=== PATIENT | male | born 1940 | race Caucasian/White ===

== ENCOUNTER → 2016-07-02 | Outpatient (CLI) | payer OTHER ==
[~2016-07-02] MED LIST: APIX1TAB3 PO; DOXY100C76 PO; FINA5TAB4 PO; METO25TA56 PO; PRED1SUS3 OPR; RANI1TAB77 PO; TIOTCAP INH; WARF5TAB7 PO
[2016-07-02 13:31] LABS: HEMATOCRIT 44.8 % (42-52); MEAN CELL VOLUME 89.8 fL (80-100); MEAN CORPUSCULAR HEMOGLOBIN 29.9 pg (25-34); MEAN CORPUSCULAR HGB CONC 33.3 g/dl (32-36); MEAN PLATELET VOLUME 9.6 fL (7.4-10.4); PLATELET COUNT 241 K/uL (130-400); RED BLOOD COUNT 4.99 M/uL (4.7-6.1); WHITE BLOOD COUNT 9.26 K/uL (4.8-10.8)
[2016-07-02 13:51] LABS: BLOOD UREA NITROGEN 20 mg/dl (7-18); BUN/CREATININE RATIO 16.7 (10-20); CALCIUM 9.2 mg/dl (8.5-10.1); CARBON DIOXIDE 28 mmol/L (21-32); CHLORIDE 105 mmol/L (98-107); GLUCOSE 78 mg/dl (70-99); POTASSIUM 4.5 mmol/L (3.5-5.1); SODIUM 140 mmol/L (136-145)
== END | disposition home or self-care (01) ==
LOC: C.LAB 11:59
PROVIDERS: ATTEND Internal Medicine Interventional Cardiology
DX: Z01.818 Encounter for other preprocedural examination (principal)

== ENCOUNTER → 2016-07-03 | Day surgery (SDC) | payer OTHER ==
[~2016-07-03] VITALS: Ht 182.9 cm; Wt 113.5 kg
[~2016-07-03] MED LIST changes: +FENTANYL CITRATE INJ 50 MCG/1 ML 2 ML VIAL IV ONE; +FENTANYL CITRATE INJ 50 MCG/1 ML 2 ML VIAL ONE; +LIDOCAINE HCL 1% 20 ML VIAL INFIL ONE; +LIDOCAINE HCL 1% 20 ML VIAL ONE; +LIDOCAINE/EPINEPHRINE 1% INJ 50 ML VIAL ONE; +MIDAZOLAM HCL 1 MG/ML 2ML VIAL IV ONE; +MIDAZOLAM HCL 1 MG/ML 2ML VIAL ONE; +ORM MISCELLANEOUS MED XX ONE; +SODIUM CHLORIDE 0.9% 1000ML 1,000 ML IV SCH
[2016-07-03 09:04] VITALS: BP 149/88; PULSE 72; TEMP 36.6; O2SAT 100; Ht 182.9 cm; Wt 113.5 kg
[2016-07-03 09:38] VITALS: BP 149/88; PULSE 72; TEMP 36.6; O2SAT 100
--- NOTE | 2016-07-03 09:48 | Procedure Note ---
Pre-Mod Sedation Assessment General Date of Moderate Sedation: July 03, 2016. Review Cardiovascular: regular rate, rhythm, no edema Abdomen: normal bowel sounds, non tender Lungs: chest non-tender, lungs clear Airway Class: III Pre-Sedation Airway Assessment Oral Cavity: Dental Abnormalities Able to Visualize Vocal Cords: No Short Thick Neck: Yes Hx of Sleep Apnea: Yes Smoking Status: Light Tobacco Smoker Mallampati Classification: Class III ASA Classification: Class II Procedure Planning Contraindications-for Mod Sed: None Yes Notes The planned sedation has been discussed with the patient and consent obtained. I have identified the patient, determined the appropriateness of sedation and have assessed the patient immediately prior to the procedure. All medicine(s) and interventions are by my order.
--- NOTE | 2016-07-03 09:50 | History and Physical ---
History & Physical Date July 03, 2016. Chief Complaint Venous insufficiency/ulceration History of Present Illness Mr. Smith is a 76-year-old male with a history of atrial fibrillation, hyperlipidemia, hypertension, asthma and ongoing tobacco with bilateral lower extremity ulcerations that have been present since March. He has been undergoing wound care at the wound clinic with continued improvement, wounds now almost completely healed. As part of initial evaluation , underwent a venous reflux study which showed his right GSV to be dilated with reflux. His right SSV was also dilated with reflux and had thick wall potentially consistent with partial thrombus. Left GSV was dilated and did not have significant reflux and there was partial chronic thrombus in the mid calf. Left SSV showed no significant reflux. Of note, there was some evidence of perforators at the level of the ankle and deep vein waveform suggested potential right heart failure. The patient has no history of prior DVT or PE and has no family history of blood clots. Has never undergone treatment for venous insufficiency, does wear compression stockings. Has had prior venous ulcerations in the past which have healed. PAST MEDICAL HISTORY: 1. Atrial fibrillation. 2. Hyperlipidemia. 3. Hypertension. 4. Asthma. 5. Ongoing tobacco use. Past Medical/Surgical History Medical Problems: (1) Diabetes mellitus (2) skin problems Additional History Hepatic Disease: No Endocrine Disorder: No Kidney Disease: No Hypertension: Yes Heart Disease: No Bleeding Tendencies: No Infectious Diseases: No Allergies Coded Allergies: Cephalexin (Verified Allergy, Intermediate, Leukocytoclastic vasculitis, ) Neomycin (Verified Adverse Reaction, Mild, RASH, 07/03/16) Home Medications Scheduled Finasteride (Proscar), 5 MG PO QAM Metoprolol Tartrate (Lopressor) (Lopressor), 25 MG PO BID Prednisolone Acetate 1% Oph (Pred Forte 1% Oph), 1 DROP OPR TID Ranitidine HCl (Ranitidine [address]), 150 MG PO BID Tiotropium Hancock (Spiriva Handihaler), 1 CAP INH QAM Physical Examination Skin: warm/dry Eyes: sclerae normal ENT: normal ENT inspection Neck: supple Respiratory/Chest: lungs clear Cardiovascular: regular rate, rhythm Abdomen / GI: normal bowel sounds Extremities: + pertinent finding (chronic venous stasis changes, varicose veins , healed ulcerations. intact distal pulses. ) Neurologic/Psych: no motor/sensory deficits Diagnosis Venous insufficiency ASA Classification: ASA Class II Plan of Treatment Proceed with R GSV RF ablation.
--- NOTE | 2016-07-03 10:54 | Procedure Note ---
Post-Mod Sedation Assessment General Date of Moderate Sedation July 03, 2016. Review - Discharge Criteria Vital Signs Stable: Yes Alert/Oriented/Conversant: Yes Returned to Baseline Mental St: Yes Nausea Absent/Minimal: Yes Pain/Discomfort/Absent/Minimal: Yes Normal/Baseline Respirations: Yes Active Bleeding?: N/A Pt Received D/C Instructions: Yes Prescriptions Given: None Specific Proced. D/C Criteria Distal Pulses Present (Cardiac: N/A Groin site assessed-Card Cath: N/A Voided Prior To Discharge: Yes Discharged Patients Adult Escort/Transportation: Yes
--- NOTE | 2016-07-03 10:55 | [facility] Operative Report ---
Operative Report Operative Date July 03, 2016. Pre-Operative Diagnosis Venous insufficiency Post-Operative Diagnosis Venous insufficiency Procedure(s) Performed Right GSV RF ablation Surgeon Dr. Hutchinson Estimated Blood Loss < 10 Findings GSV dilated. No evidence of DVT or superficial venous thrombus Drains None Anesthesia Moderate Complication(s) None Disposition Recovery Room / PACU Description of Procedure US guided access Right GSV below the knee. Catheter inserted, 2.5 cm from SFJ. Tumescent injected. US confirmed not in deep system. 4:00, 12 cycles of RFA right GSV. No complications. Patient tolerated well. US confirmed no DVT post procedure. I attest to the content of the Intraoperative Record and any orders documented therein. Any exceptions are noted below.
--- NOTE | 2016-07-03 10:58 | Discharge Instructions ---
Discharge Instructions Procedure Procedure Date: July 03, 2016. Reason for Visit: Venous Insufficiency. Discharge Discharge Date: July 03, 2016. Discharge Diagnosis: Venous insufficiency Last Recorded Wt (Kilograms): 113.5 Anesthesia Post Anesthesia Instructions: If you have had General Anesthesia or IV Sedation: * Do not drive today. * Resume driving when surgeon permits. * Do not make important decisions or sign legal documents today. * Call surgeon for: 1. Temperature elevations greater than 101 degrees F. 2. Uncontrollable pain. 3. Excessive bleeding. 4. Persistent nausea and vomiting. 5. Medication intolerance (nausea, vomiting or rash). * For nausea and vomiting use only clear liquids such as: tea, soda, bouillon until nausea subsides, then gradually increase diet as tolerated. * If you have any concerns or questions, call your surgeon's office. If physician is unavailable and it is an emergency, call 911 or go to the nearest emergency room. Instructions Activity Recommendations: resume regular activity Return to School/Work: with no limitations Recommended Home Diet: resume previous diet Allergies: Coded Allergies: Cephalexin (Verified Allergy, Intermediate, Leukocytoclastic vasculitis, ) Neomycin (Verified Adverse Reaction, Mild, RASH, 07/03/16) Follow Up Additional Instructions: RADHA wrap until night before bed, Friday morning, wear your compression stockings and continue to wear indefinitely. Follow up Ultrasound as scheduled. Any severe pain, present to the emergency room concerned about DVT. Follow-up with: Follow-up ultrasound on Friday. Hossein Mora Recommendations: Call your doctor if: * Temperature above 101 degrees * Pain not relieved by pain medicine ordered * There is increased drainage or redness from any incision * You have any unanswered questions or concerns. Your Doctors Instructions noted above were prepared by provider Pranav Hutchinson. Patient Signature Section: Patient Instructions Signature Page Arnold Smith Patient (or Guardian) Signature/Date: I have read and understand the instructions given to me by my caregivers. Caregiver/RN/Doctor Signature/Date: The above-named patient and/or guardian has received patient instructions on this date. + Original Patient Signature Page (only) stays with chart. Please make copy for patient.
[2016-07-03 11:05] VITALS: BP 154/83; PULSE 79; TEMP 36.8; O2SAT 98
[2016-07-03 11:25] VITALS: BP 145/78; PULSE 79; TEMP 36.5; O2SAT 98
== END | disposition home or self-care (01) ==
LOC: C.ACU 07:56
PROVIDERS: ATTEND Internal Medicine Interventional Cardiology
DX: I87.2 Venous insufficiency (chronic) (peripheral) (principal); I48.91 Unspecified atrial fibrillation; I10 Essential (primary) hypertension; E78.5 Hyperlipidemia, unspecified; E11.9 Type 2 diabetes mellitus without complications; J45.909 Unspecified asthma, uncomplicated; Z79.899 Other long term (current) drug therapy

== ENCOUNTER 2016-12-25 05:57 | Day surgery (SDC) | payer OTHER ==
[2016-12-24 14:39] LABS: HEMATOCRIT 40.8 % (42-52); MEAN CELL VOLUME 88.1 fL (80-100); MEAN CORPUSCULAR HEMOGLOBIN 28.7 pg (25-34); MEAN CORPUSCULAR HGB CONC 32.6 g/dl (32-36); MEAN PLATELET VOLUME 9.5 fL (7.4-10.4); PLATELET COUNT 223 K/uL (130-400); RED BLOOD COUNT 4.63 M/uL (4.7-6.1); WHITE BLOOD COUNT 8.01 K/uL (4.8-10.8)
[2016-12-24 14:49] LABS: INR 1.1 (0.9-1.1); PARTIAL THROMBOPLASTIN RATIO 1.2; PROTHROMBIN TIME (PATIENT) 11.8 SECONDS (9.0-12.0)
[2016-12-24 15:07] LABS: BLOOD UREA NITROGEN 25 mg/dl (7-18); BUN/CREATININE RATIO 18.4 (10-20); CALCIUM 9.3 mg/dl (8.5-10.1); CARBON DIOXIDE 28 mmol/L (21-32); CHLORIDE 104 mmol/L (98-107); CREATININE 1.33 mg/dl (0.60-1.40); GLUCOSE 92 mg/dl (70-99); POTASSIUM 4.6 mmol/L (3.5-5.1); SODIUM 139 mmol/L (136-145)
[~2016-12-25] VITALS: Ht 182.9 cm; Wt 113.5 kg
[~2016-12-25 05:57] MED LIST changes: -FENTANYL CITRATE INJ 50 MCG/1 ML 2 ML VIAL IV ONE; -FENTANYL CITRATE INJ 50 MCG/1 ML 2 ML VIAL ONE; -LIDOCAINE HCL 1% 20 ML VIAL INFIL ONE; -LIDOCAINE HCL 1% 20 ML VIAL ONE; -LIDOCAINE/EPINEPHRINE 1% INJ 50 ML VIAL ONE; -MIDAZOLAM HCL 1 MG/ML 2ML VIAL IV ONE; -MIDAZOLAM HCL 1 MG/ML 2ML VIAL ONE; -ORM MISCELLANEOUS MED XX ONE; -SODIUM CHLORIDE 0.9% 1000ML 1,000 ML IV SCH; -WARF5TAB7 PO
[2016-12-25] MEDS ORDERED: SODIUM CHLORIDE 0.9% 1000ML IV SCH (06:00)
[2016-12-25 06:43] VITALS: BP 154/88; PULSE 76; TEMP 36.6; O2SAT 98; Ht 182.9 cm; Wt 113.5 kg
[2016-12-25] MEDS ORDERED: LIDOCAINE/EPINEPHRINE 1% INJ 50 ML VIAL ONE (07:37)
[2016-12-25] MEDS ORDERED: FENTANYL CITRATE INJ 50 MCG/1 ML 2 ML VIAL ONE (07:37)
[2016-12-25] MEDS ORDERED: MIDAZOLAM HCL 1 MG/ML 2ML VIAL ONE (07:37)
[2016-12-25] MEDS ORDERED: SODIUM BICARB 8.4% INJ 50 MEQ/50 ML SYR IV ONE (07:37)
[2016-12-25] MEDS ORDERED: LIDOCAINE HCL 1% 20 ML VIAL ONE (07:38)
[2016-12-25 07:50] VITALS: BP 154/88; PULSE 76; TEMP 36.6; O2SAT 98
--- NOTE | 2016-12-25 08:16 | History & Physical Bridge Note ---
H&P Re-Evaluation Bridge Note: I have examined the patient, reviewed the History & Physical and in the interval since the performance of the History & Physical I have noted the following changes of clinical significance: No changes noted
--- NOTE | 2016-12-25 08:18 | Procedure Note ---
Pre-Mod Sedation Assessment General Date of Moderate Sedation: Dec 25, 2016. Vital Signs: Vital Signs Past 12 Hours Date Time Temp Pulse Resp B/P (MAP) Pulse Ox O2 Delivery O2 Flow Rate FiO2 12/25/16 07:50 36.6 76 16 154/88 98 Room Air 12/25/16 06:43 36.6 76 16 154/88 (110) 98 Room Air Review Cardiovascular: regular rate, rhythm, no edema Abdomen: normal bowel sounds, non tender Lungs: chest non-tender, lungs clear Airway Class: III Pre-Sedation Airway Assessment Oral Cavity: Dentures Able to Visualize Vocal Cords: No Short Thick Neck: No Hx of Sleep Apnea: No Smoking Status: Never Smoker Mallampati Classification: Class III ASA Classification: Class III Procedure Planning Contraindications-for Mod Sed: None Yes Notes The planned sedation has been discussed with the patient and consent obtained. I have identified the patient, determined the appropriateness of sedation and have assessed the patient immediately prior to the procedure. All medicine(s) and interventions are by my order.
[2016-12-25] MEDS ORDERED: LIDOCAINE HCL 1% 20 ML VIAL INJ ONE (09:08)
--- NOTE | 2016-12-25 09:28 | Procedure Note ---
Post-Mod Sedation Assessment General Date of Moderate Sedation Dec 25, 2016. Vital Signs: Vital Signs Past 12 Hours Date Time Temp Pulse Resp B/P (MAP) Pulse Ox O2 Delivery O2 Flow Rate FiO2 12/25/16 07:50 36.6 76 16 154/88 98 Room Air 12/25/16 06:43 36.6 76 16 154/88 (110) 98 Room Air Review - Discharge Criteria Vital Signs Stable: Yes Alert/Oriented/Conversant: Yes Returned to Baseline Mental St: Yes Nausea Absent/Minimal: Yes Pain/Discomfort/Absent/Minimal: Yes Normal/Baseline Respirations: Yes Active Bleeding?: No Pt Received D/C Instructions: N/A Prescriptions Given: None Specific Proced. D/C Criteria Distal Pulses Present (Cardiac: N/A Groin site assessed-Card Cath: N/A Voided Prior To Discharge: N/A Discharged Patients Adult Escort/Transportation: Yes
[2016-12-25] MEDS ORDERED: ORM MISCELLANEOUS MED XX ONE (09:30)
--- NOTE | 2016-12-25 09:31 | [facility] Operative Report ---
Operative Report Operative Date Dec 25, 2016. Pre-Operative Diagnosis Chronic venous insufficiency Post-Operative Diagnosis Chronic venous insufficiency Procedure(s) Performed Left SSV RFA Surgeon Jasper Logging Assistant Surgeon(s) Maddison Estimated Blood Loss 3 Findings Dilated left SSV with varices Drains None Anesthesia Local Complication(s) None Disposition Recovery Room / PACU Indications Venous ulcerations Description of Procedure US guided access Left SSV above the ankle. Catheter inserted to just below the knee. Tumescent injected. US confirmed not in deep system. 2:40, 8 cycles of RFA left SSV. No complications. Patient tolerated well. US confirmed no DVT post procedure. I attest to the content of the Intraoperative Record and any orders documented therein. Any exceptions are noted below.
--- NOTE | 2016-12-25 09:32 | Discharge Instructions ---
Discharge Instructions Procedure Procedure Date: Dec 25, 2016. Reason for Visit: Chronic Venous Insufficiency. Discharge Discharge Date: Dec 25, 2016. Discharge Diagnosis: Chronic venous insufficiency Last Recorded Wt (Kilograms): 113.5 Anesthesia Post Anesthesia Instructions: If you have had General Anesthesia or IV Sedation: * Do not drive today. * Resume driving when surgeon permits. * Do not make important decisions or sign legal documents today. * Call surgeon for: 1. Temperature elevations greater than 101 degrees F. 2. Uncontrollable pain. 3. Excessive bleeding. 4. Persistent nausea and vomiting. 5. Medication intolerance (nausea, vomiting or rash). * For nausea and vomiting use only clear liquids such as: tea, soda, bouillon until nausea subsides, then gradually increase diet as tolerated. * If you have any concerns or questions, call your surgeon's office. If physician is unavailable and it is an emergency, call 911 or go to the nearest emergency room. Instructions Activity Recommendations: resume regular activity Recommended Home Diet: resume previous diet Allergies: Coded Allergies: Cephalexin (Verified Allergy, Intermediate, Leukocytoclastic vasculitis, 12/25/16) Neomycin (Verified Adverse Reaction, Mild, RASH, 12/25/16) Follow Up Additional Instructions: Follow instructions as outlined in paperwork from Dr. Hutchinson' office. Up walking today. Follow up Ultrasound as scheduled. RADHA wrap until scheduled ultrasound Post ultrasound wear compression stockings indefinitely. Any severe pain, present to the emergency room for evaluation for DVT. Follow-up with: As scheduled Hossein Mora Recommendations: Call your doctor if: * Temperature above 101 degrees * Pain not relieved by pain medicine ordered * There is increased drainage or redness from any incision * You have any unanswered questions or concerns. Your Doctors Instructions noted above were prepared by provider Pranav Hutchinson. Patient Signature Section: Patient Instructions Signature Page Arnold Sarah Patient (or Guardian) Signature/Date: I have read and understand the instructions given to me by my caregivers. Caregiver/RN/Doctor Signature/Date: The above-named patient and/or guardian has received patient instructions on this date. + Original Patient Signature Page (only) stays with chart. Please make copy for patient.
[2016-12-25 09:45] VITALS: BP 145/86; PULSE 85; TEMP 36.8; O2SAT 98
[2016-12-25 10:15] VITALS: BP 140/86; PULSE 83; O2SAT 94
--- NOTE | 2016-12-25 14:54 | HISTORY & PHYSICAL EXAMINATION ---
DATE: 12/25/16 HISTORY OF PRESENT ILLNESS: Mr. Smith is a 76-year-old male with a history of atrial fibrillation, hypertension, hyperlipidemia, ongoing tobacco use and longstanding bilateral lower extremity ulcerations in the setting of chronic venous insufficiency, who was seen again today in the setting of persistent left lower extremity ulceration. The patient has previously undergone right GSV ablation which was completed in June 2016. This procedure was complicated by DVT in his popliteal vein for which he has been on chronic anticoagulation. With this procedure though, he had significant improvement in his lower extremity swelling and discomfort. He continues to follow up with the wound clinic due to recurrent wounds over the medial aspect of his left lower leg. Repeat venous reflux study 2 weeks ago showed appropriate closure of right GSV, chronic thrombus in right SSV and right and left popliteal veins. Left SSV was dilated and showed reflux in the mid segment. There was also a pathological rn prior authorization at the level of the mid calf on the left. PAST MEDICAL HISTORY: 1. Atrial fibrillation. 2. Hyperlipidemia. 3. Hypertension. 4. Asthma. 5. Ongoing tobacco abuse. HOME MEDICATIONS: Include Eliquis 5 mg b.i.d., finasteride 5 mg q.a.m., metoprolol 25 mg t.i.d., Ranitidine 150 mg b.i.d., Spiriva inhaler. REVIEW OF SYSTEMS: Ten-point review of systems was completed; otherwise, negative unless noted in the HPI. SOCIAL HISTORY: . Ongoing smoking. Denies significant alcohol. PHYSICAL EXAMINATION: VITAL SIGNS: Temperature 37.1, pulse 94, blood pressure 129/76. GENERAL: The patient appears comfortable, no acute distress. HEENT: Sclerae are anicteric. Oropharynx clear. Mucous membranes are moist. NECK: Supple, no lymphadenopathy. LUNGS: Clear to auscultation bilaterally. HEART: Irregularly irregular with no appreciable murmurs. ABDOMEN: Soft. EXTREMITIES: He has trophic changes and hyperpigmentation involving his left lower extremity with significant varicosities and reticular veins. NEUROLOGIC: He has a healed superficial ulceration over the medial aspect of his left ham. IMPRESSION AND PLAN: 1. Recurrent venous stasis ulcerations. 2. Chronic venous insufficiency. 3. Partial chronic thrombosis, on anticoagulation. 4. Atrial fibrillation. The patient has recurrent left lower extremity ulcerations in the setting of superficial venous insufficiency, CEAP class 5 disease. On review of patient's ultrasound results, I feel that left SSV is potentially amenable to RFA ablation. Also has a pathological rn prior authorization from the posterior tibial vein to his greater saphenous vein. This could also be amenable to therapy as well. Discussed risks, benefits and alternatives of the procedure and is willing to proceed. We will plan to schedule left SSV at some point in the next several weeks. In the interim, continue on current anticoagulation which we will continue in the ministerio-procedure setting. Further followup pending results of procedure. Thank you for consultation.
== END 2016-12-25 10:35 | disposition home or self-care (01) ==
LOC: C.ACU 05:57
PROVIDERS: ATTEND Internal Medicine Interventional Cardiology
DX: I87.2 Venous insufficiency (chronic) (peripheral) (principal); L97.909 Non-pressure chronic ulcer of unspecified part of unspecified lower leg with unspecified severity; I48.91 Unspecified atrial fibrillation; I10 Essential (primary) hypertension; E78.5 Hyperlipidemia, unspecified; J45.909 Unspecified asthma, uncomplicated; F17.200 Nicotine dependence, unspecified, uncomplicated; Z01.818 Encounter for other preprocedural examination

== ENCOUNTER 2019-02-19 20:27 | Inpatient (IN) ==
[2019-02-19] MEDS ORDERED: PIPERACILLIN/TAZOBACTAM 4.5 GM/120 ML BAG IV ONE (21:01)
[2019-02-19] MEDS ORDERED: PIPERACILL/TAZOBAC CONSULT ACTIVE PRN (21:01)
[2019-02-19] MEDS ORDERED: VANCOMYCIN CONSULT ACTIVE PRN (21:03)
[2019-02-19] MEDS ORDERED: VANCOMYCIN HCL 2,500 MG in SODIUM CHLORIDE 0.9% 500 ML IV ONE (21:03)
[2019-02-19] MEDS ORDERED: ONDANSETRON INJ 2 MG/ML 2 ML VIAL IV PRN (22:53)
[2019-02-19] MEDS ORDERED: GLUCAGON FOR INJ 1 MG VIAL SQ PRN (22:53)
[2019-02-19] MEDS ORDERED: DEXTROSE 50% 50 ML SYRINGE IV PRN (22:53)
[2019-02-19] MEDS ORDERED: ACETAMINOPHEN 325 MG TAB PO PRN (22:53)
[2019-02-19] MEDS ORDERED: CARBOHYDRATES FOR HYPOGLYCEMIA PO PRN (22:53)
[2019-02-19] MEDS ORDERED: EUCERIN CR 120 GM JAR EXT PRN (22:53)
[2019-02-19] MEDS ORDERED: GLUCOSE 40% GEL 15 GM TUBE PO PRN (22:53)
[2019-02-19] MEDS ORDERED: GLUCOSE 10 TABS/TUBE PO PRN (22:53)
[2019-02-19] MEDS ORDERED: DAPTOMYCIN CONSULT ACTIVE PRN (23:03)
--- NOTE | 2019-02-19 23:09 | Emergency Department Note ---
Entered by Yesi Killian acting as a scribe for Ricky Barahona MD History of Present Illness General Chief complaint: Swelling/Edema to Extremity Stated complaint: SWELLING LEGS, WAS HERE EARLIER Time Seen by Provider: 02/19/19 20:32 Source: patient History of Present Illness Provider complaint: leg pain Onset (ago): hour(s) 5 Location: lower extremity and left Severity: similar to prior episodes Pain Consistency: + other (worsening) Maximum Pain Intensity: 6 Relieved By: + none Associated symptoms: + other (-congestion); no cough and no fever/chills The patient is a 78 year old male who presents to the Emergency Room with complaints of left leg pain for the past 5 hours. The patient reports that he was here earlier for similar symptoms and refused admission. He reports that his right leg worsened in pain. He reports that the swelling and redness has increased since he left the ED at 1500. He notes that he was been going to the Wound Care clinic 2 times a week for the past 2 years. He reports that when he went today his toe was bleeding and they referred him to the ED. He mentions that he has been taking antibiotics regularly. He denies any fever, chills, cough, or congestion. Home Medications Home Medications Medication Instructions Recorded Confirmed Type apixaban 5 mg tablet 5 mg PO BID 10/10/17 02/19/19 History metoprolol tartrate 25 mg tablet 25 mg PO BID 10/10/17 02/19/19 History finasteride 5 mg tablet 5 mg PO QAM 07/28/18 02/19/19 History bupropion HCl 150 mg 24 hr tablet, 150 mg PO BID 02/05/19 02/19/19 History extended release furosemide 40 mg tablet 60 mg PO BID #30 tab 02/05/19 02/19/19 Rx atorvastatin 10 mg PO QAM 02/19/19 02/19/19 History naproxen sodium [Aleve] 220 mg PO Q12H PRN 02/19/19 02/19/19 History sulfamethoxazole-trimethoprim 1 tab PO Q12H 14 Days #28 tab 02/19/19 02/19/19 Rx [Bactrim DS] Allergies Allergy/AdvReac Type Severity Reaction Status Date / Time cephalexin Allergy Intermediate Leukocytoclastic Verified 02/19/19 12:26 vasculitis neomycin AdvReac Mild RASH Verified 02/19/19 12:26 Past Med/Surg History Medical History A-fib (Chronic) Asthma (Chronic) Atrial fibrillation BPH (benign prostatic hyperplasia) Callus (Acute) Chronic venous insufficiency (Chronic) CKD (chronic kidney disease), stage III Diastolic heart failure DM II (diabetes mellitus, type II), controlled (Chronic) Dyslipidemia Edema (Chronic) GERD (gastroesophageal reflux disease) (Chronic) Hallux rigidus of left foot (Acute) Hallux rigidus, right foot (Acute) Hypertension (Chronic) Morbid obesity due to excess calories Osteoarthritis (Chronic) Positive Lyme disease serology (Chronic) Secondary pulmonary hypertension Skin problem (Chronic) Subdural bleeding (Chronic) Surgical History History of craniotomy 08/01/2014 - evacuation of subdural hematoma - Dr Abundio Mahmood at [facility] Family History Other Diabetes Social History Preferred Language: Surinamese Communication Ability: Effective 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 and A total of 10 systems reviewed and were otherwise negative Physical Exam Vital Signs Vital Signs - 24 hr 02/19/19 20:28 Temperature 37 C Temperature Source Oral Pulse Rate 100 H Respiratory Rate 18 Respiratory Effort / Characteristics Non-Labored Respiratory Depth Normal Respiratory Pattern Regular Blood Pressure 126/58 L Blood Pressure Mean 80 Pulse Oximetry 95 Oxygen Delivery Method Room Air Sepsis Recent Fever Within 48 Hours No Sepsis Action Taken by Nursing No Action Required GENERAL: Awake, alert, unkept, uncomfortable-appearing, in no distress HENT: Normocephalic, atraumatic. Oropharynx unremarkable. EYES: Normal conjunctiva. Sclera non-icteric. NECK: Supple. No nuchal rigidity. FROM. No JVD. RESPIRATORY: CTAB CARDIAC: Regular rate, normal rhythm. Extremities warm and well perfused. Pulses equal. ABDOMEN: Soft, non-distended. No tenderness to palpation. No rebound or guarding. No masses. RECTAL: Deferred. MUSCULOSKELETAL: Chest examination reveals no tenderness. The back is symmetrical on inspection without obvious abnormality. There is no CVA tenderness to palpation. No joint edema. LOWER EXTREMITIES: 2+ lower bilateral pitting edema, erythema, warmth, tenderness of lower legs extending to foot with foul smelling discharge and desquamation with left lower leg significantly worse than right. NEURO: Normal sensorium. No sensory or motor deficits noted. SKIN: No rash or jaundice noted. Course Course 2037: The patient was evaluated in room B2, and a complete history and physical examination were performed. 2124: I reviewed the [facility] He will evaluate the patient for further management. Administered Medications Acetaminophen (Tylenol) 650 mg PO Q4H PRN PRN Reason: Pain or Fever Stop: 03/21/19 22:52 Last Admin: 02/20/19 02:15 Dose: 650 mg Documented by: [id number] Diphenhydramine HCl (Benadryl Capsule) 25 mg PO Q6H PRN PRN Reason: Itching Stop: 03/21/19 22:52 Last Admin: 02/19/19 23:51 Dose: 25 mg Documented by: [id number] Piperacillin Sod/Tazobactam (Sod 4.5 gm/ Dextrose) 120 mls @ 30 mls/hr IV Q8H [facility]; Protocol Stop: 03/02/19 01:59 Last Admin: 02/20/19 00:57 Dose: 30 mls/hr Documented by: [id number] Discontinued Medications Piperacillin Sod/Tazobactam Sod (Zosyn) 4.5 gm in 120 mls @ 240 mls/hr IV NOW ONE Stop: 02/19/19 21:30 Last Infusion: 02/19/19 23:39 Dose: 0 mls/hr Documented by: [id number] Admin: 02/19/19 21:50 Dose: 240 mls/hr Documented by: [id number] Vancomycin HCl 2,500 mg/ (Sodium Chloride) 550 mls @ 200 mls/hr IV NOW ONE Stop: 02/19/19 23:32 Last Infusion: 02/20/19 00:54 Dose: 0 mls/hr Documented by: [id number] Admin: 02/19/19 21:50 Dose: 200 mls/hr Documented by: [id number] Miscellaneous (Patient's Height And/Or Weight Needed) 1 ea N/A Q30M RAIMUNDO Stop: 03/21/19 22:59 Last Admin: 02/19/19 23:39 Dose: Not Given Documented by: [id number] Admin: 02/19/19 23:30 Dose: 1 ea Documented by: [id number] Medical Decision Making Differential Diagnosis Differential diagnosis: Etiologies such as cellulitis, abscess, MRSA infection, DVT, necrotizing fasciitis, dermatitis, drug eruption, as well as others were entertained. Medical Records Attestation: I reviewed the patient's medical records. Home Medications Current Medication List: was personally reviewed by me Laboratory Data Attestation: I reviewed the patient's lab results. ECG Data Attestation: I personally reviewed and interpreted this ECG as follows: Indication: + weakness Rate (beats per minute): 100 Rhythm: + sinus rhythm ECG Intervals/blocks: + Normal QT-c (438) ECG [place]: + Normal ECG ST segments: no ST depression and no ST elevation ECG Findings: + PACs Blood Pressure Blood Pressure Findings: Low blood pressure Blood Pressure Disposition: further management by hospitalist LOBO Velazco The patient is a pleasant 78-year-old gentleman with a past medical history recurrent cellulitis, afib on Eliquis, DM2, pulm htn, ckd, hld, venous stasis who presents emergency department for the second time today after initially being referred by the wound clinic for evaluation and admission however upon his ED evaluation earlier today he preferred discharge but now returns for admission per HPI. Earlier today was given dose of daptomycin and prescription for Bactrim. However, the patient reports upon arriving home his left lower extremity continue to ache and with weeping and therefore he ultimately decided he will be agreeable for admission and returned. On arrival the patient is uncomfortable but in NAD, AFVSS. On exam, there is 2+ lower bilateral pitting edema, erythema, warmth, tenderness of lower legs extending to foot with foul smelling discharge and desquamation with left lower leg significantly worse than right. Patient has dopplerable DP pulses bilaterally. Lab work from earlier today with WBC wnl and Chemistry without acidosis. Blood cultures were also dr west. The patient was ordered for broad-spectrum antibiotics with Zosyn and vancomycin. Case was discussed with Dr. fowler who, [facility] hospitalist, who evaluate the patient for admission. Impression & Plan Cellulitis, Anticoagulated on Coumadin, History of atrial fibrillation, Chronic venous insufficiency Discharge Plan Visit Data *Final* Discharge Date/Time: 02/19/19 22:33 Chief Complaint: Swelling/Edema to Extremity Stated Complaint: SWELLING LEGS, WAS HERE EARLIER ED Provider: Ricky Barahona Discharge Problem: Cellulitis, Anticoagulated on Coumadin, History of atrial fibrillation, Chronic venous insufficiency Patient Disposition: Admitted As Inpatient Discharge Instructions Interventions: ED Discharge Assessment Last Done: 02/19/19 22:33 Discharge Problem: Cellulitis Qualifiers: Site of cellulitis: extremity Site of cellulitis of extremity: lower extremity Laterality: unspecified laterality Qualified Code(s): L03.119 - Cellulitis of unspecified part of limb The scribe's documentation has been prepared under my direction and personally reviewed by me in its entirety. I confirm that the note above accurately reflects all work, treatment, procedures, and medical decision making performed by me.
[2019-02-19] MEDS: PATIENT'S HEIGHT AND/OR WEIGHT NEEDED SCH ×2 (23:30→23:39)
[2019-02-20] MEDS: PIPERACILLIN/TAZOBACTAM 4.5 GM in DEXTROSE 5% 100 ML IV SCH ×3 (00:57→17:47)
--- NOTE | 2019-02-20 02:38 | History and Physical Report ---
DATE OF ADMISSION: 02/19/2019 CHIEF COMPLAINT: Lower extremity cellulitis. 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 The patient is having chronic skin changes and erythema of the lower extremity for some time and is following with wound care. He was on doxycycline. He goes to wound care twice weekly and it was at wound care they noticed some drainage from his left foot near the first two toes and was advised to come to the ER. He was here in the ER today earlier in the day and he was given daptomycin and his labs at that time showed no leukocytosis and lactic acid was 1.6. He preferred to go home and he was discharged on Bactrim, but on going home there was more weeping from his left lower extremity and it was felt that he was getting worse and he was having more pain than usual. He walks with the help of a stick. He complains of pain in both lower feet, and therefore decided to come here and his son brought him to the hospital. Currently resting comfortably and hemodynamically stable, somewhat hard to hear. Denies any headache, no dizziness, no blurred vision. No cough, no fever, no chills. Appetite is okay. No difficulty swallowing. No odynophagia. He does not sleep well. As per son, there is a plan for sleep study, but denies any shortness of breath while sleeping. No nausea, no vomiting. Appetite is okay. No abdominal pain. Normal bowel and bladder movements. No hematuria. Currently resting comfortably. ALLERGIES: KEFLEX AND NEOMYCIN. PAST MEDICAL HISTORY: As mentioned above. PAST SURGICAL HISTORY: Opened skull for removal of hematoma on the right side. MEDICATIONS: The patient is on apixaban 5 mg p.o. b.i.d., Lipitor 10 mg p.o. daily, bupropion HCL 150 mg p.o. b.i.d., Proscar 5 mg p.o. a.m., Lasix 60 mg p.o. b.i.d., metoprolol 25 mg p.o. b.i.d., naproxen 220 mg p.r.n., Bactrim DS 1 tablet p.o. b.i.d. FAMILY HISTORY: Significant for father had diabetes and had heart disorder, mother had hypertension, sister had renal failure and at the age of 35. SOCIAL HISTORY: Lives alone. Smokes daily. Now has cut back to 2-3 cigarettes a day. No alcohol use, no drug use. REVIEW OF SYSTEMS: As per HPI. Rest of the review of systems negative. PHYSICAL EXAMINATION: GENERAL: The patient is obese, not in acute distress. VITAL SIGNS: Temperature 37, pulse 100, respiratory rate 18, blood pressure 126/58, oxygen 95% on room air. HEENT: No pallor, no icterus. Pupils equal, round, and reactive to light. Oral mucosa moist. NECK: No JVD, no neck masses. Supple. CARDIOVASCULAR: S1, S2 heard, regular rate and rhythm, no murmur, no gallop. RESPIRATORY SYSTEM: Normal AP diameter. No accessory muscle use. No wheezing, no crackles. ABDOMEN: Soft, bowel sounds present, nontender. No distention. CENTRAL NERVOUS SYSTEM: Alert, awake, and oriented. Obeys commands. Moves extremities. EXTREMITIES: Bilateral lower extremity edema present. Lower extremity chronic skin changes seen. Left lower extremity is erythematous from below the knee and there is weeping seen on the dorsal aspect of foot below the toes. LABORATORY DATA: Labs done from the morning, WBC 10.1, hemoglobin 13.8, hematocrit 41.8, platelets 282. Sodium 137, potassium 4.1, chloride 104, bicarbonate 29, BUN 34, creatinine 1.2, serum glucose 101, lactate 1.6, calcium 9.5. ASSESSMENT AND PLAN: This is a 78-year-old male who presents with nonhealing bilateral lower extremity cellulitis. 1. Lower extremity cellulitis, bilateral, more on the left side. There is some weeping on the dorsal aspect of the left foot. He follows with wound care 2 times a week. He was recently started on doxycycline . He was in the ER in the morning because of the drainage and he wanted to go home, so he was discharged on Bactrim. He is hemodynamically stable, no leukocytosis. We will empirically place him on IV daptomycin and Zosyn for now and follow the cultures, which were drawn in the morning. We will also get x-rays to rule out any underlying bone infection. We will also get wound care and ID consult. We will also get a lower extremity arterial Doppler for any PVD. 2. History of atrial fibrillation, on Toprol-XL and Eliquis, which he will continue. 3. History of tobacco abuse and mild chronic obstructive pulmonary disease, continue home inhalers, currently stable. 4. History of benign prostatic hypertrophy. Continue Proscar. 5. History of diastolic congestive heart failure. Will continue home Lasix and monitor for any volume overload. 6. Type 2 diabetes. His last HbA1c was 6.5. We will follow the repeat HbA1c and follow the blood sugar while he is in the hospital. 7. Hyperlipidemia, on statin, which we will hold while he is on daptomycin. 8. Chronic kidney disease stage III. Baseline creatinine around 1.1-1.2, today's creatinine is 1.2. We will follow the labs in the a.m. 9. Deep venous thrombosis prophylaxis, on Eliquis. DISPOSITION: Admit to medical floor. Level 1 full code. PT and OT prior to discharge. Social service to help with discharge planning. HOPE
[2019-02-20] MEDS ORDERED: HYDROmorphone INJ 0.5 MG/0.5 ML SYR IV PRN (02:55)
[2019-02-20] MEDS ORDERED: HYDROmorphone INJ 0.5 MG/0.5 ML SYR ONE (03:04)
[2019-02-20] MEDS ORDERED: SODIUM CHLORIDE 0.65% NA SOLN 45 ML (OCEAN) PRN (04:02)
[2019-02-20] MEDS ORDERED: LORazepam 1 MG TAB PO STA (07:11)
[2019-02-20] MEDS: METOPROLOL TARTRATE 25 MG TAB PO SCH ×2 (07:22→20:35)
[2019-02-20] MEDS: FUROSEMIDE 20 MG TAB PO SCH ×2 (07:22→17:52)
--- NOTE | 2019-02-20 07:22 | XRay Report ---
XR foot LT min 3V routine, XR foot RT min 3V routine, XR tibia fibula LT 2V, XR tibia fibula RT 2V CLINICAL HISTORY: Lower leg and foot swelling. Assess for osteomyelitis. COMPARISON STUDY: Left foot radiograph 05/21/2018. FINDINGS: Dorsal soft tissue swelling within the left forefoot. Moderate osteoarthritis within the le ft first MTP joint. No fracture or dislocation within the lower legs or feet. Bilateral plantar heel spurs are noted. There is also mild dorsal soft tissue swelling within the right forefoot. No erosive changes or cortical destruction to suggest osteomyelitis. Diffuse subcutaneous edema/swelling within the bilateral lower legs. This is most pronounced on the left. IMPRESSION: 1. Left greater than right soft tissue swelling/edema within the lower legs and feet. 2. No underlying bony destruction to suggest osteomyelitis. ACT 112: Negative or not required by law. Electronically signed by: Corwin Armstrong M.D. 02/20/2019 7:21 AM
[2019-02-20] MEDS: BuPROPion XL 150 MG TABCR PO SCH ×2 (07:23→20:36)
[2019-02-20] MEDS: APIXABAN 5 MG TABLET PO SCH ×2 (07:23→20:36)
[2019-02-20] MEDS: FINASTERIDE 5 MG TAB PO SCH (07:23)
[2019-02-20 08:04] LABS: Hematocrit (blood only) 40.2 % (42-52); Hemoglobin 13.4 g/dL (14.0-18.0); Mean Corpuscular Hemoglobin 29.5 pg (25-34); Mean Corpuscular Hgb Conc 33.3 g/dL (32-36); Mean Corpuscular Volume 88.5 fL (80-100); Mean Platelet Volume 9.3 fL (7.4-10.4); Platelet Count 243 K/uL (130-400); RDW Coefficient of Variation 14.7 % (11.5-14.5); RDW Standard Deviation 47.7 fL (36.4-46.3); Red Blood Count 4.54 M/uL (4.7-6.1); White Blood Count 9.22 K/uL (4.8-10.8)
[2019-02-20] MEDS: INSULIN ASPART 100 UNITS/ML 3 ML PEN SC SCH ×4 (08:33→22:01)
[2019-02-20 08:36] LABS: BUN Creatinine Ratio 20.9 (10-20); Calcium 9.6 mg/dl (8.5-10.1); Creatinine Clr Calc Pharmacy 62.9 ml/min; Est GFR (Non-African American) 51.8; Potassium 3.8 mmol/L (3.5-5.1)
--- NOTE | 2019-02-20 11:40 | Ultrasound Report ---
US arterial duplex LE BI CLINICAL HISTORY: infection, venous stasis ulcer COMPARISON STUDY: None. FINDINGS: Mild scattered calcified plaque. Normal velocities and waveforms seen throughout the visual ized bilateral lower extremity arterial systems. No significant stenosis or occlusion identified. Of note, the patient deferred imaging of the left calf vessels. IMPRESSION: No significant stenosis or occlusion identified within the bilateral lower extremities. ACT 112: Negative or not required by law. Electronically signed by: Corwin Armstrong M.D. 02/20/2019 11:39 AM
--- NOTE | 2019-02-20 13:55 | Hospitalist Progress Note ---
Date of Service February 20, 2019 Assessment & Plan (1) Cellulitis: (2) Peripheral vascular disease: -This is a 78 year old male who presents to the Emergency Room with complaints of left leg pain and admitted by nocturnal hospital doctor for bilateral lower extremity cellulitis -empirically started on admission on IV Zosyn and IV daptomycin which will be continued with plans for infectious disease consultation -US arterial duplex of lower extremities bilaterally with: Mild scattered sofía cified plaque. Normal velocities and waveforms seen throughout the visualized bilateral lower extremity arterial systems. No significant stenosis or occlusion identified. Of note, the patient deferred imaging of the left calf vessels. and Radiology IMPRESSION: No significant stenosis or occlusion identified within the bilateral lower extremities -on re-assessment by day time hospitalist, have expressed concerns to patient and his family whether peripheral vascular disease also plays a role for the skin desquamation despite benign results on arterial ultrasound -patient reports history of leg vascular procedures with Dr. Guillermo Hutchinson for both legs and hospitalist asked Dr. Hutchinson for consultation in regards to any further invasive studies or intervention -will also need wound care and leg elevation at rest chronic atrial fibrillation -continue on Toprol-XL -continue Eliquis for now Hyperlipidemia -hold home dose statin while he is on daptomycin. chronic diastolic congestive heart failure -continue Lasix Chronic kidney disease stage III - Baseline creatinine around 1.1-1.2 -monitor renal function Type 2 diabetes mellitus -last HbA1c was 6.5 in 09/2018 -repeat HbA1c History of tobacco abuse and mild chronic obstructive pulmonary disease -continue home inhalers History of benign prostatic hypertrophy -Continue Proscar. Deep venous thrombosis prophylaxis: on Eliquis. Subjective patient breath on room air. no shortness of breath. breathing on room air. no chest pain. no abdominal pain. no nausea. no vomiting patient's family members at bedside during exam patient has bilateral cold pedal skin temperatures. There are bilateral lower extremities skin discolorations. The left sock if soaked from lymphatic drainage because of outer layer of skin desquamation from left ankle to left knee. Review of Systems Review of Systems: All systems reviewed & are unremarkable except as noted in HPI & below Physical Exam Constitutional: comfortable Eyes: PERRL, conjunctivae normal, anicteric sclerae EOM intact bilaterally ENMT: external ear and nose normal, oropharynx normal Neck: trachea midline, no thyromegaly normal visual inspection Respiratory: normal respiratory effort, lungs clear to auscultation Cardiovascular: Rate/Rhythm: regular rate and regular rhythm Gastrointestinal (Abdomen): normal bowel sounds, soft, nontender, no hepatosplenomegaly Musculoskeletal: Head/Neck/Chest: normocephalic and head atraumatic patient has bilateral cold pedal skin temperatures. There are bilateral lower extremitie s skin discolorations. The left sock if soaked from lymphatic drainage because of outer layer of skin desquamation from left ankle to left knee. Neurologic: PERRL, EOMI, accommodation nl, no face palsy, no dysarthria CN's II-XI intact bilaterally Psychiatric: A+Ox3, euthymic affect Results & Data Vital Signs (Past 12 Hours) Vital Signs Temp Pulse Resp BP Pulse Ox 02/20/19 11:43 36.3 C L 79 18 131/75 99 02/20/19 07:28 36.4 C L 77 18 123/80 92 02/20/19 03:59 37.0 C 88 20 109/69 96 (1) Cellulitis Laterality: unspecified laterality Site of cellulitis: extremity Site of cellulitis of extremity: lower extremity Qualified Code(s): L03.119 - Cellulitis of unspecified part of limb
[2019-02-20] MEDS: DAPTOmycin 375 MG in SYRINGE 0 ML IV SCH (13:57)
[2019-02-20] MEDS ORDERED: HALOPERIDOL LACTATE 5 MG/ML 1 ML VIAL IM STA (20:15)
[2019-02-20] MEDS: CALCIUM CARBONATE 500 MG CHEWABLE TAB PO PRN (20:35)
--- NOTE | 2019-02-20 21:37 | Electrocardiogram Report ---
Test Reason : Blood Pressure : / mmHG Vent. Rate : 100 BPM Atrial Rate : 100 BPM P-R Int : 202 ms QRS Dur : 086 ms QT Int : 340 ms P-R-T Axes : 074 024 -11 degrees QTc Int : 438 ms Atrial fibrillation Abnormal ECG When compared with ECG of 31-JUL-2014 14:15, No significant change Confirmed by Andrea Wong ([id number]) on 02/20/2019 9:37:03 PM Referred By: REFERRED SELF Confirmed By:Andrea Wong
[2019-02-21] MEDS ORDERED: HALOPERIDOL LACTATE 5 MG/ML 1 ML VIAL IM STA (01:41)
[2019-02-21] MEDS ORDERED: HALOPERIDOL LACTATE 5 MG/ML 1 ML VIAL ONE (01:47)
[2019-02-21] MEDS: PIPERACILLIN/TAZOBACTAM 4.5 GM in DEXTROSE 5% 100 ML IV SCH ×3 (03:04→17:35)
[2019-02-21] MEDS ORDERED: OXYCODONE HCL IR 5 MG TAB (IMMEDIATE RELEASE) PO PRN (07:19)
[2019-02-21] MEDS ORDERED: ACETAMINOPHEN 325 MG TAB PO PRN (07:19)
[2019-02-21 07:46] LABS: Basophils # (auto) 0.02 K/uL (0-0.2); Basophils % (auto) 0.2 %; Eosinophils # (auto) 0.16 K/uL (0-0.5); Eosinophils % (auto) 1.4 %; Hematocrit (blood only) 41.1 % (42-52); Hemoglobin 13.9 g/dL (14.0-18.0); Immature Granulocytes # (auto) 0.03 K/uL (0.00-0.02); Immature Granulocytes % (auto) 0.3 %; Lymphocytes # (auto) 1.12 K/uL (1.2-3.4); Lymphocytes % (auto) 9.9 %; Mean Corpuscular Hemoglobin 29.3 pg (25-34); Mean Corpuscular Hgb Conc 33.8 g/dL (32-36); Mean Corpuscular Volume 86.7 fL (80-100); Mean Platelet Volume 9.6 fL (7.4-10.4); Monocytes # (auto) 1.08 K/uL (0.11-0.59); Monocytes % (auto) 9.5 %; Neutrophils # (auto) 8.91 K/uL (1.4-6.5); Neutrophils % (auto) 78.7 %; Platelet Count 256 K/uL (130-400); RDW Coefficient of Variation 14.6 % (11.5-14.5); RDW Standard Deviation 46.2 fL (36.4-46.3); Red Blood Count 4.74 M/uL (4.7-6.1); White Blood Count 11.32 K/uL (4.8-10.8)
--- NOTE | 2019-02-21 07:51 | Infectious Disease Consult ---
Date of Consultation February 21, 2019 Assessment & Plan (1) Venous stasis ulcers of both lower extremities: continue current abx pending additional wound cultures. may benefit from debridement. (2) Open wound of right lower extremity: (3) Open wound of left lower extremity: History of Present Illness Attending Physician: Regino Nava MD pt admitted from wound center due to increased wound lle. 02/01 culture grew MSSA, he was on doxy rx by wound center. has f/u appt and no improvement, admitted and started on zosyn and dapto, tolerating well. 02/19 cultures from [facility] growing staph species and a gnr. right leg culture growing S. aureus, final pending. afebrile since admission, wbc 9, am labs pending, creat 1.3. B/L foot and tib fib x ray are negative for osteo. He is confused and combative on exam, attempting to get out of bed and leave hospital. per nursing at bedside this has been ongoing throughout the night. he was givien haldol without improvement. he does admit to some pain in left leg, dressing intact but remaining ros limited due to confused nature. Allergies Allergy/AdvReac Type Severity Reaction Status Date / Time cephalexin Allergy Intermediate Leukocytoclastic Verified 02/19/19 12:26 vasculitis neomycin AdvReac Mild RASH Verified 02/19/19 12:26 Home Medications Home Medications Medication Instructions Recorded Confirmed Type apixaban 5 mg tablet 5 mg PO BID 10/10/17 02/19/19 History metoprolol tartrate 25 mg tablet 25 mg PO BID 10/10/17 02/19/19 History finasteride 5 mg tablet 5 mg PO QAM 07/28/18 02/19/19 History bupropion HCl 150 mg 24 hr tablet, 150 mg PO BID 02/05/19 02/19/19 History extended release furosemide 40 mg tablet 60 mg PO BID #30 tab 02/05/19 02/19/19 Rx atorvastatin 10 mg PO QAM 02/19/19 02/19/19 History naproxen sodium [Aleve] 220 mg PO Q12H PRN 02/19/19 02/19/19 History sulfamethoxazole-trimethoprim 1 tab PO Q12H 14 Days #28 tab 02/19/19 02/19/19 Rx [Bactrim DS] Patient History Medical History A-fib (Chronic) Asthma (Chronic) Atrial fibrillation BPH (benign prostatic hyperplasia) Callus (Acute) Chronic venous insufficiency (Chronic) CKD (chronic kidney disease), stage III Diastolic heart failure DM II (diabetes mellitus, type II), controlled (Chronic) Dyslipidemia Edema (Chronic) GERD (gastroesophageal reflux disease) (Chronic) Hallux rigidus of left foot (Acute) Hallux rigidus, right foot (Acute) Hypertension (Chronic) Morbid obesity due to excess calories Osteoarthritis (Chronic) Positive Lyme disease serology (Chronic) Secondary pulmonary hypertension Skin problem (Chronic) Subdural bleeding (Chronic) Surgical History History of craniotomy 08/01/2014 - evacuation of subdural hematoma - Dr Abundio Mahmood at [facility] [place] Family History Other Diabetes Social History Preferred Language: Lao Communication Ability: Effective Conduit Installer Required: No Beliefs That Will Affect Care: None marital status: / Current Living Situation: Alone current occupational status: retired Feels Safe at Home: Yes Safety Concerns: Feels Safe At This Time Smoking Status: Current every day smoker Tobacco Type: cigarettes ; Cigarettes Per Day: 3-4 ; Do You Dip or Chew Tobacco: No ; Hx Alcohol Use: No Hx Substance Use: No Review of Systems Review of Systems: Unobtainable due to cognitive status Physical Exam Constitutional: WD/WN, vitals as above Eyes: PERRL, conjunctivae normal, anicteric sclerae ENMT: external ear and nose normal, oropharynx normal Neck: normal visual inspection Respiratory: normal respiratory effort, lungs clear to auscultation Auscultation: + diminished lung sounds Cardiovascular: RRR, no murmur, no edema Gastrointestinal (Abdomen): normal bowel sounds, soft, nontender, no hepatosplenomegaly Musculoskeletal: no cyanosis or clubbing, extremities motor strength 5/5 Skin: no rashes, warm and dry + wound (b/l dressing intact, no drainage) Psychiatric: Orientation: alert and oriented x 3 Apperance: + disheveled confused and combative Results & Data Vital Signs (Past 12 Hours) Vital Signs Temp Pulse Pulse Resp BP Pulse Ox 02/21/19 07:44 100 H 02/21/19 03:57 36.4 C L 99 H 20 148/72 H 96 02/20/19 23:33 36.8 C 90 20 115/75 98 PG Care Time/CCT Total # of Minutes Spent Total Time Spent with Patient: Total time spent is greater than 50% in coordination of care (as documented) at patient's floor/unit and/or counseling patient: (1) Open wound of left lower extremity Encounter type: subsequent encounter Qualified Code(s): S81.802D - Unspecified open wound, left lower leg, subsequent encounter (2) Open wound of right lower extremity Encounter type: subsequent encounter Qualified Code(s): S81.801D - Unspecified open wound, right lower leg, subsequent encounter
[2019-02-21 08:14] LABS: Albumin Level 3.3 gm/dl (3.4-5.0); BUN Creatinine Ratio 21.3 (10-20); Calcium 9.4 mg/dl (8.5-10.1); Est GFR (African American) 42.9; Potassium 3.6 mmol/L (3.5-5.1)
[2019-02-21 08:17] LABS: Albumin Globulin Ratio 0.6 (0.9-2); Bilirubin,Total 1.5 mg/dl (0.2-1); Globulin 5.2 gm/dl (2.5-4.0); Total Protein 8.5 gm/dl (6.4-8.2)
--- NOTE | 2019-02-21 08:56 | Hospitalist Progress Note ---
Date of Service February 21, 2019 Assessment & Plan (1) Cellulitis: (2) Peripheral vascular disease: -This is a 78 year old male who presents to the Emergency Room with complaints of left leg pain and admitted by nocturnal hospital doctor for bilateral lower extremity cellulitis -empirically started on admission on IV Zosyn and IV daptomycin -at issue is whether any surgical interventions such as re-vascularization versus debridement needed -US arterial duplex of lower extremities bilaterally with: Mild scattered calcified plaque. Normal velocities and waveforms seen throughout the visualized bilateral lower extremity arterial systems. No significant stenosis or occlusion identified. Of note, the patient deferred imaging of the left calf vessels. and Radiology IMPRESSION: No significant stenosis or occlusion identified within the bilateral lower extremities -on re-assessment by day time hospitalist, have expressed concerns to patient and his family whether peripheral vascular disease also plays a role for the skin desquamation despite benign results on arterial ultrasound -patient reports history of leg vascular procedures with Dr. Guillermo Hutchinson for both legs and hospitalist asked Dr. Hutchinson for consultation in regards to any further invasive studies or intervention -will also need wound care and leg elevation at rest, change socks q shift because of serosanguinous fluid dripping from left leg. -currently the left leg is in dresssing -wound care consult also requested chronic atrial fibrillation -continue on Toprol-XL -continue Eliquis for now Hyperlipidemia -hold home dose statin while he is on daptomycin. chronic diastolic congestive heart failure -hold Lasix for now Chronic kidney disease stage III acute kidney injury - Baseline creatinine around 1.1-1.2 -hold Lasix as creatinine rising to 1.7 by 02/21/2019. give bolus of IV fluids 500 cc Type 2 diabetes mellitus -last HbA1c was 6.5 in 09/2018 -repeat HbA1c History of tobacco abuse and mild chronic obstructive pulmonary disease -continue home inhalers History of benign prostatic hypertrophy -Continue Proscar. Deep venous thrombosis prophylaxis: on Eliquis. Subjective Patient had been given haldol overnight x 2 for restlessness/agitation by [facility] doctor. Day time hospitalist have affirmed with nursing staff that further haldol should not be given. Patient is on 1 to 1 to help with orientation. He has been responding questions appropriately today. denies acute pain. breathing on room air and no shortness of breath Review of Systems Review of Systems: All systems reviewed & are unremarkable except as noted in HPI & below Physical Exam Constitutional: comfortable Eyes: PERRL, conjunctivae normal, anicteric sclerae EOM intact bilaterally ENMT: external ear and nose normal, oropharynx normal Neck: trachea midline, no thyromegaly normal visual inspection Respiratory: normal respiratory effort, lungs clear to auscultation Cardiovascular: Rate/Rhythm: regular rate and regular rhythm Gastrointestinal (Abdomen): normal bowel sounds, soft, nontender, no hepatosplenomegaly Musculoskeletal: Head/Neck/Chest: normocephalic and head atraumatic left leg in dressing, left socks are wet Neurologic: PERRL, EOMI, accommodation nl, no face palsy, no dysarthria CN's II-XI intact bilaterally Psychiatric: A+Ox3, euthymic affect Results & Data Vital Signs (Past 12 Hours) Vital Signs Temp Pulse Pulse Resp BP Pulse Ox 02/21/19 07:44 100 H 02/21/19 03:57 36.4 C L 99 H 20 148/72 H 96 02/20/19 23:33 36.8 C 90 20 115/75 98 (1) Cellulitis Laterality: unspecified laterality Site of cellulitis: extremity Site of cellulitis of extremity: lower extremity Qualified Code(s): L03.119 - Cellulitis of unspecified part of limb
[2019-02-21] MEDS ORDERED: SODIUM CHLORIDE 0.9% 1000ML 500 ML IV ONE (08:57)
[2019-02-21] MEDS: BuPROPion XL 150 MG TABCR PO SCH ×2 (09:19→21:14)
[2019-02-21] MEDS: APIXABAN 5 MG TABLET PO SCH ×2 (09:19→21:14)
[2019-02-21] MEDS: FINASTERIDE 5 MG TAB PO SCH (09:20)
[2019-02-21] MEDS: METOPROLOL TARTRATE 25 MG TAB PO SCH ×2 (09:20→21:14)
[2019-02-21] MEDS: NICOTINE 21 MG/24 HR TDSY TD SCH (09:20)
[2019-02-21] MEDS: INSULIN ASPART 100 UNITS/ML 3 ML PEN SC SCH ×4 (09:21→21:28)
[2019-02-21] MEDS: CALCIUM CARBONATE 500 MG CHEWABLE TAB PO PRN ×2 (12:35→21:15)
[2019-02-21] MEDS: DAPTOmycin 375 MG in SYRINGE 0 ML IV SCH (14:24)
[2019-02-22] MEDS: PIPERACILLIN/TAZOBACTAM 4.5 GM in DEXTROSE 5% 100 ML IV SCH ×2 (02:11→10:17)
[2019-02-22 06:12] LABS: Estimated Average Glucose 140 mg/dl; Hemoglobin A1C 6.5 % (4.5-5.6)
[2019-02-22 07:35] LABS: Basophils # (auto) 0.03 K/uL (0-0.2); Basophils % (auto) 0.3 %; Eosinophils # (auto) 0.37 K/uL (0-0.5); Eosinophils % (auto) 4.1 %; Hematocrit (blood only) 40.5 % (42-52); Hemoglobin 13.6 g/dL (14.0-18.0); Immature Granulocytes # (auto) 0.02 K/uL (0.00-0.02); Immature Granulocytes % (auto) 0.2 %; Lymphocytes # (auto) 1.42 K/uL (1.2-3.4); Lymphocytes % (auto) 15.7 %; Mean Corpuscular Hemoglobin 29.7 pg (25-34); Mean Corpuscular Hgb Conc 33.6 g/dL (32-36); Mean Corpuscular Volume 88.4 fL (80-100); Mean Platelet Volume 9.4 fL (7.4-10.4); Monocytes # (auto) 0.65 K/uL (0.11-0.59); Monocytes % (auto) 7.2 %; Neutrophils # (auto) 6.53 K/uL (1.4-6.5); Neutrophils % (auto) 72.5 %; Platelet Count 250 K/uL (130-400); RDW Coefficient of Variation 15.1 % (11.5-14.5); RDW Standard Deviation 48.4 fL (36.4-46.3); Red Blood Count 4.58 M/uL (4.7-6.1); White Blood Count 9.02 K/uL (4.8-10.8)
[2019-02-22 08:14] LABS: BUN Creatinine Ratio 20.7 (10-20); Calcium 9.3 mg/dl (8.5-10.1); Creatinine Clr Calc Pharmacy 49.1 ml/min; Est GFR (African American) 44.1; Est GFR (Non-African American) 38.1; Potassium 3.7 mmol/L (3.5-5.1)
[2019-02-22 08:17] LABS: Albumin Globulin Ratio 0.6 (0.9-2); Bilirubin,Total 1.1 mg/dl (0.2-1); Globulin 5.2 gm/dl (2.5-4.0); Total Protein 8.2 gm/dl (6.4-8.2)
[2019-02-22] MEDS: APIXABAN 5 MG TABLET PO SCH (08:49)
[2019-02-22] MEDS: BuPROPion XL 150 MG TABCR PO SCH (08:49)
[2019-02-22] MEDS: CALCIUM CARBONATE 500 MG CHEWABLE TAB PO PRN ×2 (08:49→11:34)
[2019-02-22] MEDS: FINASTERIDE 5 MG TAB PO SCH (08:49)
[2019-02-22] MEDS: METOPROLOL TARTRATE 25 MG TAB PO SCH (08:49)
[2019-02-22] MEDS: INSULIN ASPART 100 UNITS/ML 3 ML PEN SC SCH ×2 (08:50→12:20)
[2019-02-22] MEDS: NICOTINE 21 MG/24 HR TDSY TD SCH (08:50)
--- NOTE | 2019-02-22 09:12 | Vascular Medicine Consultation ---
Date of Consultation February 22, 2019 Assessment & Plan (1) Venous stasis ulcers of both lower extremities: 2. Lower extremity cellulitis 3. Chronic venous insufficiency status post right GSV, LEFT SSV RF ablation--CEAP class 6 disease bilaterally 4. Persistent atrial fibrillation 5. Prior DVT with deep vein reflux 6. Mild type 2 diabetes 7. ? Chronic diastolic heart failure 8. Aortic stenosis Vascular medicine consulted due to concern for possible critical limb ischemia in the setting of nonhealing lower extremity wounds. On my exam distal extremities appear to be well perfused with intact, 2+ DP pulses. Recent lower extremity arterial duplex reviewed. No significant disease on the right with triphasic waveforms throughout. On the left imaging only to the popliteal artery but again widely patent with triphasic waveforms. CTA could be considered to more definitively assess tibial vessels on left. Would hold off in the setting of PAULA and feel toe pressures as an outpatient likely sufficient to confirm exam findings. Feel ulcers are primarily secondary to venous hypertension, lymphedema. Known longstanding venous insufficiency and likely some contribution from acute on chronic heart failure. Recommend reassessing biventricular function, aortic valve function and filling pressures with echocardiogram. Long-term feel may have additional superficial venous targets for intervention that may help with wound healingleft GSV, left mid calf canal boat captain. Will need repeat venous reflux ultrasound as an outpatient. Recommendations: No need for additional arterial imaging at this time. Repeat TBI/toe pressures as an outpatient Obtain echocardiogram Venous reflux ultrasound as an outpatient with vascular follow-up Resume Lasix 60 mg daily Continued compressive therapy Continue antibiotics per primary team, infectious disease. History of Present Illness Attending Physician: Regino Nava MD History of Present Illness Mr. Smith is a pleasant 78-year-old man with a history of persistent atrial fibrillation on eliquis, reported chronic diastolic heart failure, hypertension, hyperlipidemia, borderline diabetes, stage III CKD, prolonged tobacco abuse, mild COPD, prior right popliteal DVT and longstanding bilateral lower extremity ulcerations in the setting chronic venous insufficiency post prior right GSV (07/03/2016) and left SSV (12/25/2016) RF ablation. Patient has been followed by the wound clinic for years. Seen most recently on 02/19/2019 and directed to [facility] ED due to lower extremity cellulitis. Started on broad-spectrum antibiotics with Zosyn, daptomycin. Maintained on his home twice daily p.o. diuretics and Eliquis. Mild PAULA with creatinine 1.7. Currently today reports intermittent left lower extremity pain. Denies any fevers, chills. Has reportedly had some intermittent confusion. No other new complaints today. Recent vascular testing - lower extremity arterial duplex 02/20/2019right lower extremity with triphasic waveforms throughout right arterial system and no significant disease. Left lower extremity widely patent with triphasic waveforms down to popliteal artery. Tibial vessels not visualized. Venous duplex study 11/2017no DVT Venous reflux ultrasound 11/2016right GSV closed, right SSV dilated with reflux and chronic SVT, left GSV dilated without reflux, left SSV dilated with reflux (pre-closure), left mid calf pathologic canal boat captain with reflux and associated varices. Right and left popliteal with partial chronic nonobstructive DVT. Bilateral deep vein reflux Allergies Allergy/AdvReac Type Severity Reaction Status Date / Time cephalexin Allergy Intermediate Leukocytoclastic Verified 02/19/19 12:26 vasculitis neomycin AdvReac Mild RASH Verified 02/19/19 12:26 Home Medications Home Medications Medication Instructions Recorded Confirmed Type apixaban 5 mg tablet 5 mg PO BID 10/10/17 02/19/19 History metoprolol tartrate 25 mg tablet 25 mg PO BID 10/10/17 02/19/19 History finasteride 5 mg tablet 5 mg PO QAM 07/28/18 02/19/19 History bupropion HCl 150 mg 24 hr tablet, 150 mg PO BID 02/05/19 02/19/19 History extended release furosemide 40 mg tablet 60 mg PO BID #30 tab 02/05/19 02/19/19 Rx atorvastatin 10 mg PO QAM 02/19/19 02/19/19 History naproxen sodium [Aleve] 220 mg PO Q12H PRN 02/19/19 02/19/19 History sulfamethoxazole-trimethoprim 1 tab PO Q12H 14 Days #28 tab 02/19/19 02/19/19 Rx [Bactrim DS] Patient History Medical History A-fib (Chronic) Asthma (Chronic) Atrial fibrillation BPH (benign prostatic hyperplasia) Callus (Acute) Chronic venous insufficiency (Chronic) CKD (chronic kidney disease), stage III Diastolic heart failure DM II (diabetes mellitus, type II), controlled (Chronic) Dyslipidemia Edema (Chronic) GERD (gastroesophageal reflux disease) (Chronic) Hallux rigidus of left foot (Acute) Hallux rigidus, right foot (Acute) Hypertension (Chronic) Morbid obesity due to excess calories Osteoarthritis (Chronic) Positive Lyme disease serology (Chronic) Secondary pulmonary hypertension Skin problem (Chronic) Subdural bleeding (Chronic) Surgical History History of craniotomy 08/01/2014 - evacuation of subdural hematoma - Dr Abundio Mahmood at [facility] [place] Family History Other Diabetes Social History Preferred Language: American Communication Ability: Effective Hospital Liaison Required: No Beliefs That Will Affect Care: None marital status: / Current Living Situation: Alone current occupational status: retired Feels Safe at Home: Yes Safety Concerns: Feels Safe At This Time Smoking Status: Current every day smoker Tobacco Type: cigarettes ; Cigarettes Per Day: 3-4 ; Do You Dip or Chew Tobacco: No ; Hx Alcohol Use: No Hx Substance Use: No Review of Systems Review of Systems: All systems reviewed & are unremarkable except as noted in HPI & below Physical Exam Physical Exam: General: Comfortable, no acute distress Eyes: Sclerae anicteric, extraocular movements intact HENT: Oropharynx clear mucous membranes moist Neck: Normal carotid upstrokes, prior surgical scar over left carotid. Unable to assess JVD Lungs: Few crackles at bases bilaterally, no wheezes Cardiac: Irregularly irregular, 2/6 systolic ejection murmur heard best the right upper sternal border Abdomen: Soft, nontender, obese, positive bowel sounds. Neuro: Nonfocal Psych: Alert orient x3, normal affect and mood Extremities/Vascular: -- 2+ radial bilaterally -- 2+ femoral bilaterally -- 2+ popliteal bilaterally --2+ DP pulses bilaterally. Diminished PT pulses bilaterally. Normal capillary refill bilaterally --Large circumferential ulceration involving left mid calf/ham dressed without erythema extending above dressing. Ulceration extending down towards the foot with diffuse erythema and desquamation on left. On right small area on lower medial ham covered with dressing. No surrounding erythema. --Right 1+ edema to shins. Left 1-2+ edema to shins. Notable telangiectasias, reticular veins, small varicosities. Results & Data Vital Signs (Past 12 Hours) Vital Signs Temp Pulse Resp BP BP Pulse Ox 02/22/19 06:53 97.9 F 74 18 112/73 97 02/21/19 22:57 97.3 F L 83 20 112/69 95 PG Care Time/CCT Total # of Minutes Spent Total Time Spent with Patient: Total time spent is greater than 50% in coordination of care (as documented) at patient's floor/unit and/or counseling patient:
[2019-02-22] MEDS ORDERED: CALCIUM CARBONATE 500 MG CHEWABLE TAB PO STA (10:24)
[2019-02-22] MEDS ORDERED: SODIUM CHLORIDE 0.9% 1000ML 250 ML IV ONE (10:32)
--- NOTE | 2019-02-22 11:47 | Infectious Disease Progress Nt ---
Date of Service February 22, 2019 Assessment & Plan (1) Venous stasis ulcers of both lower extremities: can continue IV abx while inpatient, upon d/c would suggest cefdinir 300mg bid min 3 weeks. will plan to follow at wound center post d/c and can extend duration if needed. continue local wound care. (2) Open wound of right lower extremity: (3) Open wound of left lower extremity: Subjective pt remains afebrile. on dapto and zosyn. wbc 9, creat 1.6. Blood cultures negative. right leg culture growing MSSA, resistant to doxy and clinda, left leg growing koch sensitive Enterobacter and MSSA. s/o vascular eval, no intervention planned. Results & Data Vital Signs (Past 12 Hours) Vital Signs Temp Pulse Resp BP Pulse Ox 02/22/19 06:53 36.6 C 74 18 112/73 97 PG Care Time/CCT Total # of Minutes Spent Total Time Spent with Patient: Total time spent is greater than 50% in coordination of care (as documented) at patient's floor/unit and/or counseling patient: (1) Open wound of left lower extremity Encounter type: subsequent encounter Qualified Code(s): S81.802D - Unspecified open wound, left lower leg, subsequent encounter (2) Open wound of right lower extremity Encounter type: subsequent encounter Qualified Code(s): S81.801D - Unspecified open wound, right lower leg, subsequent encounter
[2019-02-22] MEDS: DAPTOmycin 375 MG in SYRINGE 0 ML IV SCH (14:17)
[2019-02-22 15:31] LABS: Calcium 9.2 mg/dl (8.5-10.1); Est GFR (African American) 45.1; Est GFR (Non-African American) 38.9; Potassium 3.6 mmol/L (3.5-5.1)
--- NOTE | 2019-02-22 16:29 | Hospitalist Progress Note ---
Date of Service February 22, 2019 Assessment & Plan (1) Cellulitis: (2) Peripheral vascular disease: Cellulitis of left lower extremity, Venous stasis ulcers of both lower extremities (Chronic venous insufficiency status post right GSV, LEFT SSV RF ablation--CEAP class 6 disease bilaterally) Peripheral vascular disease -This is a 78 year old male who presents to the Emergency Room with complaints of left leg pain and admitted by nocturnal hospital doctor for bilateral lower extremity cellulitis -empirically started on admission on IV Zosyn and IV daptomycin -at issue is whether any surgical interventions such as re-vascularization versus debridement needed -US arterial duplex of lower extremities bilaterally with: Mild scattered calcified plaque. Normal velocities and waveforms seen throughout the visualized bilateral lower extremity arterial systems. No significant stenosis or occlusion identified. Of note, the patient deferred imaging of the left calf vessels. and Radiology IMPRESSION: No significant stenosis or occlusion identified within the bilateral lower extremities -on re-assessment by day time hospitalist, have expressed concerns to patient and his family whether peripheral vascular disease also plays a role for the skin desquamation despite benign results on arterial ultrasound -patient reports history of leg vascular procedures with Dr. Guillermo Hutchinson for both legs and hospitalist asked Dr. Hutchinson for consultation in regards to any further invasive studies or intervention -wound care consult has dressed the legs -As per Dr. Hutchinson assessment on 02/22/2019: No need for additional arterial imaging at this time. Repeat TBI/toe pressures as an outpatient. Venous reflux ultrasound as an outpatient with vascular follow-up echocardiogram as recommended by Dr. Hutchinson completed on 02/22/2019 and results are pending -Blood cultures negative. 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 Nicotine patches as substitutes for smoking is prescribed -Patient may take acetaminophen 325 mg every 6 hours as needed for mild pain. (DO NOT TAKE MORE THAN 2000 mg of acetaminophen in a day) -Patient may take oxycodone 5 mg every 6 hours as needed for severe pain (16 tablets total prescribed) -Patient should make follow up appointment to see wound care clinic and vascular clinic of Dr. Hutchinson Chronic kidney disease stage III acute kidney injury - Baseline creatinine around 1.1-1.2 -held Lasix as creatinine rising to 1.7 by 02/21/2019. give bolus of IV fluids 500 cc. additional IV fluids given on 02/22/2019 -because of mild acute kidney injury on chronic kidney injury stage 3 (discharge creatinine of 1.66); patient should only avoid Naproxen and other Naproxen related medications (NSAIDs);patient should take furosemide (Lasix) only as 40 mg tablet once day for next 7 days) -03/01/2019 11:00 AM Provider Steven Vincent III, MD Department [facility] (Patient should have repeat renal function labs repeated by primary care doctor and furosemide adjustments based on renal function, volume status, and updated echocardiogram results performed at [facility] on 02/22/2019) -03/10/2019 1:20 PM Provider Steven Vincent III, MD Department [facility] chronic diastolic congestive heart failure -diuretics management as above persistent (chronic) atrial fibrillation -continue on Toprol-XL -continue Eliquis for now Hyperlipidemia -can resume statin of discharge Type 2 diabetes mellitus -HbA1c was 6.5 in 09/2018 -HbA1c 6.5 on 02/22/2019 -diet controlled diabetes mellitus History of tobacco abuse and mild chronic obstructive pulmonary disease -continue home inhalers History of benign prostatic hypertrophy -Continue Proscar. Deep venous thrombosis prophylaxis: on Eliquis. Discharge Diagnosis: Cellulitis of left lower extremity, Venous stasis ulcers of both lower extremities (Chronic venous insufficiency status post right GSV, LEFT SSV RF ablation--CEAP class 6 disease bilaterally) Peripheral vascular disease, persistent atrial fibrillation, chronic diastolic congestive heart failure, acute kidney injury on Chronic kidney disease stage III, Type 2 diabetes mellitus without residential current use of insulin (diet controlled) Subjective patient's legs are in dressings. pain of legs are controlled. breathing on room air. no shortness of breath. no abdomen pain. no nausea. no vomiting. no headache. no dizziness. no fever. his family members present. discharge plans and instructions discussed extensively Review of Systems Review of Systems: All systems reviewed & are unremarkable except as noted in HPI & below Physical Exam Constitutional: comfortable Eyes: PERRL, conjunctivae normal, anicteric sclerae EOM intact bilaterally ENMT: external ear and nose normal, oropharynx normal Neck: trachea midline, no thyromegaly normal visual inspection Respiratory: normal respiratory effort, lungs clear to auscultation Cardiovascular: Rate/Rhythm: regular rate and regular rhythm Gastrointestinal (Abdomen): normal bowel sounds, soft, nontender, no hepato splenomegaly Musculoskeletal: Head/Neck/Chest: normocephalic and head atraumatic Skin: bilateral lower extremities in dressing Neurologic: PERRL, EOMI, accommodation nl, no face palsy, no dysarthria CN's II-XI intact bilaterally Psychiatric: A+Ox3, euthymic affect Results & Data Vital Signs (Past 12 Hours) Vital Signs Temp Pulse Resp BP BP Pulse Ox 02/22/19 15:10 36.6 C 91 H 24 121/78 94 02/22/19 06:53 36.6 C 74 18 112/73 97 (1) Cellulitis Laterality: unspecified laterality Site of cellulitis: extremity Site of cellulitis of extremity: lower extremity Qualified Code(s): L03.119 - Cellulitis of unspecified part of limb
--- NOTE | 2019-02-22 16:38 | Discharge Summary ---
Date of Service February 22, 2019 Admission HPI Per Admitting Provider DATE OF ADMISSION: 02/19/2019 CHIEF COMPLAINT: Lower extremity cellulitis. 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 The patient is having chronic skin changes and erythema of the lower extremity for some time and is following with wound care. He was on doxycycline. He goes to wound care twice weekly and it was at wound care they noticed some drainage from his left foot near the first two toes and was advised to come to the ER. He was here in the ER today earlier in the day and he was given daptomycin and his labs at that time showed no leukocytosis and lactic acid was 1.6. He preferred to go home and he was discharged on Bactrim, but on going home there was more weeping from his left lower extremity and it was felt that he was getting worse and he was having more pain than usual. He walks with the help of a stick. He complains of pain in both lower feet, and therefore decided to come here and his son brought him to the hospital. Currently resting comfortably and hemodynamically stable, somewhat hard to hear. Denies any headache, no dizziness, no blurred vision. No cough, no fever, no chills. Appetite is okay. No difficulty swallowing. No odynophagia. He does not sleep well. As per son, there is a plan for sleep study, but denies any shortness of breath while sleeping. No nausea, no vomiting. Appetite is okay. No abdominal pain. Normal bowel and bladder movements. No hematuria. Currently resting comfortably. ALLERGIES: KEFLEX AND NEOMYCIN. PAST MEDICAL HISTORY: As mentioned above. PAST SURGICAL HISTORY: Opened skull for removal of hematoma on the right side. MEDICATIONS: The patient is on apixaban 5 mg p.o. b.i.d., Lipitor 10 mg p.o. daily, bupropion HCL 150 mg p.o. b.i.d., Proscar 5 mg p.o. a.m., Lasix 60 mg p.o. b.i.d., metoprolol 25 mg p.o. b.i.d., naproxen 220 mg p.r.n., Bactrim DS 1 tablet p.o. b.i.d. FAMILY HISTORY: Significant for father had diabetes and had heart disorder, mother had hypertension, sister had renal failure and at the age of 35. SOCIAL HISTORY: Lives alone. Smokes daily. Now has cut back to 2-3 cigarettes a day. No alcohol use, no drug use. REVIEW OF SYSTEMS: As per HPI. Rest of the review of systems negative. Admission Exam Per Admitting Provider GENERAL: The patient is obese, not in acute distress. VITAL SIGNS: Temperature 37, pulse 100, respiratory rate 18, blood pressure 126/58, oxygen 95% on room air. HEENT: No pallor, no icterus. Pupils equal, round, and reactive to light. Oral mucosa moist. NECK: No JVD, no neck masses. Supple. CARDIOVASCULAR: S1, S2 heard, regular rate and rhythm, no murmur, no gallop. RESPIRATORY SYSTEM: Normal AP diameter. No accessory muscle use. No wheezing, no crackles. ABDOMEN: Soft, bowel sounds present, nontender. No distention. CENTRAL NERVOUS SYSTEM: Alert, awake, and oriented. Obeys commands. Moves extremities. EXTREMITIES: Bilateral lower extremity edema present. Lower extremity chronic skin changes seen. Left lower extremity is erythematous from below the knee and there is weeping seen on the dorsal aspect of foot below the toes. Principal Diagnosis Venous stasis ulcers of both lower extremities (Chronic venous insufficiency status post right GSV, LEFT SSV RF ablation--CEAP class 6 disease bilaterally) Peripheral vascular disease, persistent atrial fibrillation, chronic diastolic congestive heart failure, acute kidney injury on Chronic kidney disease stage III, Type 2 diabetes mellitus without emt intermediate current use of insulin (diet controlled) Discharge Exam Constitutional comfortable Eyes PERRL, conjunctivae normal, anicteric sclerae EOM intact bilaterally ENMT external ear and nose normal, oropharynx normal Neck trachea midline, no thyromegaly normal visual inspection Respiratory normal respiratory effort, lungs clear to auscultation Cardiovascular Rate/Rhythm: regular rate and regular rhythm Gastrointestinal (Abdomen) normal bowel sounds, soft, nontender, no hepatosplenomegaly Musculoskeletal Head/Neck/Chest: normocephalic and head atraumatic Neurologic PERRL, EOMI, accommodation nl, no face palsy, no dysarthria CN's II-XI intact bilaterally Psychiatric A+Ox3, euthymic affect Discharge Data Allergies Allergy/AdvReac Type Severity Reaction Status Date / Time cephalexin Allergy Intermediate Leukocytoclastic Verified 02/19/19 12:26 vasculitis neomycin AdvReac Mild RASH Verified 02/19/19 12:26 Consultations 02/19/19 20:55 ED Decision to Admit Stat 02/19/19 22:53 Consult Case Management - Discharge Planning Routine Consult Infectious Diseases Routine Consult Wound Care Provider Routine 02/20/19 12:19 Consult Vascular Surgery Routine Ordered Studies 02/20/19 08:00 US arterial duplex LE Routine Hospital Course (1) Cellulitis: (2) Peripheral vascular disease: Cellulitis of left lower extremity, Venous stasis ulcers of both lower extremities (Chronic venous insufficiency status post right GSV, LEFT SSV RF ablation--CEAP class 6 disease bilaterally) Peripheral vascular disease -This is a 78 year old male who presents to the Emergency Room with complaints of left leg pain and admitted by nocturnal hospital doctor for bilateral lower extremity cellulitis -empirically started on admission on IV Zosyn and IV daptomycin -at issue is whether any surgical interventions such as re-vascularization versus debridement needed -US arterial duplex of lower extremities bilaterally with: Mild scattered calcified plaque. Normal velocities and waveforms seen throughout the visualized bilateral lower extremity arterial systems. No significant stenosis or occlusion identified. Of note, the patient deferred imaging of the left calf vessels. and Radiology IMPRESSION: No significant stenosis or occlusion identified within the bilateral lower extremities -on re-assessment by day time hospitalist, have expressed concerns to patient and his family whether peripheral vascular disease also plays a role for the skin desquamation despite benign results on arterial ultrasound -patient reports history of leg vascular procedures with Dr. Guillermo Hutchinson for both legs and hospitalist asked Dr. Hutchinson for consultation in regards to any further invasive studies or intervention -wound care consult has dressed the legs -As per Dr. Hutchinson assessment on 02/22/2019: No need for additional arterial imaging at this time. Repeat TBI/toe pressures as an outpatient. Venous reflux ultrasound as an outpatient with vascular follow-up echocardiogram as recommended by Dr. Hutchinson completed on 02/22/2019 and results are pending -Blood cultures negative. 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 on [address] [place] [address] -cefdinir 300mg twice a day for 3 weeks -Patient should avoid smoking as smoking can cause poor skin healing. Nicotine patches as substitutes for smoking is prescribed -Patient may take acetaminophen 325 mg every 6 hours as needed for mild pain. (DO NOT TAKE MORE THAN 2000 mg of acetaminophen in a day) -Patient may take oxycodone 5 mg every 6 hours as needed for severe pain (16 tablets total prescribed) -Patient should make follow up appointment to see wound care clinic and vascular clinic of Dr. Hutchinson Chronic kidney disease stage III acute kidney injury - Baseline creatinine around 1.1-1.2 -held Lasix as creatinine rising to 1.7 by 02/21/2019. give bolus of IV fluids 500 cc. additional IV fluids given on 02/22/2019 -because of mild acute kidney injury on chronic kidney injury stage 3 (discharge creatinine of 1.66); patient should only avoid Naproxen and other Naproxen related medications (NSAIDs);patient should take furosemide (Lasix) only as 40 mg tablet once day for next 7 days) -03/01/2019 11:00 AM Provider Steven Vincent III, MD Department [facility] (Patient should have repeat renal function labs repeated by primary care doctor and furosemide adjustments based on renal function, volume status, and updated echocardiogram results performed at [facility] on 02/22/2019) -03/10/2019 1:20 PM Provider Steven Vincent III, MD Department [facility] chronic diastolic congestive heart failure -diuretics management as above persistent (chronic) atrial fibrillation -continue on Toprol-XL -continue Eliquis for now Hyperlipidemia -can resume statin of discharge Type 2 diabetes mellitus -HbA1c was 6.5 in 09/2018 -HbA1c 6.5 on 02/22/2019 -diet controlled diabetes mellitus History of tobacco abuse and mild chronic obstructive pulmonary disease -continue home inhalers History of benign prostatic hypertrophy -Continue Proscar. Deep venous thrombosis prophylaxis: on Eliquis. Discharge Diagnosis: Cellulitis of left lower extremity, Venous stasis ulcers of both lower extremities (Chronic venous insufficiency status post right GSV, LEFT SSV RF ablation--CEAP class 6 disease bilaterally) Peripheral vascular disease, persistent atrial fibrillation, chronic diastolic congestive heart failure, acute kidney injury on Chronic kidney disease stage III, Type 2 diabetes mellitus without mcc current use of insulin (diet controlled) Total Time Total Time Spent Total Time Spent (In Minutes): 40 minutes Total Time Includes: Examination of the Patient, Discharge Planning, Medication Reconciliation and Communication With Other Providers Discharge Plan Discharge Items Patient Disposition: Home - Self-Care Reason For Visit: CELLULITIS LOWER EXTREMITY Discharge Diagnosis: Cellulitis of left lower extremity, Venous stasis ulcers of both lower extremities (Chronic venous insufficiency status post right GSV, LEFT SSV RF ablation--CEAP class 6 disease bilaterally) Peripheral vascular disease, persistent atrial fibrillation, chronic diastolic congestive heart failure, acute kidney injury on Chronic kidney disease stage III, Type 2 diabetes mellitus without emt intermediate current use of insulin (diet controlled) Condition on Discharge: Good Activity: Per Instructions section Non-emergency contact: Primary Care Provider and Specialist Call non-emergency contact if: you have any medication questions Follow-up/Referrals: Steven Vincent MD [Primary Care Provider] - Diet: Carb Consistent or DM2 and Heart Healthy Addtl Attending Provider Instructions: As per Dr. Hutchinson assessment on 02/22/2019: No need for additional arterial imaging at this time. Repeat TBI/toe pressures as an outpatient. Venous reflux ultrasound as an outpatient with vascular follow-up echocardiogram as recommended by Dr. Hutchinson completed on 02/22/2019 and results are pending Blood cultures negative. 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 on [address] [place] [address] -cefdinir 300mg twice a day for 3 weeks -Patient should avoid smoking as smoking can cause poor skin healing. Nicotine patches as substitutes for smoking is prescribed -Patient may take acetaminophen 325 mg every 6 hours as needed for mild pain. (DO NOT TAKE MORE THAN 2000 mg of acetaminophen in a day) -Patient may take oxycodone 5 mg every 6 hours as needed for severe pain (16 tablets total prescribed) -because of mild acute kidney injury on chronic kidney injury stage 3 (discharge creatinine of 1.66); patient should only avoid Naproxen and other Naproxen related medications (NSAIDs);patient should take furosemide (Lasix) only as 40 mg tablet once day for next 7 days) 03/01/2019 11:00 AM Provider Steven Vincent III, MD Department [facility] (Patient should have repeat renal function labs repeated by primary care doctor and furosemide adjustments based on renal function, volume status, and updated echocardiogram results performed at [facility] on 02/22/2019) 03/10/2019 1:20 PM Provider Steven Vincent III, MD Department [facility] Patient should make follow up appointment to see wound care clinic and vascular clinic of Dr. Hutchinson Pending Studies at Discharge: Yes Studies:: echocardiogram as recommended by Dr. Hutchinson completed on 02/22/2019 and results are pending Stand-Alone Forms: [facility], Smoking Cessation Medications and DC Order Prescriptions: New nicotine [Nicoderm CQ] 21 mg/24 hr Patch 24 Hour 21 mg transdermal QAM 30 Days Qty: 30 RF: 0 acetaminophen 325 mg tablet 325 mg PO Q6H PRN (Reason: mild pain) 5 Days Qty: 16 RF: 0 cefdinir 300 mg capsule 300 mg PO BID 21 Days Qty: 42 RF: 0 oxycodone 5 mg Tablet 5 mg PO Q6H PRN (Reason: severe pain) 4 Days Qty: 16 RF: 0 Continued apixaban [Eliquis] 5 mg tablet 5 mg PO BID RF: 0 metoprolol tartrate 25 mg tablet 25 mg PO BID RF: 0 finasteride [Proscar] 5 mg tablet 5 mg PO QAM RF: 0 bupropion HCl 150 mg tablet extended release 24 hr 150 mg PO BID RF: 0 atorvastatin 10 mg tablet 10 mg PO QAM RF: 0 Discontinued furosemide [Lasix] 40 mg tablet 60 mg PO BID Qty: 30 RF: 0 naproxen sodium [Aleve] 220 mg Tablet 220 mg PO Q12H PRN (Reason: Pain) RF: 0 sulfamethoxazole-trimethoprim [Bactrim DS] 800-160 mg tablet 1 tab PO Q12H 14 Days Qty: 28 RF: 0 Discharge Orders: Discharge Order (Routine); Ordered 02/22/19 Ordered By: Regino Rodriguez/Other Patient Handouts: A1C Admission Data Admit Date/Time: 02/19/19 21:41 Attending Provider: Regino Nava Admit Provider: Jair España Primary Care Provider: Steven Vincent Other Providers: Jair España ; Elli Dobbs ; Dash Reyes ; Pranav Hutchinson
--- NOTE | 2019-02-22 21:05 | Wound Consultation ---
Date of Consultation February 22, 2019 Assessment & Plan (1) Left leg cellulitis: Wounds are significantly improved. No debridement was required today. Wound was dressed with Aquacel Ag, ABD, Kerlix and single-layer Tubigrip. Continue antibiotics per infectious disease. We will see patient in the office upon discharge. Thank you for allowing me to participate in the care of this patient. Please not hesitate to call with any questions. (2) Venous stasis ulcers of both lower extremities: History of Present Illness Reason for Consultation: Cellulitis left leg Attending Physician: Regino Nava MD History of Present Illness This is a 78-year-old male well-known to the wound clinic who was sent to the ER from his last visit with worsening cellulitis of his left leg. Patient was being treated for chronic venous insufficiency and had worsening cellulitis. Wound is being dressed with Aquacel Ag and ultra sorb dressing. Allergies Allergy/AdvReac Type Severity Reaction Status Date / Time cephalexin Allergy Intermediate Leukocytoclastic Verified 02/19/19 12:26 vasculitis neomycin AdvReac Mild RASH Verified 02/19/19 12:26 Home Medications Home Medications Medication Instructions Recorded Confirmed Type apixaban 5 mg tablet 5 mg PO BID 10/10/17 02/19/19 History metoprolol tartrate 25 mg tablet 25 mg PO BID 10/10/17 02/19/19 History finasteride 5 mg tablet 5 mg PO QAM 07/28/18 02/19/19 History bupropion HCl 150 mg 24 hr tablet, 150 mg PO BID 02/05/19 02/19/19 History extended release atorvastatin 10 mg PO QAM 02/19/19 02/19/19 History acetaminophen 325 mg PO Q6H PRN 5 Days #16 tab 02/22/19 Rx cefdinir 300 mg PO BID 21 Days #42 cap 02/22/19 Rx nicotine [Nicoderm CQ] 21 mg TRANSDERMAL QAM 30 Days #30 02/22/19 Rx ea oxycodone 5 mg PO Q6H PRN 4 Days #16 tab 02/22/19 Rx Patient History Medical History A-fib (Chronic) Asthma (Chronic) Atrial fibrillation BPH (benign prostatic hyperplasia) Callus (Acute) Chronic venous insufficiency (Chronic) CKD (chronic kidney disease), stage III Diastolic heart failure DM II (diabetes mellitus, type II), controlled (Chronic) Dyslipidemia Edema (Chronic) GERD (gastroesophageal reflux disease) (Chronic) Hallux rigidus of left foot (Acute) Hallux rigidus, right foot (Acute) Hypertension (Chronic) Morbid obesity due to excess calories Osteoarthritis (Chronic) Positive Lyme disease serology (Chronic) Secondary pulmonary hypertension Skin problem (Chronic) Subdural bleeding (Chronic) Surgical History History of craniotomy 08/01/2014 - evacuation of subdural hematoma - Dr Abundio Mahmood at [facility] Family History Other Diabetes Social History Preferred Language: Serbian Communication Ability: Effective Small Engine Specialist Required: No Beliefs That Will Affect Care: None marital status: / Current Living Situation: Alone current occupational status: retired Feels Safe at Home: Yes Smoking Status: Current every day smoker Tobacco Type: cigarettes ; Cigarettes Per Day: 3-4 ; Hx Alcohol Use: No Hx Substance Use: No Review of Systems Review of Systems: All systems reviewed & are unremarkable except as noted in HPI & below Physical Exam Constitutional: WD/WN, vitals as above Skin: Wound measuring as recorded in nursing documentation. Wounds are significantly improved from Friday. Wound covered with fibrin and slough. Periwound is intact. There is moderate drainage no foul odors. Neurologic: awake; not confused Psychiatric: A+Ox3, euthymic affect Results & Data Vital Signs (Past 12 Hours) Vital Signs Temp Pulse Pulse Resp BP BP Pulse Ox 02/22/19 16:44 36.6 C 91 H 97 H 24 121/78 112/73 94 02/22/19 15:10 36.6 C 91 H 24 121/78 94 PG Care Time/CCT Total # of Minutes Spent Total Time Spent with Patient: Total time spent is greater than 50% in coordination of care (as documented) at patient's floor/unit and/or counseling patient:
== END 2019-02-22 17:13 | disposition home or self-care (01) | DRG 603 ==
LOC: ED 20:27 → 2W 21:41 → SUATTDRO 21:41 → 2W 22:33

== ENCOUNTER 2019-04-01 12:57 | Inpatient (IN) ==
[2019-04-01] MEDS ORDERED: SODIUM CHLORIDE 0.9% 1000ML 1,000 ML IV ONE (13:33)
--- NOTE | 2019-04-01 13:45 | Emergency Department Note ---
History of Present Illness General Chief complaint: Infection, Wound Stated complaint: SURGREY, LEG INFECTED Time Seen by Provider: 04/01/19 13:23 History of Present Illness Maximum Pain Intensity: 0 This 78-year-old male presents the ER with family members with chief complaint of infection to his left lower leg and foot. The patient has been going to the wound care for both his feet. He was seen there last week and was placed back on cefdinir at the beginning of the week and then was seen later in the week and was given a prescription for doxycycline. He did not get the prescription filled until this Friday. So he is currently taking both cefdinir and doxycycline. He also states that he had a vascular procedure of his left lower leg by Dr. Hutchinson last Friday. Patient was supposed to have a follow-up appointment with Dr. Hutchinson on Friday but he did not go to his appointment he also was to go to the wound care center yesterday but did not go. The patient states that he was "too tired and too busy". The patient denies any fever, chest pain or shortness of breath. Home Medications Home Medications Medication Instructions Recorded Confirmed Type metoprolol tartrate 25 mg tablet 25 mg PO BID 10/10/17 04/01/19 History finasteride 5 mg tablet 5 mg PO QAM 07/28/18 04/01/19 History bupropion HCl 150 mg 24 hr tablet, 150 mg PO BID 02/05/19 04/01/19 History extended release atorvastatin 10 mg PO QAM 02/19/19 04/01/19 History furosemide 40 mg tablet 40 mg PO DAILY tab 03/11/19 04/01/19 History cefdinir 300 mg capsule 300 mg PO BID #60 cap 03/23/19 04/01/19 Rx doxycycline hyclate 100 mg PO BID 04/01/19 04/01/19 History famotidine 20 mg PO BID 04/01/19 04/01/19 History Allergies Allergy/AdvReac Type Severity Reaction Status Date / Time cephalexin Allergy Intermediate Leukocytoclastic Verified 03/23/19 09:39 vasculitis neomycin AdvReac Mild RASH Verified 03/23/19 09:39 Past Med/Surg History Medical History A-fib (Chronic) Atrial fibrillation BPH (benign prostatic hyperplasia) Chronic venous insufficiency (Chronic) CKD (chronic kidney disease), stage III Diastolic heart failure DM II (diabetes mellitus, type II), controlled (Chronic) Dyslipidemia GERD (gastroesophageal reflux disease) (Chronic) Hallux rigidus of left foot (Acute) Hallux rigidus, right foot (Acute) Hypertension (Chronic) Morbid obesity due to excess calories Osteoarthritis (Chronic) Positive Lyme disease serology (Chronic) PVD (peripheral vascular disease) Secondary pulmonary hypertension Surgical History History of craniotomy 08/01/2014 - [place] subdural hematoma [place] [facility] [place] History Father Diabetes Social History Preferred Language: Armenian Communication Ability: Effective Clinical Informatics Educator Required: No Beliefs That Will Affect Care: None marital status: / Current Living Situation: Alone current occupational status: retired Feels Safe at Home: Yes Smoking Status: Current every day smoker Tobacco Type: cigarettes ; Cigarettes Per Day: 1/2 pack day ; Second Hand Exposure: No ; Hx Alcohol Use: No Hx Substance Use: No Review of Systems A total of 10 systems reviewed and were otherwise negative Physical Exam Vital Signs Vital Signs - 24 hr 04/01/19 13:15 04/01/19 14:13 04/01/19 15:50 Temperature 36.8 C Temperature Source Oral Pulse Rate 94 H Pulse Rate [Left] 101 H 95 H Pulse Rhythm [Left] Regular Respiratory Rate 18 28 H 18 Respiratory Effort / Characteristics Non-Labored Spontaneous Non-Labored Respiratory Depth Normal Normal Respiratory Pattern Regular Regular Blood Pressure 119/79 Blood Pressure [Left Arm] 123/73 96/68 L Blood Pressure Mean 92 Blood Pressure Mean [Left Arm] 89 77 Blood Pressure Position Sitting Pulse Oximetry 91 100 Oxygen Delivery Method Room Air Room Air Sepsis Recent Fever Within 48 Hours No Sepsis New/Unexplained Change in Mental Status No Sepsis Action Taken by Nursing No Action Required GENERAL: 78-year-old male appears in no acute distress. Has mental Status: Patient is alert and oriented x3. He answers questions appropriately. NECK: Supple, no lymphadenopathy noted. No carotid bruits noted. LUNGS: Clear auscultation without wheezes rales or rhonchi. CARDIAC: Regular rate and rhythm without murmur. ABDOMEN: Positive bowel sounds all 4 quadrants. Soft, nontender to palpation without organomegaly or masses. LOWER EXTREMITIES: Entire left lower extremity with diffuse scaling, erythema, there is underlying deep purple color to the left lower extremity. There is open wounds noted mainly on the dorsal aspect of the foot and toes. There is purulent debris noted on these wounds. Right lower extremity with notes of venous stasis and dark purple noted just around the ankle and dorsal aspect of the foot. Minimal scaling and open wounds noted. No evidence of infection. Course Administered Medications Discontinued Medications Sodium Chloride (Nss 1000ml) 1,000 mls @ 999 mls/hr IV .Q1H1M ONE Stop: 04/01/19 14:33 Last Infusion: 04/01/19 15:04 Dose: 0 mls/hr Documented by: [id number] Admin: 04/01/19 14:10 Dose: 999 mls/hr Documented by: [id number] Medical Decision Making Differential Diagnosis Venous stasis, cellulitis, venous stasis ulcers Medical Records Attestation: I reviewed the patient's medical records. Home Medications Current Medication List: was personally reviewed by me Laboratory Data Attestation: I reviewed the patient's lab results. Result diagrams: 04/01/19 13:48 04/01/19 13:48 Lab Results 04/01/19 04/01/19 Range/Units 13:48 13:48 WBC 10.84 H (4.8-10.8) K/uL RBC 4.93 (4.7-6.1) M/uL Hgb 14.3 (14.0-18.0) g/dL Hct 43.0 (42-52) % MCV 87.2 (80-100) fL MCH 29.0 (25-34) pg MCHC 33.3 (32-36) g/dL RDW Std Deviation 49.6 H (36.4-46.3) fL RDW Coeff of Karla 15.4 H (11.5-14.5) % Plt Count 251 (130-400) K/uL MPV 9.4 (7.4-10.4) fL Immature Gran % (Auto) 0.4 % Neut % (Auto) 76.1 % Lymph % (Auto) 12.4 % [place] % (Auto) 9.0 % Eos % (Auto) 1.8 % Baso % (Auto) 0.3 % Immature Gran # (Auto) 0.04 H (0.00-0.02) K/uL Neut # (Auto) 8.25 H (1.4-6.5) K/uL Lymph # (Auto) 1.34 (1.2-3.4) K/uL [place] # (Auto) 0.98 H (0.11-0.59) K/uL Eos # (Auto) 0.20 (0-0.5) K/uL Baso # (Auto) 0.03 (0-0.2) K/uL Sodium 139 (136-145) mmol/L Potassium 3.9 (3.5-5.1) mmol/L Chloride 105 (98-107) mmol/L Carbon Dioxide 27 (21-32) mmol/L Anion Gap 7.0 (3-11) BUN 45 H (7-18) mg/dl Creatinine 1.58 H (0.6-1.4) mg/dl Est Cr Clr Drug Dosing Not Reportable Est GFR ( Amer) 47.8 Est GFR (Non-Af Amer) 41.3 BUN/Creatinine Ratio 28.2 H (10-20) Glucose 135 H (70-99) mg/dl Calcium 9.9 (8.5-10.1) mg/dl Total Bilirubin 0.7 (0.2-1) mg/dl AST 33 (15-37) U/L ALT 24 (12-78) U/L Alkaline Phosphatase 82 (45-117) U/L Total Protein 8.8 H (6.4-8.2) gm/dl Albumin 3.1 L (3.4-5.0) gm/dl Globulin 5.7 H (2.5-4.0) gm/dl Albumin/Globulin Ratio 0.5 L (0.9-2) Blood Pressure Blood Pressure Findings: Normal blood pressure MDM Narrative The patient was evaluated. IV access was obtained. The patient was given 1 L normal saline wide open. CBC and differential, renal profile, LFTs and blood cultures were ordered. Wound care nurse was consulted. Labs are reviewed. The patient's white count was slightly elevated at 10.84. BUN was 45 and creatinine was 1.58. Wound care nurse came and obtained a wound culture which is pending and dressed the wounds. Due to the patient failing outpatient oral antibiotic treatment hospitalist was consulted for admission. Impression & Plan Cellulitis and abscess of left leg, Venous stasis of both lower extremities, Diabetes Discharge Plan Visit Data Chief Complaint: Infection, Wound Stated Complaint: SURGREY, LEG INFECTED ED Provider: Steven Elkins ED Midlevel Provider: Gema Lopez Discharge Problem: Cellulitis and abscess of left leg, Venous stasis of both lower extremities, Diabetes Patient Disposition: Home - Self-Care Condition: Good Forms Stand Alone Forms: My [facility], Important Visit Information Prescriptions Prescriptions: No Action metoprolol tartrate 25 mg tablet 25 mg PO BID RF: 0 finasteride [Proscar] 5 mg tablet 5 mg PO QAM RF: 0 bupropion HCl 150 mg tablet extended release 24 hr 150 mg PO BID RF: 0 furosemide 40 mg tablet 40 mg PO DAILY RF: 0 cefdinir 300 mg capsule 300 mg PO BID Qty: 60 RF: 2 atorvastatin 10 mg tablet 10 mg PO QAM RF: 0 famotidine 20 mg tablet 20 mg PO BID RF: 0 doxycycline hyclate 100 mg tablet 100 mg PO BID RF: 0 Referrals Referrals: Steven Vincent MD [Primary Care Provider] -
[2019-04-01 14:02] LABS: Basophils # (auto) 0.03 K/uL (0-0.2); Basophils % (auto) 0.3 %; Eosinophils % (auto) 1.8 %; Hemoglobin 14.3 g/dL (14.0-18.0); Immature Granulocytes # (auto) 0.04 K/uL (0.00-0.02); Immature Granulocytes % (auto) 0.4 %; Lymphocytes # (auto) 1.34 K/uL (1.2-3.4); Lymphocytes % (auto) 12.4 %; Mean Corpuscular Hgb Conc 33.3 g/dL (32-36); Mean Corpuscular Volume 87.2 fL (80-100); Mean Platelet Volume 9.4 fL (7.4-10.4); Monocytes # (auto) 0.98 K/uL (0.11-0.59); Neutrophils # (auto) 8.25 K/uL (1.4-6.5); Neutrophils % (auto) 76.1 %; Platelet Count 251 K/uL (130-400); RDW Coefficient of Variation 15.4 % (11.5-14.5); RDW Standard Deviation 49.6 fL (36.4-46.3); Red Blood Count 4.93 M/uL (4.7-6.1); White Blood Count 10.84 K/uL (4.8-10.8)
[2019-04-01 14:16] LABS: Alanine Aminotransferase 24 U/L (12-78); Albumin Level 3.1 gm/dl (3.4-5.0); Aspartate Aminotransferase 33 U/L (15-37); BUN Creatinine Ratio 28.2 (10-20); Blood Urea Nitrogen 45 mg/dl (7-18); Calcium 9.9 mg/dl (8.5-10.1); Carbon Dioxide 27 mmol/L (21-32); Chloride 105 mmol/L (98-107); Est GFR (African American) 47.8; Est GFR (Non-African American) 41.3; Glucose 135 mg/dl (70-99); Potassium 3.9 mmol/L (3.5-5.1); Sodium 139 mmol/L (136-145)
[2019-04-01 14:19] LABS: Albumin Globulin Ratio 0.5 (0.9-2); Alkaline Phosphatase 82 U/L (45-117); Bilirubin,Total 0.7 mg/dl (0.2-1); Globulin 5.7 gm/dl (2.5-4.0); Total Protein 8.8 gm/dl (6.4-8.2)
--- NOTE | 2019-04-01 16:32 | History & Physical Report ---
Date of Service April 01, 2019 Assessment & Plan (1) PVD (peripheral vascular disease): (2) Venous ulcer of left leg: (3) Cellulitis: -admit to med/surg -patient presenting from home for worsening wounds on the LLE and left foot -hx of severe PVD, s/p RFA of left GSV on 03/26 -had been following with vascular and wound care center but has missed several appointments over the past week and a half -was prescribed cefdinir and doxycycline for most recent wound culture growing MRSA and Enterobacter -Currently hemodynamically stable, does not appear septic -will start broad-spectrum IV antibiotics with IV daptomycin and Zosyn -Wound care consult -Infectious disease consult, when available (4) CKD (chronic kidney disease), stage III: - baseline creat runs in the mid ones - creat noted to be 1.5 today - continue to monitor, avoid nephrotoxic agents when able (5) Diastolic heart failure: -Appears euvolemic -Continue home dose of furosemide (6) Atrial fibrillation: -Rate controlled on metoprolol, will continue -Was previously anticoagulated on Eliquis, family reports patient has not been taking this medication for at least the past 2 years, unsure why it was stopped -Would recommend resumption of Eliquis for stroke prophylaxis, defer to PCP (7) DM II (diabetes mellitus, type II), controlled: -Hgb A1c 6.5 11/2018 -Diet controlled -Monitor glucose on daily labs (8) Dyslipidemia: -Continue statin (9) BPH (benign prostatic hyperplasia): -Continue finasteride (10) DVT prophylaxis: -SQ heparin History of Present Illness Chief Complaint: Left leg wound Primary Care Provider: Steven Vincent MD 78-year-old male who presents the ED for evaluation of left leg wound. Patient admitted to [facility] 02/20 through 02/22 for cellulitis of the left lower extremity with venous stasis ulcers of both lower extremities. Patient was discharged on cefdinir. Patient has been following with the wound care center and vascular surgery. On 03/16, patient was placed on Bactrim. He was seen by ID on 03/23 and placed on an additional course of cefdinir. Repeat cultures were obtained at that time which grew Enterobacter and MRSA. Doxycycline was added to patient's regimen on 03/26. On 03/26, patient underwent RFA of left GSV. Patient son is at the bedside who reports that patient has missed several of his recent follow-up appointments with vascular surgery and the wound care center. When he went to check on him today, he noted that the patient's left leg wounds appear to be much worse. Patient was then brought to the ED for further evaluation. Patient denies fevers and chills. No chest pain or shortness of breath. Denies lightheadedness, dizziness, diaphoresis, syncopal events. No abdominal pain, nausea, vomiting, diarrhea. Denies any urinary symptoms. In the ED, patient's labs are unremarkable. He is hemodynamically stable. He was evaluated by the wound care nurse and had dressings placed to his left lower extremity wounds. He was given IVF. Allergies Allergy/AdvReac Type Severity Reaction Status Date / Time cephalexin Allergy Intermediate Leukocytoclastic Verified 03/23/19 09:39 vasculitis neomycin AdvReac Mild RASH Verified 03/23/19 09:39 Home Medications Home Medications Medication Instructions Recorded Confirmed Type metoprolol tartrate 25 mg tablet 25 mg PO BID 10/10/17 04/01/19 History finasteride 5 mg tablet 5 mg PO QAM 07/28/18 04/01/19 History bupropion HCl 150 mg 24 hr tablet, 150 mg PO BID 02/05/19 04/01/19 History extended release atorvastatin 10 mg PO QAM 02/19/19 04/01/19 History furosemide 40 mg tablet 40 mg PO DAILY tab 03/11/19 04/01/19 History cefdinir 300 mg capsule 300 mg PO BID #60 cap 03/23/19 04/01/19 Rx doxycycline hyclate 100 mg PO BID 04/01/19 04/01/19 History famotidine 20 mg PO BID 04/01/19 04/01/19 History Past Med/Surg History Medical History A-fib (Chronic) Atrial fibrillation BPH (benign prostatic hyperplasia) Chronic venous insufficiency (Chronic) CKD (chronic kidney disease), stage III Diastolic heart failure DM II (diabetes mellitus, type II), controlled (Chronic) Dyslipidemia GERD (gastroesophageal reflux disease) (Chronic) Hallux rigidus of left foot (Acute) Hallux rigidus, right foot (Acute) Hypertension (Chronic) Morbid obesity due to excess calories Osteoarthritis (Chronic) Positive Lyme disease serology (Chronic) PVD (peripheral vascular disease) Secondary pulmonary hypertension Surgical History History of craniotomy 08/01/2014 - evacuation of subdural hematoma [place] [facility] [place] History Father Diabetes Social History Preferred Language: Turkmen Communication Ability: Effective Trip Rider Required: No Beliefs That Will Affect Care: None marital status: / Current Living Situation: Alone current occupational status: retired Other Information That Helps Us Care for You: No Feels Safe at Home: Yes Safety Concerns: Feels Safe At This Time Smoking Status: Current every day smoker Tobacco Type: cigarettes ; Cigarettes Per Day: 1/2 pack day ; Do You Dip or Chew Tobacco: No ; Second Hand Exposure: No ; Tobacco Cessation Education Requested by Patient: No Hx Alcohol Use: No Hx Substance Use: No Review of Systems Review of Systems: ROS per HPI, all other systems reviewed and negative Physical Exam Constitutional: WD/WN, vitals as above Eyes: PERRL, conjunctivae normal, anicteric sclerae ENMT: external ear and nose normal, oropharynx normal Respiratory: normal respiratory effort; no respiratory distress Auscultation: + diminished lung sounds Cardiovascular: Rate/Rhythm: regular rate and + irregularly irregular Vessels: normal peripheral pulses Extremities: + edema (+1-2 edema BLE) Gastrointestinal (Abdomen): normal bowel sounds, soft, nontender, no hepatosplenomegaly Musculoskeletal: no cyanosis or clubbing, extremities motor strength 5/5 Skin: no rashes, warm and dry chronic venous changes BLE, LLE warm to touch, new dressings recently placed by wound care intake to LLE and left foot Neurologic: PERRL, EOMI, accommodation nl, no face palsy, no dysarthria Psychiatric: Orientation: alert and oriented x 3 Affect: + flat affect Results & Data Vital Signs (Past 12 Hours) Vital Signs Temp Pulse Pulse Resp BP BP Pulse Ox 04/01/19 15:50 95 H 18 96/68 L 100 04/01/19 14:13 101 H 28 H 123/73 04/01/19 13:15 36.8 C 94 H 18 119/79 91 Laboratory Results Short CBC 04/01/19 Range/Units 13:48 WBC 10.84 H (4.8-10.8) K/uL Hgb 14.3 (14.0-18.0) g/dL Hct 43.0 (42-52) % Plt Count 251 (130-400) K/uL BMP 04/01/19 13:48 Sodium 139 Potassium 3.9 Chloride 105 Carbon Dioxide 27 BUN 45 H Creatinine 1.58 H Glucose 135 H Calcium 9.9 Liver Function 04/01/19 Range/Units 13:48 Total Bilirubin 0.7 (0.2-1) mg/dl AST 33 (15-37) U/L ALT 24 (12-78) U/L Alkaline Phosphatase 82 (45-117) U/L Albumin 3.1 L (3.4-5.0) gm/dl Code Status & VTE Plan Code Status Patient is a DNR as per my discussion with him. VTE Prophylaxis Plan VTE Prophylaxis will be ordered: No Supervising Physician Co-Signing Physician Notes I have seen and examined the patient and have discussed the case with the provider above. I agree with the assessment and plan as stated with the following exceptions. 78 yo M with known PVD and recent angioplasty on left leg as above. There is some conflicting history with regard to the progression of the left leg infection as the son thought he looked worse, however, the patient thinks that his legs look better. Also the family reported the patient was taking the antibiotics since 9 days ago, however the ER note reports he didn't start the antibiotics until just recently. There is notable noncompliance throughout his chart, and appears to be some here, also. Physical exam reveals a patient who is easily agitated but oriented and in NAD. Lungs are clear to auscultation throughout and cardiac auscultation reveals S1/2 without murmurs. Abdomen is soft, nontender and nondistended. The lower extremities have chronic distal changes with erythroderma and scaling of the skin. Multiple ulcerative wounds are dressed with special dressings per wound care earlier today and there is minimal to no drainage. There is some spreading pinkish erythema proximally from the scaly skin to the inferior left knee. There is some persistent erythematous streaking over and around multiple scratched lesions on his left inner thigh to his groin. He is not septic. Labwork and workup as above. Agree with plan to continue broad spectrum abx for now and monitor for clinical re sponse. Appreciate wound care provider input, especially regarding the possible need for MRI to rule out osteomyelitis. DO Edwin (1) Atrial fibrillation Atrial fibrillation type: permanent Qualified Code(s): I48.21 - Permanent atrial fibrillation (2) Diastolic heart failure Heart failure chronicity: acute on chronic Qualified Code(s): I50.33 - Acute on chronic diastolic (congestive) heart failure
[2019-04-01] MEDS ORDERED: DAPTOMYCIN CONSULT ACTIVE PRN (20:04)
[2019-04-01] MEDS ORDERED: PIPERACILL/TAZOBAC CONSULT ACTIVE PRN (20:04)
[2019-04-01] MEDS ORDERED: PIPERACILLIN/TAZOBACTAM 4.5 GM in DEXTROSE 5% 100 ML IV ONE (20:45)
[2019-04-01] MEDS: DAPTOmycin 375 MG in SYRINGE 0 ML IV SCH (22:17)
[2019-04-01] MEDS: METOPROLOL TARTRATE 25 MG TAB PO SCH (22:18)
[2019-04-01] MEDS: FAMOTIDINE 20 MG TAB PO SCH (22:19)
[2019-04-01] MEDS: BuPROPion XL 150 MG TABCR PO SCH (22:19)
[2019-04-01] MEDS: HEPARIN SOD 5,000 UNIT/0.5 ML VIAL SQ SCH (22:20)
[2019-04-02] MEDS: PIPERACILLIN/TAZOBACTAM 4.5 GM in DEXTROSE 5% 100 ML IV SCH ×3 (02:14→18:47)
[2019-04-02] MEDS: HEPARIN SOD 5,000 UNIT/0.5 ML VIAL SQ SCH ×3 (05:46→22:39)
[2019-04-02 06:14] LABS: Hematocrit (blood only) 42.1 % (42-52); Hemoglobin 13.6 g/dL (14.0-18.0); Mean Corpuscular Hemoglobin 28.2 pg (25-34); Mean Corpuscular Hgb Conc 32.3 g/dL (32-36); Mean Corpuscular Volume 87.3 fL (80-100); Mean Platelet Volume 9.9 fL (7.4-10.4); Platelet Count 197 K/uL (130-400); RDW Coefficient of Variation 15.4 % (11.5-14.5); RDW Standard Deviation 49.2 fL (36.4-46.3); Red Blood Count 4.82 M/uL (4.7-6.1); White Blood Count 7.92 K/uL (4.8-10.8)
[2019-04-02 06:49] LABS: BUN Creatinine Ratio 25.5 (10-20); Creatinine Clr Calc Pharmacy 52.2 ml/min; Est GFR (African American) 47.5; Potassium 3.7 mmol/L (3.5-5.1)
[2019-04-02] MEDS: BuPROPion XL 150 MG TABCR PO SCH ×2 (07:24→23:45)
[2019-04-02] MEDS: FAMOTIDINE 20 MG TAB PO SCH ×2 (07:24→23:45)
[2019-04-02] MEDS: NICOTINE 21 MG/24 HR TDSY TD SCH (07:25)
[2019-04-02] MEDS: FINASTERIDE 5 MG TAB PO SCH (07:25)
[2019-04-02] MEDS: ATORVASTATIN 10 MG TAB PO SCH (07:25)
[2019-04-02] MEDS: METOPROLOL TARTRATE 25 MG TAB PO SCH ×2 (07:25→23:45)
[2019-04-02] MEDS: FUROSEMIDE 40 MG TAB PO SCH (07:25)
--- NOTE | 2019-04-02 15:35 | Wound Consultation ---
Date of Consultation April 02, 2019 Assessment & Plan (1) Left leg cellulitis: Is a 78-year-old male with venous stasis ulcer of his left leg and foot and secondary cellulitis. No debridement was required at this time. Preliminary wound cultures showing both gram-negative and gram-positive bacilli. Wounds will be dressed with acetic acid soaks twice daily. We will continue this through the weekend. Continue antibiotics pending further sensitivities. We will see patient in the office upon discharge. Thank you for allowing me to participate in the care of this patient. Please not hesitate to call with any questions. (2) Venous stasis ulcers of both lower extremities: History of Present Illness Reason for Consultation: Venous stasis ulcer with cellulitis Attending Physician: Arturo Powell MD History of Present Illness This is a 78-year-old male who is well-known to the wound clinic who went to the ER with worsening cellulitis of his left leg and foot. Patient has a past medical history of chronic venous insufficiency, type 2 diabetes, BPH, dyslipidemia, CKD stage III, diastolic heart failure, atrial fibrillation and secondary pulmonary hypertension. Patient has no new complaints at this time. He is anxious to go home. Allergies Allergy/AdvReac Type Severity Reaction Status Date / Time cephalexin Allergy Intermediate Leukocytoclastic Verified 03/23/19 09:39 vasculitis neomycin AdvReac Mild RASH Verified 03/23/19 09:39 Home Medications Home Medications Medication Instructions Recorded Confirmed Type metoprolol tartrate 25 mg tablet 25 mg PO BID 10/10/17 04/01/19 History finasteride 5 mg tablet 5 mg PO QAM 07/28/18 04/01/19 History bupropion HCl 150 mg 24 hr tablet, 150 mg PO BID 02/05/19 04/01/19 History extended release atorvastatin 10 mg PO QAM 02/19/19 04/01/19 History furosemide 40 mg tablet 40 mg PO DAILY tab 03/11/19 04/01/19 History cefdinir 300 mg capsule 300 mg PO BID #60 cap 03/23/19 04/01/19 Rx doxycycline hyclate 100 mg PO BID 04/01/19 04/01/19 History famotidine 20 mg PO BID 04/01/19 04/01/19 History Patient History Medical History A-fib (Chronic) Atrial fibrillation BPH (benign prostatic hyperplasia) Chronic venous insufficiency (Chronic) CKD (chronic kidney disease), stage III Diastolic heart failure DM II (diabetes mellitus, type II), controlled (Chronic) Dyslipidemia GERD (gastroesophageal reflux disease) (Chronic) Hallux rigidus of left foot (Acute) Hallux rigidus, right foot (Acute) Hypertension (Chronic) Morbid obesity due to excess calories Osteoarthritis (Chronic) Positive Lyme disease serology (Chronic) PVD (peripheral vascular disease) Secondary pulmonary hypertension Surgical History History of craniotomy 08/01/2014 - evacuation of subdural hematoma [place] [facility] [place] Father Diabetes Social History Preferred Language: Slovenian Communication Ability: Effective Police Pilot Required: No Beliefs That Will Affect Care: None marital status: / Current Living Situation: Alone current occupational status: retired Other Information That Helps Us Care for You: No Feels Safe at Home: Yes Safety Concerns: Feels Safe At This Time Smoking Status: Current every day smoker Tobacco Type: cigarettes ; Cigarettes Per Day: 1/2 pack day ; Do You Dip or Chew Tobacco: No ; Second Hand Exposure: No ; Tobacco Cessation Education Requested by Patient: No Hx Alcohol Use: No Hx Substance Use: No Review of Systems Review of Systems: All systems reviewed & are unremarkable except as noted in HPI & below Physical Exam Constitutional: WD/WN, vitals as above Eyes: PERRL, conjunctivae normal, anicteric sclerae ENMT: external ear and nose normal, oropharynx normal Respiratory: normal respiratory effort, lungs clear to auscultation Cardiovascular: RRR, no murmur, no edema Gastrointestinal (Abdomen): normal bowel sounds, soft, nontender, no hepatosplenomegaly Skin: Left foot wound measuring 18 x 13 x 0.1 cm. Wound is covered with fibrin and slough. Periwound is macerated. There is foul odor and a large amount of drainage. Neurologic: awake; not confused Psychiatric: A+Ox3, euthymic affect Results & Data Vital Signs (Past 12 Hours) Vital Signs Temp Pulse Resp BP Pulse Ox 04/02/19 07:11 36.3 C L 88 18 107/65 92 PG Care Time/CCT Total # of Minutes Spent Total Time Spent with Patient: Total time spent is greater than 50% in coordination of care (as documented) at patient's floor/unit and/or counseling patient: Coding Level of Care Code 66154 Inpt Consult Level 3 Diagnoses Left leg cellulitis L03.116 Venous stasis ulcers of both lower extremities I83.019; I83.029; L97.919; L97.929
--- NOTE | 2019-04-02 16:12 | Hospitalist Progress Note ---
Date of Service April 02, 2019 Assessment & Plan (1) PVD (peripheral vascular disease): Complicating current leg wounds Advised to keep the leg wounds clean and dry (2) Venous ulcer of left leg: (3) Cellulitis: Was admitted from home for worsening wounds on the LLE and left foot -hx of severe PVD, s/p RFA of left GSV on 03/26 -had been following with vascular and wound care center but has missed several appointments over the past week and a half -was prescribed cefdinir and doxycycline for most recent wound culture growing MRSA and Enterobacter -Has been started with intravenous daptomycin and Zosyn ending further culture and sensitivity -Blood culture has been taken -Wound culture is growing gram-negative bacilli further sensitivity and identification pending -Appreciate wound care provider input and recommendation (4) CKD (chronic kidney disease), stage III: - baseline creat runs in the mid ones - creat noted to be 1.5 today - continue to monitor, avoid nephrotoxic agents when able -Creatinine remains stable around 1.5 -Advised to drink more fluid (5) Diastolic heart failure: -Appears euvolemic -Continue home dose of furosemide (6) Atrial fibrillation: -Rate controlled on metoprolol, will continue -Was previously anticoagulated on Eliquis, family reports patient has not been taking this medication for at least the past 2 years, unsure why it was stopped -We will discuss with the patient about reintroduction of Eliquis -Currently the heart rate remains controlled (7) DM II (diabetes mellitus, type II), controlled: -Hgb A1c 6.5 11/2018 -Diet controlled -Monitor glucose on daily labs (8) Dyslipidemia: -Continue statin (9) BPH (benign prostatic hyperplasia): -Continue finasteride (10) DVT prophylaxis: -SQ heparin Admission and Anticipated Discharge Date Admission Date: April 01, 2019 Anticipated date of discharge: 04/05/19 Subjective 04/02/2019 The patient was seen and examined in medical floor He was admitted with worsening wounds of the left lower leg and left foot Denies any significant pain involving the left lower extremity Denies any fever and/or chills No other significant symptoms Review of Systems Review of Systems: All systems reviewed and are unremarkable except as noted below Integumentary: + skin ulcer (Involving the left leg and foot mainly with drainage of foul-smelling fluid and adjoining inflammation) and + change in skin color (Chronic skin changes on the right leg) Physical Exam Physical Exam: Sitting on a chair without any acute distress Constitutional: well developed, well nourished and + morbidly obese; no acute distress and not ill appearing Eyes: PERRL, conjunctivae normal, anicteric sclerae ENMT: external ear and nose normal, oropharynx normal Neck: trachea midline, no thyromegaly Respiratory: normal respiratory effort; no respiratory distress Auscultation: lungs clear to auscultation bilaterally and + diminished lung sounds Cardiovascular: Rate/Rhythm: regular rate and regular rhythm Heart Sounds: no murmur Gastrointestinal (Abdomen): Inspection/Auscultation: abdomen normal to inspection and normal bowel sounds Percussion/Palpation: abdomen soft; abdomen nontender Musculoskeletal: No acute arthritis in any joints Skin: Left leg and foot wound measuring 18 x 13 x 0.1 cm. Wound is covered with fibrin and slough. Lots of foul-smelling drainage. Neurologic: moves all extremities; no focal motor deficits Lymphatic: no cervical or axillary lymphadenopathy Results & Data ([facility]) Vital Signs (Past 12 Hours) Vital Signs Temp Pulse Resp BP BP Pulse Ox 04/02/19 15:44 36.7 C 80 24 110/71 91 04/02/19 07:11 36.3 C L 88 18 107/65 92 Laboratory Results Short CBC 04/02/19 Range/Units 05:27 WBC 7.92 (4.8-10.8) K/uL Hgb 13.6 L (14.0-18.0) g/dL Hct 42.1 (42-52) % Plt Count 197 (130-400) K/uL BMP 04/02/19 05:27 Sodium 139 Potassium 3.7 Chloride 107 Carbon Dioxide 26 BUN 41 H Creatinine 1.59 H Glucose 117 H Calcium 9.0 Medications Administered Current Inpatient Medications Acetaminophen (Tylenol) 650 mg PO Q4H PRN PRN Reason: pain/fever Stop: 05/01/19 19:06 Atorvastatin Calcium (Lipitor) 10 mg PO QAM [facility] Stop: 05/02/19 08:59 Last Admin: 04/02/19 07:25 Dose: 10 mg Documented by: Bupropion HCl (Wellbutrin-Xl) 150 mg PO BID [facility] Stop: 05/01/19 20:59 Last Admin: 04/02/19 07:24 Dose: 150 mg Documented by: Famotidine (Pepcid) 20 mg PO BID [facility] Stop: 05/01/19 20:59 Last Admin: 04/02/19 07:24 Dose: 20 mg Documented by: Finasteride (Proscar) 5 mg PO QAM [facility] Stop: 05/02/19 08:59 Last Admin: 04/02/19 07:25 Dose: 5 mg Documented by: Furosemide (Lasix) 40 mg PO DAILY [facility] Stop: 05/02/19 08:59 Last Admin: 04/02/19 07:25 Dose: 40 mg Documented by: Heparin Sodium (Porcine) (Heparin Sodium (Porcine)) 5,000 units SQ Q8 [facility] Stop: 05/01/19 21:59 Last Admin: 04/02/19 13:38 Dose: 5,000 units Documented by: Daptomycin 375 mg/ Syringe 7.5 mls @ 3.75 mls/min IV Q24H [facility]; Protocol Stop: 04/08/19 20:59 Last Admin: 04/01/19 22:17 Dose: 3.75 mls/min Documented by: Piperacillin Sod/Tazobactam (Sod 4.5 gm/ Dextrose) 120 mls @ 30 mls/hr IV Q8H [facility]; Protocol Stop: 04/09/19 01:59 Last Infusion: 04/02/19 13:46 Dose: Infused Documented by: Metoprolol Tartrate (Lopressor) 25 mg PO BID [facility] Stop: 05/01/19 20:59 Last Admin: 04/02/19 07:25 Dose: 25 mg Documented by: Miscellaneous (Remove Nicoderm Patch) 1 ea N/A DAILY@0859 [facility] Stop: 05/02/19 08:58 Last Admin: 04/02/19 07:26 Dose: Not Given Documented by: Miscellaneous Information (Consult) 1 ea N/A UD PRN PRN Reason: Consult Stop: 05/01/19 20:03 Miscellaneous Information (Consult) 1 ea N/A UD PRN PRN Reason: Consult Stop: 05/01/19 20:03 Nicotine (Nicoderm Cq) 21 mg TD QAM [facility] Stop: 05/02/19 08:59 Last Admin: 04/02/19 07:25 Dose: 21 mg Documented by: (1) Diastolic heart failure Heart failure chronicity: acute on chronic Qualified Code(s): I50.33 - Acute on chronic diastolic (congestive) heart failure (2) Atrial fibrillation Atrial fibrillation type: permanent Qualified Code(s): I48.21 - Permanent atrial fibrillation
[2019-04-02] MEDS: DAPTOmycin 375 MG in SYRINGE 0 ML IV SCH (22:38)
[2019-04-03] MEDS ORDERED: ACETIC ACID 0.25% IRRIG SOLN 1000 ML PLCT IR ONE (00:45)
[2019-04-03] MEDS: PIPERACILLIN/TAZOBACTAM 4.5 GM in DEXTROSE 5% 100 ML IV SCH ×3 (01:21→17:46)
[2019-04-03] MEDS: HEPARIN SOD 5,000 UNIT/0.5 ML VIAL SQ SCH ×3 (05:41→22:12)
[2019-04-03 06:19] LABS: Creatinine Clr Calc Pharmacy 42.2 ml/min; Est GFR (African American) 36.6; Est GFR (Non-African American) 31.6
[2019-04-03] MEDS: BuPROPion XL 150 MG TABCR PO SCH ×2 (08:01→20:19)
[2019-04-03] MEDS: FINASTERIDE 5 MG TAB PO SCH (08:01)
[2019-04-03] MEDS: FUROSEMIDE 40 MG TAB PO SCH (08:01)
[2019-04-03] MEDS: FAMOTIDINE 20 MG TAB PO SCH ×2 (08:01→20:20)
[2019-04-03] MEDS: ATORVASTATIN 10 MG TAB PO SCH (08:01)
[2019-04-03] MEDS: METOPROLOL TARTRATE 25 MG TAB PO SCH ×2 (08:01→20:19)
[2019-04-03] MEDS: NICOTINE 21 MG/24 HR TDSY TD SCH (08:02)
--- NOTE | 2019-04-03 14:31 | Hospitalist Progress Note ---
Date of Service April 03, 2019 Assessment & Plan (1) PVD (peripheral vascular disease): Complicating current leg wounds Advised to keep the leg wounds clean and dry (2) Venous ulcer of left leg: (3) Cellulitis: Was admitted from home for worsening wounds on the LLE and left foot -hx of severe PVD, s/p RFA of left GSV on 03/26 -had been following with vascular and wound care center but has missed several appointments over the past week and a half -was prescribed cefdinir and doxycycline for most recent wound culture growing MRSA and Enterobacter -Has been started with intravenous daptomycin and Zosyn ending further culture and sensitivity -Blood culture has been taken -Wound culture is growing gram-negative bacilli further sensitivity and identification pending -Appreciate wound care provider input and recommendation -We will continue current intravenous antibiotic -Elevate the leg when possible -Likely discharge on Friday (4) CKD (chronic kidney disease), stage III: - baseline creat runs in the mid ones - creat noted to be 1.5 today - continue to monitor, avoid nephrotoxic agents when able -Creatinine remains stable around 1.5 -Advised to drink more fluid (5) Diastolic heart failure: -Appears euvolemic -Continue home dose of furosemide -No fluid overload (6) Atrial fibrillation: -Rate controlled on metoprolol, will continue -Was previously anticoagulated on Eliquis, family reports patient has not been taking this medication for at least the past 2 years, unsure why it was stopped -We will discuss with the patient about reintroduction of Eliquis -Currently the heart rate remains controlled -Denies any acute symptoms (7) DM II (diabetes mellitus, type II), controlled: -Hgb A1c 6.5 11/2018 -Diet controlled -Monitor glucose on daily labs (8) Dyslipidemia: -Continue statin (9) BPH (benign prostatic hyperplasia): -Continue finasteride (10) DVT prophylaxis: -SQ heparin Admission and Anticipated Discharge Date Admission Date: April 01, 2019 Anticipated date of discharge: 04/05/19 Subjective 04/02/2019 The patient was seen and examined in medical floor He was admitted with worsening wounds of the left lower leg and left foot Denies any significant pain involving the left lower extremity Denies any fever and/or chills No other significant symptoms 04/03/2019 The patient was seen and examined in medical floor His pain in the left leg and foot are much better He denies any other symptoms Review of Systems Review of Systems: All systems reviewed and are unremarkable except as noted below Integumentary: + skin ulcer (Involving the left leg and foot mainly with drainage of foul-smelling fluid and adjoining inflammation) and + change in skin color (Chronic skin changes on the right leg) Physical Exam Physical Exam: Sitting on a chair without any acute distress Constitutional: well developed, well nourished and + morbidly obese; no acute distress and not ill appearing Eyes: PERRL, conjunctivae normal, anicteric sclerae ENMT: external ear and nose normal, oropharynx normal Neck: trachea midline, no thyromegaly Respiratory: normal respiratory effort; no respiratory distress Auscultation: lungs clear to auscultation bilaterally and + diminished lung sounds Cardiovascular: Rate/Rhythm: regular rate and regular rhythm Heart Sounds: no murmur Extremities: + edema (Bilateral leg edema, left more than the right with chronic skin changes and left leg has cellulitis) Gastrointestinal (Abdomen): Inspection/Auscultation: abdomen normal to inspection and normal bowel sounds Percussion/Palpation: abdomen soft; abdomen nontender Neurologic: moves all extremities; no focal motor deficits Lymphatic: no cervical or axillary lymphadenopathy Results & Data ([facility]) Vital Signs (Past 12 Hours) Vital Signs Temp Pulse Resp BP Pulse Ox 04/03/19 07:18 36.8 C 103 H 18 131/86 92 (1) Diastolic heart failure Heart failure chronicity: acute on chronic Qualified Code(s): I50.33 - Acute on chronic diastolic (congestive) heart failure (2) Atrial fibrillation Atrial fibrillation type: permanent Qualified Code(s): I48.21 - Permanent atrial fibrillation
[2019-04-03] MEDS: DAPTOmycin 375 MG in SYRINGE 0 ML IV SCH (20:39)
[2019-04-04] MEDS: PIPERACILLIN/TAZOBACTAM 4.5 GM in DEXTROSE 5% 100 ML IV SCH ×3 (02:19→18:13)
[2019-04-04 05:49] LABS: Hematocrit (blood only) 43.8 % (42-52); Hemoglobin 14.6 g/dL (14.0-18.0); Mean Corpuscular Hemoglobin 28.9 pg (25-34); Mean Corpuscular Hgb Conc 33.3 g/dL (32-36); Mean Corpuscular Volume 86.7 fL (80-100); Mean Platelet Volume 9.5 fL (7.4-10.4); Platelet Count 211 K/uL (130-400); RDW Coefficient of Variation 15.2 % (11.5-14.5); RDW Standard Deviation 48.4 fL (36.4-46.3); Red Blood Count 5.05 M/uL (4.7-6.1)
[2019-04-04] MEDS: HEPARIN SOD 5,000 UNIT/0.5 ML VIAL SQ SCH ×3 (05:56→21:07)
[2019-04-04 06:18] LABS: Creatinine Clr Calc Pharmacy 47.8 ml/min; Est GFR (African American) 43.2; Est GFR (Non-African American) 37.3
[2019-04-04] MEDS: FUROSEMIDE 40 MG TAB PO SCH (08:49)
[2019-04-04] MEDS: FINASTERIDE 5 MG TAB PO SCH (08:49)
[2019-04-04] MEDS: ATORVASTATIN 10 MG TAB PO SCH (08:50)
[2019-04-04] MEDS: NICOTINE 21 MG/24 HR TDSY TD SCH (08:50)
[2019-04-04] MEDS: BuPROPion XL 150 MG TABCR PO SCH ×2 (08:51→21:06)
[2019-04-04] MEDS: METOPROLOL TARTRATE 25 MG TAB PO SCH ×2 (08:51→21:01)
[2019-04-04] MEDS: FAMOTIDINE 20 MG TAB PO SCH ×2 (08:51→21:06)
[2019-04-04] MEDS: ACETIC ACID 0.25% IRRIG SOLN 1000 ML PLCT IR SCH (08:52)
--- NOTE | 2019-04-04 15:09 | Hospitalist Progress Note ---
Date of Service April 04, 2019 Assessment & Plan (1) PVD (peripheral vascular disease): Complicating current leg wounds Advised to keep the leg wounds clean and dry (2) Venous ulcer of left leg: (3) Cellulitis: Was admitted from home for worsening wounds on the LLE and left foot -hx of severe PVD, s/p RFA of left GSV on 03/26 -had been following with vascular and wound care center but has missed several appointments over the past week and a half -was prescribed cefdinir and doxycycline for most recent wound culture growing MRSA and Enterobacter -Has been started with intravenous daptomycin and Zosyn ending further culture and sensitivity -Blood culture has been taken -Wound culture is growing gram-negative bacilli further sensitivity and identification pending -Appreciate wound care provider input and recommendation -We will continue current intravenous antibiotic -Elevate the leg when possible -Likely discharge on Friday -Clinically a lot better and awaiting wound culture and sensitivity (4) CKD (chronic kidney disease), stage III: - baseline creat runs in the mid ones - creat noted to be 1.5 today - continue to monitor, avoid nephrotoxic agents when able -Creatinine remains stable around 1.5 -Advised to drink more fluid -Creatinine is better at 1.71 on 04/04/2019 (5) Diastolic heart failure: -Appears euvolemic -Continue home dose of furosemide -No fluid overload (6) Atrial fibrillation: -Rate controlled on metoprolol, will continue -Was previously anticoagulated on Eliquis, family reports patient has not been taking this medication for at least the past 2 years, unsure why it was stopped -We will discuss with the patient about reintroduction of Eliquis -Currently the heart rate remains controlled -Denies any acute symptoms (7) DM II (diabetes mellitus, type II), controlled: -Hgb A1c 6.5 11/2018 -Diet controlled -Monitor glucose on daily labs (8) Dyslipidemia: -Continue statin (9) BPH (benign prostatic hyperplasia): -Continue finasteride (10) DVT prophylaxis: -SQ heparin Admission and Anticipated Discharge Date Admission Date: April 03, 2019 Anticipated date of discharge: 04/05/19 Subjective 04/02/2019 The patient was seen and examined in medical floor He was admitted with worsening wounds of the left lower leg and left foot Denies any significant pain involving the left lower extremity Denies any fever and/or chills No other significant symptoms 04/03/2019 The patient was seen and examined in medical floor His pain in the left leg and foot are much better He denies any other symptoms 04/04/2019 The patient was seen and examined in medical floor He has been feeling better with decreasing swelling and redness involving the legs Denies any acute symptoms Review of Systems Review of Systems: All systems reviewed and are unremarkable except as noted below Integumentary: + skin ulcer (Involving the left leg and foot mainly with drainage of foul-smelling fluid and adjoining inflammation) and + change in skin color (Chronic skin changes on the right leg) Physical Exam Physical Exam: Sitting on a chair without any acute distress and is trying to keep his legs elevated as advised Constitutional: well developed, well nourished and + morbidly obese; no acute distress and not ill appearing Eyes: PERRL, conjunctivae normal, anicteric sclerae ENMT: external ear and nose normal, oropharynx normal Neck: trachea midline, no thyromegaly Respiratory: normal respiratory effort; no respiratory distress Auscultation: lungs clear to auscultation bilaterally and + diminished lung sounds Cardiovascular: Rate/Rhythm: regular rate and regular rhythm Heart Sounds: no murmur Extremities: + edema (Bilateral leg edema, left more than the right with chronic skin changes and left leg has cellulitis) Gastrointestinal (Abdomen): Inspection/Auscultation: abdomen normal to inspection and normal bowel sounds Percussion/Palpation: abdomen soft; abdomen nontender Skin: Chronic skin changes involving bilateral legs more on the left with ulceration and spreading cellulitis Neurologic: moves all extremities; no focal motor deficits Lymphatic: no cervical or axillary lymphadenopathy Results & Data ([facility]) Vital Signs (Past 12 Hours) Vital Signs Temp Pulse Resp BP Pulse Ox 04/04/19 07:17 36.5 C 108 H 18 102/69 94 Laboratory Results Short CBC 04/04/19 Range/Units 05:18 WBC 7.80 (4.8-10.8) K/uL Hgb 14.6 (14.0-18.0) g/dL Hct 43.8 (42-52) % Plt Count 211 (130-400) K/uL BMP 04/04/19 05:18 Creatinine 1.71 H Medications Administered Current Inpatient Medications Acetaminophen (Tylenol) 650 mg PO Q4H PRN PRN Reason: pain/fever Stop: 05/01/19 19:06 Acetic Acid (Acetic Acid 0.25%) 1 appln IR BID@0830,2030 [facility] Stop: 05/04/19 08:29 Last Admin: 04/04/19 08:52 Dose: 1 appln Documented by: Atorvastatin Calcium (Lipitor) 10 mg PO QAM [facility] Stop: 05/02/19 08:59 Last Admin: 04/04/19 08:50 Dose: 10 mg Documented by: Bupropion HCl (Wellbutrin-Xl) 150 mg PO BID [facility] Stop: 05/01/19 20:59 Last Admin: 04/04/19 08:51 Dose: 150 mg Documented by: Famotidine (Pepcid) 20 mg PO BID [facility] Stop: 05/01/19 20:59 Last Admin: 04/04/19 08:51 Dose: 20 mg Documented by: Finasteride (Proscar) 5 mg PO QAM [facility] Stop: 05/02/19 08:59 Last Admin: 04/04/19 08:49 Dose: 5 mg Documented by: Furosemide (Lasix) 40 mg PO DAILY [facility] Stop: 05/02/19 08:59 Last Admin: 04/04/19 08:49 Dose: 40 mg Documented by: Heparin Sodium (Porcine) (Heparin Sodium (Porcine)) 5,000 units SQ Q8 [facility] Stop: 05/01/19 21:59 Last Admin: 04/04/19 13:37 Dose: 5,000 units Documented by: Daptomycin 375 mg/ Syringe 7.5 mls @ 3.75 mls/min IV Q24H [facility]; Protocol Stop: 04/08/19 20:59 Last Admin: 04/03/19 20:39 Dose: 3.75 mls/min Documented by: Piperacillin Sod/Tazobactam (Sod 4.5 gm/ Dextrose) 120 mls @ 30 mls/hr IV Q8H [facility]; Protocol Stop: 04/09/19 01:59 Last Infusion: 04/04/19 13:38 Dose: Infused Documented by: Metoprolol Tartrate (Lopressor) 25 mg PO BID [facility] Stop: 05/01/19 20:59 Last Admin: 04/04/19 08:51 Dose: 25 mg Documented by: Miscellaneous (Remove Nicoderm Patch) 1 ea N/A DAILY@0859 [facility] Stop: 05/02/19 08:58 Last Admin: 04/04/19 08:50 Dose: 1 ea Documented by: Miscellaneous Information (Consult) 1 ea N/A UD PRN PRN Reason: Consult Stop: 05/01/19 20:03 Miscellaneous Information (Consult) 1 ea N/A UD PRN PRN Reason: Consult Stop: 05/01/19 20:03 Nicotine (Nicoderm Cq) 21 mg TD QAM [facility] Stop: 05/02/19 08:59 Last Admin: 04/04/19 08:50 Dose: 21 mg Documented by: (1) Diastolic heart failure Heart failure chronicity: acute on chronic Qualified Code(s): I50.33 - Acute on chronic diastolic (congestive) heart failure (2) Atrial fibrillation Atrial fibrillation type: permanent Qualified Code(s): I48.21 - Permanent atrial fibrillation
[2019-04-04] MEDS: CEFDINIR 300 MG CAP PO SCH (21:06)
[2019-04-04] MEDS: DOXYCYCLINE HYCLATE 100 MG CAP PO SCH (21:07)
[2019-04-04] MEDS: DAPTOmycin 375 MG in SYRINGE 0 ML IV SCH (23:22)
[2019-04-05] MEDS: PIPERACILLIN/TAZOBACTAM 4.5 GM in DEXTROSE 5% 100 ML IV SCH ×3 (02:15→18:08)
[2019-04-05] MEDS: ACETIC ACID 0.25% IRRIG SOLN 1000 ML PLCT IR SCH ×3 (02:30→19:54)
[2019-04-05] MEDS: DAPTOmycin 375 MG in SYRINGE 0 ML IV SCH ×2 (02:30→21:39)
[2019-04-05] MEDS: HEPARIN SOD 5,000 UNIT/0.5 ML VIAL SQ SCH ×3 (05:23→21:45)
[2019-04-05 06:18] LABS: Basophils # (auto) 0.05 K/uL (0-0.2); Basophils % (auto) 0.6 %; Eosinophils # (auto) 0.57 K/uL (0-0.5); Eosinophils % (auto) 6.6 %; Hematocrit (blood only) 43.4 % (42-52); Hemoglobin 14.2 g/dL (14.0-18.0); Immature Granulocytes # (auto) 0.03 K/uL (0.00-0.02); Immature Granulocytes % (auto) 0.3 %; Lymphocytes # (auto) 1.46 K/uL (1.2-3.4); Lymphocytes % (auto) 16.8 %; Mean Corpuscular Hemoglobin 28.5 pg (25-34); Mean Corpuscular Hgb Conc 32.7 g/dL (32-36); Mean Corpuscular Volume 87.1 fL (80-100); Mean Platelet Volume 9.8 fL (7.4-10.4); Monocytes # (auto) 1.03 K/uL (0.11-0.59); Monocytes % (auto) 11.9 %; Neutrophils # (auto) 5.53 K/uL (1.4-6.5); Neutrophils % (auto) 63.8 %; Platelet Count 210 K/uL (130-400); RDW Coefficient of Variation 15.1 % (11.5-14.5); RDW Standard Deviation 48.3 fL (36.4-46.3); Red Blood Count 4.98 M/uL (4.7-6.1); White Blood Count 8.67 K/uL (4.8-10.8)
[2019-04-05 06:44] LABS: BUN Creatinine Ratio 20.8 (10-20); Calcium 9.6 mg/dl (8.5-10.1); Creatinine Clr Calc Pharmacy 42.3 ml/min; Est GFR (African American) 37.3; Est GFR (Non-African American) 32.2; Potassium 3.3 mmol/L (3.5-5.1)
[2019-04-05] MEDS: FINASTERIDE 5 MG TAB PO SCH (08:10)
[2019-04-05] MEDS: FUROSEMIDE 40 MG TAB PO SCH (08:10)
[2019-04-05] MEDS: METOPROLOL TARTRATE 25 MG TAB PO SCH ×2 (08:10→21:39)
[2019-04-05] MEDS: ATORVASTATIN 10 MG TAB PO SCH (08:10)
[2019-04-05] MEDS: CEFDINIR 300 MG CAP PO SCH (08:11)
[2019-04-05] MEDS: BuPROPion XL 150 MG TABCR PO SCH ×2 (08:11→21:39)
[2019-04-05] MEDS: FAMOTIDINE 20 MG TAB PO SCH ×2 (08:11→21:40)
[2019-04-05] MEDS: NICOTINE 21 MG/24 HR TDSY TD SCH (08:11)
[2019-04-05] MEDS: DOXYCYCLINE HYCLATE 100 MG CAP PO SCH (08:12)
[2019-04-05] MEDS ORDERED: POTASSIUM CHLORIDE 20 MEQ TABCR PO STA (08:25)
--- NOTE | 2019-04-05 13:40 | Hospitalist Progress Note ---
Date of Service April 05, 2019 Assessment & Plan (1) PVD (peripheral vascular disease): Complicating current leg wounds Advised to keep the leg wounds clean and dry (2) Venous ulcer of left leg: (3) Cellulitis: Was admitted from home for worsening wounds on the LLE and left foot -hx of severe PVD, s/p RFA of left GSV on 03/26 -had been following with vascular and wound care center but has missed several appointments over the past week and a half -was prescribed cefdinir and doxycycline for most recent wound culture growing MRSA and Enterobacter -Has been started with intravenous daptomycin and Zosyn ending further culture and sensitivity -Blood culture has been taken -Wound culture is growing gram-negative bacilli further sensitivity and identification pending -Appreciate wound care provider input and recommendation -We will continue current intravenous antibiotic -Elevate the leg when possible -Likely discharge on Friday -Clinically a lot better and awaiting wound culture and sensitivity-sensitivity will not come before Friday as discussed with the microbiology -We will continue current intravenous antibiotic Likely discharge tomorrow with oral antibiotic as per sensitivity (4) CKD (chronic kidney disease), stage III: - baseline creat runs in the mid ones - creat noted to be 1.5 today - continue to monitor, avoid nephrotoxic agents when able -Creatinine remains stable around 1.5 -Advised to drink more fluid -Creatinine is better at 1.71 on 04/04/2019 -Creatinine is slightly up at 1.93 and will monitor (5) Diastolic heart failure: -Appears euvolemic -Continue home dose of furosemide -No fluid overload (6) Atrial fibrillation: -Rate controlled on metoprolol, will continue -Was previously anticoagulated on Eliquis, family reports patient has not been taking this medication for at least the past 2 years, unsure why it was stopped -We will discuss with the patient about reintroduction of Eliquis -Currently the heart rate remains controlled -Denies any acute symptoms -Does not want to take any anticoagulation (7) DM II (diabetes mellitus, type II), controlled: -Hgb A1c 6.5 11/2018 -Diet controlled -Monitor glucose on daily labs (8) Dyslipidemia: -Continue statin (9) BPH (benign prostatic hyperplasia): -Continue finasteride (10) DVT prophylaxis: -SQ heparin Admission and Anticipated Discharge Date Admission Date: April 03, 2019 Anticipated date of discharge: 04/05/19 Subjective 04/02/2019 The patient was seen and examined in medical floor He was admitted with worsening wounds of the left lower leg and left foot Denies any significant pain involving the left lower extremity Denies any fever and/or chills No other significant symptoms 04/03/2019 The patient was seen and examined in medical floor His pain in the left leg and foot are much better He denies any other symptoms 04/04/2019 The patient was seen and examined in medical floor He has been feeling better with decreasing swelling and redness involving the legs Denies any acute symptoms 04/05/2019 Patient was seen and examined in the medical floor He has been stable without any symptoms Denies any fever and/or chills and the leg swelling and pain are much better Review of Systems Review of Systems: All systems reviewed and are unremarkable except as noted below Integumentary: + skin ulcer (Involving the left leg and foot mainly with drainage of foul-smelling fluid and adjoining inflammation) and + change in skin color (Chronic skin changes on the right leg) Physical Exam Physical Exam: Sitting on a chair without any acute distress and is trying to keep his legs elevated as advised Constitutional: well developed, well nourished and + morbidly obese; no acute distress and not ill appearing Eyes: PERRL, conjunctivae normal, anicteric sclerae ENMT: external ear and nose normal, oropharynx normal Neck: trachea midline, no thyromegaly Respiratory: normal respiratory effort; no respiratory distress Auscultation: lungs clear to auscultation bilaterally and + diminished lung sounds Cardiovascular: Rate/Rhythm: regular rate and regular rhythm Heart Sounds: no murmur Extremities: + edema (Bilateral leg edema, left more than the right with chronic skin changes and left leg has cellulitis) Gastrointestinal (Abdomen): Inspection/Auscultation: abdomen normal to inspection and normal bowel sounds Percussion/Palpation: abdomen soft; abdomen nontender Neurologic: moves all extremities; no focal motor deficits Lymphatic: no cervical or axillary lymphadenopathy Results & Data ([facility]) Vital Signs (Past 12 Hours) Vital Signs Temp Pulse Resp BP Pulse Ox 04/05/19 07:20 36.7 C 77 18 116/75 93 Laboratory Results Short CBC 04/05/19 Range/Units 05:24 WBC 8.67 (4.8-10.8) K/uL Hgb 14.2 (14.0-18.0) g/dL Hct 43.4 (42-52) % Plt Count 210 (130-400) K/uL [facility] 04/05/19 05:24 Sodium 134 L Potassium 3.3 L Chloride 100 Carbon Dioxide 26 BUN 40 H Creatinine 1.93 H Glucose 107 H Calcium 9.6 Medications Administered Current Inpatient Medications Acetaminophen (Tylenol) 650 mg PO Q4H PRN PRN Reason: pain/fever Stop: 05/01/19 19:06 Acetic Acid (Acetic Acid 0.25%) 1 appln IR BID@829,2029 [facility] Stop: 05/04/19 08:29 Last Admin: 04/05/19 12:57 Dose: 1 appln Documented by: Atorvastatin Calcium (Lipitor) 10 mg PO QAM [facility] Stop: 05/02/19 08:59 Last Admin: 04/05/19 08:10 Dose: 10 mg Documented by: Bupropion HCl (Wellbutrin-Xl) 150 mg PO BID [facility] Stop: 05/01/19 20:59 Last Admin: 04/05/19 08:11 Dose: 150 mg Documented by: Cefdinir (Omnicef Cap) 300 mg PO BID [facility] Stop: 04/11/19 20:59 Last Admin: 04/05/19 08:11 Dose: 300 mg Documented by: Doxycycline Hyclate (Vibramycin) 100 mg PO BID [facility] Stop: 04/11/19 20:59 Last Admin: 04/05/19 08:12 Dose: 100 mg Documented by: Famotidine (Pepcid) 20 mg PO BID [facility] Stop: 05/01/19 20:59 Last Admin: 04/05/19 08:11 Dose: 20 mg Documented by: Finasteride (Proscar) 5 mg PO QAM [facility] Stop: 05/02/19 08:59 Last Admin: 04/05/19 08:10 Dose: 5 mg Documented by: Furosemide (Lasix) 40 mg PO DAILY [facility] Stop: 05/02/19 08:59 Last Admin: 04/05/19 08:10 Dose: 40 mg Documented by: Heparin Sodium (Porcine) (Heparin Sodium (Porcine)) 5,000 units SQ Q8 [facility] Stop: 05/01/19 21:59 Last Admin: 04/05/19 05:23 Dose: 5,000 units Documented by: Daptomycin 375 mg/ Syringe 7.5 mls @ 3.75 mls/min IV Q24H [facility]; Protocol Stop: 04/08/19 20:59 Last Admin: 04/05/19 02:30 Dose: 3.75 mls/min Documented by: Piperacillin Sod/Tazobactam (Sod 4.5 gm/ Dextrose) 120 mls @ 30 mls/hr IV Q8H [facility]; Protocol Stop: 04/09/19 01:59 Last Admin: 04/05/19 10:18 Dose: 30 mls/hr Documented by: Metoprolol Tartrate (Lopressor) 25 mg PO BID [facility] Stop: 05/01/19 20:59 Last Admin: 04/05/19 08:10 Dose: 25 mg Documented by: Miscellaneous (Remove Nicoderm Patch) 1 ea N/A DAILY@0859 [facility] Stop: 05/02/19 08:58 Last Admin: 04/05/19 08:13 Dose: 1 ea Documented by: Miscellaneous Information (Consult) 1 ea N/A UD PRN PRN Reason: Consult Stop: 05/01/19 20:03 Miscellaneous Information (Consult) 1 ea N/A UD PRN PRN Reason: Consult Stop: 05/01/19 20:03 Nicotine (Nicoderm Cq) 21 mg TD QAM [facility] Stop: 05/02/19 08:59 Last Admin: 04/05/19 08:11 Dose: 21 mg Documented by: (1) Diastolic heart failure Heart failure chronicity: acute on chronic Qualified Code(s): I50.33 - Acute on chronic diastolic (congestive) heart failure (2) Atrial fibrillation Atrial fibrillation type: permanent Qualified Code(s): I48.21 - Permanent atrial fibrillation
[2019-04-05 21:21] LABS: Creatinine Clr Calc Pharmacy 39.3 ml/min; Est GFR (African American) 34.1; Est GFR (Non-African American) 29.4
[2019-04-06] MEDS: PIPERACILLIN/TAZOBACTAM 4.5 GM in DEXTROSE 5% 100 ML IV SCH ×3 (02:21→17:37)
[2019-04-06] MEDS: HEPARIN SOD 5,000 UNIT/0.5 ML VIAL SQ SCH ×3 (06:16→20:52)
[2019-04-06] MEDS: ACETAMINOPHEN 325 MG TAB PO PRN (07:59)
[2019-04-06] MEDS: FINASTERIDE 5 MG TAB PO SCH (07:59)
[2019-04-06] MEDS: METOPROLOL TARTRATE 25 MG TAB PO SCH ×2 (08:00→20:40)
[2019-04-06] MEDS: ATORVASTATIN 10 MG TAB PO SCH (08:00)
[2019-04-06] MEDS: BuPROPion XL 150 MG TABCR PO SCH ×2 (08:00→20:42)
[2019-04-06] MEDS: FUROSEMIDE 40 MG TAB PO SCH (08:00)
[2019-04-06] MEDS: NICOTINE 21 MG/24 HR TDSY TD SCH (08:00)
[2019-04-06] MEDS: ACETIC ACID 0.25% IRRIG SOLN 1000 ML PLCT IR SCH ×2 (08:01→20:38)
[2019-04-06] MEDS: FAMOTIDINE 20 MG TAB PO SCH ×2 (08:01→20:41)
--- NOTE | 2019-04-06 13:34 | Hospitalist Progress Note ---
Date of Service April 06, 2019 Assessment & Plan (1) PVD (peripheral vascular disease): Complicating current leg wounds Advised to keep the leg wounds clean and dry (2) Venous ulcer of left leg: (3) Cellulitis: Was admitted from home for worsening wounds on the LLE and left foot -hx of severe PVD, s/p RFA of left GSV on 03/26 -had been following with vascular and wound care center but has missed several appointments over the past week and a half -was prescribed cefdinir and doxycycline for most recent wound culture growing MRSA and Enterobacter -Has been started with intravenous daptomycin and Zosyn ending further culture and sensitivity -Blood culture has been taken -Wound culture is growing gram-negative bacilli further sensitivity and identification pending -Appreciate wound care provider input and recommendation -We will continue current intravenous antibiotic -Elevate the leg when possible -Culture from the leg ulcer is growing gram-negative bacilli and the full sensitivity has been pending -Clinically better with current intravenous antibiotic -Likely be discharged tomorrow following the results of sensitivity and oral antibiotic to continue for at least a total of 14 days in total -We will have outpatient appointment with the wound clinic (4) CKD (chronic kidney disease), stage III: - baseline creat runs in the mid ones - creat noted to be 1.5 today - continue to monitor, avoid nephrotoxic agents when able -Creatinine remains stable around 1.5 -Advised to drink more fluid -Creatinine is better at 1.71 on 04/04/2019 -Creatinine is slightly up at 1.93 and will monitor Now has acute on chronic kidney disease Creatinine went up to 2.08 as of 04/06/2019 In part due to dehydration and could be secondary to use of Advised to drink more fluid to 1800 mL a day Also will give a small amount of intravenous fluids Monitor PRP (5) Diastolic heart failure: -Appears euvolemic -Continue home dose of furosemide -No fluid overload (6) Atrial fibrillation: -Has chronic atrial fibrillation with controlled rate -Rate controlled on metoprolol, will continue -Was previously anticoagulated on Eliquis, family reports patient has not been taking this medication for at least the past 2 years, unsure why it was stopped -We will discuss with the patient about reintroduction of Eliquis -Currently the heart rate remains controlled -Denies any acute symptoms -Does not want to take any anticoagulation (7) DM II (diabetes mellitus, type II), controlled: -Hgb A1c 6.5 11/2018 -Diet controlled -Monitor glucose on daily labs (8) Dyslipidemia: -Continue statin (9) BPH (benign prostatic hyperplasia): -Continue finasteride (10) DVT prophylaxis: -SQ heparin Admission and Anticipated Discharge Date Admission Date: April 03, 2019 Anticipated date of discharge: 04/07/19 Subjective 04/02/2019 The patient was seen and examined in medical floor He was admitted with worsening wounds of the left lower leg and left foot Denies any significant pain involving the left lower extremity Denies any fever and/or chills No other significant symptoms 04/03/2019 The patient was seen and examined in medical floor His pain in the left leg and foot are much better He denies any other symptoms 04/04/2019 The patient was seen and examined in medical floor He has been feeling better with decreasing swelling and redness involving the legs Denies any acute symptoms 04/05/2019 Patient was seen and examined in the medical floor He has been stable without any symptoms Denies any fever and/or chills and the leg swelling and pain are much better 04/06/2019 The patient was seen and examined in medical floor He has been feeling a lot better His left leg swelling and inflammation have gone down Denies any significant pain in the left leg and denies any other significant symptoms Review of Systems Review of Systems: All systems reviewed and are unremarkable except as noted below Integumentary: + skin ulcer (Involving the left leg and foot mainly with drainage of foul-smelling fluid and adjoining inflammation) and + change in skin color (Chronic skin changes on the right leg) Physical Exam Physical Exam: Sitting on a chair without any acute distress and is trying to keep his legs elevated as advised Constitutional: well developed, well nourished and + morbidly obese; no acute distress and not ill appearing Eyes: PERRL, conjunctivae normal, anicteric sclerae ENMT: external ear and nose normal, oropharynx normal Neck: trachea midline, no thyromegaly Respiratory: normal respiratory effort; no respiratory distress Auscultation: lungs clear to auscultation bilaterally and + diminished lung sounds Cardiovascular: Rate/Rhythm: regular rate and regular rhythm Heart Sounds: no murmur Extremities: + edema (Bilateral leg edema, left more than the right with chronic skin changes and left leg has cellulitis) Gastrointestinal (Abdomen): Inspection/Auscultation: + abdomen distended and normal bowel sounds Percussion/Palpation: abdomen soft; abdomen nontender Musculoskeletal: Denies any acute arthritis involving any joints Skin: Bilateral chronic skin changes involving the legs with worsening ulceration and cellulitis involving the left foot and leg Neurologic: moves all extremities; no focal motor deficits Alert, awake and oriented x3 Lymphatic: no cervical or axillary lymphadenopathy Results & Data ([facility]) Vital Signs (Past 12 Hours) Vital Signs Temp Pulse Resp BP Pulse Ox 04/06/19 07:06 36.2 C L 103 H 20 114/72 98 Laboratory Results BMP 04/05/19 20:46 Creatinine 2.08 H Medications Administered Current Inpatient Medications Acetaminophen (Tylenol) 650 mg PO Q4H PRN PRN Reason: pain/fever Stop: 05/01/19 19:06 Last Admin: 04/06/19 07:59 Dose: 650 mg Documented by: Acetic Acid (Acetic Acid 0.25%) 1 appln IR BID@0830,2029 [facility] Stop: 05/04/19 08:29 Last Admin: 04/06/19 08:01 Dose: 1 appln Documented by: Atorvastatin Calcium (Lipitor) 10 mg PO QAM [facility] Stop: 05/02/19 08:59 Last Admin: 04/06/19 08:00 Dose: 10 mg Documented by: Bupropion HCl (Wellbutrin-Xl) 150 mg PO BID [facility] Stop: 05/01/19 20:59 Last Admin: 04/06/19 08:00 Dose: 150 mg Documented by: Cefdinir (Omnicef Cap) 300 mg PO BID [facility] Stop: 04/11/19 20:59 Last Admin: 04/05/19 08:11 Dose: 300 mg Documented by: Doxycycline Hyclate (Vibramycin) 100 mg PO BID [facility] Stop: 04/11/19 20:59 Last Admin: 04/05/19 08:12 Dose: 100 mg Documented by: Famotidine (Pepcid) 20 mg PO BID [facility] Stop: 05/01/19 20:59 Last Admin: 04/06/19 08:01 Dose: 20 mg Documented by: Finasteride (Proscar) 5 mg PO QAM [facility] Stop: 05/02/19 08:59 Last Admin: 04/06/19 07:59 Dose: 5 mg Documented by: Furosemide (Lasix) 40 mg PO DAILY [facility] Stop: 05/02/19 08:59 Last Admin: 04/06/19 08:00 Dose: 40 mg Documented by: Heparin Sodium (Porcine) (Heparin Sodium (Porcine)) 5,000 units SQ Q8 [facility] Stop: 05/01/19 21:59 Last Admin: 04/06/19 13:13 Dose: Not Given Documented by: Daptomycin 375 mg/ Syringe 7.5 mls @ 3.75 mls/min IV Q24H [facility]; Protocol Stop: 04/08/19 20:59 Last Admin: 04/05/19 21:39 Dose: 3.75 mls/min Documented by: Piperacillin Sod/Tazobactam (Sod 4.5 gm/ Dextrose) 120 mls @ 30 mls/hr IV Q8H [facility]; Protocol Stop: 04/09/19 01:59 Last Admin: 04/06/19 10:43 Dose: 30 mls/hr Documented by: Metoprolol Tartrate (Lopressor) 25 mg PO BID [facility] Stop: 05/01/19 20:59 Last Admin: 04/06/19 08:00 Dose: 25 mg Documented by: Miscellaneous (Remove Nicoderm Patch) 1 ea N/A DAILY@0859 [facility] Stop: 05/02/19 08:58 Last Admin: 04/06/19 08:01 Dose: 1 ea Documented by: Miscellaneous Information (Consult) 1 ea N/A UD PRN PRN Reason: Consult Stop: 05/01/19 20:03 Miscellaneous Information (Consult) 1 ea N/A UD PRN PRN Reason: Consult Stop: 05/01/19 20:03 Nicotine (Nicoderm Cq) 21 mg TD QAM [facility] Stop: 05/02/19 08:59 Last Admin: 04/06/19 08:00 Dose: 21 mg Documented by: (1) Diastolic heart failure Heart failure chronicity: acute on chronic Qualified Code(s): I50.33 - Acute on chronic diastolic (congestive) heart failure (2) Atrial fibrillation Atrial fibrillation type: permanent Qualified Code(s): I48.21 - Permanent atrial fibrillation
[2019-04-06] MEDS: NSS + 20MEQ KCL 20 MEQ/1,000 ML BAG IV SCH (16:06)
[2019-04-06] MEDS: DAPTOmycin 375 MG in SYRINGE 0 ML IV SCH (20:52)
[2019-04-07] MEDS: NSS + 20MEQ KCL 20 MEQ/1,000 ML BAG IV SCH (02:03)
[2019-04-07] MEDS: PIPERACILLIN/TAZOBACTAM 4.5 GM in DEXTROSE 5% 100 ML IV SCH ×3 (02:04→17:58)
[2019-04-07] MEDS: HEPARIN SOD 5,000 UNIT/0.5 ML VIAL SQ SCH ×3 (05:39→20:29)
[2019-04-07 06:10] LABS: Basophils # (auto) 0.03 K/uL (0-0.2); Basophils % (auto) 0.4 %; Eosinophils # (auto) 0.39 K/uL (0-0.5); Eosinophils % (auto) 4.8 %; Hematocrit (blood only) 41.7 % (42-52); Hemoglobin 13.6 g/dL (14.0-18.0); Immature Granulocytes # (auto) 0.05 K/uL (0.00-0.02); Immature Granulocytes % (auto) 0.6 %; Lymphocytes # (auto) 1.09 K/uL (1.2-3.4); Lymphocytes % (auto) 13.5 %; Mean Corpuscular Hgb Conc 32.6 g/dL (32-36); Mean Platelet Volume 9.8 fL (7.4-10.4); Monocytes # (auto) 0.68 K/uL (0.11-0.59); Monocytes % (auto) 8.4 %; Neutrophils # (auto) 5.82 K/uL (1.4-6.5); Neutrophils % (auto) 72.3 %; Platelet Count 212 K/uL (130-400); RDW Coefficient of Variation 15.2 % (11.5-14.5); RDW Standard Deviation 47.4 fL (36.4-46.3); Red Blood Count 4.85 M/uL (4.7-6.1); White Blood Count 8.06 K/uL (4.8-10.8)
[2019-04-07 06:42] LABS: BUN Creatinine Ratio 22.1 (10-20); Calcium 9.5 mg/dl (8.5-10.1); Creatinine Clr Calc Pharmacy 56.4 ml/min; Est GFR (African American) 52.7; Est GFR (Non-African American) 45.5; Potassium 3.6 mmol/L (3.5-5.1)
[2019-04-07] MEDS: ATORVASTATIN 10 MG TAB PO SCH (07:56)
[2019-04-07] MEDS: METOPROLOL TARTRATE 25 MG TAB PO SCH ×2 (07:56→20:27)
[2019-04-07] MEDS: FUROSEMIDE 40 MG TAB PO SCH (07:57)
[2019-04-07] MEDS: FINASTERIDE 5 MG TAB PO SCH (07:57)
[2019-04-07] MEDS: BuPROPion XL 150 MG TABCR PO SCH ×2 (07:57→20:28)
[2019-04-07] MEDS: FAMOTIDINE 20 MG TAB PO SCH ×2 (07:57→20:29)
[2019-04-07] MEDS: NICOTINE 21 MG/24 HR TDSY TD SCH (07:58)
[2019-04-07] MEDS: ACETIC ACID 0.25% IRRIG SOLN 1000 ML PLCT IR SCH ×2 (09:12→20:26)
--- NOTE | 2019-04-07 10:26 | Hospitalist Progress Note ---
Date of Service April 07, 2019 Assessment & Plan (1) PVD (peripheral vascular disease): Complicating current leg wounds Advised to keep the leg wounds clean and dry (2) Venous ulcer of left leg: (3) Cellulitis: Was admitted from home for worsening wounds on the LLE and left foot -hx of severe PVD, s/p RFA of left GSV on 03/26 -had been following with vascular and wound care center but has missed several appointments over the past week and a half -was prescribed cefdinir and doxycycline for most recent wound culture growing MRSA and Enterobacter -Has been started with intravenous daptomycin and Zosyn ending further culture and sensitivity -Blood culture has been taken -Wound culture is growing gram-negative bacilli further sensitivity and identification pending -Appreciate wound care provider input and recommendation -We will continue current intravenous antibiotic -Elevate the leg when possible -Culture from the leg ulcer is growing gram-negative bacilli and the full sensitivity has been pending -Clinically better with current intravenous antibiotic -Likely be discharged tomorrow following the results of sensitivity and oral antibiotic to continue for at least a total of 14 days in total -The wound culture grew Alcaligenes faecalis and that is sensitive to Augmentin and that was found after searching the published journal -Discussed with the pharmacist and the patient will be put on oral Augmentin 875 mg twice daily to continue for 14 days. (4) CKD (chronic kidney disease), stage III: - baseline creat runs in the mid ones - creat noted to be 1.5 today - continue to monitor, avoid nephrotoxic agents when able -Creatinine remains stable around 1.5 -Advised to drink more fluid -Creatinine is better at 1.71 on 04/04/2019 -Creatinine is slightly up at 1.93 and will monitor Now has acute on chronic kidney disease Creatinine went up to 2.08 as of 04/06/2019 In part due to dehydration and could be secondary to use of Advised to drink more fluid to 1800 mL a day Also will give a small amount of intravenous fluids Creatinine has been improving Advised to drink leave with more fluid (5) Diastolic heart failure: -Appears euvolemic -Continue home dose of furosemide -No fluid overload (6) Atrial fibrillation: -Has chronic atrial fibrillation with controlled rate -Rate controlled on metoprolol, will continue -Was previously anticoagulated on Eliquis, family reports patient has not been taking this medication for at least the past 2 years, unsure why it was stopped -We will discuss with the patient about reintroduction of Eliquis -Currently the heart rate remains controlled -Denies any acute symptoms -Does not want to take any anticoagulation (7) DM II (diabetes mellitus, type II), controlled: -Hgb A1c 6.5 11/2018 -Diet controlled -Monitor glucose on daily labs (8) Dyslipidemia: -Continue statin (9) BPH (benign prostatic hyperplasia): -Continue finasteride (10) DVT prophylaxis: -SQ heparin Likely home/SCF following PT and OT evaluation and as per the recommendation Admission and Anticipated Discharge Date Admission Date: April 03, 2019 Anticipated date of discharge: 04/07/19 Subjective 04/02/2019 The patient was seen and examined in medical floor He was admitted with worsening wounds of the left lower leg and left foot Denies any significant pain involving the left lower extremity Denies any fever and/or chills No other significant symptoms 04/03/2019 The patient was seen and examined in medical floor His pain in the left leg and foot are much better He denies any other symptoms 04/04/2019 The patient was seen and examined in medical floor He has been feeling better with decreasing swelling and redness involving the legs Denies any acute symptoms 04/05/2019 Patient was seen and examined in the medical floor He has been stable without any symptoms Denies any fever and/or chills and the leg swelling and pain are much better 04/06/2019 The patient was seen and examined in medical floor He has been feeling a lot better His left leg swelling and inflammation have gone down Denies any significant pain in the left leg and denies any other significant symptoms 04/07/2019 Patient is seen and examined in medical floor He has been feeling a lot better His pain in the left leg and swelling have improved Denies any other significant symptoms Review of Systems Review of Systems: All systems reviewed and are unremarkable except as noted below Integumentary: + skin ulcer (Involving the left leg and foot mainly with drainage of foul-smelling fluid and adjoining inflammation) and + change in skin color (Chronic skin changes on the right leg) Physical Exam Physical Exam: Lying in bed comfortably Constitutional: well developed, well nourished and + morbidly obese; no acute distress and not ill appearing Eyes: PERRL, conjunctivae normal, anicteric sclerae ENMT: external ear and nose normal, oropharynx normal Neck: trachea midline, no thyromegaly Respiratory: normal respiratory effort; no respiratory distress Auscultation: lungs clear to auscultation bilaterally and + diminished lung sounds Cardiovascular: Rate/Rhythm: regular rate and regular rhythm Heart Sounds: no murmur Extremities: + edema (Bilateral leg edema, left more than the right with chronic skin changes and left leg has cellulitis) Gastrointestinal (Abdomen): Inspection/Auscultation: + abdomen distended and normal bowel sounds Percussion/Palpation: abdomen soft; abdomen nontender Musculoskeletal: No acute arthritis involving any joints Skin: Please see the picture for detailed information about the leg ulcer Neurologic: moves all extremities; no focal motor deficits Lymphatic: no cervical or axillary lymphadenopathy Results & Data ([facility]) Vital Signs (Past 12 Hours) Vital Signs Temp Pulse Resp BP Pulse Ox 04/07/19 07:23 36.6 C 99 H 18 120/75 97 04/06/19 23:00 36.4 C L 97 H 19 105/68 98 (1) Atrial fibrillation Atrial fibrillation type: permanent Qualified Code(s): I48.21 - Permanent atrial fibrillation (2) Diastolic heart failure Heart failure chronicity: acute on chronic Qualified Code(s): I50.33 - Acute on chronic diastolic (congestive) heart failure
[2019-04-07] MEDS ORDERED: LORazepam 0.5 MG/1 ML VIAL IV SCH (14:15)
[2019-04-07] MEDS ORDERED: haloperidoL 1 MG TAB PO PRN (14:15)
[2019-04-07] MEDS ORDERED: HALOPERIDOL LACTATE 5 MG/ML 1 ML VIAL ONE (15:01)
[2019-04-07] MEDS ORDERED: HALOPERIDOL LACTATE 5 MG/ML 1 ML VIAL IM STA (15:03)
[2019-04-08] MEDS: PIPERACILLIN/TAZOBACTAM 4.5 GM in DEXTROSE 5% 100 ML IV SCH ×3 (02:00→18:01)
[2019-04-08] MEDS: ACETAMINOPHEN 325 MG TAB PO PRN (02:00)
[2019-04-08] MEDS: HEPARIN SOD 5,000 UNIT/0.5 ML VIAL SQ SCH ×3 (06:10→21:01)
[2019-04-08 06:20] LABS: Hematocrit (blood only) 38.4 % (42-52); Hemoglobin 12.6 g/dL (14.0-18.0); Mean Corpuscular Hemoglobin 28.2 pg (25-34); Mean Corpuscular Hgb Conc 32.8 g/dL (32-36); Mean Corpuscular Volume 85.9 fL (80-100); Mean Platelet Volume 9.7 fL (7.4-10.4); Platelet Count 218 K/uL (130-400); RDW Coefficient of Variation 15.3 % (11.5-14.5); RDW Standard Deviation 48.2 fL (36.4-46.3); Red Blood Count 4.47 M/uL (4.7-6.1); White Blood Count 6.25 K/uL (4.8-10.8)
[2019-04-08 06:52] LABS: BUN Creatinine Ratio 20.2 (10-20); Calcium 9.4 mg/dl (8.5-10.1); Magnesium 2.1 mg/dl (1.8-2.4); Potassium 3.6 mmol/L (3.5-5.1)
[2019-04-08] MEDS: FAMOTIDINE 20 MG TAB PO SCH ×2 (08:37→21:01)
[2019-04-08] MEDS: BuPROPion XL 150 MG TABCR PO SCH ×2 (08:38→21:01)
[2019-04-08] MEDS: ATORVASTATIN 10 MG TAB PO SCH (08:38)
[2019-04-08] MEDS: METOPROLOL TARTRATE 25 MG TAB PO SCH ×2 (08:38→21:00)
[2019-04-08] MEDS: FUROSEMIDE 40 MG TAB PO SCH (08:39)
[2019-04-08] MEDS: ACETIC ACID 0.25% IRRIG SOLN 1000 ML PLCT IR SCH ×2 (08:39→21:00)
[2019-04-08] MEDS: NICOTINE 21 MG/24 HR TDSY TD SCH (08:40)
[2019-04-08] MEDS: FINASTERIDE 5 MG TAB PO SCH (08:41)
[2019-04-08] MEDS ORDERED: POTASSIUM CHLORIDE 20 MEQ TABCR PO ONE (14:30)
--- NOTE | 2019-04-08 15:33 | Wound Progress Note ---
Date of Service April 08, 2019 Assessment & Plan (1) Venous ulcer of left leg: Wound is improving. Final wound culture was not positive for Pseudomonas as anticipated. Will discontinue acetic acid soaks. No debridement was required today. Wound will be dressed with Acticoat 7, OPTi lock and a Coban lite wrap. Continue Augmentin as directed. We will see patient in the office next week. Thank you for limited to his pain in the care of this patient. Please not hesitate to call with any questions. (2) Cellulitis: Subjective Patient seen sitting in chair at bedside. Patient with no new complaints. Patient is on Augmentin for wound culture positive for Alcaligenes faecalis. Review of Systems Review of Systems: All systems reviewed & are unremarkable except as noted in HPI & below Physical Exam Skin: Wound measuring as recorded in nursing documentation. Wound covered with fibrin and slough. Periwound is intact with erythema. There is minimal drainage and no foul odors. Neurologic: awake; not confused Psychiatric: A+Ox3, euthymic affect Results & Data Vital Signs (Past 12 Hours) Vital Signs Temp Pulse Resp BP Pulse Ox 04/08/19 07:49 36.4 C L 83 20 120/75 95 PG Care Time/CCT Total # of Minutes Spent Total Time Spent with Patient: Total time spent is greater than 50% in coordination of care (as documented) at patient's floor/unit and/or counseling patient: Coding Level of Care Code 77303 Subseq Hosp Care Lvl 2 Diagnoses Venous ulcer of left leg I83.029; L97.929 Cellulitis L03.90
--- NOTE | 2019-04-08 16:09 | Hospitalist Progress Note ---
Date of Service April 08, 2019 Assessment & Plan (1) PVD (peripheral vascular disease): Complicating current leg wounds Advised to keep the leg wounds clean and dry (2) Venous ulcer of left leg: (3) Cellulitis: Was admitted from home for worsening wounds on the LLE and left foot -hx of severe PVD, s/p RFA of left GSV on 03/26 -had been following with vascular and wound care center but has missed several appointments over the past week and a half -was prescribed cefdinir and doxycycline for most recent wound culture growing MRSA and Enterobacter -Has been started with IV daptomycin and Zosyn pending further culture and sensitivity -Blood culture has been taken -Wound culture is growing gram-negative bacilli further sensitivity and identification pending -Appreciate wound care provider input and recommendation -Elevate the leg when possible -Clinically better with current intravenous antibiotic, cont. IV zosyn, plan to switch to PO Augmentin -The wound culture grew Alcaligenes faecalis and that is sensitive to Augmentin and that was found after searching the published journal -Dr. Powell discussed with the pharmacist and the patient will be put on oral Augmentin 875 mg twice daily to continue for 14 days. (4) CKD (chronic kidney disease), stage III: - baseline creat runs in the mid ones - continue to monitor, avoid nephrotoxic agents when able -Advised to drink more fluid - initially Cr remained stable around 1.5 PAULA on chronic kidney disease - Resolved Creatinine trended up, went up to 2.08 as of 04/06/2019 In part due to dehydration and could be secondary to use of Abx Advised to drink more fluid to 1800 mL a day Also will give a small amount of intravenous fluids Creatinine has been improving, current Cr 1.22 Resolved (5) Diastolic heart failure: -Appears euvolemic -Continue home dose of furosemide -No fluid overload (6) Atrial fibrillation: -Has chronic atrial fibrillation with controlled rate -Rate controlled on metoprolol, will continue -Was previously anticoagulated on Eliquis, family reports patient has not been taking this medication for at least the past 2 years, unsure why it was stopped -We will discuss with the patient about reintroduction of Eliquis -Currently the heart rate remains controlled -Denies any acute symptoms -Does not want to take any anticoagulation (7) DM II (diabetes mellitus, type II), controlled: -Hgb A1c 6.5 11/2018 -Diet controlled -Monitor glucose on daily labs (8) Dyslipidemia: -Continue statin (9) BPH (benign prostatic hyperplasia): -Continue finasteride (10) DVT prophylaxis: -SQ heparin Likely home/SCF/ rehab following PT and OT evaluation and as per the recommendation CM involved in d/c planning Admission and Anticipated Discharge Date Admission Date: April 03, 2019 Anticipated date of discharge: 04/07/19 Subjective Patient is sitting in the chair, in NAD. Denies any pain, chest pain, shortness of breath, abd. pain, fever, chills, nausea or vomiting. Says he has good appetite. Pt is calm and able to answer questions appropriately, he is able to talk about his family, several children and several grandchildren some living in [place] and some in other states. Talked about son Hudson who lives the closest and provides help as needed however pt lived alone up to this point. Discussed rehab with the pt, he says that he didn't hear anything yet about rehab. I told him that we don't have rehab ready for him yet but we are looking into one. He seems to be in agreement. Per nursing staff, pt "gets confused". Plan to see him more often for updates and d/c plan coordinated w/ CM. Pt seen earlier today by Dr. Reyes from wound care, plan to cont. wound care in their clinic next week. Cont. Abx, plan to switch to oral Augmentin. Wound culture positive for Alcaligenes faecalis. Review of Systems Review of Systems: All systems reviewed & are unremarkable except as noted in HPI & below Constitutional: no fever and no chills Respiratory: no cough and no dyspnea Cardiovascular: no chest pain and no palpitations Gastrointestinal: no abdominal pain, no nausea and no vomiting Physical Exam Physical Exam: Physical Exam: Elderly obese male sitting up in the chair, in NAD Constitutional: well developed, well nourished and + obese; no acute distress and not ill appearing Eyes: PERRL, EOMI, conjunctivae normal, anicteric sclerae ENMT: external ear and nose normal, oropharynx normal Neck: trachea midline, no thyromegaly Respiratory: normal respiratory effort; no respiratory distress Auscultation: lungs clear to auscultation bilaterally and + diminished lung sounds Cardiovascular: Rate/Rhythm: regular rate and regular rhythm Heart Sounds: no murmur Extremities: + edema (Bilateral leg edema, left more than the right with chronic skin changes and left leg has cellulitis, dressings applied to left leg by wound care) Gastrointestinal (Abdomen): Inspection/Auscultation: + abdomen distended, obese, normal bowel sounds Percussion/Palpation: abdomen soft; abdomen nontender Musculoskeletal: No acute arthritis involving any joints, moves extremities spontaneously Skin: Please see the picture for detailed information about the leg ulcer Neurologic: alert and oriented, answers most questions appropriately, speech fluent, no facial asymmetry, moves all extremities; no focal motor deficits Results & Data ([facility]) Vital Signs (Past 12 Hours) Vital Signs Temp Pulse Resp BP Pulse Ox 04/08/19 07:49 36.4 C L 83 20 120/75 95 Laboratory Results 04/08/19 04/08/19 Range/Units 05:35 05:35 WBC 6.25 (4.8-10.8) K/uL RBC 4.47 L (4.7-6.1) M/uL Hgb 12.6 L (14.0-18.0) g/dL Hct 38.4 L (42-52) % MCV 85.9 (80-100) fL MCH 28.2 (25-34) pg MCHC 32.8 (32-36) g/dL RDW Std Deviation 48.2 H (36.4-46.3) fL RDW Coeff of Karla 15.3 H (11.5-14.5) % Plt Count 218 (130-400) K/uL MPV 9.7 (7.4-10.4) fL Sodium 138 (136-145) mmol/L Potassium 3.6 (3.5-5.1) mmol/L Chloride 107 (98-107) mmol/L Carbon Dioxide 24 (21-32) mmol/L Anion Gap 8.0 (3-11) BUN 25 H (7-18) mg/dl Creatinine 1.22 (0.6-1.4) mg/dl Est Cr Clr Drug Dosing 67.0 ml/min Est GFR ( Amer) 65.0 Est GFR (Non-Af Amer) 56.0 BUN/Creatinine Ratio 20.2 H (10-20) Glucose 93 (70-99) mg/dl Calcium 9.4 (8.5-10.1) mg/dl Magnesium 2.1 (1.8-2.4) mg/dl Total Creatine Kinase 89 (39-308) U/L Medications Administered Current Inpatient Medications Acetaminophen (Tylenol) 650 mg PO Q4H PRN PRN Reason: pain/fever Stop: 05/01/19 19:06 Last Admin: 04/08/19 02:00 Dose: 650 mg Documented by: Acetic Acid (Acetic Acid 0.25%) 1 appln IR BID@0830,2030 ON LICENSE OF [facility] Stop: 05/04/19 08:29 Last Admin: 04/08/19 08:39 Dose: 1 appln Documented by: Atorvastatin Calcium (Lipitor) 10 mg PO QAM ON LICENSE OF [facility] Stop: 05/02/19 08:59 Last Admin: 04/08/19 08:38 Dose: 10 mg Documented by: Bupropion HCl (Wellbutrin-Xl) 150 mg PO BID ON LICENSE OF [facility] Stop: 05/01/19 20:59 Last Admin: 04/08/19 08:38 Dose: 150 mg Documented by: Cefdinir (Omnicef Cap) 300 mg PO BID ON LICENSE OF [facility] Stop: 04/11/19 20:59 Last Admin: 04/05/19 08:11 Dose: 300 mg Documented by: Doxycycline Hyclate (Vibramycin) 100 mg PO BID ON LICENSE OF [facility] Stop: 04/11/19 20:59 Last Admin: 04/05/19 08:12 Dose: 100 mg Documented by: Famotidine (Pepcid) 20 mg PO BID ON LICENSE OF [facility] Stop: 05/01/19 20:59 Last Admin: 04/08/19 08:37 Dose: 20 mg Documented by: Finasteride (Proscar) 5 mg PO QAM ON LICENSE OF [facility] Stop: 05/02/19 08:59 Last Admin: 04/08/19 08:41 Dose: 5 mg Documented by: Furosemide (Lasix) 40 mg PO DAILY ON LICENSE OF [facility] Stop: 05/02/19 08:59 Last Admin: 04/08/19 08:39 Dose: 40 mg Documented by: Haloperidol (Haldol) 2 mg PO Q4H PRN PRN Reason: Agitation Stop: 05/07/19 14:14 Heparin Sodium (Porcine) (Heparin Sodium (Porcine)) 5,000 units SQ Q8 RAIMUNDO Stop: 05/01/19 21:59 Last Admin: 04/08/19 13:41 Dose: Not Given Documented by: Piperacillin Sod/Tazobactam (Sod 4.5 gm/ Dextrose) 120 mls @ 30 mls/hr IV Q8H ON LICENSE OF [facility]; Protocol Stop: 04/09/19 01:59 Last Infusion: 04/08/19 14:31 Dose: Infused Documented by: Metoprolol Tartrate (Lopressor) 25 mg PO BID ON LICENSE OF [facility] Stop: 05/01/19 20:59 Last Admin: 04/08/19 08:38 Dose: 25 mg Documented by: Miscellaneous (Remove Nicoderm Patch) 1 ea N/A DAILY@0859 ON LICENSE OF [facility] Stop: 05/02/19 08:58 Last Admin: 04/08/19 08:39 Dose: 1 ea Documented by: Miscellaneous Information (Consult) 1 ea N/A UD PRN PRN Reason: Consult Stop: 05/01/19 20:03 Nicotine ([facility] Cq) [facility] 05/02/19 08:59 Last Admin: 04/08/19 08:40 Dose: 21 mg Documented by: (1) Atrial fibrillation Atrial fibrillation type: permanent Qualified Code(s): I48.21 - Permanent atrial fibrillation (2) Diastolic heart failure Heart failure chronicity: acute on chronic Qualified Code(s): I50.33 - Acute on chronic diastolic (congestive) heart failure
[2019-04-09] MEDS: HEPARIN SOD 5,000 UNIT/0.5 ML VIAL SQ SCH ×2 (05:24→13:21)
[2019-04-09] MEDS: ACETIC ACID 0.25% IRRIG SOLN 1000 ML PLCT IR SCH (07:24)
[2019-04-09] MEDS: ATORVASTATIN 10 MG TAB PO SCH (07:24)
[2019-04-09] MEDS: FUROSEMIDE 40 MG TAB PO SCH (07:25)
[2019-04-09] MEDS: FINASTERIDE 5 MG TAB PO SCH (07:25)
[2019-04-09] MEDS: NICOTINE 21 MG/24 HR TDSY TD SCH (07:26)
[2019-04-09] MEDS: FAMOTIDINE 20 MG TAB PO SCH (07:26)
[2019-04-09] MEDS: BuPROPion XL 150 MG TABCR PO SCH (07:26)
[2019-04-09] MEDS: METOPROLOL TARTRATE 25 MG TAB PO SCH (07:26)
[2019-04-09] MEDS ORDERED: AMOXICILLIN/CLAVULANATE 875 MG TAB PO SCH (09:00)
--- NOTE | 2019-04-09 13:01 | Discharge Summary ---
Date of Service April 09, 2019 Admission HPI Per Admitting Provider 78-year-old male who presents the ED for evaluation of left leg wound. Patient admitted to [facility] 02/20 through 02/22 for cellulitis of the left lower extremity with venous stasis ulcers of both lower extremities. Patient was discharged on cefdinir. Patient has been following with the wound care center and vascular surgery. On 03/16, patient was placed on Bactrim. He was seen by ID on 03/23 and placed on an additional course of cefdinir. Repeat cultures were obtained at that time which grew Enterobacter and MRSA. Doxycycline was added to patient's regimen on 03/26. On 03/26, patient underwent RFA of left GSV. Patient son is at the bedside who reports that patient has missed several of his recent follow-up appointments with vascular surgery and the wound care center. When he went to check on him today, he noted that the patient's left leg wounds appear to be much worse. Patient was then brought to the ED for further evaluation. Patient denies fevers and chills. No chest pain or shortness of breath. Denies lightheadedness, dizziness, diaphoresis, syncopal events. No abdominal pain, nausea, vomiting, diarrhea. Denies any urinary symptoms. In the ED, patient's labs are unremarkable. He is hemodynamically stable. He was evaluated by the wound care nurse and had dressings placed to his left lower extremity wounds. He was given IVF. Admission Exam Per Admitting Provider Constitutional: WD/WN, vitals as above Eyes: PERRL, conjunctivae normal, anicteric sclerae ENMT: external ear and nose normal, oropharynx normal Respiratory: normal respiratory effort; no respiratory distress Auscultation: + diminished lung sounds Cardiovascular: Rate/Rhythm: regular rate and + irregularly irregular Vessels: normal peripheral pulses Extremities: + edema (+1-2 edema BLE) Gastrointestinal (Abdomen): normal bowel sounds, soft, nontender, no hepatosplenomegaly Musculoskeletal: no cyanosis or clubbing, extremities motor strength 5/5 Skin: no rashes, warm and dry chronic venous changes BLE, LLE warm to touch, new dressings recently placed by wound care intake to LLE and left foot Neurologic: PERRL, EOMI, accommodation nl, no face palsy, no dysarthria Psychiatric: Orientation: alert and oriented x 3 Affect: + flat affect Principal Diagnosis Venous ulcer of left leg, cellulitis of LLE Discharge Exam Physical Exam: Elderly obese male sitting up in the chair, in NAD Constitutional: well developed, well nourished and + obese; no acute distress and not ill appearing Eyes: PERRL, EOMI, conjunctivae normal, anicteric sclerae ENMT: external ear and nose normal, oropharynx normal Neck: trachea midline, no thyromegaly Respiratory: normal respiratory effort; no respiratory distress Auscultation: lungs clear to auscultation bilaterally and + diminished lung sounds Cardiovascular: Rate/Rhythm: regular rate and regular rhythm Heart Sounds: no murmur Extremities: + edema (Bilateral leg edema, left more than the right with chronic skin changes and left leg has cellulitis, dressings applied to left leg by wound care) Gastrointestinal (Abdomen): Inspection/Auscultation: + abdomen distended, obese, normal bowel sounds Percussion/Palpation: abdomen soft; abdomen nontender Musculoskeletal: No acute arthritis involving any joints, moves extremities spontaneously Skin: Please see the picture for detailed information about the leg ulcer Neurologic: alert and oriented, answers most questions appropriately, speech fluent, no facial asymmetry, moves all extremities; no focal motor deficits Discharge Data Allergies Allergy/AdvReac Type Severity Reaction Status Date / Time cephalexin Allergy Intermediate Leukocytoclastic Verified 03/23/19 09:39 vasculitis neomycin AdvReac Mild RASH Verified 03/23/19 09:39 Consultations 04/01/19 15:04 ED Decision to Admit Stat 04/01/19 19:07 Consult Case Management - Discharge Planning Routine Consult Wound Care Provider Routine 04/06/19 18:28 Consult Case Management - Discharge Planning Routine Hospital Course (1) PVD (peripheral vascular disease): Complicating current leg wounds Advised to keep the leg wounds clean and dry, LLE elevated when sitting down (2) Venous ulcer of left leg: (3) Cellulitis: Was admitted from home for worsening wounds on the LLE and left foot -hx of severe PVD, s/p RFA of left GSV on 03/26 -had been following with vascular and wound care center but has missed several appointments over the past week and a half -was prescribed cefdinir and doxycycline for most recent wound culture growing MRSA and Enterobacter -Initially started on IV daptomycin and Zosyn on admission, pending further culture and sensitivity -Blood culture (04/01/2019) - negative -Wound culture (04/01) is growing gram-negative bacilli, Alcaligenes faecalis (resistant to Bactrim, ciprofloxacin, intermediate resistance to aztreonam, sensitive to pip/tazo, tobramycin, imipenem, cefepime, ceftazidime, amikacin) -Appreciate wound care provider input and recommendation -Elevate the leg when possible -Clinically better with current intravenous antibiotic, continued IV Zosyn, switch to PO Augmentin -(Dr. Powell discussed treatment plan with the pharmacist, pt will be continued on oral Augmentin 875 mg twice daily to continue for 14 days) (4) CKD (chronic kidney disease), stage III: - baseline creat runs in the mid ones - continue to monitor, avoid nephrotoxic agents when able - initially Cr remained stable around 1.5 PAULA on chronic kidney disease - Resolved Creatinine trended up, went up to 2.08 as of 04/06/2019 In part due to dehydration and could be secondary to use of Abx Advised to drink more fluid Also received gentle intravenous fluids Creatinine has been improving, current Cr 1.22 Resolved (5) Diastolic heart failure: -Appears euvolemic -Continue home dose of furosemide -No fluid overload (6) Atrial fibrillation: -Has chronic atrial fibrillation with controlled rate -Rate controlled on metoprolol, will continue -Was previously anticoagulated on Eliquis, family reports patient has not been taking this medication for at least the past 2 years, unsure why it was stopped -Dr Powell discussed with the patient about reintroduction of Eliquis, pt does not want to take any anticoagulation (7) DM II (diabetes mellitus, type II), controlled: -Hgb A1c 6.5 11/2018 -Diet controlled -Monitor glucose on daily labs (8) Dyslipidemia: -Continue statin (9) BPH (benign prostatic hyperplasia): -Continue finasteride (10) DVT prophylaxis: -SQ heparin Likely home/SCF/ rehab following PT and OT evaluation and as per the recommendation CM involved in d/c planning, plan to d/c to [facility] Total Time Total Time Spent Total Time Spent (In Minutes): 40 Total Time Includes: Examination of the Patient, Discharge Planning, Medication Reconciliation and Communication With Other Providers Discharge Plan Discharge Items Patient Disposition: Transfer Inpatient Rehab Fac Reason For Visit: RLE WOUND,CELLULITIS Discharge Diagnosis: Venous ulcer of left leg, cellulitis Condition on Discharge: Good Activity: As commented below Non-emergency contact: Primary Care Provider and Surgeon Call non-emergency contact if: you have any medication questions and your symptoms worsen Follow-up/Referrals: Steven Vincent MD [Primary Care Provider] - 04/12/19 11:00 am (PLEASE CALL [phone] IF YOU NEED TO RESCHEDULE THIS APPOINTMENT) Diet: Carb Consistent or DM2 and Heart Healthy Addtl Attending Provider Instructions: Continue taking Augmentin, twice a day. This is antibiotic to continue treatment for your left leg infection. Wound care also will be continued, and they will decide on further management of your left leg wound/infection. Activity per [facility] rehab/PT. Try to keep your foot elevated when sitting down. Pending Studies at Discharge: No Stand-Alone Forms: [facility] Skilled Items Patient informed of condition?: Yes DNR: Yes Discharge Level of Care: Acute rehab Communicable Disease: No Discharge Prognosis: Improving Lines: None Urinary Catheter: No Medications and DC Order Prescriptions: New amoxicillin-pot clavulanate [Augmentin] 875-125 mg Tablet 1 tab PO BIDM 14 Days Qty: 28 RF: 0 nicotine [Nicoderm CQ] 21 mg/24 hr Patch 24 Hour 21 mg transdermal QAM 7 Days Qty: 7 RF: 0 heparin, porcine (PF) 5,000 unit/0.5 mL Syringe 5,000 unit subcut Q8 7 Days Qty: 10.5 RF: 0 Continued metoprolol tartrate 25 mg tablet 25 mg PO BID RF: 0 finasteride [Proscar] 5 mg tablet 5 mg PO QAM RF: 0 bupropion HCl 150 mg tablet extended release 24 hr 150 mg PO BID RF: 0 furosemide 40 mg tablet 40 mg PO DAILY RF: 0 atorvastatin 10 mg tablet 10 mg PO QAM RF: 0 famotidine 20 mg tablet 20 mg PO BID RF: 0 Discontinued cefdinir 300 mg capsule 300 mg PO BID Qty: 60 RF: 2 doxycycline hyclate 100 mg tablet 100 mg PO BID RF: 0 Discharge Orders: Discharge Order (Routine); Ordered 04/09/19 Ordered By: Jordan Russell Admission Data Admit Date/Time: 04/03/19 15:49 Attending Provider: Jordan Russell Admit Provider: Dayanna Pineda Primary Care Provider: Steven Vincent Other Providers: Dash Reyes ; [facility] ; Dayanna Pineda ; Arturo Powell ; [place]
== END 2019-04-09 14:20 | DRG 603 ==
LOC: 4W 12:57 → ED 12:57 → SUATTDRO 14:54 → 4W 18:26 → SUATTDRO 04-03 15:49

== ENCOUNTER 2019-04-14 11:39 | Inpatient (IN) ==
[2019-04-14] MEDS ORDERED: PIPERACILL/TAZOBAC CONSULT ACTIVE PRN ×2 (12:08→20:13)
[2019-04-14] MEDS ORDERED: PIPERACILLIN/TAZOBACTAM 4.5 GM/120 ML BAG IV ONE (12:08)
[2019-04-14] MEDS ORDERED: VANCOMYCIN HCL 2,250 MG in SODIUM CHLORIDE 0.9% 500 ML IV ONE (12:08)
[2019-04-14] MEDS ORDERED: VANCOMYCIN CONSULT ACTIVE PRN ×2 (12:08→20:13)
--- NOTE | 2019-04-14 12:43 | CT Scan Report ---
CT SCAN OF THE BRAIN WITHOUT IV CONTRAST CLINICAL HISTORY: Trauma. Fall. COMPARISON STUDY: CT of the brain dated 07/31/2014. TECHNIQUE: Unenhanced axial CT scan of the brain is performed from the vertex to the skull base. A do se lowering technique was utilized adhering to the principles of ALARA. CT DOSE: 614.27 mGy.cm FINDINGS: Brain parenchyma: Small foci of left occipital and right parietal encephalomalacia are likely related to remote insult. There are age-related involutional changes noting mild subcortical and periventri cular microangiopathic change. There is no hemorrhage, mass effect, or evidence of acute territorial ischemia by CT criteria. Wheat-white matter differentiation is preserved. No extra-axial fluid collect ion is seen. Ventricles, sulci, cisterns: Prominent secondary to involutional change. Intracranial vasculature: There is mild atherosclerotic calcification of the cavernous carotid arteri es. Calvarium: There is postoperative change from right parietal craniotomy. No depressed calvarial fract ure is identified. Sinuses and mastoids: Trace mucosal thickening is noted in the right maxillary antrum. The remaining paranasal sinuses are clear. The mastoid air cells are well pneumatized. Orbits: The bony orbits are grossly intact. There are bilateral ocular lens implants. IMPRESSION: 1. There is no hemorrhage, mass effect, or evidence of acute territorial ischemia by CT criteria. 2. Chronic and postoperative changes as above. ACT 112: Negative or not required by law. Electronically signed by: Chip Churchill M.D. 04/14/2019 12:41 PM
[2019-04-14 12:53] LABS: Basophils # (auto) 0.05 K/uL (0-0.2); Basophils % (auto) 0.5 %; Eosinophils # (auto) 0.26 K/uL (0-0.5); Eosinophils % (auto) 2.6 %; Hematocrit (blood only) 44.3 % (42-52); Hemoglobin 14.5 g/dL (14.0-18.0); Immature Granulocytes # (auto) 0.07 K/uL (0.00-0.02); Immature Granulocytes % (auto) 0.7 %; Lymphocytes # (auto) 1.55 K/uL (1.2-3.4); Lymphocytes % (auto) 15.5 %; Mean Corpuscular Hemoglobin 28.8 pg (25-34); Mean Corpuscular Hgb Conc 32.7 g/dL (32-36); Mean Corpuscular Volume 87.9 fL (80-100); Mean Platelet Volume 9.6 fL (7.4-10.4); Monocytes # (auto) 0.84 K/uL (0.11-0.59); Monocytes % (auto) 8.4 %; Neutrophils # (auto) 7.21 K/uL (1.4-6.5); Neutrophils % (auto) 72.3 %; Platelet Count 327 K/uL (130-400); RDW Coefficient of Variation 15.8 % (11.5-14.5); RDW Standard Deviation 50.1 fL (36.4-46.3); Red Blood Count 5.04 M/uL (4.7-6.1); White Blood Count 9.98 K/uL (4.8-10.8)
[2019-04-14 13:00] LABS: Alanine Aminotransferase 25 U/L (12-78); Albumin Level 3.1 gm/dl (3.4-5.0); Aspartate Aminotransferase 28 U/L (15-37); Blood Urea Nitrogen 23 mg/dl (7-18); Calcium 10.4 mg/dl (8.5-10.1); Carbon Dioxide 28 mmol/L (21-32); Chloride 102 mmol/L (98-107); Creatinine Clr Calc Pharmacy 54.3 ml/min; Est GFR (African American) 52.7; Est GFR (Non-African American) 45.5; Glucose 88 mg/dl (70-99); Potassium 4.1 mmol/L (3.5-5.1); Sodium 136 mmol/L (136-145)
[2019-04-14 13:09] LABS: Albumin Globulin Ratio 0.5 (0.9-2); Alkaline Phosphatase 74 U/L (45-117); Bilirubin,Total 0.7 mg/dl (0.2-1); Creatine Kinase 101 U/L (39-308); Globulin 5.8 gm/dl (2.5-4.0); Total Protein 8.9 gm/dl (6.4-8.2); Troponin I < 0.015 ng/ml (0-0.045)
--- NOTE | 2019-04-14 13:42 | XRay Report ---
XR chest 1V portable CLINICAL HISTORY: 79 years-old Male presenting with weakness. TECHNIQUE: Portable upright AP view of the chest was obtained. COMPARISON: 07/31/2014. FINDINGS: Atherosclerosis of the aortic arch. Cardiac silhouette enlarged. Pulmonary vascular and interstitial prominence. Increased density of the lung bases with bibasilar reticular and hazy opacities. Underlyi ng small pleural effusions not excluded. No pneumothorax. Added density in the right paratracheal reg ion is unchanged from prior and likely vascular. Degenerative changes of the thoracic spine. Degenera tive changes of the glenohumeral joints. IMPRESSION: 1. Cardiomegaly with volume overload and congestive change. 2. Developing pulmonary edema suspected. A component of the bibasilar opacities may represent atelec tasis or less likely aspiration. 3. Small pleural effusions not excluded. ACT 112: Negative or not required by law. Electronically signed by: Keenan Wisdom M.D. 04/14/2019 1:40 PM
--- NOTE | 2019-04-14 13:46 | XRay Report ---
RIGHT SHOULDER 3 VIEWS CLINICAL HISTORY: Fall with right shoulder pain. FINDINGS: 3 views of the right shoulder are obtained. No prior studies are available for comparison a t the time of dictation. The skeletal structures are osteopenic. There is no radiographic evidence of right shoulder fracture or dislocation. The glenohumeral articulation is preserved. Spurring is seen along the inferior aspect of the humeral head and there is degenerative sclerosis in the greater tub erosity. Productive degenerative change is noted at the acromioclavicular joint. Overlying soft tissu e edema is noted. The visualized right upper lobe lung parenchyma appears clear. IMPRESSION: Soft tissue swelling with no acute bony abnormality identified. Electronically signed by: Chip Churchill M.D. 04/14/2019 1:45 PM
[2019-04-14] MEDS ORDERED: ONDANSETRON INJ 2 MG/ML 2 ML VIAL IV STA (14:34)
[2019-04-14] MEDS ORDERED: MoRPHine SULFATE 4 MG/ML 1 ML CARP\\VIAL IV STA (14:34)
--- NOTE | 2019-04-14 15:16 | History & Physical Report ---
Date of Service April 14, 2019 Assessment & Plan (1) Cellulitis: Admit to [facility] on telemetry, Vital signs every 4 hours, Replenish electrolytes, CBC, CMP daily, CRP and ESR pending, Started Zosyn and vancomycin in the ER empirically for wound and possible pneumonia in the setting of patient being diabetic. Patient failed outpatient treatment with amoxicillin clavulanate 1 tablet p.o. twice daily for 14 Blood cultures and wound cultures pending, Patient had arterial duplex lower extremity bilateral February 19, 2019 which showed mild scattered calcified plaque. Normal velocity and waveforms seen throughout the visualized bilateral lower extremity arterial system. No significant stenosis or occlusion identified. Of note the patient deferred imaging of the left calf vessels. No significant stenosis or the occlusion identified within the bilateral lower extremities. CT of the lower extremities pending to rule out possibly abscess. Patient was recently admitted on April 01, 2019 and discharged on April 09, 2023 the left lower extremity cellulitis. Patient also had prior admission to and on February 20 through February 22 for cellulitis of the left lower extremity with venostasis L ulcer of both lower extremities. DVT prophylaxis patient is on heparin 5000 units subcu every 8 hours. Full code Present on Admission?: Yes (2) Chronic venous insufficiency: As discussed above Present on Admission?: Yes (3) DM II (diabetes mellitus, type II), controlled: Hemoglobin A1c pending, Accu-Cheks before meals and at bedtime, added SSI. Diabetic diet. Present on Admission?: Yes (4) BPH (benign prostatic hyperplasia): Continue finasteride 5 mg p.o. every morning. Present on Admission?: Yes (5) Dyslipidemia: Fasting lipid panel pending, continue atorvastatin 10 mg p.o. every morning. (6) CKD (chronic kidney disease), stage III: From the chart appears that patient baseline creatinine is 1.2-1.4. At this point of time patient is back to 1.45. Avoid nephrotoxic agents, continue monitoring. Present on Admission?: Yes (7) Diastolic heart failure: Chest x-ray shows increasing congestion. Overall patient does not appear overly fluid overloaded. BNP pending. P.o. home furosemide switched to IV 40 mg IV daily. Daily weight, strict in and out. Low-sodium diet, Restrict free p.o. fluids daily to 1200 mils. Continue metoprolol 25 mg p.o. twice daily. Present on Admission?: Yes (8) Atrial fibrillation: Continue metoprolol 25 mg p.o. twice daily, continue heparin 5000 units subcu every 8 hours. Present on Admission?: Yes (9) Hypertension: As discussed above, monitor blood pressure every 4 hours. Present on Admission?: Yes (10) PVD (peripheral vascular disease): As discussed above Present on Admission?: Yes (11) GERD (gastroesophageal reflux disease): Continue famotidine 20 mg p.o. twice daily. Present on Admission?: Yes (12) Nicotine dependence: Continue bupropion 150 mg p.o. twice daily and NicoDerm 21 mg patch. Present on Admission?: Yes History of Present Illness Chief Complaint: Confusion and lower extremity wounds Primary Care Provider: [facility] The patient is a 79 years old resident of [facility] who was sent her from the wound clinic for the worsening cellulitis of the right lower extremity with increased edema and erythema noticed on exam. Past medical history includes severe PVD, CKD stage III, diastolic congestive heart failure, atrial fibrillation with controlled rate. Patient was previously on Eliquis and family reported that patient does not take his medication for at least the past 2 years. Patient was then started on heparin 5000 units every 8 hours. Per wound clinic personnel the left leg is improving however wounds of the left dorsal foot are persistent. The foot is also macerated and exam. They applied Xylocaine to the wound of the right lower extremity and left dorsal foot. The wound was also debrided and slough and eschar using a curette. Scant bleeding occurred and it was controlled with pressure. Diagnosis patient tolerated procedure well. This represented a non-excisional debridement of approximately 20cm. Wound culture of the right leg were repeated today as well. The wound was dressed with Aquacel Ag, ultra-sorb pads and 1 layer of Tubigrip. The patient also reports falling recently and wound clinic called EMS to send patient to the emergency room for further evaluation and treatment. It is not clear how patient fell but patient denied any injury. Patient could not recall if was mechanical fall or syncope due to loss of continence or vasovagal syncope. Dr. Dobbs also follows patient as infectious diseases consult. Patient patient was not oriented in to where he lives and stated that he lives at home and not in [facility]. Patient has moderate Alzheimer dementia. Patient denies fever, chills, chest pain, shortness of breath, abdominal pain, frequency, urgency. Labs are reviewed: Sodium 136, potassium 4.1, chloride 102, carbon dioxide 28, anion gap 6, BUN 23, creatinine 1.45, baseline creatinine 1.22-1.45, GFR 45.5, lactate 2.1, repeated 2.4, calcium 10.4, total bilirubin 0.7, AST 28, ALT 25, alkaline phosphatase 74, total creatinine kinase 101, troponin 0.015, total protein 8.9, albumin 3.1, globulin 5.8, procalcitonin 0.07, TSH 1.45, WBCs 9.98, hemoglobin 14.5, hematocrit 44.3, platelets 327. Urine yellow, clear, trace blood, urine RBC pending, urine leukocyte Estrace negative, urine WBCs pending urine bacteria pending. Chest x-rays: Cardiomegaly with volume overload and congestive change. Developing pulmonary edema suspected. A component of the bibasilar opacities may represent atelectasis or less likely aspiration. Small pleural effusion not excluded. CT of the head shows: There is no hemorrhage, mass-effect or evidence of acute territorial ischemia by CT criteria. Chronic and postoperative change as above. Right shoulder 3 views: Soft tissue swelling with no acute bony abnormality identified. The decision was made to admit patient to [facility] on telemetry for lower extremity ulcers and right lower extremity cellulitis and worsening wound. Allergies Allergy/AdvReac Type Severity Reaction Status Date / Time cephalexin Allergy Intermediate Leukocytoclastic Verified 04/14/19 10:47 vasculitis neomycin AdvReac Mild RASH Verified 04/14/19 10:47 Home Medications Home Medications Medication Instructions Recorded Confirmed Type metoprolol tartrate 25 mg tablet 25 mg PO BID 10/10/17 04/14/19 History finasteride 5 mg tablet 5 mg PO QAM 07/28/18 04/14/19 History bupropion HCl 150 mg 24 hr tablet, 150 mg PO BID 02/05/19 04/14/19 History extended release atorvastatin 10 mg PO QAM 02/19/19 04/14/19 History furosemide 40 mg tablet 40 mg PO DAILY tab 03/11/19 04/14/19 History famotidine 20 mg PO BID 04/01/19 04/14/19 History amoxicillin-pot clavulanate 1 tab PO BIDM 14 Days #28 tab 04/09/19 04/14/19 Rx [Augmentin] heparin, porcine (PF) 5,000 unit SUBCUT Q8 7 Days #10.5 04/09/19 04/14/19 Rx ml nicotine [Nicoderm CQ] 21 mg TRANSDERMAL QAM 7 Days #7 ea 04/09/19 04/14/19 Rx Past Med/Surg History Medical History A-fib (Chronic) Atrial fibrillation BPH (benign prostatic hyperplasia) Chronic venous insufficiency (Chronic) CKD (chronic kidney disease), stage III Diastolic heart failure DM II (diabetes mellitus, type II), controlled (Chronic) Dyslipidemia GERD (gastroesophageal reflux disease) (Chronic) Hallux rigidus of left foot (Acute) Hallux rigidus, right foot (Acute) Hypertension (Chronic) Morbid obesity due to excess calories Osteoarthritis (Chronic) Positive Lyme disease serology (Chronic) PVD (peripheral vascular disease) Secondary pulmonary hypertension Surgical History History of craniotomy 08/01/2014 - evacuation of subdural hematoma - [place] Abundio Mahm[place] [facility] [place] History Father Diabetes Social History Preferred Language: Burmese Communication Ability: Effective Medication Nurse Required: No Beliefs That Will Affect Care: None marital status: / Current Living Situation: Alone current occupational status: retired Feels Safe at Home: Yes Smoking Status: Former smoker Tobacco Type: cigarettes ; Cigarettes Per Day: 1/2 pack day ; Second Hand Exposure: No ; Hx Alcohol Use: No Hx Substance Use: No Review of Systems Review of Systems: All systems reviewed & are unremarkable except as noted in HPI & below Physical Exam Constitutional: WD/WN, vitals as above well developed and + ill appearing Eyes: PERRL, conjunctivae normal, anicteric sclerae ENMT: external ear and nose normal, oropharynx normal Neck: trachea midline, no thyromegaly Respiratory: Auscultation: + crackles and + wheezes Cardiovascular: RRR, no murmur, no edema Gastrointestinal (Abdomen): normal bowel sounds, soft, nontender, no hepatosplenomegaly Musculoskeletal: no cyanosis or clubbing, extremities motor strength 5/5 Skin: Multiple lower extremity ulcers with weeping wounds more on the right than on the left. Lower extremity 2+ pitting edema. Neurologic: patellar DTR's 2+ bilat, sensation intact Psychiatric: Orientation: oriented to person, oriented to time (Not able to recall where he lives. Believes that he lives at his own home instead of [facility]) and cooperative Judgement: + limited judgement Lymphatic: no cervical or axillary lymphadenopathy Results & Data Vital Signs (Past 12 Hours) Vital Signs Temp Pulse Resp BP Pulse Ox 04/14/19 14:50 106 H 24 04/14/19 14:40 103 H 22 04/14/19 14:31 110 H 22 04/14/19 14:30 104 H 16 128/90 98 04/14/19 14:20 105 H 26 H 04/14/19 14:10 103 H 19 04/14/19 14:01 100 H 24 100 04/14/19 14:00 85 19 139/84 04/14/19 13:50 94 H 19 100 04/14/19 13:40 101 H 18 100 04/14/19 13:31 110 H 20 100 04/14/19 13:30 106 H 22 137/85 100 04/14/19 13:20 100 H 15 100 04/14/19 13:10 103 H 20 96 04/14/19 13:01 107 H 17 04/14/19 13:00 100 H 17 140/96 04/14/19 12:50 104 H 17 04/14/19 12:40 104 H 19 98 04/14/19 12:20 100 H 16 04/14/19 12:15 100 04/14/19 12:10 98 H 24 04/14/19 12:08 105 H 18 04/14/19 12:00 101 H 20 143/96 H 100 04/14/19 11:51 36.4 C L 105 H 20 123/94 100 Code Status & VTE Plan Code Status Full code VTE Prophylaxis Plan VTE Prophylaxis will be ordered: Yes PG Care Time/CCT Total # of Minutes Spent Total Time Spent with Patient: Total time spent is greater than 50% in coordination of care (as documented) at patient's floor/unit and/or counseling patient: Coding Level of Care Code 89905 Initial Inpt Care Lvl 3 Diagnoses Cellulitis L03.90 Chronic venous insufficiency I87.2 DM II (diabetes mellitus, type II), controlled E11.9 BPH (benign prostatic hyperplasia) N40.0 Dyslipidemia E78.5 CKD (chronic kidney disease), stage III N18.3 Diastolic heart failure I50.33 Heart failure chronicity: acute on chronic Atrial fibrillation I48.21 Atrial fibrillation type: permanent Hypertension I10 PVD (peripheral vascular disease) I73.9 GERD (gastroesophageal reflux disease) K21.9 Nicotine dependence F17.200 (1) Diastolic heart failure Heart failure chronicity: acute on chronic Qualified Code(s): I50.33 - Acute on chronic diastolic (congestive) heart failure (2) Atrial fibrillation Atrial fibrillation type: permanent Qualified Code(s): I48.21 - Permanent atrial fibrillation
[2019-04-14 15:22] LABS: Appearance Urine Clear (Clear); Bilirubin Urine Negative (Negative); Blood Urine Trace (Negative); Color Urine Yellow; Glucose Urine UA Negative (Negative); Ketones Urine Negative (Negative); Leukocyte Esterase Urine Negative (Negative); Nitrite Urine Negative (Negative); Protein Urine Negative (Negative); Urobilinogen Urine Negative (Negative)
[2019-04-14 15:30] LABS: Epithelial Cell Urine >30 /lpf (0-5); Uric Acid Crystals Urine Present (None Prsent)
[2019-04-14 15:31] LABS: Bacteria Urine 1+ (Negative); RBC Urine 0-4 /hpf (0-4)
--- NOTE | 2019-04-14 16:05 | Electrocardiogram Report ---
Test Reason : Blood Pressure : / mmHG Vent. Rate : 102 BPM Atrial Rate : 108 BPM P-R Int : 000 ms QRS Dur : 088 ms QT Int : 334 ms P-R-T Axes : 000 003 004 degrees QTc Int : 435 ms Poor data quality, interpretation may be adversely affected Atrial fibrillation with rapid ventricular response Inferior infarct , age undetermined Abnormal ECG When compared with ECG of 19-FEB-2019 20:54, No significant change was found Confirmed by Fuad Harding ([id number]) on 04/14/2019 4:05:19 PM Referred By: [facility] Confirmed By:Fuad Harding
--- NOTE | 2019-04-14 17:02 | Ultrasound Report ---
RIGHT LOWER EXTREMITY VENOUS DOPPLER HISTORY: Pt c/o right leg swelling COMPARISON STUDY: None. FINDINGS: There is normal compressibility, flow, and augmentation within the right lower extremity de ep venous system. There is a 6.5 x 3.2 x 1.2 cm popliteal cyst. IMPRESSION: No DVT within the right lower extremity ACT 112: Negative or not required by law. Electronically signed by: Corwin Armstrong M.D. 04/14/2019 5:01 PM
--- NOTE | 2019-04-14 17:56 | Emergency Department Note ---
Entered by Ricarda Burnett acting as a scribe for History of Present Illness General Chief complaint: Infection, Wound Stated complaint: Lower extremity cellulitis, fall struck head Time Seen by Provider: 04/14/19 11:44 Source: patient History of Present Illness Onset (ago): day(s) 5 Location: lower extremity (bilateral) Pain Consistency: + other (persistent) Quality: + other (cellulitis) Relieved By: not by medication (2-3 antibiotics) Associated symptoms: + denies other symptoms (headache) and + other (fall, posterior shoulder pain) The patient is a 79 year old male that is presenting to the Emergency Room with complaints of persistent cellulitis that worsened over the past 5 days. The patient reports that he was discharged from the hospital recently after being treated for cellulitis on his bilateral lower legs. He states that he was at the wound clinic today for a follow up appointment when he was sent to the ED as his symptoms have worsened. He notes that he is currently taking 2-3 antibiotics for the infection. The patient states that his right leg is worse than the left. He reports that he slipped and fell this morning, hitting his head during the fall. He denies any significant head pain currently and denies any lacerations. He notes some posterior right shoulder pain. He denies any trauma to his legs during the fall. The patient notes that he lives at [facility]. Home Medications Home Medications Medication Instructions Recorded Confirmed Type metoprolol tartrate 25 mg tablet 25 mg PO BID 10/10/17 04/14/19 History finasteride 5 mg tablet 5 mg PO QAM 07/28/18 04/14/19 History bupropion HCl 150 mg 24 hr tablet, 150 mg PO BID 02/05/19 04/14/19 History extended release atorvastatin 10 mg PO QAM 02/19/19 04/14/19 History furosemide 40 mg tablet 40 mg PO DAILY tab 03/11/19 04/14/19 History famotidine 20 mg PO BID 04/01/19 04/14/19 History amoxicillin-pot clavulanate 1 tab PO BIDM 14 Days #28 tab 04/09/19 04/14/19 Rx [Augmentin] heparin, porcine (PF) 5,000 unit SUBCUT Q8 7 Days #10.5 04/09/19 04/14/19 Rx ml nicotine [Nicoderm CQ] 21 mg TRANSDERMAL QAM 7 Days #7 ea 04/09/19 04/14/19 Rx Allergies Allergy/AdvReac Type Severity Reaction Status Date / Time cephalexin Allergy Intermediate Leukocytoclastic Verified 04/14/19 10:47 vasculitis neomycin AdvReac Mild RASH Verified 04/14/19 10:47 Past Med/Surg History Medical History A-fib (Chronic) Atrial fibrillation BPH (benign prostatic hyperplasia) Chronic venous insufficiency (Chronic) CKD (chronic kidney disease), stage III Diastolic heart failure DM II (diabetes mellitus, type II), controlled (Chronic) Dyslipidemia GERD (gastroesophageal reflux disease) (Chronic) Hallux rigidus of left foot (Acute) Hallux rigidus, right foot (Acute) Hypertension (Chronic) Morbid obesity due to excess calories Osteoarthritis (Chronic) Positive Lyme disease serology (Chronic) PVD (peripheral vascular disease) Secondary pulmonary hypertension Surgical History History of craniotomy 08/01/2014 - evacuation of subdural hematoma - Dr Abundio Mahmood at [facility] [place] Family History Father Diabetes Social History Preferred Language: Latvian Communication Ability: Effective 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 and A total of 10 systems reviewed and were otherwise negative Physical Exam Vital Signs Vital Signs - 24 hr 04/14/19 11:51 04/14/19 12:00 04/14/19 12:08 Temperature 36.4 C L Temperature Source Oral Pulse Rate 105 H 101 H 105 H Pulse Rate from SpO2 Sensor Respiratory Rate 20 20 18 Respiratory Effort / Characteristics Non-Labored Respiratory Depth Normal Blood Pressure 123/94 143/96 H Blood Pressure Mean 103 101 Pulse Oximetry 100 100 Oxygen Delivery Method Room Air Room Air Sepsis Recent Fever Within 48 Hours No Sepsis Action Taken by Nursing No Action Required 04/14/19 12:10 04/14/19 12:15 04/14/19 12:20 Temperature Temperature Source Pulse Rate 98 H 100 H Pulse Rate from SpO2 Sensor Respiratory Rate 24 16 Respiratory Effort / Characteristics Respiratory Depth Blood Pressure Blood Pressure Mean Pulse Oximetry 100 Oxygen Delivery Method Room Air Sepsis Recent Fever Within 48 Hours Sepsis Action Taken by Nursing 04/14/19 12:40 04/14/19 12:50 04/14/19 13:00 Temperature Temperature Source Pulse Rate 104 H 104 H 100 H Pulse Rate from SpO2 Sensor 52 L Respiratory Rate 19 17 17 Respiratory Effort / Characteristics Respiratory Depth Blood Pressure 140/96 Blood Pressure Mean 102 Pulse Oximetry 98 Oxygen Delivery Method Sepsis Recent Fever Within 48 Hours Sepsis Action Taken by Nursing 04/14/19 13:01 04/14/19 13:10 04/14/19 13:20 Temperature Temperature Source Pulse Rate 107 H 103 H 100 H Pulse Rate from SpO2 Sensor 109 H 111 H Respiratory Rate 17 20 15 Respiratory Effort / Characteristics Respiratory Depth Blood Pressure Blood Pressure Mean Pulse Oximetry 96 100 Oxygen Delivery Method Sepsis Recent Fever Within 48 Hours Sepsis Action Taken by Nursing 04/14/19 13:30 04/14/19 13:31 04/14/19 13:40 Temperature Temperature Source Pulse Rate 106 H 110 H 101 H Pulse Rate from SpO2 Sensor 120 H 131 H Respiratory Rate 22 20 18 Respiratory Effort / Characteristics Respiratory Depth Blood Pressure 137/85 Blood Pressure Mean 98 Pulse Oximetry 100 100 100 Oxygen Delivery Method Sepsis Recent Fever Within 48 Hours Sepsis Action Taken by Nursing 04/14/19 13:50 04/14/19 14:00 04/14/19 14:01 Temperature Temperature Source Pulse Rate 94 H 85 100 H Pulse Rate from SpO2 Sensor 156 H 110 H Respiratory Rate 19 19 24 Respiratory Effort / Characteristics Respiratory Depth Blood Pressure 139/84 Blood Pressure Mean 106 Pulse Oximetry 100 100 Oxygen Delivery Method Sepsis Recent Fever Within 48 Hours Sepsis Action Taken by Nursing 04/14/19 14:10 04/14/19 14:20 04/14/19 14:30 Temperature Temperature Source Pulse Rate 103 H 105 H 104 H Pulse Rate from SpO2 Sensor 99 H Respiratory Rate 19 26 H 16 Respiratory Effort / Characteristics Respiratory Depth Blood Pressure 128/90 Blood Pressure Mean 97 Pulse Oximetry 98 Oxygen Delivery Method Sepsis Recent Fever Within 48 Hours Sepsis Action Taken by Nursing 04/14/19 14:31 04/14/19 14:40 04/14/19 14:50 Temperature Temperature Source Pulse Rate 110 H 103 H 106 H Pulse Rate from SpO2 Sensor Respiratory Rate 22 22 24 Respiratory Effort / Characteristics Respiratory Depth Blood Pressure Blood Pressure Mean Pulse Oximetry Oxygen Delivery Method Sepsis Recent Fever Within 48 Hours Sepsis Action Taken by Nursing 04/14/19 15:00 04/14/19 15:30 04/14/19 16:00 Temperature Temperature Source Pulse Rate 98 H 94 H 96 H Pulse Rate from SpO2 Sensor 79 Respiratory Rate 19 15 23 Respiratory Effort / Characteristics Respiratory Depth Blood Pressure 127/92 153/85 H 114/61 Blood Pressure Mean 101 95 66 Pulse Oximetry 98 Oxygen Delivery Method Sepsis Recent Fever Within 48 Hours Sepsis Action Taken by Nursing 04/14/19 17:02 04/14/19 17:30 Temperature Temperature Source Pulse Rate 93 H 117 H Pulse Rate from SpO2 Sensor 100 H Respiratory Rate 23 24 Respiratory Effort / Characteristics Respiratory Depth Blood Pressure 112/83 114/79 Blood Pressure Mean 86 87 Pulse Oximetry 97 Oxygen Delivery Method Room Air Sepsis Recent Fever Within 48 Hours Sepsis Action Taken by Nursing GENERAL: Awake, alert, well-appearing, in no acute distress HENT: Normocephalic, atraumatic. Oropharynx unremarkable. EYES: Normal conjunctiva. Sclera non-icteric. NECK: Supple. No nuchal rigidity. FROM. No JVD. RESPIRATORY: Clear to auscultation. CARDIAC: Regular rate, normal rhythm. Extremities warm and well perfused. Pulses equal. ABDOMEN: Soft, non-distended. No tenderness to palpation. No rebound or guarding. No masses. RECTAL: Deferred. MUSCULOSKELETAL: Chest examination reveals no tenderness. The back is symmetrical on inspection without obvious abnormality. There is no CVA tenderness to palpation. No joint edema. LOWER EXTREMITIES: Calves are equal size bilaterally and non-tender. No edema. No discoloration. NEURO: Normal sensorium. No sensory or motor deficits noted. SKIN: No jaundice noted. Cellulitis extending up past right knee. Course Course 1201:The patient was evaluated in room C06. A complete history and physical examination was performed. 1415: I discussed the patients case with Dr. Reina, [facility], who will evaluate the patient for further management and care. 1420: Upon reevaluation, the patient is resting comfortably. I discussed laboratory and radiographic results with the patient and his son. They verbalized agreement of the treatment plan. The patient will be evaluated for further management and care. Administered Medications Acetaminophen (Tylenol) 650 mg PO Q4H PRN PRN Reason: Pain or Fever Stop: 05/14/19 20:12 Last Admin: 04/15/19 19:32 Dose: 650 mg Documented by: [id number] Admin: 04/15/19 00:43 Dose: 650 mg Documented by: [id number] Atorvastatin Calcium (Lipitor) 10 mg PO [facility] Stop: 05/15/19 08:59 Last Admin: 04/15/19 07:41 Dose: 10 mg Documented by: [id number] Bupropion HCl (Wellbutrin-Sr) 150 mg PO BID [facility] Stop: 05/14/19 21:59 Last Admin: 04/15/19 07:41 Dose: 150 mg Documented by: [id number] Admin: 04/14/19 22:01 Dose: 150 mg Documented by: [id number] Famotidine (Pepcid) 20 mg PO BID [facility] Stop: 05/14/19 20:59 Last Admin: 04/15/19 07:42 Dose: 20 mg Documented by: [id number] Admin: 04/14/19 21:42 Dose: 20 mg Documented by: [id number] Finasteride (Proscar) 5 mg PO [facility] Stop: 05/15/19 08:59 Last Admin: 04/15/19 07:41 Dose: 5 mg Documented by: [id number] Heparin Sodium (Porcine) (Heparin Sodium (Porcine)) 5,000 units SQ Q8 [facility] Stop: 05/14/19 21:59 Last Admin: 04/15/19 14:19 Dose: 5,000 units Documented by: [id number] Cosigned by: [id number] Admin: 04/15/19 05:27 Dose: 5,000 units Documented by: [id number] Cosigned by: [id number] Admin: 04/14/19 22:01 Dose: 5,000 units Documented by: [id number] Cosigned by: [id number] Piperacillin Sod/Tazobactam (Sod 3.375 gm/ Dextrose) 115 mls @ 28.75 mls/hr IV Q8H [facility]; Protocol Stop: 04/21/19 20:59 Last Infusion: 04/15/19 18:26 Dose: 0 mls/hr Documented by: [id number] Admin: 04/15/19 13:56 Dose: 28.8 mls/hr Documented by: [id number] Infusion: 04/15/19 09:30 Dose: 0 mls/hr Documented by: [id number] Admin: 04/15/19 05:27 Dose: 28.8 mls/hr Documented by: [id number] Infusion: 04/15/19 01:33 Dose: 0 mls/hr Documented by: [id number] Admin: 04/14/19 21:33 Dose: 28.8 mls/hr Documented by: [id number] Vancomycin HCl 1,500 mg/ (Sodium Chloride) 530 mls @ 200 mls/hr IV Q18H [facility] Stop: 04/22/19 06:59 Last Infusion: 04/15/19 09:30 Dose: 0 mls/hr Documented by: [id number] Admin: 04/15/19 06:21 Dose: 200 mls/hr Documented by: [id number] Insulin Aspart (Novolog Flexpen) 0 units SC ACHS RAIMUNDO Stop: 05/14/19 20:12 Last Admin: 04/15/19 17:35 Dose: Not Given Documented by: [id number] Cosigned by: [id number] Admin: 04/15/19 12:08 Dose: 5 units Documented by: [id number] Cosigned by: [id number] Admin: 04/15/19 08:59 Dose: 4 units Documented by: [id number] Cosigned by: [id number] Admin: 04/14/19 21:54 Dose: Not Given Documented by: [id number] Cosigned by: [id number] Admin: 04/14/19 21:47 Dose: Not Given Documented by: [id number] Cosigned by: [id number] Ioversol (Optiray 320 100ml) 93 ml IV ONCE PRN PRN Reason: Interaction Checking Stop: 04/18/19 20:54 Last Admin: 04/14/19 20:55 Dose: 93 ml Documented by: [id number] Metoprolol Tartrate (Lopressor) 25 mg PO BID [facility] Stop: 05/14/19 20:59 Last Admin: 04/15/19 07:42 Dose: 25 mg Documented by: [id number] Admin: 04/14/19 21:42 Dose: 25 mg Documented by: [id number] Miscellaneous (Remove Nicoderm Patch) 1 ea N/A DAILY@0859 [facility] Stop: 05/15/19 08:58 Last Admin: 04/15/19 07:42 Dose: 1 ea Documented by: [id number] Nicotine (Nicoderm Cq) 21 mg TD QAM RAIMUNDO Stop: 05/15/19 08:59 Last Admin: 04/15/19 07:41 Dose: 21 mg Documented by: [id number] Discontinued Medications Piperacillin Sod/Tazobactam Sod (Zosyn) 4.5 gm in 120 mls @ 240 mls/hr IV NOW ONE Stop: 04/14/19 12:37 Last Infusion: 04/14/19 13:34 Dose: 0 mls/hr Documented by: [id number] Admin: 04/14/19 12:38 Dose: 240 mls/hr Documented by: [id number] Vancomycin HCl 2,250 mg/ (Sodium Chloride) 545 mls @ 200 mls/hr IV NOW ONE Stop: 04/14/19 14:51 Last Infusion: 04/14/19 16:06 Dose: 0 mls/hr Documented by: [id number] Admin: 04/14/19 13:22 Dose: 200 mls/hr Documented by: [id number] Furosemide 40 mg/ Syringe 4 mls @ 4 mls/min IV DAILY RAIMUNDO Stop: 05/14/19 21:29 Last Admin: 04/15/19 09:00 Dose: 4 mls/min Documented by: [id number] Admin: 04/14/19 22:01 Dose: 4 mls/min Documented by: [id number] Morphine Sulfate (Morphine Sulfate) 4 mg IV NOW STA Stop: 04/14/19 14:35 Last Admin: 04/14/19 14:54 Dose: 4 mg Documented by: [id number] Ondansetron HCl (Zofran) 4 mg IV NOW STA Stop: 04/14/19 14:35 Last Admin: 04/14/19 14:54 Dose: 4 mg Documented by: [id number] Medical Decision Making Differential Diagnosis Differential diagnosis: Etiologies such as cellulitis, abscess, MRSA infection, DVT, necrotizing fasciitis, dermatitis, drug eruption, as well as others were entertained. Medical Records Attestation: I reviewed the patient's medical records. Home Medications Current Medication List: was personally reviewed by me Laboratory Data Attestation: I reviewed the patient's lab results. Result diagrams: 04/15/19 07:44 04/15/19 07:44 Lab Results 04/14/19 04/14/1904/13/20 Range/Units 12:25 12:25 12:25 WBC 9.98 (4.8-10.8) K/uL RBC 5.04 (4.7-6.1) M/uL Hgb 14.5 (14.0-18.0) g/dL Hct 44.3 (42-52) % MCV 87.9 (80-100) fL MCH 28.8 (25-34) pg MCHC 32.7 (32-36) g/dL RDW Std Deviation 50.1 H (36.4-46.3) fL RDW Coeff of Karla 15.8 H (11.5-14.5) % Plt Count 327 (130-400) K/uL MPV 9.6 (7.4-10.4) fL Immature Gran % (Auto) 0.7 % Neut % (Auto) 72.3 % Lymph % (Auto) 15.5 % Andrew % (Auto) 8.4 % Eos % (Auto) 2.6 % Baso % (Auto) 0.5 % Immature Gran # (Auto) 0.07 H (0.00-0.02) K/uL Neut # (Auto) 7.21 H (1.4-6.5) K/uL Lymph # (Auto) 1.55 (1.2-3.4) K/uL Andrew # (Auto) 0.84 H (0.11-0.59) K/uL Eos # (Auto) 0.26 (0-0.5) K/uL Baso # (Auto) 0.05 (0-0.2) K/uL Sodium 136 (136-145) mmol/L Potassium 4.1 (3.5-5.1) mmol/L Chloride 102 (98-107) mmol/L Carbon Dioxide 28 (21-32) mmol/L Anion Gap 6.0 (3-11) BUN 23 H (7-18) mg/dl Creatinine 1.45 H (0.6-1.4) mg/dl Est Cr Clr Drug Dosing 54.3 ml/min Est GFR ( Amer) 52.7 Est GFR (Non-Af Amer) 45.5 BUN/Creatinine Ratio 16.0 (10-20) Glucose 88 (70-99) mg/dl Lactate (0.4-2.0) mmol/L Calcium 10.4 H (8.5-10.1) mg/dl Total Bilirubin 0.7 (0.2-1) mg/dl AST 28 (15-37) U/L ALT 25 (12-78) U/L Alkaline Phosphatase 74 (45-117) U/L Total Creatine Kinase 101 (39-308) U/L Troponin I < 0.015 (0-0.045) ng/ml Total Protein 8.9 H (6.4-8.2) gm/dl Albumin 3.1 L (3.4-5.0) gm/dl Globulin 5.8 H (2.5-4.0) gm/dl Albumin/Globulin Ratio 0.5 L (0.9-2) Procalcitonin 0.07 (0-0.5) ng/ml TSH 1.450 (0.300-4.500) uIu/ml Urine Color Urine Appearance (Clear) Urine pH (4.5-7.5) Ur Specific Vader (1.000-1.030) Urine Protein (Negative) Urine Glucose (UA) (Negative) Urine Ketones (Negative) Urine Blood (Negative) Urine Nitrite (Negative) Urine Bilirubin (Negative) Urine Urobilinogen (Negative) Ur Leukocyte Esterase (Negative) Urine RBC (0-4) /hpf Urine WBC (0-5) /hpf Ur Epithelial Cells (0-5) /lpf Uric Acid Crystals (None Prsent) Urine Bacteria (Negative) 04/14/19 04/14/19 04/14/19 Range/Units 12:25 14:30 14:33 WBC (4.8-10.8) K/uL RBC (4.7-6.1) M/uL Hgb (14.0-18.0) g/dL Hct (42-52) % MCV (80-100) fL MCH (25-34) pg MCHC (32-36) g/dL RDW Std Deviation (36.4-46.3) fL RDW Coeff of Karla (11.5-14.5) % Plt Count (130-400) K/uL MPV (7.4-10.4) fL Immature Gran % (Auto) % Neut % (Auto) % Lymph % (Auto) % Andrew % (Auto) % Eos % (Auto) % Baso % (Auto) % Immature Gran # (Auto) (0.00-0.02) K/uL Neut # (Auto) (1.4-6.5) K/uL Lymph # (Auto) (1.2-3.4) K/uL Andrew # (Auto) (0.11-0.59) K/uL Eos # (Auto) (0-0.5) K/uL Baso # (Auto) (0-0.2) K/uL Sodium (136-145) mmol/L Potassium (3.5-5.1) mmol/L Chloride (98-107) mmol/L Carbon Dioxide (21-32) mmol/L Anion Gap (3-11) BUN (7-18) mg/dl Creatinine (0.6-1.4) mg/dl Est Cr Clr Drug Dosing ml/min Est GFR ( Amer) Est GFR (Non-Af Amer) BUN/Creatinine Ratio (10-20) Glucose (70-99) mg/dl Lactate 2.1 H* 2.4 H* (0.4-2.0) mmol/L Calcium (8.5-10.1) mg/dl Total Bilirubin (0.2-1) mg/dl AST (15-37) U/L ALT (12-78) U/L Alkaline Phosphatase (45-117) U/L Total Creatine Kinase (39-308) U/L Troponin I (0-0.045) ng/ml Total Protein (6.4-8.2) gm/dl Albumin (3.4-5.0) gm/dl Globulin (2.5-4.0) gm/dl Albumin/Globulin Ratio (0.9-2) Procalcitonin (0-0.5) ng/ml TSH (0.300-4.500) uIu/ml Urine Color Yellow Urine Appearance Clear (Clear) Urine pH 6.0 (4.5-7.5) Ur Specific Vader 1.020 (1.000-1.030) Urine Protein Negative (Negative) Urine Glucose (UA) Negative (Negative) Urine Ketones Negative (Negative) Urine Blood Trace H (Negative) Urine Nitrite Negative (Negative) Urine Bilirubin Negative (Negative) Urine Urobilinogen Negative (Negative) Ur Leukocyte Esterase Negative (Negative) Urine RBC 0-4 (0-4) /hpf Urine WBC 5-10 H (0-5) /hpf Ur Epithelial Cells >30 H (0-5) /lpf Uric Acid Crystals Present A (None Prsent) Urine Bacteria 1+ H (Negative) Imaging Data Radiologist's Impression: Radiology results as stated below per my review and the radiologist's interpretation: CT SCAN OF THE BRAIN WITHOUT IV CONTRAST CLINICAL HISTORY: Trauma. Fall. COMPARISON STUDY: CT of the brain dated 07/31/2014. TECHNIQUE: Unenhanced axial CT scan of the brain is performed from the vertex to the skull base. A dose lowering technique was utilized adhering to the principles of ALARA. CT DOSE: 614.27 mGy.cm FINDINGS: Brain parenchyma: Small foci of left occipital and right parietal encephalomalacia are likely related to remote insult. There are age-related involutional changes noting mild subcortical and periventricular microangiopathic change. There is no hemorrhage, mass effect, or evidence of acute territorial ischemia by CT criteria. Wheat-white matter differentiation is preserved. No extra-axial fluid collection is seen. Ventricles, sulci, cisterns: Prominent secondary to involutional change. Intracranial vasculature: There is mild atherosclerotic calcification of the cavernous carotid arteries. Calvarium: There is postoperative change from right parietal craniotomy. No depressed calvarial fracture is identified. Sinuses and mastoids: Trace mucosal thickening is noted in the right maxillary antrum. The remaining paranasal sinuses are clear. The mastoid air cells are well pneumatized. Orbits: The bony orbits are grossly intact. There are bilateral ocular lens implants. IMPRESSION: 1. There is no hemorrhage, mass effect, or evidence of acute territorial ischemia by CT criteria. 2. Chronic and postoperative changes as above. ACT 112: Negative or not required by law. Electronically signed by: Chip Churchill M.D. 04/14/2019 12:41 PM XR chest 1V portable CLINICAL HISTORY: 79 years-old Male presenting with weakness. TECHNIQUE: Portable upright AP view of the chest was obtained. COMPARISON: 07/31/2014. FINDINGS: Atherosclerosis of the aortic arch. Cardiac silhouette enlarged. Pulmonary vascular and interstitial prominence. Increased density of the lung bases with bibasilar reticular and hazy opacities. Underlying small pleural effusions not excluded. No pneumothorax. Added density in the right paratracheal region is unchanged from prior and likely vascular. Degenerative changes of the thoracic spine. Degenerative changes of the glenohumeral joints. IMPRESSION: 1. Cardiomegaly with volume overload and congestive change. 2. Developing pulmonary edema suspected. A component of the bibasilar opacities may represent atelectasis or less likely aspiration. 3. Small pleural effusions not excluded. ACT 112: Negative or not required by law. Electronically signed by: Keenan Wisdom M.D. 04/14/2019 1:40 PM RIGHT SHOULDER 3 VIEWS CLINICAL HISTORY: Fall with right shoulder pain. FINDINGS: 3 views of the right shoulder are obtained. No prior studies are available for comparison at the time of dictation. The skeletal structures are osteopenic. There is no radiographic evidence of right shoulder fracture or dislocation. The glenohumeral articulation is preserved. Spurring is seen along the inferior aspect of the humeral head and there is degenerative sclerosis in the greater tuberosity. Productive degenerative change is noted at the acromioclavicular joint. Overlying soft tissue edema is noted. The visualized right upper lobe lung parenchyma appears clear. IMPRESSION: Soft tissue swelling with no acute bony abnormality identified. Electronically signed by: Chip Churchill M.D. 04/14/2019 1:45 PM ECG Data Attestation: I personally reviewed and interpreted this ECG as follows: Indication: + weakness Rate (beats per minute): 102 Rhythm: + atrial fibrillation (with RVR) ECG ST segments: no ST depression and no ST elevation ECG Findings: + Other (old inferior infarct) Comparison ECG Date: from (02/19/2019) Change: no significant change Blood Pressure Blood Pressure Findings: Elevated blood pressure Blood Pressure Disposition: Referred to patients primary care provider [facility] Narrative This is a 79-year-old male who presents emergency department complaining of what appears to be cellulitis to his right lower extremity. Patient was pancultured and started on broad-spectrum antibiotics. He does have a slight elevation in his lactate. He was sent for an ultrasound which does not show any evidence of a DVT. Due to the patient failing outpatient antibiotics I did discuss the case with the hospitalist service who did agree to admit the patient. Patient and family were in agreement with the treatment plan. Impression & Plan Cellulitis Discharge Plan Visit Data *Final* Discharge Date/Time: 04/14/19 20:03 Chief Complaint: Infection, Wound Stated Complaint: Lower extremity cellulitis, fall struck head ED Provider: Matt Justice Discharge Problem: Cellulitis Patient Disposition: Admitted As Inpatient Discharge Instructions Interventions: ED Discharge Assessment Last Done: 04/14/19 20:03 Discharge Problem: Cellulitis Qualifiers: Site of cellulitis: unspecified site Qualified Code(s): L03.90 - Cellulitis, unspecified The scribe's documentation has been prepared under my direction and personally reviewed by me in its entirety. I confirm that the note above accurately reflects all work, treatment, procedures, and medical decision making performed by me.
[2019-04-14] MEDS ORDERED: MAGNESIUM HYDROXIDE SUSP 30 ML UDC PO PRN (20:13)
[2019-04-14] MEDS ORDERED: CARBOHYDRATES FOR HYPOGLYCEMIA PO PRN (20:13)
[2019-04-14] MEDS ORDERED: ONDANSETRON INJ 2 MG/ML 2 ML VIAL IV PRN (20:13)
[2019-04-14] MEDS ORDERED: GLUCOSE 40% GEL 15 GM TUBE PO PRN (20:13)
[2019-04-14] MEDS ORDERED: DEXTROSE 50% 50 ML SYRINGE IV PRN (20:13)
[2019-04-14] MEDS ORDERED: POLYETHYLENE (MIRALAX) 17 GM PACK PO PRN (20:13)
[2019-04-14] MEDS ORDERED: GLUCAGON FOR INJ 1 MG VIAL SQ PRN (20:13)
[2019-04-14] MEDS ORDERED: ALUMINUM/MAGNESIUM SUSP 30 ML UDC PO PRN (20:13)
[2019-04-14] MEDS ORDERED: GLUCOSE 10 TABS/TUBE PO PRN (20:13)
[2019-04-14] MEDS ORDERED: FUROSEMIDE 40 MG/4 ML VIAL IV SCH (20:13)
[2019-04-14] MEDS ORDERED: PIPERACILLIN/TAZOBACTAM 3.375 GM in DEXTROSE 5% 100 ML/100 ML BAG IV STA (20:13)
[2019-04-14] MEDS ORDERED: IOVERSOL 100ml IV PRN (20:55)
--- NOTE | 2019-04-14 21:22 | CT Scan Report ---
CT tib/fib LT w con, CT tib/fib RT w con HISTORY: ulceration and wound below bilateral knees, abscess? TECHNIQUE: Multiaxial CT images of the bilateral lower legs was performed following the use of intrav enous contrast. COMPARISON STUDY: Bilateral lower leg radiograph 02/19/2019. FINDINGS: No fractures within the bilateral tibia or fibula. No cortical destruction or erosive clements es to suggest osteomyelitis within the bilateral lower legs. Small bilateral knee effusions. Moderate right and mild left subcutaneous edema most pronounced anteriorly. No loculated fluid collections to suggest an abscess. Mild fatty atrophy of the lower leg muscles. Bilateral popliteal cysts are noted . Bilateral three-vessel runoff. Bilateral varicosities are noted. Mild to moderate tricompartmental osteoarthritis. IMPRESSION: 1. No abscess identified. 2. Moderate right and mild left subcutaneous edema within the lower legs. 3. Small bilateral knee effusions. 4. No evidence for osteomyelitis. 5. No fracture or dislocation within the right or left lower leg. ACT 112: Negative or not required by law. Electronically signed by: Corwin Armstrong M.D. 04/14/2019 9:20 PM
[2019-04-14] MEDS: PIPERACILLIN/TAZOBACTAM 3.375 GM in DEXTROSE 5% 100 ML IV SCH (21:33)
[2019-04-14] MEDS: METOPROLOL TARTRATE 25 MG TAB PO SCH (21:42)
[2019-04-14] MEDS: FAMOTIDINE 20 MG TAB PO SCH (21:42)
[2019-04-14] MEDS: INSULIN ASPART 100 UNITS/ML 3 ML PEN SC SCH ×2 (21:47→21:54)
[2019-04-14 21:53] LABS: C Reactive Protein 4.71 mg/dl (0-0.29)
[2019-04-14] MEDS: BuPROPion SR 150 MG TABCR PO SCH (22:01)
[2019-04-14] MEDS: HEPARIN SOD 5,000 UNIT/0.5 ML VIAL SQ SCH (22:01)
[2019-04-14] MEDS: FUROSEMIDE 40 MG in SYRINGE 0 ML IV SCH (22:01)
--- NOTE | 2019-04-14 22:29 | Pharmacy Report ---
Pharmacy Abx Initial Consult - Date of Service April 14, 2019 - Pharmacy Dosing Scope Date of Consult: 04/14/19 Consultation requested by: Dr. Reina Pharmacy is consulted to initiate Vancomycin/Zosyn IV/PO dosing therapy, order appropriate labs and adjust drug dose/frequency. - Subjective The patient is a 79 year old M admitted on 04/14/19 15:03. - Objective Height: 6 ft Weight: 115.9 kg Vital Signs (Past 12hrs): Vital Signs Temp Pulse Resp BP Pulse Ox 04/14/19 19:30 101 H 17 119/81 04/14/19 19:00 103 H 16 141/126 H 04/14/19 18:30 103 H 20 127/87 04/14/19 18:00 103 H 19 131/73 100 04/14/19 17:30 117 H 24 114/79 04/14/19 17:02 93 H 23 112/83 97 04/14/19 16:00 96 H 23 114/61 98 04/14/19 15:30 94 H 15 153/85 H 04/14/19 15:00 98 H 19 127/92 04/14/19 14:50 106 H 24 04/14/19 14:40 103 H 22 04/14/19 14:31 110 H 22 04/14/19 14:30 104 H 16 128/90 98 04/14/19 14:20 105 H 26 H 04/14/19 14:10 103 H 19 04/14/19 14:01 100 H 24 100 04/14/19 14:00 85 19 139/84 04/14/19 13:50 94 H 19 100 04/14/19 13:40 101 H 18 100 04/14/19 13:31 110 H 20 100 04/14/19 13:30 106 H 22 137/85 100 04/14/19 13:20 100 H 15 100 04/14/19 13:10 103 H 20 96 04/14/19 13:01 107 H 17 04/14/19 13:00 100 H 17 140/96 04/14/19 12:50 104 H 17 04/14/19 12:40 104 H 19 98 04/14/19 12:20 100 H 16 04/14/19 12:15 100 04/14/19 12:10 98 H 24 04/14/19 12:08 105 H 18 04/14/19 12:00 101 H 20 143/96 H 100 04/14/19 11:51 36.4 C L 105 H 20 123/94 100 Lab Results (24hrs): Laboratory Tests (24 Hours) 04/14/19 04/14/19 04/14/19 21:05 21:05 12:25 WBC 9.98 Neut # (Auto) 7.21 H ESR > 90 H Creatinine Est Cr Clr Drug Dosing Total Creatine Kinase C-Reactive Protein 4.71 H Procalcitonin 04/14/19 04/14/19 12:25 12:25 WBC Neut # (Auto) ESR Creatinine 1.45 H Est Cr Clr Drug Dosing 54.3 Total Creatine Kinase 101 C-Reactive Protein Procalcitonin 0.07 Micro Results: 04/14/19 14:30 Urine Culture - Pending Urine,Clean Catch 04/14/19 12:30 Aerobic Blood Culture - Pending Blood Anaerobic Blood Culture - Pending 04/14/19 12:25 Aerobic Blood Culture - Pending Blood Anaerobic Blood Culture - Pending - Risk Factors for Resistance * Resident in a residential or extended-care facility * Hospitalization for 48 hours or more within the past 90 days * History of infection with a multidrug-resistant organism: MRSA LEFT LEG 03/12/19 * Antimicrobial use within the last 90 days AUGMENTIN - Assessment & Plan Assessment 79 year old M from [facility] sent from the wound clinic for worsening cellulitis of Right lower extremity with increased edema and erythema. Pt failed outpt treatment with Augmentin. Per wound clinic left leg is improving however wounds of L dorsal foot are persistent. The wounds of the right lower extremity and left dorsal foot were debrided. Patient also reports falling recently. Plan Vancomcyin and Zosyn for treatment of cellulitis Vancomycin IV * Estimated PK Parameters: Vd 0.61 L/kg, Ezequiel 0.049 hr-1, t1/2 14.1 hr * Loading dose: 2250 mg (19.4 mg/kg) * Maintenance dose: 1500 mg IV (~ 13 mg/kg) every 18 hours * Goal trough level : ~ 15 mcg/mL * Trough level ordered for 04/16/19 @ 1830 * A less than traditional dose and/or extended dosing interval has/have been selected due to likelihood of drug accumulation in obese patient/patient with h/o CKD. Piperacillin/tazobactam * 4.5 g bolus administered over 30 minutes, then 3.375 g IV extended infusion every 8 hours for CrCl greater than 20 mL/min OR every 12 hours for CrCl 20 mL/min or less and dialysis. * Aggressive dosing selected due to critically ill status/BMI 35 or more/history of cystic fibrosis. Pharmacy will continue to follow and will adjust dose/frequency as necessary. Thank you.
[2019-04-15] MEDS: ACETAMINOPHEN 325 MG TAB PO PRN ×2 (00:43→19:32)
[2019-04-15] MEDS: PIPERACILLIN/TAZOBACTAM 3.375 GM in DEXTROSE 5% 100 ML IV SCH ×3 (05:27→20:29)
[2019-04-15] MEDS: HEPARIN SOD 5,000 UNIT/0.5 ML VIAL SQ SCH ×3 (05:27→20:54)
[2019-04-15] MEDS: VANCOMYCIN HCL 1,500 MG in SODIUM CHLORIDE 0.9% 500 ML IV SCH (06:21)
[2019-04-15 06:32] LABS: Estimated Average Glucose 146 mg/dl; Hemoglobin A1C 6.7 % (4.5-5.6)
[2019-04-15] MEDS: NICOTINE 21 MG/24 HR TDSY TD SCH (07:41)
[2019-04-15] MEDS: BuPROPion SR 150 MG TABCR PO SCH ×2 (07:41→20:27)
[2019-04-15] MEDS: FINASTERIDE 5 MG TAB PO SCH (07:41)
[2019-04-15] MEDS: ATORVASTATIN 10 MG TAB PO SCH (07:41)
[2019-04-15] MEDS: FAMOTIDINE 20 MG TAB PO SCH ×2 (07:42→20:27)
[2019-04-15] MEDS: METOPROLOL TARTRATE 25 MG TAB PO SCH ×2 (07:42→20:27)
[2019-04-15 08:39] LABS: Basophils # (auto) 0.04 K/uL (0-0.2); Basophils % (auto) 0.4 %; Eosinophils # (auto) 0.46 K/uL (0-0.5); Hematocrit (blood only) 45.6 % (42-52); Hemoglobin 14.8 g/dL (14.0-18.0); Immature Granulocytes # (auto) 0.06 K/uL (0.00-0.02); Immature Granulocytes % (auto) 0.7 %; Lymphocytes # (auto) 1.25 K/uL (1.2-3.4); Lymphocytes % (auto) 13.7 %; Mean Corpuscular Hemoglobin 28.8 pg (25-34); Mean Corpuscular Hgb Conc 32.5 g/dL (32-36); Mean Corpuscular Volume 88.9 fL (80-100); Monocytes % (auto) 7.7 %; Neutrophils # (auto) 6.61 K/uL (1.4-6.5); Neutrophils % (auto) 72.5 %; Platelet Count 338 K/uL (130-400); Red Blood Count 5.13 M/uL (4.7-6.1); White Blood Count 9.12 K/uL (4.8-10.8)
[2019-04-15] MEDS: INSULIN ASPART 100 UNITS/ML 3 ML PEN SC SCH ×4 (08:59→20:55)
[2019-04-15] MEDS: FUROSEMIDE 40 MG in SYRINGE 0 ML IV SCH (09:00)
[2019-04-15 09:18] LABS: Albumin Level 3.1 gm/dl (3.4-5.0); BUN Creatinine Ratio 13.3 (10-20); Creatinine Clr Calc Pharmacy 53.6 ml/min; Est GFR (African American) 53.2; Est GFR (Non-African American) 45.9; Potassium 3.8 mmol/L (3.5-5.1)
[2019-04-15 09:19] LABS: Albumin Globulin Ratio 0.5 (0.9-2); Bilirubin,Total 0.8 mg/dl (0.2-1); Globulin 5.8 gm/dl (2.5-4.0); Total Protein 8.9 gm/dl (6.4-8.2)
--- NOTE | 2019-04-15 09:20 | Infectious Disease Consult ---
Date of Consultation April 15, 2019 Assessment & Plan (1) Venous stasis ulcer: continue abx, follow cultures, follow local wound care. (2) Chronic venous insufficiency: History of Present Illness Attending Physician: Regino Nava MD pt admitted from wound center with increased leg infection. He is patient at wound center, last seen by ID on 03/23 - culture grew MRSA and Enterobacter, he has been on cefdinir and tolerating well. wbc 9. currently on zosyn. afebrile since admission, doppler negative. wound and blood cultures pending. no pain legs, feeling fatigues, denies f/c. no abd pain, no n/v/d. Allergies Allergy/AdvReac Type Severity Reaction Status Date / Time cephalexin Allergy Intermediate Leukocytoclastic Verified 04/14/19 10:47 vasculitis neomycin AdvReac Mild RASH Verified 04/14/19 10:47 Home Medications Home Medications Medication Instructions Recorded Confirmed Type metoprolol tartrate 25 mg tablet 25 mg PO BID 10/10/17 04/14/19 History finasteride 5 mg tablet 5 mg PO QAM 07/28/18 04/14/19 History bupropion HCl 150 mg 24 hr tablet, 150 mg PO BID 02/05/19 04/14/19 History extended release atorvastatin 10 mg PO QAM 02/19/19 04/14/19 History furosemide 40 mg tablet 40 mg PO DAILY tab 03/11/19 04/14/19 History famotidine 20 mg PO BID 04/01/19 04/14/19 History amoxicillin-pot clavulanate 1 tab PO BIDM 14 Days #28 tab 04/09/19 04/14/19 Rx [Augmentin] heparin, porcine (PF) 5,000 unit SUBCUT Q8 7 Days #10.5 04/09/19 04/14/19 Rx ml nicotine [Nicoderm CQ] 21 mg TRANSDERMAL QAM 7 Days #7 ea 04/09/19 04/14/19 Rx Patient History Medical History A-fib (Chronic) Atrial fibrillation BPH (benign prostatic hyperplasia) Chronic venous insufficiency (Chronic) CKD (chronic kidney disease), stage III Diastolic heart failure DM II (diabetes mellitus, type II), controlled (Chronic) Dyslipidemia GERD (gastroesophageal reflux disease) (Chronic) Hallux rigidus of left foot (Acute) Hallux rigidus, right foot (Acute) Hypertension (Chronic) Morbid obesity due to excess calories Osteoarthritis (Chronic) Positive Lyme disease serology (Chronic) PVD (peripheral vascular disease) Secondary pulmonary hypertension Surgical History History of craniotomy 08/01/2014 - evacuation of subdural hematoma - Dr Abundio Mahmood at [facility] Family History Father Diabetes Social History Preferred Language: Citizen Of [place] Communication Ability: Effective Lay Midwife Required: No Beliefs That Will Affect Care: None marital status: / Current Living Situation: Alone current occupational status: retired Feels Safe at Home: Yes Smoking Status: Former smoker Tobacco Type: cigarettes ; Cigarettes Per Day: 1/2 pack day ; Second Hand Exposure: No ; Hx Alcohol Use: No Hx Substance Use: No Review of Systems Review of Systems: All systems reviewed & are unremarkable except as noted in HPI & below Physical Exam Constitutional: WD/WN, vitals as above Eyes: PERRL, conjunctivae normal, anicteric sclerae ENMT: external ear and nose normal, oropharynx normal Neck: normal visual inspection Respiratory: normal respiratory effort; no respiratory distress Cardiovascular: RRR, no murmur, no edema Rate/Rhythm: regular rate Extremities: no pedal edema Gastrointestinal (Abdomen): normal bowel sounds, soft, nontender, no hepatosplenomegaly Musculoskeletal: no cyanosis or clubbing, extremities motor strength 5/5 Skin: no rashes, warm and dry Psychiatric: A+Ox3, euthymic affect Results & Data ([facility]) Vital Signs (Past 12 Hours) Vital Signs Temp Pulse Pulse Resp BP Pulse Ox 04/15/19 07:57 36.8 C 96 H 20 139/75 92 04/15/19 03:57 36.5 C 83 20 111/76 91 04/15/19 01:37 101 H 04/15/19 00:19 36.9 C 73 19 97/62 L PG Care Time/CCT Total # of Minutes Spent Total Time Spent with Patient: Total time spent is greater than 50% in coordination of care (as documented) at patient's floor/unit and/or counseling patient: Coding Level of Care Code 18180 Inpt Consult Level 4 Diagnoses Venous stasis ulcer I83.022; L97.221 Laterality: left Non-pressure ulcer stage: limited to breakdown of skin Varicose vein presence: unspecified whether present Venous stasis ulcer site: calf Chronic venous insufficiency I87.2 (1) Venous stasis ulcer Laterality: left Non-pressure ulcer stage: limited to breakdown of skin Varicose vein presence: unspecified whether present Venous stasis ulcer site: calf Qualified Code(s): I83.022 - Varicose veins of left lower extremity with ulcer of calf; L97.221 - Non-pressure chronic ulcer of left calf limited to breakdown of skin
--- NOTE | 2019-04-15 17:41 | Hospitalist Progress Note ---
Date of Service April 15, 2019 Assessment & Plan (1) Cellulitis: -as per admission History and Physical by [facility] hospitalist group on 04/14/2019 "The patient is a 79 years old resident of [facility] who was sent her from the wound clinic for the worsening cellulitis of the right lower extremity with increased edema and erythema noticed on exam. Past medical history includes severe PVD, CKD stage III, diastolic congestive heart failure, atrial fibrillation with controlled rate. Patient was previously on Eliquis and family reported that patient does not take his medication for at least the past 2 years. Patient was then started on heparin 5000 units every 8 hours. Per wound clinic personnel the left leg is improving however wounds of the left dorsal foot are persistent. The foot is also macerated and exam. They applied Xylocaine to the wound of the right lower extremity and left dorsal foot. The wound was also debrided and slough and eschar using a curette. Scant bleeding occurred and it was controlled with pressure. Diagnosis patient tolerated proc edure well. This represented a non-excisional debridement of approximately 20cm. Wound culture of the right leg were repeated today as well. The wound was dressed with Aquacel Ag, ultra-sorb pads and 1 layer of Tubigrip. The patient also reports falling recently and wound clinic called EMS to send patient to the emergency room for further evaluation and treatment." -no acute fractures on imaging -[facility] hospitalist group asked to take over the patient's care starting on 04/15/2019 -patient empirically continued on IV Zosyn and IV Vancomycin. Infectious Disease consult Dr. Dobbs also following the patient. Imaging of the legs to date with no evidence of DVT, no evidence of abscess, no evidence of osteomyelitis. Blood cultures no growth to date. Pinpoint growth in wound cultures. (2) Chronic venous insufficiency: PVD (peripheral vascular disease) -because of history of chronic venous insufficiency, patient is known to have poor skin presentations. no plans for vascular interventions when assessed by Dr. Guillermo Hutchinson on previous hospital presentation -the overall question is whether or not there is to be role of antibiotic in skin healing in buttermaker Nicotine dependence: - Continue bupropion 150 mg p.o. twice daily and NicoDerm 21 mg patch. (3) DM II (diabetes mellitus, type II), controlled: -HbA1c is 6.7 -not on [facility] diabetes medications as outpatient -give sliding scale insulin while inpatient (4) CKD (chronic kidney disease), stage III: -will need to monitor patient's renal function closely because of IV Vancomycin -patient not a good candidate for metformin for diabetes because of renal function chronic diastolic congestive heart failure -was given IV Lasix by admitting hospitalist, but this does not appear to be necessary at this time nor based on patient's overall admission chest X ray, normal BNP levels, and breathing on room air -will continue as home dose oral Lasix 40 mg daily Hypertension chronic atrial fibrillation -blood pressures generally controlled -continue metoprolol 25 mg BID -patient declined systemic anticoagulation for atrial fibrillation in the past BPH (benign prostatic hyperplasia): -Continue finasteride 5 mg p.o. every morning. Dyslipidemia -continue atorvastatin 10 mg p.o. every morning. GERD (gastroesophageal reflux disease): Continue famotidine 20 mg p.o. twice daily. avoid haldol if agitated or with delirium, can give prn ativan if needed DVT prophylaxis: heparin subcutaneous q8 hours Admission and Anticipated Discharge Date Admission Date: April 14, 2019 Subjective Patient seen and examined at bedside. His care also discussed with patient's family members. Currently on IV antibiotics. Patient alert and cooperative but we also discussed patient's tendency of having delirium or agitation while being in the hospital in previous hospital stays. patient is not in acute distress. breathing on room air. legs were assessed by wound care nurse today. Review of Systems Review of Systems: All systems reviewed & are unremarkable except as noted in HPI & below Physical Exam Constitutional: + obese Eyes: PERRL, conjunctivae normal, anicteric sclerae EOM intact bilaterally ENMT: external ear and nose normal, oropharynx normal Neck: normal visual inspection Respiratory: normal respiratory effort Cardiovascular: Rate/Rhythm: regular rate Gastrointestinal (Abdomen): normal bowel sounds, soft, nontender, no hepatosplenomegaly Skin: dark skin discoloation on both legs which appears to be chronic based on patient's previous hospitalizations. there are more scabs of the left lower extremity of the left foot. the right foot has the big toe with ulcer from wound care debridement Neurologic: PERRL, EOMI, accommodation nl, no face palsy, no dysarthria CN's II-XI intact bilaterally Psychiatric: Orientation: alert Results & Data ([facility]) Vital Signs (Past 12 Hours) Vital Signs Temp Pulse Resp BP Pulse Ox 04/15/19 15:20 36.5 C 97 H 18 127/75 04/15/19 12:05 36.8 C 86 18 101/66 92 04/15/19 07:57 36.8 C 96 H 20 139/75 92
[2019-04-16] MEDS: VANCOMYCIN HCL 1,500 MG in SODIUM CHLORIDE 0.9% 500 ML IV SCH (00:35)
[2019-04-16] MEDS: PIPERACILLIN/TAZOBACTAM 3.375 GM in DEXTROSE 5% 100 ML IV SCH ×2 (05:44→12:23)
[2019-04-16] MEDS: HEPARIN SOD 5,000 UNIT/0.5 ML VIAL SQ SCH ×3 (05:44→20:46)
[2019-04-16 08:13] LABS: Basophils # (auto) 0.04 K/uL (0-0.2); Basophils % (auto) 0.4 %; Eosinophils # (auto) 0.54 K/uL (0-0.5); Eosinophils % (auto) 5.9 %; Hemoglobin 14.4 g/dL (14.0-18.0); Immature Granulocytes # (auto) 0.06 K/uL (0.00-0.02); Immature Granulocytes % (auto) 0.7 %; Lymphocytes # (auto) 1.39 K/uL (1.2-3.4); Lymphocytes % (auto) 15.3 %; Mean Corpuscular Hemoglobin 28.6 pg (25-34); Mean Corpuscular Hgb Conc 32.7 g/dL (32-36); Mean Corpuscular Volume 87.5 fL (80-100); Mean Platelet Volume 9.6 fL (7.4-10.4); Monocytes # (auto) 1.29 K/uL (0.11-0.59); Monocytes % (auto) 14.2 %; Neutrophils # (auto) 5.77 K/uL (1.4-6.5); Neutrophils % (auto) 63.5 %; Platelet Count 254 K/uL (130-400); RDW Standard Deviation 50.9 fL (36.4-46.3); Red Blood Count 5.03 M/uL (4.7-6.1); White Blood Count 9.09 K/uL (4.8-10.8)
[2019-04-16] MEDS: FUROSEMIDE 40 MG TAB PO SCH (08:30)
[2019-04-16] MEDS: FINASTERIDE 5 MG TAB PO SCH (08:30)
[2019-04-16] MEDS: FAMOTIDINE 20 MG TAB PO SCH ×2 (08:31→20:38)
[2019-04-16] MEDS: ATORVASTATIN 10 MG TAB PO SCH (08:31)
[2019-04-16] MEDS: METOPROLOL TARTRATE 25 MG TAB PO SCH ×2 (08:32→20:39)
[2019-04-16] MEDS: BuPROPion SR 150 MG TABCR PO SCH ×2 (08:32→20:38)
[2019-04-16] MEDS: INSULIN ASPART 100 UNITS/ML 3 ML PEN SC SCH ×4 (08:36→20:41)
[2019-04-16 08:37] LABS: Albumin Level 2.8 gm/dl (3.4-5.0); BUN Creatinine Ratio 13.4 (10-20); Calcium 10.1 mg/dl (8.5-10.1); Creatinine Clr Calc Pharmacy 53.3 ml/min; Est GFR (African American) 52.7; Est GFR (Non-African American) 45.5; Potassium 3.7 mmol/L (3.5-5.1)
[2019-04-16 08:40] LABS: Albumin Globulin Ratio 0.5 (0.9-2); Bilirubin,Total 0.6 mg/dl (0.2-1); Globulin 5.5 gm/dl (2.5-4.0); Total Protein 8.3 gm/dl (6.4-8.2)
[2019-04-16] MEDS: NICOTINE 21 MG/24 HR TDSY TD SCH (09:45)
--- NOTE | 2019-04-16 13:14 | Infectious Disease Progress Nt ---
Date of Service April 16, 2019 Assessment & Plan (1) PVD (peripheral vascular disease): can stop IV abx, cultures negative, would resume cefdinir as previously rx and plan follow up in wound center. Admission and Anticipated Discharge Date Admission Date: April 14, 2019 Subjective afebrile wound culture with rare roll or tape edge machine operator only. tolerating abx. Results & Data ([facility]) Vital Signs (Past 12 Hours) Vital Signs Temp Pulse Resp BP Pulse Ox 04/16/19 11:25 36.4 C L 85 20 105/69 97 04/16/19 07:38 36.4 C L 83 20 117/77 04/16/19 04:02 36.5 C 106 H 20 125/86 92 Laboratory Results Microbiology 04/14/19 12:25 Blood Aerobic Blood Culture - Preliminary No growth in Aerobic bottle after 48 hours. 04/14/19 12:25 Blood Anaerobic Blood Culture - Final 04/14/19 12:30 Blood Aerobic Blood Culture - Preliminary No growth in Aerobic bottle after 48 hours. 04/14/19 12:30 Blood Anaerobic Blood Culture - Final 04/14/19 14:30 Urine,Clean Catch Urine Culture - Final No growth - less than 1,000 colonies/mL. PG Care Time/CCT Total # of Minutes Spent Total Time Spent with Patient: Total time spent is greater than 50% in coordination of care (as documented) at patient's floor/unit and/or counseling patient: Coding Level of Care Code 62215 Subseq Hosp Care Lvl 1 Diagnoses PVD (peripheral vascular disease) I73.9
[2019-04-16] MEDS: ACETAMINOPHEN 325 MG TAB PO PRN (13:43)
--- NOTE | 2019-04-16 13:56 | Hospitalist Progress Note ---
Date of Service April 16, 2019 Assessment & Plan (1) Cellulitis: -as per admission History and Physical by [facility] hospitalist group on 04/14/2019 "The patient is a 79 years old resident of [facility] who was sent her from the wound clinic for the worsening cellulitis of the right lower extremity with increased edema and erythema noticed on exam. Past medical history includes severe PVD, CKD stage III, diastolic congestive heart failure, atrial fibrillation with controlled rate. Patient was previously on Eliquis and family reported that patient does not take his medication for at least the past 2 years. Patient was then started on heparin 5000 units every 8 hours. Per wound clinic personnel the left leg is improving however wounds of the left dorsal foot are persistent. The foot is also macerated and exam. They applied Xylocaine to the wound of the right lower extremity and left dorsal foot. The wound was also debrided and slough and eschar using a curette. Scant bleeding occurred and it was controlled with pressure. Diagnosis patient tolerated proc edure well. This represented a non-excisional debridement of approximately 20cm. Wound culture of the right leg were repeated today as well. The wound was dressed with Aquacel Ag, ultra-sorb pads and 1 layer of Tubigrip. The patient also reports falling recently and wound clinic called EMS to send patient to the emergency room for further evaluation and treatment." -no acute fractures on imaging -[facility] hospitalist group asked to take over the patient's care starting on 04/15/2019 patient empirically continued on IV Zosyn and IV Vancomycin. Infectious Disease consult Dr. Dobbs also following the patient. Imaging of the legs to date with no evidence of DVT, no evidence of abscess, no evidence of osteomyelitis. Blood cultures no growth to date. Pinpoint growth in wound cultures. 04/16/2019: only positive cultures from wound care skin culture of the right leg on 04/14/[address] Co[address] Staphylococcus. Dr. Dobbs recommends to stop IV antibiotics and switch to oral antibiotics as Omnicef (Cefdinir). Hospitalist ordering Cefdinir 300 mg BID. (2) Chronic venous insufficiency: PVD (peripheral vascular disease) -because of history of chronic venous insufficiency, patient is known to have poor skin presentations. no plans for vascular interventions when assessed by Dr. Guillermo Hutchinson on previous hospital presentation -plan is to return patient to [facility] on 04/17/2019 when coordinated by piano case and bench assembler. patient will need outpatient wound care follow up; patient has primary care appointment 04/19/2019 11:10 AM Provider DO Erika Drew [facility] Nicotine dependence: - Continue bupropion 150 mg p.o. twice daily and NicoDerm 21 mg patch. (3) DM II (diabetes mellitus, type II), controlled: -HbA1c is 6.7 -not on terminal clerk diabetes medications as outpatient -give sliding scale insulin while inpatient (4) CKD (chronic kidney disease), stage III: -will need to monitor patient's renal function closely because of IV Vancomycin -patient not a good candidate for metformin for diabetes because of renal function chronic diastolic congestive heart failure -was given IV Lasix by admitting hospitalist, but this does not appear to be necessary at this time nor based on patient's overall admission chest X ray, normal BNP levels, and breathing on room air -will continue as home dose oral Lasix 40 mg daily Hypertension chronic atrial fibrillation -blood pressures generally controlled -continue metoprolol 25 mg BID -patient declined systemic anticoagulation for atrial fibrillation in the past BPH (benign prostatic hyperplasia): -Continue finasteride 5 mg p.o. every morning. Dyslipidemia -continue atorvastatin 10 mg p.o. every morning. GERD (gastroesophageal reflux disease): Continue famotidine 20 mg p.o. twice daily. avoid haldol if agitated or with delirium, can give prn ativan if needed DVT prophylaxis: heparin subcutaneous q8 hours Admission and Anticipated Discharge Date Admission Date: April 14, 2019 Subjective Patient is cooperative. no acute distress. follows directions. breathing on room air. no chest pain. no abdomen pain. no headache. no dizziness. Review of Systems Review of Systems: All systems reviewed & are unremarkable except as noted in HPI & below Physical Exam Constitutional: + obese Eyes: PERRL, conjunctivae normal, anicteric sclerae EOM intact bilaterally ENMT: external ear and nose normal, oropharynx normal Neck: normal visual inspection Respiratory: normal respiratory effort Cardiovascular: Rate/Rhythm: regular rate Gastrointestinal (Abdomen): normal bowel sounds, soft, nontender, no hepatosplenomegaly Skin: + dry skin (with dark discolorations that are chronic in both legs) and + eschar (scabs from skins in various stages of healing) Neurologic: PERRL, EOMI, accommodation nl, no face palsy, no dysarthria CN's II-XI intact bilaterally Psychiatric: Orientation: alert Results & Data ([facility]) Vital Signs (Past 12 Hours) Vital Signs Temp Pulse Resp BP Pulse Ox 04/16/19 11:25 36.4 C L 85 20 105/69 97 04/16/19 07:38 36.4 C L 83 20 117/77 04/16/19 04:02 36.5 C 106 H 20 125/86 92
[2019-04-16] MEDS ORDERED: LORazepam 0.25 MG/0.5 ML VIAL IV PRN (15:28)
[2019-04-16] MEDS ORDERED: ACETAMINOPHEN 325 MG TAB PO PRN (15:29)
[2019-04-16] MEDS: CEFDINIR 300 MG CAP PO SCH (16:43)
[2019-04-16] MEDS ORDERED: VANCOMYCIN TROUGH ONE (18:30)
[2019-04-17] MEDS: HEPARIN SOD 5,000 UNIT/0.5 ML VIAL SQ SCH ×2 (06:09→14:47)
--- NOTE | 2019-04-17 08:21 | Hospitalist Progress Note ---
Date of Service April 17, 2019 Assessment & Plan (1) Cellulitis: -as per admission History and Physical by [facility] hospitalist group on 04/14/2019 "The patient is a 79 years old resident of [facility] who was sent her from the wound clinic for the worsening cellulitis of the right lower extremity with increased edema and erythema noticed on exam. Past medical history includes severe PVD, CKD stage III, diastolic congestive heart failure, atrial fibrillation with controlled rate. Patient was previously on Eliquis and family reported that patient does not take his medication for at least the past 2 years. Patient was then started on heparin 5000 units every 8 hours. Per wound clinic personnel the left leg is improving however wounds of the left dorsal foot are persistent. The foot is also macerated and exam. They applied Xylocaine to the wound of the right lower extremity and left dorsal foot. The wound was also debrided and slough and eschar using a curette. Scant bleeding occurred and it was controlled with pressure. Diagnosis patient tolerated proc edure well. This represented a non-excisional debridement of approximately 20cm. Wound culture of the right leg were repeated today as well. The wound was dressed with Aquacel Ag, ultra-sorb pads and 1 layer of Tubigrip. The patient also reports falling recently and wound clinic called EMS to send patient to the emergency room for further evaluation and treatment." -no acute fractures on imaging -[facility] hospitalist group asked to take over the patient's care starting on 04/15/2019 patient empirically continued on IV Zosyn and IV Vancomycin. Infectious Disease consult Dr. Dobbs also following the patient. Imaging of the legs to date with no evidence of DVT, no evidence of abscess, no evidence of osteomyelitis. Blood cultures no growth to date. Pinpoint growth in wound cultures. 04/16/2019: only positive cultures from wound care skin culture of the right leg on 04/14/[address]. Dr. Dobbs recommends to stop IV antibiotics and switch to oral antibiotics as Omnicef (Cefdinir). Hospitalist ordering Cefdinir 300 mg BID. 04/17/2019: discharge to [facility] discharge antibiotics Omnicef (Cefdinir) 300 mg BID for 7 days sent electronically to [facility] [address], [place] which is the preferred pharmacy of [facility] patient will need outpatient wound care follow up; patient has primary care appointment 04/19/2019 11:10 AM Provider Maury Aguirre DO [facility] (2) Chronic venous insufficiency: PVD (peripheral vascular disease) -because of history of chronic venous insufficiency, patient is known to have poor skin presentations. no plans for vascular interventions when assessed by Dr. Guillermo Hutchinson on previous hospital presentation -plan is to return patient to [facility] on 04/17/2019 when coordinated by rn field case manager. patient will need outpatient wound care follow up; patient has primary care appointment 04/19/2019 11:10 AM Provider DO Erika Drew [facility] Nicotine dependence: - Continue bupropion 150 mg p.o. twice daily and NicoDerm 21 mg patch. 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 -give sliding scale insulin while inpatient (4) CKD (chronic kidney disease), stage III: -will need to monitor patient's renal function closely because of IV Vancomycin -patient not a good candidate for metformin for diabetes because of renal function chronic diastolic congestive heart failure -was given IV Lasix by admitting hospitalist, but this does not appear to be necessary at this time nor based on patient's overall admission chest X ray, normal BNP levels, and breathing on room air -will continue as home dose oral Lasix 40 mg daily Hypertension chronic atrial fibrillation -blood pressures generally controlled -continue metoprolol 25 mg BID -patient declined systemic anticoagulation for atrial fibrillation in the past BPH (benign prostatic hyperplasia): -Continue finasteride 5 mg p.o. every morning. Dyslipidemia -continue atorvastatin 10 mg p.o. every morning. GERD (gastroesophageal reflux disease): Continue famotidine 20 mg p.o. twice daily. DVT prophylaxis: heparin subcutaneous q8 hours Admission and Anticipated Discharge Date Admission Date: April 14, 2019 Subjective Patient is pleasant today. sitting up eating the breakfast. breathing on room air. no shortness of breath. no dizziness. he denies acute pain. he was explained that he is being discharged to [facility] today Review of Systems Review of Systems: All systems reviewed & are unremarkable except as noted in HPI & below Physical Exam Constitutional: + obese Eyes: PERRL, conjunctivae normal, anicteric sclerae EOM intact bilaterally ENMT: external ear and nose normal, oropharynx normal Neck: normal visual inspection Respiratory: normal respiratory effort Cardiovascular: Rate/Rhythm: regular rate Gastrointestinal (Abdomen): normal bowel sounds, soft, nontender, no hepatosplenomegaly Skin: + dry skin (with dark discolorations that are chronic in both legs) and + eschar (scabs from skins in various stages of healing) Neurologic: PERRL, EOMI, accommodation nl, no face palsy, no dysarthria CN's II-XI intact bilaterally Psychiatric: Orientation: alert Results & Data ([facility]) Vital Signs (Past 12 Hours) Vital Signs Temp Pulse Pulse Resp BP BP Pulse Ox 04/17/19 07:58 36.3 C L 104 H 20 119/71 96 04/17/19 00:39 36.6 C 94 H 20 130/78 94
--- NOTE | 2019-04-17 08:23 | Discharge Summary ---
Date of Service April 17, 2019 Admission HPI Per Admitting Provider The patient is a 79 years old resident of [facility] who was sent her from the wound clinic for the worsening cellulitis of the right lower extremity with increased edema and erythema noticed on exam. Past medical history includes severe PVD, CKD stage III, diastolic congestive heart failure, atrial fibrillation with controlled rate. Patient was previously on Eliquis and family reported that patient does not take his medication for at least the past 2 years. Patient was then started on heparin 5000 units every 8 hours. Per wound clinic personnel the left leg is improving however wounds of the left dorsal foot are persistent. The foot is also macerated and exam. They applied Xylocaine to the wound of the right lower extremity and left dorsal foot. The wound was also debrided and slough and eschar using a curette. Scant bleeding occurred and it was controlled with pressure. Diagnosis patient tolerated procedure well. This represented a non-excisional debridement of approximately 20cm. Wound culture of the right leg were repeated today as well. The wound was dressed with Aquacel Ag, ultra-sorb pads and 1 layer of Tubigrip. The patient also reports falling recently and wound clinic called EMS to send patient to the emergency room for further evaluation and treatment. It is not clear how patient fell but patient denied any injury. Patient could not recall if was mechanical fall or syncope due to loss of continence or vasovagal syncope. Dr. Dobbs also follows patient as infectious diseases consult. Patient patient was not oriented in to where he lives and stated that he lives at home and not in halfway. Patient has moderate Alzheimer dementia. Patient denies fever, chills, chest pain, shortness of breath, abdominal pain, frequency, urgency. Labs are reviewed: Sodium 136, potassium 4.1, chloride 102, carbon dioxide 28, anion gap 6, BUN 23, creatinine 1.45, baseline creatinine 1.22-1.45, GFR 45.5, lactate 2.1, repeated 2.4, calcium 10.4, total bilirubin 0.7, AST 28, ALT 25, alkaline phosphatase 74, total creatinine kinase 101, troponin 0.015, total protein 8.9, albumin 3.1, globulin 5.8, procalcitonin 0.07, TSH 1.45, WBCs 9.98, hemoglobin 14.5, hematocrit 44.3, platelets 327. Urine yellow, clear, trace blood, urine RBC pending, urine leukocyte Estrace negative, urine WBCs pending urine bacteria pending. Chest x-rays: Cardiomegaly with volume overload and congestive change. Developing pulmonary edema suspected. A component of the bibasilar opacities may represent atelectasis or less likely aspiration. Small pleural effusion not excluded. CT of the head shows: There is no hemorrhage, mass-effect or evidence of acute territorial ischemia by CT criteria. Chronic and postoperative change as above. Right shoulder 3 views: Soft tissue swelling with no acute bony abnormality identified. The decision was made to admit patient to [facility] on telemetry for lower extremity ulcers and right lower extremity cellulitis and worsening wound. Admission Exam Per Admitting Provider WD/WN, vitals as above well developed and + ill appearing Eyes: PERRL, conjunctivae normal, anicteric sclerae ENMT: external ear and nose normal, oropharynx normal Neck: trachea midline, no thyromegaly Respiratory: Auscultation: + crackles and + wheezes Cardiovascular: RRR, no murmur, no edema Gastrointestinal (Abdomen): normal bowel sounds, soft, nontender, no hepatosplenomegaly Musculoskeletal: no cyanosis or clubbing, extremities motor strength 5/5 Skin: Multiple lower extremity ulcers with weeping wounds more on the right than on the left. Lower extremity 2+ pitting edema. Neurologic: patellar DTR's 2+ bilat, sensation intact Psychiatric: Orientation: oriented to person, oriented to time (Not able to recall where he lives. Believes that he lives at his own home instead of halfway) and cooperative Judgement: + limited judgement Lymphatic: no cervical or axillary lymphadenopathy Principal Diagnosis Chronic venous insufficiency: PVD (peripheral vascular disease) Cellulitis chronic atrial fibrillation Discharge Exam Constitutional + obese Eyes PERRL, conjunctivae normal, anicteric sclerae EOM intact bilaterally ENMT external ear and nose normal, oropharynx normal Neck normal visual inspection Respiratory normal respiratory effort Cardiovascular Rate/Rhythm: regular rate Gastrointestinal (Abdomen) normal bowel sounds, soft, nontender, no hepatosplenomegaly Skin + dry skin (with dark discolorations that are chronic in both legs) and + eschar (scabs from skins in various stages of healing) Neurologic PERRL, EOMI, accommodation nl, no face palsy, no dysarthria CN's II-XI intact bilaterally Psychiatric Orientation: alert Discharge Data Allergies Allergy/AdvReac Type Severity Reaction Status Date / Time cephalexin Allergy Intermediate Leukocytoclastic Verified 04/14/19 10:47 vasculitis neomycin AdvReac Mild RASH Verified 04/14/19 10:47 Consultations 04/14/19 14:05 ED Decision to Admit Stat 04/14/19 20:13 Consult Case Management - Discharge Planning Routine Consult Infectious Diseases Routine Ordered Studies 04/14/19 12:08 CT head/brain wo con Stat US venous doppler LE RT Stat 04/14/19 20:13 CT tib/fib LT w con Stat CT tib/fib RT w con Stat Hospital Course (1) Cellulitis: -as per admission History and Physical by [facility] hospitalist group on 04/14/2019 "The patient is a 79 years old resident of [facility] who was sent her from the wound clinic for the worsening cellulitis of the right lower extremity with increased edema and erythema noticed on exam. Past medical history includes severe PVD, CKD stage III, diastolic congestive heart failure, atrial fibrillation with controlled rate. Patient was previously on Eliquis and family reported that patient does not take his medication for at least the past 2 years. Patient was then started on heparin 5000 units every 8 hours. Per wound clinic personnel the left leg is improving however wounds of the left dorsal foot are persistent. The foot is also macerated and exam. They applied Xylocaine to the wound of the right lower extremity and left dorsal foot. The wound was also debrided and slough and eschar using a curette. Scant bleeding occurred and it was controlled with pressure. Diagnosis patient tolerated procedure well. This represented a non-excisional debridement of approximately 20cm. Wound culture of the right leg were repeated today as well. The wound was dressed with Aquacel Ag, ultra-sorb pads and 1 layer of Tubigrip. The patient also reports falling recently and wound clinic called EMS to send patient to the emergency room for further evaluation and treatment." -no acute fractures on imaging -[facility] hospitalist group asked to take over the patient's care starting on 04/15/2019 patient empirically continued on IV Zosyn and IV Vancomycin. Infectious Disease consult Dr. Dobbs also following the patient. Imaging of the legs to date with no evidence of DVT, no evidence of abscess, no evidence of osteomyelitis. Blood cultures no growth to date. Pinpoint growth in wound cultures. 04/16/2019: only positive cultures from wound care skin culture of the right leg o n 04/14/[address] Coag negative Staphylococcus. Dr. Dobbs recommends to stop IV antibiotics and switch to oral antibiotics as Omnicef (Cefdinir). Hospitalist ordering Cefdinir 300 mg BID. 04/17/2019: discharge to [facility] nursing facility discharge antibiotics Omnicef (Cefdinir) 300 mg BID for 7 days sent electronically to [facility] [address], [place], [place] which is the preferred pharmacy of [facility] patient will need outpatient wound care follow up; patient has primary care appointment 04/19/2019 11:10 AM Provider Maury Aguirre DO [facility] (2) Chronic venous insufficiency: PVD (peripheral vascular disease) -because of history of chronic venous insufficiency, patient is known to have poor skin presentations. no plans for vascular interventions when assessed by Dr. Guillermo Hutchinson on previous hospital presentation -plan is to return patient to [facility] on 04/17/2019 when coordinated by case advocate. patient will need outpatient wound care follow up; patient has primary care appointment 04/19/2019 11:10 AM Provider Maury Aguirre DO [facility] Nicotine dependence: - Continue bupropion 150 mg p.o. twice daily and NicoDerm 21 mg patch. 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 as outpatient -give sliding scale insulin while inpatient (4) CKD (chronic kidney disease), stage III: -will need to monitor patient's renal function closely because of IV Vancomycin -patient not a good candidate for metformin for diabetes because of renal function chronic diastolic congestive heart failure -was given IV Lasix by admitting hospitalist, but this does not appear to be necessary at this time nor based on patient's overall admission chest X ray, normal BNP levels, and breathing on room air -will continue as home dose oral Lasix 40 mg daily Hypertension chronic atrial fibrillation -blood pressures generally controlled -continue metoprolol 25 mg BID -patient declined systemic anticoagulation for atrial fibrillation in the past BPH (benign prostatic hyperplasia): -Continue finasteride 5 mg p.o. every morning. Dyslipidemia -continue atorvastatin 10 mg p.o. every morning. GERD (gastroesophageal reflux disease): Continue famotidine 20 mg p.o. twice daily. DVT prophylaxis: heparin subcutaneous q8 hours Total Time Total Time Spent Total Time Spent (In Minutes): 40 minutes Total Time Includes: Examination of the Patient, Discharge Planning, Medication Reconciliation and Communication With Other Providers Discharge Plan Discharge Items Patient Disposition: Transfer Inpatient Rehab Fac Reason For Visit: LEFT LOWER EXTREMITY WOUND Discharge Diagnosis: Chronic venous insufficiency: PVD (peripheral vascular disease) Cellulitis chronic atrial fibrillation Condition on Discharge: Good Activity: Per Instructions section Non-emergency contact: Primary Care Provider and Specialist Call non-emergency contact if: you have any medication questions Follow-up/Referrals: [facility] [Primary Care Provider] - Diet: Carb Consistent or DM2 and Heart Healthy Fluids: 1200ml (5 cups) Addtl Attending Provider Instructions: discharge to [facility] nursing facility discharge antibiotics Omnicef (Cefdinir) 300 mg BID for 7 days sent electronically to [facility] [address], [place] which is the preferred pharmacy of [facility] patient will need outpatient wound care follow up; patient has primary care appointment 04/19/2019 11:10 AM Provider Maury Aguirre DO Department Family Practice [facility] Pending Studies at Discharge: No Stand-Alone Forms: My [facility] Skilled Items Patient informed of condition?: Yes DNR: No Discharge Level of Care: Acute rehab Communicable Disease: No Discharge Prognosis: Stable Lines: None Urinary Catheter: No Medications and DC Order Prescriptions: New cefdinir 300 mg Capsule 300 mg PO BIDM 7 Days Qty: 14 RF: 0 Continued metoprolol tartrate 25 mg tablet 25 mg PO BID RF: 0 finasteride [Proscar] 5 mg tablet 5 mg PO QAM RF: 0 bupropion HCl 150 mg tablet extended release 24 hr 150 mg PO BID RF: 0 furosemide 40 mg tablet 40 mg PO DAILY RF: 0 atorvastatin 10 mg tablet 10 mg PO QAM RF: 0 famotidine 20 mg tablet 20 mg PO BID RF: 0 nicotine [Nicoderm CQ] 21 mg/24 hr Patch 24 Hour 21 mg transdermal QAM 7 Days Qty: 7 RF: 0 heparin, porcine (PF) 5,000 unit/0.5 mL Syringe 5,000 unit subcut Q8 7 Days Qty: 10.5 RF: 0 Discontinued amoxicillin-pot clavulanate [Augmentin] 875-125 mg Tablet 1 tab PO BIDM 14 Days Qty: 28 RF: 0 Discharge Orders: Discharge Order (Routine); Ordered 04/17/19 Ordered By: Regino Nava Admission Data Admit Date/Time: 04/14/19 15:03 Attending Provider: Regino Nava Admit Provider: Regino Nava Primary Care Provider: Keyonna Patrick Other Providers: Ignacio Reina ; Elli Dobbs
[2019-04-17] MEDS: ATORVASTATIN 10 MG TAB PO SCH (09:02)
[2019-04-17] MEDS: METOPROLOL TARTRATE 25 MG TAB PO SCH (09:03)
[2019-04-17] MEDS: FUROSEMIDE 40 MG TAB PO SCH (09:03)
[2019-04-17] MEDS: CEFDINIR 300 MG CAP PO SCH (09:03)
[2019-04-17] MEDS: FINASTERIDE 5 MG TAB PO SCH (09:03)
[2019-04-17] MEDS: NICOTINE 21 MG/24 HR TDSY TD SCH (09:04)
[2019-04-17] MEDS: FAMOTIDINE 20 MG TAB PO SCH (09:04)
[2019-04-17] MEDS: BuPROPion SR 150 MG TABCR PO SCH (09:04)
[2019-04-17] MEDS: INSULIN ASPART 100 UNITS/ML 3 ML PEN SC SCH ×2 (09:05→12:41)
== END 2019-04-17 16:02 | DRG 603 ==
LOC: ED 11:39 → 2W 15:03 → SUATTDRO 15:03 → 2W 20:03

== ENCOUNTER 2019-09-24 10:34 | Inpatient (IN) ==
[2019-09-24] MEDS ORDERED: VANCOMYCIN CONSULT ACTIVE PRN ×2 (11:31→17:55)
[2019-09-24] MEDS ORDERED: VANCOMYCIN HCL 1,700 MG in SODIUM CHLORIDE 0.9% 500 ML IV STA (11:31)
[2019-09-24] MEDS ORDERED: ERTAPENEM SODIUM 10 ML IV STA (11:31)
[2019-09-24] MEDS ORDERED: SODIUM CHLORIDE 0.9% 1000ML 1,000 ML IV SCH ×3 (11:45→17:55)
--- NOTE | 2019-09-24 12:12 | XRay Report ---
XR chest 1V portable CLINICAL HISTORY: SEPSIS dyspnea COMPARISON STUDY: 04/14/2019 FINDINGS: Moderate cardiomegaly. Interstitial change both lung bases. Components of the [place] chroni c. Chronic pulmonary vascular congestion IMPRESSION: . 1. Chronic pulmonary vascular congestion. 2. Potential superimposed interstitial basilar infiltrates. ACT 112: Negative or not required by law. The above report was generated using voice recognition software. It may contain grammatical, syntax or spelling errors. Electronically signed by: Arnel Lopez M.D. 09/24/2019 12:11 PM
[2019-09-24 12:13] LABS: Hematocrit (blood only) 40.5 % (42-52); Hemoglobin 13.2 g/dL (14.0-18.0); Mean Corpuscular Hemoglobin 28.9 pg (25-34); Mean Corpuscular Hgb Conc 32.6 g/dL (32-36); Mean Corpuscular Volume 88.8 fL (80-100); Mean Platelet Volume 9.5 fL (7.4-10.4); Platelet Count 358 K/uL (130-400); RDW Coefficient of Variation 17.2 % (11.5-14.5); RDW Standard Deviation 55.8 fL (36.4-46.3); Red Blood Count 4.56 M/uL (4.7-6.1); White Blood Count 24.69 K/uL (4.8-10.8)
[2019-09-24] MEDS ORDERED: VANCOMYCIN HCL 1,750 MG in SODIUM CHLORIDE 0.9% 500 ML IV ONE (12:15)
[2019-09-24 12:32] LABS: Alanine Aminotransferase 14 U/L (12-78); Albumin Level 2.6 gm/dl (3.4-5.0); Aspartate Aminotransferase 17 U/L (15-37); BUN Creatinine Ratio 28.8 (10-20); Blood Urea Nitrogen 65 mg/dl (7-18); Calcium 10.7 mg/dl (8.5-10.1); Carbon Dioxide 27 mmol/L (21-32); Chloride 112 mmol/L (98-107); Est GFR (African American) 31.2; Est GFR (Non-African American) 26.9; Glucose 111 mg/dl (70-99); Magnesium 2.4 mg/dl (1.8-2.4); Potassium 3.8 mmol/L (3.5-5.1); Sodium 147 mmol/L (136-145)
[2019-09-24 12:37] LABS: Albumin Globulin Ratio 0.4 (0.9-2); Alkaline Phosphatase 119 U/L (45-117); Basophils # (auto) 0.02 K/uL (0-0.2); Basophils % (auto) 0.1 %; Bilirubin,Total 0.7 mg/dl (0.2-1); Eosinophils # (auto) 0.01 K/uL (0-0.5); Immature Granulocytes # (auto) 0.14 K/uL (0.00-0.02); Immature Granulocytes % (auto) 0.6 %; Lymphocytes # (auto) 1.56 K/uL (1.2-3.4); Lymphocytes % (auto) 6.3 %; Monocytes # (auto) 1.46 K/uL (0.11-0.59); Monocytes % (auto) 5.9 %; Neutrophils % (auto) 87.1 %; Total Protein 9.6 gm/dl (6.4-8.2); Troponin I < 0.015 ng/ml (0-0.045)
[2019-09-24 13:10] LABS: Appearance Urine Cloudy (Clear); Bilirubin Urine Negative (Negative); Blood Urine 2+ (Negative); Color Urine Yellow; Glucose Urine UA Negative (Negative); Ketones Urine Negative (Negative); Leukocyte Esterase Urine 2+ (Negative); Nitrite Urine Positive (Negative); Specific Gravity Urine 1.015 (1.000-1.030); Urobilinogen Urine Negative (Negative); pH Urine 8.5 (4.5-7.5)
[2019-09-24 13:13] LABS: INR 1.2 (0.9-1.1); Partial Thromboplastin Ratio 1.3; Prothrombin Time 12.9 Seconds (9.0-12.0)
[2019-09-24 13:25] LABS: Protein Urine 2+ (Negative); Sulfosalicylic Acid Urine Positive (Negative)
--- NOTE | 2019-09-24 13:39 | CT Scan Report ---
CT SCAN OF THE NECK WITHOUT IV CONTRAST CLINICAL HISTORY: Sepsis. Right-sided facial swelling. COMPARISON STUDY: CT of the cervical spine dated 08/13/2019. TECHNIQUE: Unenhanced CT scan of the soft tissues of the neck was performed from the skull base to th e upper chest. Images are reviewed in the axial, sagittal, and coronal planes. IV contrast was not a dministered due to poor renal function. Note that the examination is suboptimal without IV contrast. A dose lowering technique was utilized adhering to the principles of ALARA. The examination is degrad ed by motion artifact. CT DOSE: 568.82 mGy.cm FINDINGS: Pharynx: There is mild infiltration of the right parapharyngeal fat. The unenhanced pharyngeal soft t issues are otherwise normal as imaged. The pharyngeal airway is widely patent. There is no evidence o f mass lesion. The vocal cords are symmetric. The prevertebral/retropharyngeal soft tissues are withi n normal limits. Lymphadenopathy: Prominent right cervical chain lymph nodes are likely on a reactive basis Thyroid: Normal in size and attenuation. Salivary glands: The right parotid gland is markedly enlarged and edematous. There is significant ove rlying soft tissue edema which tracks into the right lower neck. No calcified sialoliths are identifi ed. The left parotid gland and the submandibular glands are within normal limits. Brain parenchyma: The visualized brain parenchyma at the skull base is normal in appearance noting ag e-related involutional change. Skeletal structures: The skeletal structures are osteopenic. There is evidence of previous right temp oral craniotomy. The cervical spine appears intact noting mild multilevel spondylosis. No lytic or bl astic lesion is seen. Orbits: The bony orbits are intact. Orbital contents are normal as imaged noting bilateral ocular pasquale s implants. Sinuses and mastoids: Mild mucosal thickening is noted in the right maxillary antrum. The remaining p aranasal sinuses are clear. The mastoid air cells are well pneumatized. Lung apices: Emphysematous change and parenchymal scarring is noted at the lung apices. IMPRESSION: 1. Motion compromised examination. 2. Findings are consistent with right-sided parotitis with surrounding cellulitis and infiltration of the right parapharyngeal fat. 3. No organized fluid collection is seen to suggest abscess. 4. Emphysema. ACT 112: Negative or not required by law. Electronically signed by: Chip Churchill M.D. 09/24/2019 1:38 PM
[2019-09-24 13:43] LABS: Bacteria Urine 3+ (Negative); Epithelial Cell Urine 0-5 /lpf (0-5); WBC Urine >30 /hpf (0-5)
--- NOTE | 2019-09-24 14:06 | Emergency Department Note ---
Impression & Plan Sepsis, Acute parotitis, Acute kidney injury, Acute dehydration, Atrial fibrillation with rapid ventricular response, Rash ED Provider Note INFORMANT: Transfer notes ED PROVIDER(S): Steven Elkins MD CHIEF COMPLAINT: Rash PLAN: Disposition: Admitted Condition: Guarded MEDICAL DECISION MAKING: Patient presented due to facial swelling and rash. He had hypotension and tachycardia. He appeared dry on physical examination. He had moderate right facial swelling over the area of the parotid. He was hydrated aggressively. Broad-spectrum antibiotics were given with vancomycin and ertapenem. The patient had improvement of vital signs with this. He had a's market leukocytosis of 24,000 and acute kidney injury noted on chemistry panel. The patient's chest x-ray questioned a basilar infiltrate. The patient's urinalysis was also concerning for infection. Twelve-lead ECG showed A. fib with RVR and s eptal Q waves. Low voltage QRS was present. He underwent CT imaging of his face and this revealed a right-sided non-abscessed parotitis. Because of this he will need further management in the hospital. [facility] Kwon PA-C. Triage Nursing notes reviewed and agree them. [Prior medical records reviewed] patient was receiving doxycycline for facial infection. Pending outpatient CT scan. Vital Signs: reviewed and remarkable for [no significant abnormalities] Differential diagnosis: Sepsis, UTI, pneumonia, metabolic, electrolyte abnormalities, cardiac sources, intracerebral event, toxicologic, neurologic, as well as other pathologies. Diagnostics interpreted by me: ECG: Twelve-lead ECG reveals A. fib with RVR at 106 bpm. There is low voltage QRS. Septal Q waves present. No ST elevation or depression. Normal axis. Cardiac Monitoring: Cardiac monitoring ordered by me: The patient was placed on continuous cardiac monitoring and observed. It revealed a rapid atrial fibrillation at 115 beats per minute without ectopy or evidence of dysrhythmia. Imaging studies: Chest x-ray concerning for right basilar infiltrate. CT imaging soft tissue neck revealed findings consistent with parotitis. No evidence of abscess. I refer you to the EMR for further details. Consultation(s): [facility] service HPI: Patient is a 79-year-old male that presented emergency department from [facility] due to rash and concerns for facial infection. Record review appears that the patient was being treated with doxycycline. He has a cephalexin allergy. Patient's right face was swelling. Outpatient CT scan was ordered but not scheduled. He developed a rash. The patient was sent to the ER for further evaluation. Due to the patient's mental status and dementia along with his medical acuity the history is limited. ROS: Unobtainable secondary to medical acuity. PAST MEDICAL HISTORY:[See Below] dementia, hypertension, MRSA infection PAST SURGICAL HISTORY:[See Below] FAMILY HISTORY:[See Below] SOCIAL HISTORY:Resides at [facility] care home HOME MEDICATIONS:[See Below] ALLERGIES:[See Below] VITALS:[See Below] PHYSICAL EXAMINATION: GENERAL: Lethargic and mildly ill appearing, in no distress HENT: Normocephalic. Oropharynx dry mucous membranes. There is marketed erythema and swelling of the right face over the area of the parotid. EYES: Normal conjunctiva. Sclera non-icteric. NECK: Inspection normal. Non-tender. Supple. No nuchal rigidity. FROM. No masses. RESPIRATORY: Clear to auscultation. No wheezes. No rales. Normal respiratory effort. CARDIAC: Tachycardic rate. Irregular rhythm. No murmurs. No rubs. Extremities warm and well perfused. Pulses equal. No JVD. GI: Soft, non-distended. No tenderness to palpation. No rebound or guarding. No masses. RECTAL: Deferred. MUSCULOSKELETAL: Atraumatic. Chest examination reveals no tenderness. The back is symmetrical on inspection without obvious abnormality. There is no CVA tenderness to palpation. No joint edema. LOWER EXTREMITIES: Calves are equal size bilaterally and non-tender. No edema. No discoloration. NEURO: Normal sensorium. No sensory or motor deficits noted. SKIN: No jaundice noted. Scattered petechial-like patchy erythematous rash noted over the trunk and extremities. Nonblanching. ED COURSE: Critical care: I have personally spent greater than 40 minutes of critical care time in the d irect management of this patient. This includes bedside care, interpretation of diagnostic studies, and testing, discussion with consultants, and other required patient management activities. These minutes are in excess of all separately billable procedures. Steven Elkins MD Past Med/Surg History Medical History (Updated 09/24/19 @ 14:01 by Steven Elkins MD) A-fib Atrial fibrillation BPH (benign prostatic hyperplasia) Chronic venous insufficiency CKD (chronic kidney disease), stage III Diastolic heart failure DM II (diabetes mellitus, type II), controlled Dyslipidemia GERD (gastroesophageal reflux disease) Hallux rigidus of left foot Hallux rigidus, right foot Hypertension Morbid obesity due to excess calories Osteoarthritis Popliteal DVT (deep venous thrombosis) Positive Lyme disease serology PVD (peripheral vascular disease) Secondary pulmonary hypertension Surgical History History of craniotomy 08/01/2014 - evacuation of subdural hematoma - Dr Abundio Mahmood at [facility] [place] Status post endovenous radiofrequency ablation of saphenous vein Family History Father Diabetes Social History Smoking Status: Unknown if ever smoked Tobacco Type: Cigarettes Cigarettes Per Day: 1/2 pack day; Second Hand Exposure: No; Hx Alcohol Use: No Hx Substance Use: No Preferred Language: Wolof Communication Ability: Effective Health Policy Analyst Required: No Beliefs That Will Affect Care: None marital status: / Current Living Situation: Alone current occupational status: retired Feels Safe at Home: Yes Allergies Allergies Allergy/AdvReac Type Severity Reaction Status Date / Time cephalexin Allergy Intermediate Leukocytoclastic Verified 09/24/19 11:37 vasculitis neomycin AdvReac Mild RASH Verified 09/24/19 11:37 Home Meds Home Medications Medication Instructions Recorded Confirmed metoprolol tartrate 25 mg tablet 25 mg PO BID 10/10/17 09/24/19 finasteride 5 mg tablet 5 mg PO QAM 07/28/18 09/24/19 atorvastatin 10 mg PO HS 02/19/19 09/24/19 furosemide 40 mg tablet 40 mg PO QAM tab 03/11/19 09/24/19 famotidine 20 mg PO BID 04/01/19 09/24/19 melatonin 5 mg PO HS 08/13/19 09/24/19 diclofenac sodium 1 % topical gel 2 gm TOP QID 09/14/19 09/24/19 gabapentin 100 mg capsule 200 mg PO BID 09/14/19 09/24/19 acetaminophen 1,000 mg PO Q12 09/24/19 09/24/19 ascorbic acid (vitamin C) 500 mg PO BID 09/24/19 09/24/19 bupropion HCl 150 mg PO BID 09/24/19 09/24/19 Previous Rx's Medication Instructions Recorded sulfamethoxazole 400 1 tab PO BID 14 Days #28 tab 09/24/19 mg-trimethoprim 80 mg tablet Results & Data (ED) Vital Signs Vital Signs - 24 hr 09/24/19 10:35 09/24/19 11:45 09/24/19 12:36 Temperature 37.4 C Temperature Source Rectal Pulse Rate 115 H Pulse Rate [Apical] 113 H 116 H Pulse Rhythm Irregular Pulse Rhythm [Apical] Regular Regular Pulse Strength Normal Pulse Strength [Apical] Normal Normal Respiratory Rate 22 22 22 Respiratory Effort / Characteristics Non-Labored Spontaneous Non-Labored Spontaneous Non-Labored Spontaneous Respiratory Depth Normal Normal Normal Respiratory Pattern Regular Regular Regular Blood Pressure 93/64 L Blood Pressure [Left Arm] 91/65 L 106/71 Blood Pressure Mean 73 Blood Pressure Mean [Left Arm] 73 82 Blood Pressure Position Lying Blood Pressure Position [Left Arm] Lying Lying Pulse Oximetry 100 100 98 Oxygen Delivery Method Room Air Room Air Room Air Sepsis Recent Fever Within 48 Hours No Sepsis New/Unexplained Change in Mental Status No Sepsis Action Taken by Nursing No Action Required 09/24/19 13:45 Temperature Temperature Source Pulse Rate Pulse Rate [Apical] 120 H Pulse Rhythm Pulse Rhythm [Apical] Regular Pulse Strength Pulse Strength [Apical] Normal Respiratory Rate 22 Respiratory Effort / Characteristics Non-Labored Spontaneous Respiratory Depth Normal Respiratory Pattern Regular Blood Pressure Blood Pressure [Left Arm] 116/75 Blood Pressure Mean Blood Pressure Mean [Left Arm] 88 Blood Pressure Position Blood Pressure Position [Left Arm] Lying Pulse Oximetry 98 Oxygen Delivery Method Room Air Sepsis Recent Fever Within 48 Hours Sepsis New/Unexplained Change in Mental Status Sepsis Action Taken by Nursing Laboratory Data Result diagrams: 09/24/19 11:49 09/24/19 11:49 Lab Results 09/24/19 09/24/19 09/24/19 Range/Units 11:49 11:49 11:49 WBC 24.69 H (4.8-10.8) K/uL RBC 4.56 L (4.7-6.1) M/uL Hgb 13.2 L (14.0-18.0) g/dL Hct 40.5 L (42-52) % MCV 88.8 (80-100) fL MCH 28.9 (25-34) pg MCHC 32.6 (32-36) g/dL RDW Std Deviation 55.8 H (36.4-46.3) fL RDW Coeff of Karla 17.2 H (11.5-14.5) % Plt Count 358 (130-400) K/uL MPV 9.5 (7.4-10.4) fL Immature Gran % (Auto) 0.6 % Neut % (Auto) 87.1 % Lymph % (Auto) 6.3 % [place] % (Auto) 5.9 % Eos % (Auto) 0.0 % Baso % (Auto) 0.1 % Neut # (Auto) 21.50 H (1.4-6.5) K/uL Lymph # (Auto) 1.56 (1.2-3.4) K/uL [place] # (Auto) 1.46 H (0.11-0.59) K/uL Eos # (Auto) 0.01 (0-0.5) K/uL Baso # (Auto) 0.02 (0-0.2) K/uL Immature Gran # (Auto) 0.14 H (0.00-0.02) K/uL PT Cancelled INR Cancelled APTT Cancelled PTT Ratio Cancelled Sodium (136-145) mmol/L Potassium (3.5-5.1) mmol/L Chloride (98-107) mmol/L Carbon Dioxide (21-32) mmol/L Anion Gap (3-11) BUN (7-18) mg/dl Creatinine (0.6-1.4) mg/dl Est Cr Clr Drug Dosing Est GFR ( Amer) Est GFR (Non-Af Amer) BUN/Creatinine Ratio (10-20) Glucose (70-99) mg/dl Lactate (0.4-2.0) mmol/L Calcium (8.5-10.1) mg/dl Magnesium (1.8-2.4) mg/dl Total Bilirubin (0.2-1) mg/dl AST (15-37) U/L ALT (12-78) U/L Alkaline Phosphatase (45-117) U/L Troponin I (0-0.045) ng/ml Total Protein (6.4-8.2) gm/dl Albumin (3.4-5.0) gm/dl Globulin (2.5-4.0) gm/dl Albumin/Globulin Ratio (0.9-2) Procalcitonin 0.64 H (0-0.5) ng/ml Urine Color Urine Appearance (Clear) Urine pH (4.5-7.5) Ur Specific [place] (1.000-1.030) Urine Protein (Negative) Urine Glucose (UA) (Negative) Urine Ketones (Negative) Urine Blood (Negative) Urine Nitrite (Negative) Urine Bilirubin (Negative) Urine Urobilinogen (Negative) Ur Leukocyte Esterase (Negative) Urine RBC (0-4) /hpf Urine WBC (0-5) /hpf Ur Epithelial Cells (0-5) /lpf Urine Bacteria (Negative) 09/24/19 09/24/19 09/24/19 Range/Units 11:49 11:49 12:49 WBC (4.8-10.8) K/uL RBC (4.7-6.1) M/uL Hgb (14.0-18.0) g/dL Hct (42-52) % MCV (80-100) fL MCH (25-34) pg MCHC (32-36) g/dL RDW Std Deviation (36.4-46.3) fL RDW Coeff of Karla (11.5-14.5) % Plt Count (130-400) K/uL MPV (7.4-10.4) fL Immature Gran % (Auto) % Neut % (Auto) % Lymph % (Auto) % [place] % (Auto) % Eos % (Auto) % Baso % (Auto) % Neut # (Auto) (1.4-6.5) K/uL Lymph # (Auto) (1.2-3.4) K/uL [place] # (Auto) (0.11-0.59) K/uL Eos # (Auto) (0-0.5) K/uL Baso # (Auto) (0-0.2) K/uL Immature Gran # (Auto) (0.00-0.02) K/uL PT 12.9 H INR 1.2 H APTT 35.0 H PTT Ratio 1.3 Sodium 147 H (136-145) mmol/L Potassium 3.8 (3.5-5.1) mmol/L Chloride 112 H (98-107) mmol/L Carbon Dioxide 27 (21-32) mmol/L Anion Gap 8.0 (3-11) BUN 65 H (7-18) mg/dl Creatinine 2.24 H (0.6-1.4) mg/dl Est Cr Clr Drug Dosing Not Reportable Est GFR ( Amer) 31.2 Est GFR (Non-Af Amer) 26.9 BUN/Creatinine Ratio 28.8 H (10-20) Glucose 111 H (70-99) mg/dl Lactate 1.9 (0.4-2.0) mmol/L Calcium 10.7 H (8.5-10.1) mg/dl Magnesium 2.4 (1.8-2.4) mg/dl Total Bilirubin 0.7 (0.2-1) mg/dl AST 17 (15-37) U/L ALT 14 (12-78) U/L Alkaline Phosphatase 119 H (45-117) U/L Troponin I < 0.015 (0-0.045) ng/ml Total Protein 9.6 H (6.4-8.2) gm/dl Albumin 2.6 L (3.4-5.0) gm/dl Globulin 7.0 H (2.5-4.0) gm/dl Albumin/Globulin Ratio 0.4 L (0.9-2) Procalcitonin (0-0.5) ng/ml Urine Color Urine Appearance (Clear) Urine pH (4.5-7.5) Ur Specific [place] (1.000-1.030) Urine Protein (Negative) Urine Glucose (UA) (Negative) Urine Ketones (Negative) Urine Blood (Negative) Urine Nitrite (Negative) Urine Bilirubin (Negative) Urine Urobilinogen (Negative) Ur Leukocyte Esterase (Negative) Urine RBC (0-4) /hpf Urine WBC (0-5) /hpf Ur Epithelial Cells (0-5) /lpf Urine Bacteria (Negative) 09/24/19 Range/Units 12:57 WBC (4.8-10.8) K/uL RBC (4.7-6.1) M/uL Hgb (14.0-18.0) g/dL Hct (42-52) % MCV (80-100) fL MCH (25-34) pg MCHC (32-36) g/dL RDW Std Deviation (36.4-46.3) fL RDW Coeff of Karla (11.5-14.5) % Plt Count (130-400) K/uL MPV (7.4-10.4) fL Immature Gran % (Auto) % Neut % (Auto) % Lymph % (Auto) % [place] % (Auto) % Eos % (Auto) % Baso % (Auto) % Neut # (Auto) (1.4-6.5) K/uL Lymph # (Auto) (1.2-3.4) K/uL [place] # (Auto) (0.11-0.59) K/uL Eos # (Auto) (0-0.5) K/uL Baso # (Auto) (0-0.2) K/uL Immature Gran # (Auto) (0.00-0.02) K/uL PT INR APTT PTT Ratio Sodium (136-145) mmol/L Potassium (3.5-5.1) mmol/L Chloride (98-107) mmol/L Carbon Dioxide (21-32) mmol/L Anion Gap (3-11) BUN (7-18) mg/dl Creatinine (0.6-1.4) mg/dl Est Cr Clr Drug Dosing Est GFR ( Amer) Est GFR (Non-Af Amer) BUN/Creatinine Ratio (10-20) Glucose (70-99) mg/dl Lactate (0.4-2.0) mmol/L Calcium (8.5-10.1) mg/dl Magnesium (1.8-2.4) mg/dl Total Bilirubin (0.2-1) mg/dl AST (15-37) U/L ALT (12-78) U/L Alkaline Phosphatase (45-117) U/L Troponin I (0-0.045) ng/ml Total Protein (6.4-8.2) gm/dl Albumin (3.4-5.0) gm/dl Globulin (2.5-4.0) gm/dl Albumin/Globulin Ratio (0.9-2) Procalcitonin (0-0.5) ng/ml Urine Color Yellow Urine Appearance Cloudy A (Clear) Urine pH 8.5 H (4.5-7.5) Ur Specific [place] 1.015 (1.000-1.030) Urine Protein 2+ H (Negative) Urine Glucose (UA) Negative (Negative) Urine Ketones Negative (Negative) Urine Blood 2+ H (Negative) Urine Nitrite Positive A (Negative) Urine Bilirubin Negative (Negative) Urine Urobilinogen Negative (Negative) Ur Leukocyte Esterase 2+ H (Negative) Urine RBC 5-10 H (0-4) /hpf Urine WBC >30 H (0-5) /hpf Ur Epithelial Cells 0-5 (0-5) /lpf Urine Bacteria 3+ H (Negative) Administered Medications Vancomycin HCl 1,750 mg/ (Sodium Chloride) 535 mls @ 200 mls/hr IV ONE ONE Stop: 09/24/19 14:55 Last Admin: 09/24/19 12:24 Dose: 200 mls/hr Documented by: [id number] Discontinued Medications Sodium Chloride (Nss 1000ml) 1,000 mls @ 999 mls/hr IV .Q1H1M RAIMUNDO Stop: 09/24/19 12:32 Last Admin: 09/24/19 12:12 Dose: 999 mls/hr Documented by: [id number] Sodium Chloride (Nss 1000ml) 1,000 mls @ 999 mls/hr IV .Q1H1M RAIMUNDO Stop: 09/24/19 13:31 Last Admin: 09/24/19 13:30 Dose: 999 mls/hr Documented by: [id number] Ertapenem (Invanz) 10 mls @ 2 mls/min IV NOW STA Stop: 09/24/19 11:35 Last Admin: 09/24/19 12:24 Dose: 2 mls/min Documented by: [id number] Discharge Plan Visit Data Chief Complaint: Rash ED Provider: Steven Elkins Discharge Problem: Sepsis, Acute parotitis, Acute kidney injury, Acute dehydration, Atrial fibrillation with rapid ventricular response, Rash Forms Stand Alone Forms: [facility] Prescriptions Prescriptions: No Action gabapentin 100 mg capsule 200 mg PO BID RF: 0 diclofenac sodium [Voltaren] 1 % gel 2 gm TOP QID RF: 0 metoprolol tartrate 25 mg tablet 25 mg PO BID RF: 0 finasteride [Proscar] 5 mg tablet 5 mg PO QAM RF: 0 sulfamethoxazole-trimethoprim [Bactrim] 400-80 mg tablet 1 tab PO BID 14 Days Qty: 28 RF: 0 furosemide 40 mg tablet 40 mg PO QAM RF: 0 atorvastatin 10 mg tablet 10 mg PO HS RF: 0 famotidine 20 mg tablet 20 mg PO BID RF: 0 melatonin 5 mg Tablet 5 mg PO HS RF: 0 bupropion HCl 150 mg tablet sustained-release 12 hr 150 mg PO BID RF: 0 acetaminophen 500 mg Tablet 1,000 mg PO Q12 RF: 0 ascorbic acid (vitamin C) 500 mg Tablet 500 mg PO BID RF: 0
[2019-09-24] MEDS: SODIUM CHLORIDE 0.9% 1000ML 500 ML IV SCH ×2 (14:42→17:31)
--- NOTE | 2019-09-24 14:52 | History & Physical Report ---
Date of Service September 24, 2019 Assessment & Plan (1) Parotitis: - Admit to med surg with tele - CT reviewed 1. Motion compromised examination. 2. Findings are consistent with right-sided parotitis with surrounding cellulitis and infiltration of the right parapharyngeal fat. 3. No organized fluid collection is seen to suggest abscess. 4. Emphysema - Consider ENT eval if no improvement in symptoms, no stone was seen on CT as above - Continue ertapenum and vanc IV (2) Sepsis: - Elevated creatinine and BUN, tachycardic with HR in 120s and likely source of parotitis as well as urinary tract infection - Follow BCx x 2, lactic acid was 1.9 on admission -Appears to be clinically dry with elevated sodium of 147 (3) Acute kidney injury: -Creatinine 2.24, BUN to 65, up from baseline which appears to be creatinine of 1.3-1.4 -Continue 1/2 NSS overnight -Follow next BMP at 2200 and with am labs (4) Atrial fibrillation with rapid ventricular response: -chronic afib, not on anticoagulation -Heart rate has been between 115-120, unknown if the patient took his morning medication but is unlikely, will give extra dose of metoprolol tartrate now, continue metoprolol 25 BID -IVF (5) Rash: -Unknown when this developed, possible adverse reaction to Clinda versus doxycycline as an outpatient, appears to be maculopapular as described in PE and involves the back, wraps around the trunk, buttocks, hamstrings but spares the abdomen and anterior legs. Nonpruritic. Probably due to one of the outpatient antibiotics - clinda started 79 x 7 days and doxy started 7/30 x 10d, nursing staff at [facility] were unable to tell me when this was first identified. -consider steroid (6) Stage III pressure ulcer of sacral region: -Wound consult, frequent turning repo q2h (7) Diabetic foot ulcer: - wound consulted (8) GERD (gastroesophageal reflux disease): - hx of such (9) PVD (peripheral vascular disease): - hx of such (10) Hypertension: - BP well controlled, continue metoprolol tartrate 25 twice daily, hold Lasix with aggressive fluids (11) Depression: - wellbutrin (12) DM II (diabetes mellitus, type II), controlled: - Last A1c in April 2019 was 6.7, follow-up with a.m. labs -Does not appear to be on any oral anti-hypoglycemics, Accu-Cheks Achs (13) CKD (chronic kidney disease), stage III: -PAULA as above, chronic (14) Hypernatremia: -Encourage free water intake if patient is able to complete speech/swallow eval with bedside nursing -Sodium 147 on admission, trend with BMP at 2200 - 1/2 NSS continuous for now (15) Urinary tract infection: - UA appears to be grossly infected, follow culture, ertapenum will cover (16) Secondary pulmonary hypertension: -History of such (17) DVT prophylaxis: - teds, heparin subq CODE: DNR/DNI Dispo: From home, likely to remain in the hospital x 1-2 days History of Present Illness Primary Care Provider: [facility] This is a 79-year-old male with PMHx of A. fib, dementia, HTN, HLD, DM type II, PVD, CKD stage III, secondary pulmonary hypertension, foot ulceration, GERD, depression who presents from [place] [facility] with worsening right facial swelling and erythema as well as lethargy over the past few days. Patient has recently completed course of Clindamycin started 08/18 x 1 week, and then doxycycline started 09/08 for 10 days, for what was thought to be a facial cellulitis over the past month. Failure of improvement of the erythema and swelling prompted scheduling of a CT of the face , however that was not done as an outpatient. With increased lethargy nursing staff sent him to the ER. The patient himself is unable to provide me with specific details due to dementia. Discussion with nursing staff at [facility] reports that pt refused his medication and fell yesterday 11am from the side of the bed. He was not following commands yesterday either. BP 80/53 per long term records during the time of the fall, but then these numbers improved to 129/83. He was lethargic but not entirely different compared to baseline. Allergies Allergy/AdvReac Type Severity Reaction Status Date / Time cephalexin Allergy Intermediate Leukocytoclastic Verified 09/24/19 11:37 vasculitis neomycin AdvReac Mild RASH Verified 09/24/19 11:37 Home Medications Home Medications Medication Instructions Recorded Confirmed Type metoprolol tartrate 25 mg tablet 25 mg PO BID 10/10/17 09/24/19 History finasteride 5 mg tablet 5 mg PO QAM 07/28/18 09/24/19 History atorvastatin 10 mg PO HS 02/19/19 09/24/19 History furosemide 40 mg tablet 40 mg PO QAM tab 03/11/19 09/24/19 History famotidine 20 mg PO BID 04/01/19 09/24/19 History melatonin 5 mg PO HS 08/13/19 09/24/19 History diclofenac sodium 1 % topical gel 2 gm TOP QID 09/14/19 09/24/19 History gabapentin 100 mg capsule 200 mg PO BID 09/14/19 09/24/19 History acetaminophen 1,000 mg PO Q12 09/24/19 09/24/19 History ascorbic acid (vitamin C) 500 mg PO BID 09/24/19 09/24/19 History bupropion HCl 150 mg PO BID 09/24/19 09/24/19 History sulfamethoxazole 400 1 tab PO BID 14 Days #28 tab 09/24/19 09/24/19 Rx mg-trimethoprim 80 mg tablet Past Med/Surg History Medical History (Updated 09/24/19 @ 15:54 by Karine Kwon PA-C) A-fib Atrial fibrillation BPH (benign prostatic hyperplasia) Chronic venous insufficiency CKD (chronic kidney disease), stage III Diastolic heart failure DM II (diabetes mellitus, type II), controlled Dyslipidemia GERD (gastroesophageal reflux disease) Hallux rigidus of left foot Hallux rigidus, right foot Hypertension Morbid obesity due to excess calories Osteoarthritis Popliteal DVT (deep venous thrombosis) Positive Lyme disease serology PVD (peripheral vascular disease) Secondary pulmonary hypertension Surgical History History of craniotomy 08/01/2014 - evacuation of subdural hematoma - Dr Abundio Mahmood at [facility] [place] Status post endovenous radiofrequency ablation of saphenous vein Family History Father Diabetes Social History Smoking Status: Former smoker Tobacco Type: Cigarettes Cigarettes Per Day: 1/2 pack day; Second Hand Exposure: No; Hx Alcohol Use: No Hx Substance Use: No Preferred Language: Slovak Communication Ability: Impaired Correctional Manager Required: No Beliefs That Will Affect Care: None marital status: / Current Living Situation: Correction Current Living Situation Comment: Pt resident of [facility] current occupational status: retired Other Information That Helps Us Care for You: No Feels Safe at Home: Yes Safety Concerns: Feels Safe At This Time Review of Systems Review of Systems: Unobtainable due to cognitive status Physical Exam Physical Exam: General: awaken to verbal stimuli, does not follow commands, speech is muffled Head: Normocephalic, atraumatic ENT: PERRL, EOMI, no pharyngeal exudate, +mucous membranes very dry, +edentulous, + erythema and edema of the R side of face. Chest: Clear to auscultation, on room air, no adventitious breath sounds Cardiac: Regular rate and rhythm, no murmur, no JVD, normal peripheral pulses, good capillary refill Abdominal: NABS x 4 quadrants, soft, slightly distended, nontender to palpation, no rebound, guarding or tenderness Extremities: Normal inspection, no peripheral edema or erythema, calfs nontender to palpation Skin: erythematous macropapular rash over the back, arms, legs, and lower legs and hamstrings. Spares the abdomen and thighs. Psych: Normal mood and affect Neuro: AAO x 3, unable to be assessed, no gross motor deficits, speech is clear, no peripheral sensory deficits Results & Data Results & Data ([facility]) Vital Signs (Past 12 Hours) Vital Signs Temp Pulse Pulse Resp BP BP Pulse Ox 09/24/19 14:45 99 09/24/19 13:45 120 H 22 116/75 98 09/24/19 12:36 116 H 22 106/71 98 09/24/19 11:45 113 H 22 91/65 L 100 09/24/19 10:35 37.4 C 115 H 22 93/64 L [address] SCAN OF THE NECK WITHOUT IV CONTRAST CLINICAL HISTORY: Sepsis. Right-sided facial swelling. COMPARISON STUDY: CT of the cervical spine dated 08/13/2019. TECHNIQUE: Unenhanced CT scan of the soft tissues of the neck was performed from the skull base to the upper chest. Images are reviewed in the axial, sagittal, and coronal planes. IV contrast was not administered due to poor renal function. Note that the examination is suboptimal without IV contrast. A dose lowering technique was utilized adhering to the principles of ALARA. The examination is degraded by motion artifact. CT DOSE: 568.82 mGy.cm FINDINGS: Pharynx: There is mild infiltration of the right parapharyngeal fat. The unenhanced pharyngeal soft tissues are otherwise normal as imaged. The pharyngeal airway is widely patent. There is no evidence of mass lesion. The vocal cords are symmetric. The prevertebral/retropharyngeal soft tissues are within normal limits. Lymphadenopathy: Prominent right cervical chain lymph nodes are likely on a reactive basis Thyroid: Normal in size and attenuation. Salivary glands: The right parotid gland is markedly enlarged and edematous. There is significant overlying soft tissue edema which tracks into the right lower neck. No calcified sialoliths are identified. The left parotid gland and the submandibular glands are within normal limits. Brain parenchyma: The visualized brain parenchyma at the skull base is normal in appearance noting age-related involutional change. Skeletal structures: The skeletal structures are osteopenic. There is evidence of previous right temporal craniotomy. The cervical spine appears intact noting mild multilevel spondylosis. No lytic or blastic lesion is seen. Orbits: The bony orbits are intact. Orbital contents are normal as imaged noting bilateral ocular lens implants. Sinuses and mastoids: Mild mucosal thickening is noted in the right maxillary antrum. The remaining paranasal sinuses are clear. The mastoid air cells are well pneumatized. Lung apices: Emphysematous change and parenchymal scarring is noted at the lung apices. IMPRESSION: 1. Motion compromised examination. 2. Findings are consistent with right-sided parotitis with surrounding cellulitis and infiltration of the right parapharyngeal fat. 3. No organized fluid collection is seen to suggest abscess. 4. Emphysema. XR chest 1V portable CLINICAL HISTORY: SEPSIS dyspnea COMPARISON STUDY: 04/14/2019 FINDINGS: Moderate cardiomegaly. Interstitial change both lung bases. Components of the qawalangin chronic. Chronic pulmonary vascular congestion IMPRESSION: . 1. Chronic pulmonary vascular congestion. 2. Potential superimposed interstitial basilar infiltrates. ECG Additional Comments: 24-SEP-2019 10:46:17 [facility]-EDSTAT ROUTINE RETRIEVAL Atrial fibrillation with rapid ventricular response Low voltage QRS Septal infarct , age undetermined Abnormal ECG When compared with ECG of 14-APR-2019 12:11, Septal infarct is now Present Criteria for Inferior infarct are no longer Present Nonspecific T wave abnormality, worse in Anterolateral leads 25mm/s 10mm/mV 150Hz 9.0.9 12SL 241 [place]: 13 Referred by: [facility] Unconfirmed Vent. rate 106 BPM UT interval * ms QRS duration 74 ms QT/QTc 300/398 ms P-R-T axes * 74 -19 Code Status & VTE Plan Code Status DNR/DNI - discussed with the patients son via phone Supervising Physician Co-Signing Physician Notes Attending Attestation and Admission Note - Pt seen/examined, chart reviewed, admission care plan d/w JJ Kwon. I agree w/ the lopez components of her admission documentation. Unfortunate 79yo male with numerous medical problems including advanced dementia - resident of [facility]. Presents with diffuse rash, right facial swelling, lethargy, poor oral intake, and wounds of LEs. During my assessment he responded to his name and to pain only. He was lethargic. PMH, PSH, allergies, meds, sochx, famhx - reviewed vitals: tachy, BP low-normal, no fever gen - chronically unwell, dehydrated, altered/lethargic HEENT - MM dry; right face with severe swelling, worst just anterior to right ear; mild erythema; atrophy of facial muscles/fat suggesting malnourishment heart - tachy, irregular, s1 s2 lungs - decreased BS bases b/l but otherwise CTA abd - soft NT ext - tubi-inclusion teacher and all dressings removed by this press writer & nurse; foul-smell permeated; chronic stasis changes b/l legs; pressure ulcer posterior right calf, about 2mm deep, woundbed clean; abrasion/ulcer anterior left ham; left foot -- 2nd metatarsal head region plantar aspect with deep ulcer, bone is visible; purulence and foul-smelling exuding from this ulcer; another ulcer is present on the lateral aspect of the great toe -- this ulcer is clean; irritation between 1st/2nd toes left foot skin - ulcers as above diffuse macular, macular-papular rash on torso, back, limbs; there is vasculitic-type rash/petechial type rash on shins labs - WBC 24,000 u/a reviewed Cr 2.2 Na 147 A/P: 1. right parotitis - refractory to recent oral antibiotic courses including clinda and doxy; agree with aztreonam & vanco 2. 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 left foot wound - severe - x-rays c/w osteomyelitis with pathological fracture; consult placed to Dr Reyes, orthopedics; local wound care; IV abx - aztreonam, flagyl, and vanco 4. acute kidney injury - multifactorial - sepsis, dehydration, etc 5. UTI 6. metabolic encephalopathy in setting of dementia 7. hypernatremia DNR; strongly consider palliative care consultation Parmjit Willett MD PG Care Time/CCT Total # of Minutes Spent Total Time Spent with Patient: Total time spent is greater than 50% in coordination of care (as documented) at patient's floor/unit and/or counseling patient: Coding Level of Care Code 93557 Initial Inpt Care Lvl 3 Diagnoses Parotitis K11.20 Sepsis A41.9 Acute kidney injury N17.9 Atrial fibrillation with rapid ventricular response I48.91 Rash R21 Stage III pressure ulcer of sacral region L89.153 Diabetic foot ulcer E11.621; L97.509 GERD (gastroesophageal reflux disease) K21.9 PVD (peripheral vascular disease) I73.9 Hypertension I10 Depression F32.9 DM II (diabetes mellitus, type II), controlled E11.9 CKD (chronic kidney disease), stage III N18.3 Hypernatremia E87.0 Urinary tract infection N39.0 Secondary pulmonary hypertension DVT prophylaxis Z29.9
[2019-09-24] MEDS ORDERED: METOPROLOL TARTRATE 25 MG TAB PO STA (17:12)
[2019-09-24] MEDS ORDERED: DEXTROSE 50% 50 ML SYRINGE IV PRN (17:55)
[2019-09-24] MEDS ORDERED: GLUCOSE 10 TABS/TUBE PO PRN (17:55)
[2019-09-24] MEDS ORDERED: GLUCOSE 40% GEL 15 GM TUBE PO PRN (17:55)
[2019-09-24] MEDS ORDERED: ONDANSETRON INJ 2 MG/ML 2 ML VIAL IV PRN (17:55)
[2019-09-24] MEDS ORDERED: ERTAPENEM SODIUM 1,000 MG in SODIUM CHLORIDE 0.9% 50 ML IV SCH (17:55)
[2019-09-24] MEDS ORDERED: GLUCAGON FOR INJ 1 MG VIAL SQ PRN (17:55)
[2019-09-24] MEDS ORDERED: NYSTATIN 30 ML, DEXAMETHASONE CONC 3.75 MG, DiphenhydrAMINE Syrup 300 MG, ORA-SWEET SYR... PO PRN (18:07)
[2019-09-24] MEDS ORDERED: METOPROLOL TARTRATE 1 MG/ML VIAL IV STA (18:07)
[2019-09-24] MEDS ORDERED: dilTIAZem HCl 5 MG/ML 5 ML VIAL IV STA (18:20)
[2019-09-24] MEDS ORDERED: STAT IV Infusion **Titration per Protocol STA (18:20)
[2019-09-24] MEDS ORDERED: PATIENT'S HEIGHT AND/OR WEIGHT NEEDED SCH (18:45)
[2019-09-24] MEDS: dilTIAZem HCL 125 MG in DEXTROSE 5% 100 ML IV SCH (19:16)
[2019-09-24] MEDS: SODIUM CHLORIDE 0.45 % 1,000 ML IV SCH (19:17)
[2019-09-24] MEDS: DICLOFENAC SOD 1% GEL 100 GM TUBE EXT SCH ×2 (19:20→21:35)
--- NOTE | 2019-09-24 19:52 | XRay Report ---
XR foot LT 2V HISTORY: 79 years-old Male eval for osteomyelitis chronic left foot wound with possible osteomyeliti s COMPARISON: Left foot radiographs 02/19/2019 TECHNIQUE: 3 views of the left foot FINDINGS: Multifocal osteoarthritis is redemonstrated. Limited exam secondary to positioning. There is mild dif fuse soft tissue prominence. There is bony fragmentation with ill-defined lucency involving the later al base of the second proximal phalanx. 1.4 cm plantar ulceration of the forefoot at the level of the metatarsal-phalangeal joints. IMPRESSION: 1. Bony fragmentation involving the base of the second proximal phalanx is suggestive of probable ost eomyelitis with pathologic fracture. 2. Plantar foot ulcer with diffuse soft tissue swelling. ACT 112: Negative or not required by law. The above report was generated using voice recognition software. It may contain grammatical, syntax o r spelling errors. Electronically signed by: Sincere Lockhart M.D. 09/24/2019 7:51 PM
--- NOTE | 2019-09-24 20:31 | Pharmacy Report ---
Pharmacy Abx Initial Consult - Date of Service September 24, 2019 - Pharmacy Dosing Scope Date of Consult: 09/24/19 Consultation requested by: Natalie Kwon PA-C Pharmacy is consulted to initiate vancomycin IV dosing therapy, order appropriate labs and adjust drug dose/frequency. - Subjective The patient is a 79 year old M admitted on 09/24/19 14:55. - Objective Height: 6 ft Weight: 89.3 kg Vital Signs (Past 12hrs): Vital Signs Temp Pulse Pulse Resp BP BP Pulse Ox 09/24/19 19:56 36.7 C 119 H 21 175/141 H 98 09/24/19 18:40 115 H 18 96/60 L 97 09/24/19 18:02 36.5 C 116 H 16 96/60 L 97 09/24/19 17:27 146 H 22 111/78 97 09/24/19 15:46 127 H 22 121/79 98 09/24/19 14:45 99 09/24/19 14:30 99 H 18 115/77 97 09/24/19 13:45 120 H 22 116/75 98 09/24/19 12:36 116 H 22 106/71 98 09/24/19 11:45 113 H 22 91/65 L 100 09/24/19 10:35 37.4 C 115 H 22 93/64 L 100 Lab Results (24hrs): Laboratory Tests (24 Hours) 09/24/19 09/24/19 09/24/19 11:49 11:49 11:49 WBC 24.69 H Neut # (Auto) 21.50 H Creatinine 2.24 H Est Cr Clr Drug Dosing Not Reportable Procalcitonin 0.64 H Micro Results: 09/24/19 12:57 Urine Culture - Pending Urine,Clean Catch 09/24/19 11:49 Aerobic Blood Culture - Pending Blood Anaerobic Blood Culture - Pending 09/24/19 11:01 Aerobic Blood Culture - Pending Blood Anaerobic Blood Culture - Pending - Risk Factors for Resistance * Resident in a residential or extended-care facility * Antimicrobial use within the last 90 days: clindamycin and doxycycline - Assessment & Plan Assessment * 79 year old M admitted to [facility] from [facility] for parotitis * Clinda started 08/18 x 7 days and doxy started 09/08 x 10d * Creatinine 2.24, up from baseline which appears to be creatinine of 1.3-1.4 * Was given vanc + Ertapenem in ED. Ordered vanc + aztreonam upon admission * Urine and blood cultures obtained and pending Plan Vancomycin IV * Estimated PK Parameters: Vd 0.7 L/kg, Ezequiel 0.025 hr-1, t1/2 27 hr * Loading dose: 1750 mg (~20 mg/kg) given in ED at 1224 * A random level ordered for 8/15 AM due to prolonged calculated half life * Will dose subsequent vancomycin based on random level Azactam IV * 1g IV Q8H appropriate for indication and renal function Pharmacy will continue to follow and will adjust dose/frequency as necessary. Thank you.
[2019-09-24] MEDS ORDERED: MELATONIN 3 MG TAB PO SCH (21:00)
[2019-09-24] MEDS: ACETAMINOPHEN 500 MG TAB PO SCH (21:32)
[2019-09-24] MEDS: ASCORBIC ACID 500 MG TAB PO SCH (21:32)
[2019-09-24] MEDS: ATORVASTATIN 10 MG TAB PO SCH (21:32)
[2019-09-24] MEDS: GABAPENTIN 100 MG CAP PO SCH (21:32)
[2019-09-24] MEDS: FAMOTIDINE 20 MG TAB PO SCH (21:32)
[2019-09-24] MEDS: METOPROLOL TARTRATE 25 MG TAB PO SCH (21:32)
[2019-09-24] MEDS: INSULIN ASPART 100 UNITS/ML 3 ML PEN SC SCH (21:32)
[2019-09-24] MEDS: BuPROPion SR 150 MG TABCR PO SCH (21:33)
[2019-09-24] MEDS: HEPARIN SOD 5,000 UNIT/0.5 ML VIAL SQ SCH (21:34)
--- NOTE | 2019-09-24 22:02 | Communication Note ---
Date of Service: September 24, 2019 Notified by nursing overnight that pt had increased swelling of eye, with mouth sores and garbled speech he came in with. There was concern about him taking anything by mouth. Made him NPO and noted that consult to speech has been placed. Can consider restarting PO meds once speech has seen him. 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
[2019-09-24 22:30] LABS: BUN Creatinine Ratio 30.5 (10-20); Calcium 9.4 mg/dl (8.5-10.1); Creatinine Clr Calc Pharmacy 37.1 ml/min; Est GFR (African American) 41.4; Est GFR (Non-African American) 35.7; Potassium 3.6 mmol/L (3.5-5.1)
[2019-09-24] MEDS: metroNIDAZOLE 500 MG/100 ML BAG IV SCH (22:44)
[2019-09-25] MEDS: SODIUM CHLORIDE 0.45 % 1,000 ML IV SCH ×2 (03:46→15:09)
[2019-09-25] MEDS: metroNIDAZOLE 500 MG/100 ML BAG IV SCH ×3 (05:05→21:05)
[2019-09-25] MEDS: HEPARIN SOD 5,000 UNIT/0.5 ML VIAL SQ SCH ×3 (05:05→21:26)
[2019-09-25] MEDS: INSULIN ASPART 100 UNITS/ML 3 ML PEN SC SCH ×4 (05:58→20:20)
--- NOTE | 2019-09-25 07:02 | Electrocardiogram Report ---
Test Reason : Blood Pressure : / mmHG Vent. Rate : 106 BPM Atrial Rate : 312 BPM P-R Int : 000 ms QRS Dur : 074 ms QT Int : 300 ms P-R-T Axes : 000 074 -19 degrees QTc Int : 398 ms Atrial fibrillation with rapid ventricular response Low voltage QRS Septal infarct , age undetermined Nonspecific T wave abnormality Abnormal ECG When compared with ECG of 14-APR-2019 12:11, Septal infarct is now Present Criteria for Inferior infarct are no longer Present Nonspecific T wave abnormality, worse in Anterolateral leads Confirmed by Andrea Wong ([id number]) on 09/25/2019 7:02:04 AM Referred By: [facility] Confirmed By:Andrea Wong
[2019-09-25] MEDS: AZTREONAM 1,000 MG in DEXTROSE 5% 100 ML IV SCH ×3 (07:24→23:17)
[2019-09-25] MEDS: methylPREDNISolone 40 MG in SYRINGE 0 ML IV SCH (07:25)
[2019-09-25] MEDS: DICLOFENAC SOD 1% GEL 100 GM TUBE EXT SCH ×4 (07:26→20:08)
[2019-09-25 07:43] LABS: Hematocrit (blood only) 37.9 % (42-52); Hemoglobin 11.9 g/dL (14.0-18.0); Mean Corpuscular Hgb Conc 31.4 g/dL (32-36); Mean Corpuscular Volume 89.2 fL (80-100); Mean Platelet Volume 9.6 fL (7.4-10.4); Platelet Count 287 K/uL (130-400); RDW Coefficient of Variation 17.5 % (11.5-14.5); RDW Standard Deviation 56.6 fL (36.4-46.3); Red Blood Count 4.25 M/uL (4.7-6.1); White Blood Count 18.64 K/uL (4.8-10.8)
[2019-09-25 08:04] LABS: Estimated Average Glucose 134 mg/dl; Hemoglobin A1C 6.3 % (4.5-5.6)
[2019-09-25 08:05] LABS: BUN Creatinine Ratio 27.9 (10-20); Calcium 9.5 mg/dl (8.5-10.1); Creatinine Clr Calc Pharmacy 37.4 ml/min; Est GFR (African American) 41.7; Potassium 3.6 mmol/L (3.5-5.1)
[2019-09-25 08:12] LABS: Albumin Globulin Ratio 0.4 (0.9-2); Bilirubin,Total 0.7 mg/dl (0.2-1); Globulin 5.6 gm/dl (2.5-4.0); Total Protein 7.6 gm/dl (6.4-8.2)
[2019-09-25] MEDS ORDERED: VANCOMYCIN HCL 1,250 MG in SODIUM CHLORIDE 0.9% 250 ML IV ONE (08:30)
--- NOTE | 2019-09-25 08:36 | Pharmacy Report ---
Pharmacy Abx Dose Short Note - Date of Service September 25, 2019 - Assessment & Plan Assessment * 79 year old M admitted to [facility] from [place] for parotitis * Day # 2 of antimicrobial therapy. * Creatinine 1.76, up from baseline which appears to be creatinine of 1.3-1.4 * Urine and blood cultures obtained and pending Plan Vancomycin * Random level of 14 mcg/mL is subtherapeutic * Ordered vanc 1250mg x 1 (15mg/kg) * Goal trough level : ~15 mcg/mL * Since SCr continues to be elevated and estimated T1/2 remains around 20 hours, random level ordered for: 09/26/19 with am labs. Azactam IV * 1g IV Q8H appropriate for indication and renal function Pharmacy will continue to follow and will adjust dose/frequency as necessary. Thank you.
[2019-09-25] MEDS ORDERED: VANCOMYCIN HCL 500 MG in SODIUM CHLORIDE 0.9% 250 ML IV SCH (09:00)
[2019-09-25] MEDS: METOPROLOL TARTRATE 25 MG TAB PO SCH (10:17)
[2019-09-25] MEDS: GABAPENTIN 100 MG CAP PO SCH (10:18)
[2019-09-25] MEDS: FAMOTIDINE 20 MG TAB PO SCH (10:18)
[2019-09-25] MEDS: FINASTERIDE 5 MG TAB PO SCH (10:18)
[2019-09-25] MEDS: BuPROPion SR 150 MG TABCR PO SCH (10:19)
[2019-09-25] MEDS: ACETAMINOPHEN 500 MG TAB PO SCH (10:20)
[2019-09-25] MEDS: ASCORBIC ACID 500 MG TAB PO SCH (10:20)
[2019-09-25] MEDS: POTASSIUM CHLORIDE / WTR 10 MEQ/100 ML PLCT IV SCH ×2 (12:35→14:02)
[2019-09-25] MEDS: dilTIAZem HCL 125 MG in DEXTROSE 5% 100 ML IV SCH (12:41)
--- NOTE | 2019-09-25 16:47 | Consultation Report ---
DATE OF CONSULTATION: 09/25/2019 HISTORY OF PRESENT ILLNESS: This is a 79-year-old gentleman seen at request of Dr. Willett regarding left foot osteomyelitis of the second metatarsal head with osteomyelitis of the second proximal phalanx with an associated fracture of the second proximal phalanx and a chronic diabetic foot ulcer under the second metatarsal head left foot. The patient [facility] and has been treating this ulceration for approximately a year per the family members present. The patient has had a recent bout of parotitis on the right side which necessitated admission to the hospital during this visit; however, his foot was assessed and noted to have a large ulcer. Radiographs were obtained and noted to have osteomyelitis necessitating consultation to Orthopedics. The patient is demented and has limited understanding of his current setting. He has multiple ischemic ulcers of bilateral lower extremities and he has a significant ulceration on his buttock as well. PAST MEDICAL HISTORY: Atrial fibrillation, benign prostatic hyperplasia, chronic venous insufficiency, chronic kidney disease stage III, diastolic heart failure, diabetes mellitus type 2, dyslipidemia, gastroesophageal reflux, hallux rigidus left foot, hallux rigidus right foot, hypertension, morbid obesity due to excess calories, osteoarthritis, popliteal deep venous thrombosis, positive Lyme disease serology, peripheral vascular disease, secondary pulmonary hypertension, dementia, parotitis right side and chronic ulceration left foot with neuropathic changes. PAST SURGICAL HISTORY: History of craniotomy, status post endovenous radiofrequency ablation of the saphenous vein. ALLERGIES: TO CEPHALEXIN WITH VASCULITIS AND NEOMYCIN - RASH. MEDICATIONS: Please note the significant list present in medical record. SOCIAL HISTORY: This is a , who lives at [facility]. His son is his power of state's attorney, name is Hudson. He is a former smoker, half pack a day. Denies alcohol or drug use. He is retired. PHYSICAL EXAMINATION: This is a 79-year-old gentleman who is moderately overweight, lying supine in his hospital room bed. Clear features of dementia with garbled speech and flight of ideas, difficulty with direction during conversation. His stepson is present at the bedside to assist. Follows commands somewhat intermittently. He has dry mucous membranes, obvious edentulousness with erythema, edema and enlargement of the right side of the face consistent with parotitis. Examination of the lower extremities demonstrates erythematous maculopapular rash over the legs and lower extremities. He has multiple ischemic ulcerations in bilateral lower extremities, cluster of the anterior tibia. He has a large 3 x 3 x 2 cm deep ulceration under the left second metatarsal head, which probes to bone. Dorsalis pedis and posterior tibial pulses are 2/4. He has chronic venous stasis changes in bilateral lower extremities. Limited sensation with difficulty assessing due to subjective confusion. There is mild odor to the ulceration, tenderness to palpation with deep palpation. Radiographs and laboratories reviewed. Obvious fracture of the proximal phalanx second toe with osteomalacia and osteopenia of the second metatarsophalangeal joint consistent with osteomyelitis. He has other degenerative changes throughout the foot. Soft tissue plantar defect is also noted on the lateral view. Fracture of the proximal phalanx. IMPRESSION: 1. Left foot osteomyelitis, second metatarsal head. 2. Osteomyelitis second proximal phalanx left foot with fracture. 3. A 3 x 3 x 2 cm plantar ulcer. 4. Peripheral neuropathy. 5. Chronic venous stasis. 6. Diabetes mellitus. RECOMMENDATION: The patient was going to require a resection arthroplasty of the second metatarsophalangeal joint including the second metatarsal head and the proximal phalanx of the second toe. Debridement of the ulceration in the plantar aspect of left second metatarsal region will also be performed. I discussed the case and care with the stepson at the bedside and also spoke with son, Hudson Smith, power of state's attorney who gave consent for the procedure. The patient was scheduled for surgery. He will be n.p.o. after midnight and will obtain direction from the medical team as to when this may occur. Thank you for the opportunity to consult in care of this patient. HOPE
[2019-09-25] MEDS ORDERED: LORazepam 0.5 MG/1 ML VIAL IV PRN (18:06)
--- NOTE | 2019-09-25 18:25 | Hospitalist Progress Note ---
Date of Service September 25, 2019 Assessment & Plan (1) Parotitis: - CT face: 1. Motion compromised examination. 2. Findings are consistent with right-sided parotitis with surrounding cellulitis and infiltration of the right parapharyngeal fat. 3. No organized fluid collection is seen to suggest abscess. 4. Emphysema - Consider ENT eval if no improvement in symptoms, no stone was seen on CT as above - Continue ertapenum and vanc IV Unclear if improving Uncooperative for examination (2) Sepsis: - With tachycardia with HR in 120s, leukocytosis to 24, now improved, with source of parotitis, left foot ulcer with OM, as well as urinary tract infection - Follow BCx x 2-NGTD Foot wound cx with MRSA lactic acid was 1.9 on admission, PCT 0.64 mild elevation -Appears to be clinically dry with hypernatremia -tachycardia improved, received IVFs overnight -continue broad spectrum abx with IV Vanco, Aztreonam, and Flagyl (3) Acute kidney injury: -Creatinine 2.24, BUN to 65, up from baseline which appears to be creatinine of 1.3-1.4 -now improved today to 1.7 with IVFs With severe dementia, not enough free water -follow BMP -continue 1/2 NS and consider changing to D5W (4) Hypernatremia: -Encourage free water intake if patient is able to complete speech/swallow eval with bedside nursing-cannot take po as per SPeech -Sodium 147 on admission, now up to 151 - 1/2 NSS continuous for now and may switch to D5W if not improving follow BMP (5) Atrial fibrillation with rapid ventricular response: -chronic afib, not on anticoagulation perhaps for h/o falls or dementia? Unclear Rates improved control on dilt drip -convert to IV lopressor scheduled, cannot take po meds dc dilt gtt -hydrating follow on tele keep lytes replete (6) Rash: -On legs Unknown when this developed, possible adverse reaction to Clinda versus doxycycline as an outpatient, appears to be maculopapular and involves the back, wraps around the trunk, buttocks, hamstrings but spares the abdomen Nonpruritic. Probably due to one of the outpatient antibiotics - clinda started 08/18 x 7 days and doxy started 730 x 10d, nursing staff at [facility] were unable to tell me when this was first identified. -treating with IV steroid (7) Stage III pressure ulcer of sacral region: -Wound consult, frequent turning repo q2h (8) Diabetic foot ulcer: - wound consulted Consult ORtho for OM with bone fracture on foot xray (9) Osteomyelitis: left foot with MRSA growing from wound follow BCxs Ortho plans on taking to OR tomorrow for debridement with sepsis continue broad spectrum abx (10) GERD (gastroesophageal reflux disease): - holding po meds -add IV Pepcid (11) PVD (peripheral vascular disease): - hx of such holding home statin not on ASA (12) Hypertension: - BP stable, holding home po meds due to NPO status (13) Depression: - holding home po wellbutrin (14) DM II (diabetes mellitus, type II), controlled: - Last A1c in April 2019 was 6.7, follow-up with a.m. labs -Does not appear to be on any oral anti-hypoglycemics, Accu-Cheks Achs, Novolog (15) CKD (chronic kidney disease), stage III: -PAULA as above -Avoid nephrotoxins -renally dose meds when appropriate -follow BMP (16) Urinary tract infection: - UA appears to be grossly infected, follow culture -continue ertapenem (17) Secondary pulmonary hypertension: -History of such (18) Acute metabolic encephalopathy: secondary to infections in setting of dementia still lethargic, unclear what baseline (19) Dementia: seems severe (20) DVT prophylaxis: - teds, heparin subq CODE: DNR/DNI Dispo: continued stay, [place], is [place] Critically ill, multiple comorbidities Admission and Anticipated Discharge Date Admission Date: September 24, 2019 Subjective Pt agitated and yells at me "I will kill you!!" Otherwise can give no meaningful responses. Is agitated all day as per RN, not able to eat as per SPeech. Tele with rapid Afib low 100s Review of Systems Review of Systems: Unobtainable due to cognitive status Physical Exam Constitutional: + behavioral limitations, + disheveled and + combative; + uncooperative and not lethargic Eyes: + anicteric sclerae ENMT: right side of face with erythema and edema Neck: trachea midline, no thyromegaly Respiratory: normal respiratory effort, lungs clear to auscultation Cardiovascular: RRR, no murmur, no edema Chest (Breasts): Chest: normal inspection of chest Musculoskeletal: Extremities: no cyanosis and no clubbing Skin: open ulcer left plantar surface foot to the bone draining purulent fluid, lower extremities swollen and with purplish rash all over Neurologic: moves all extremities and awake Psychiatric: Orientation: alert and + guarded; + uncooperative Motor Behavior: + psychomotor agitation Speech: + loud speech Affect: + irritable affect Thought Process: + incoherent thought process Insight: + severely impaired insight Results & Data Results & Data ([facility]) Vital Signs (Past 12 Hours) Vital Signs Temp Pulse Pulse Pulse Resp BP Pulse Ox 09/25/19 16:00 09/25/19 12:13 36.0 C L 99 H 20 121/70 96 09/25/19 08:00 101 H 09/25/19 06:59 37.0 C 96 H 20 108/64 97 Pulse Ox 09/25/19 16:00 95 09/25/19 12:13 09/25/19 08:00 97 09/25/19 06:59 PG Care Time/CCT Total # of Minutes Spent Total Time Spent with Patient: Total time spent is greater than 50% in coordination of care (as documented) at patient's floor/unit and/or counseling patient: Coding Level of Care Code 53490 Subseq Hosp Care Lvl 3 Diagnoses Parotitis K11.20 Sepsis A41.9 Acute kidney injury N17.9 Hypernatremia E87.0 Atrial fibrillation with rapid ventricular response I48.91 Rash R21 Stage III pressure ulcer of sacral region L89.153 Diabetic foot ulcer E11.621; L97.509 Osteomyelitis M86.9 GERD (gastroesophageal reflux disease) K21.9 PVD (peripheral vascular disease) I73.9 Hypertension I10 Depression F32.9 DM II (diabetes mellitus, type II), controlled E11.9 CKD (chronic kidney disease), stage III N18.3 Urinary tract infection N39.0 Secondary pulmonary hypertension Acute metabolic encephalopathy G93.41 Dementia F03.90 DVT prophylaxis Z29.9
[2019-09-25] MEDS: METOPROLOL TARTRATE 1 MG/ML VIAL IV SCH ×3 (18:59→23:53)
[2019-09-25] MEDS ORDERED: HALOPERIDOL LACTATE 5 MG/ML 1 ML VIAL IM STA (21:19)
[2019-09-25] MEDS ORDERED: HALOPERIDOL LACTATE 5 MG/ML 1 ML VIAL ONE (21:21)
[2019-09-25] MEDS ORDERED: HALOPERIDOL LACTATE 5 MG/ML 1 ML VIAL IV STA (22:57)
[2019-09-25] MEDS ORDERED: LORazepam 2 MG/4 ML VIAL IV STA (22:57)
[2019-09-26] MEDS: SODIUM CHLORIDE 0.45 % 1,000 ML IV SCH ×2 (01:50)
[2019-09-26] MEDS: METOPROLOL TARTRATE 1 MG/ML VIAL IV SCH ×7 (05:16→23:56)
[2019-09-26] MEDS: metroNIDAZOLE 500 MG/100 ML BAG IV SCH ×3 (05:17→21:14)
[2019-09-26] MEDS: HEPARIN SOD 5,000 UNIT/0.5 ML VIAL SQ SCH ×3 (05:20→20:39)
[2019-09-26] MEDS: INSULIN ASPART 100 UNITS/ML 3 ML PEN SC SCH ×4 (05:41→20:38)
[2019-09-26 06:36] LABS: Hematocrit (blood only) 35.9 % (42-52); Hemoglobin 11.4 g/dL (14.0-18.0); Mean Corpuscular Hemoglobin 28.1 pg (25-34); Mean Corpuscular Hgb Conc 31.8 g/dL (32-36); Mean Corpuscular Volume 88.4 fL (80-100); Mean Platelet Volume 9.4 fL (7.4-10.4); Platelet Count 310 K/uL (130-400); RDW Coefficient of Variation 17.4 % (11.5-14.5); RDW Standard Deviation 56.5 fL (36.4-46.3); Red Blood Count 4.06 M/uL (4.7-6.1); White Blood Count 19.75 K/uL (4.8-10.8)
[2019-09-26 07:15] LABS: BUN Creatinine Ratio 31.2 (10-20); Calcium 9.3 mg/dl (8.5-10.1); Creatinine Clr Calc Pharmacy 43.8 ml/min; Est GFR (African American) 50.6; Est GFR (Non-African American) 43.7; Potassium 3.7 mmol/L (3.5-5.1)
[2019-09-26 07:18] LABS: Albumin Globulin Ratio 0.4 (0.9-2); Bilirubin,Total 0.5 mg/dl (0.2-1); Globulin 5.7 gm/dl (2.5-4.0); Total Protein 7.7 gm/dl (6.4-8.2)
[2019-09-26] MEDS ORDERED: ONDANSETRON INJ 2 MG/ML 2 ML VIAL IV PRN ×2 (07:21→09:41)
[2019-09-26] MEDS ORDERED: ATROPINE SULFATE 0.1 MG/ML 10ML SYR IV PRN (07:21)
[2019-09-26] MEDS ORDERED: fentaNYL citrate 100 MCG/2 ML VIAL IV PRN (07:21)
[2019-09-26] MEDS ORDERED: ePHEDrine sulfate 50 MG/ML AMP IV PRN (07:21)
[2019-09-26] MEDS ORDERED: HYDROmorphone INJ 1 MG/ML SYRINGE IV PRN (07:21)
[2019-09-26] MEDS: AZTREONAM 1,000 MG in DEXTROSE 5% 100 ML IV SCH ×3 (07:23→23:59)
[2019-09-26] MEDS: DICLOFENAC SOD 1% GEL 100 GM TUBE EXT SCH ×4 (07:24→20:31)
--- NOTE | 2019-09-26 07:39 | Anesthesiology Consultation ---
Date of Service September 26, 2019 Assessment & Plan (1) Encounter for pre-operative examination: Chart Review Chart Review: Acceptable Risk for Surgery and Patient NOT seen in Pre Admission Testing Patient extremely high risk. Spoke with his hospitalist and she stated he is unlikely to be better optimized while he has such broad and severe infection. Morbidity/mortality rate with his climbing sodium is very high but so it would be if his osteo of his foot is left untreated. covid prescreening test from 09/25/2019 is negative. Consults Requested none History Surgery Operation Date: 09/26/19 12:00 Proposed Procedures p Amputation Transmetatarsal - Ruben Reyes DO s Debridement(Left) - Ruben Reyes DO Height/Weight Height: 6 ft Weight: 83.3 kg Allergies Allergy/AdvReac Type Severity Reaction Status Date / Time cephalexin Allergy Intermediate Leukocytoclastic Verified 09/24/19 11:37 vasculitis neomycin AdvReac Mild RASH Verified 09/24/19 11:37 Medications Home Medications Medication Instructions Recorded Confirmed Last Taken metoprolol tartrate 25 mg tablet 25 mg PO BID 10/10/17 09/24/19 09/23/19 08:30 finasteride 5 mg tablet 5 mg PO QAM 07/28/18 09/24/19 09/23/19 atorvastatin 10 mg PO HS 02/19/19 09/24/19 09/23/19 20:30 furosemide 40 mg tablet 40 mg PO QAM tab 03/11/19 09/24/19 09/23/19 famotidine 20 mg PO BID 04/01/19 09/24/19 09/23/19 08:30 melatonin 5 mg PO HS 08/13/19 09/24/19 09/23/19 20:30 diclofenac sodium 1 % topical gel 2 gm TOP QID 09/14/19 09/24/19 09/24/19 08:30 gabapentin 100 mg capsule 200 mg PO BID 09/14/19 09/24/19 09/23/19 08:30 acetaminophen 1,000 mg PO Q12 09/24/19 09/24/19 09/23/19 08:30 ascorbic acid (vitamin C) 500 mg PO BID 09/24/19 09/24/19 Unknown bupropion HCl 150 mg PO BID 09/24/19 09/24/19 09/23/19 08:30 sulfamethoxazole 400 1 tab PO BID 14 Days #28 tab 09/24/19 09/24/19 Unknown mg-trimethoprim 80 mg tablet Active Medications Generic Name Dose Route Start Last Admin Trade Name Goyo PRN Reason Stop Dose Admin Acetaminophen 1,000 mg 09/24/19 21:00 09/25/19 10:20 Acetaminophen 500 Mg Tab PO 10/24/19 20:59 1,000 mg Q12 RAIMUNDO Administration Ascorbic Acid 500 mg 09/24/19 21:00 09/25/19 10:20 Ascorbic Acid 500 Mg Tab PO 10/24/19 20:59 Not Given BID RAIMUNDO Atorvastatin Calcium 10 mg 09/24/19 21:00 09/24/19 21:32 Atorvastatin 10 Mg Tab PO 10/24/19 20:59 Not Given HS RAIMUNDO Bupropion HCl 150 mg 09/24/19 21:00 09/25/19 10:19 Bupropion Sr 150 Mg Tabcr PO 10/24/19 20:59 Not Given BID RAIMUNDO Diclofenac Sodium 2 gm 09/24/19 17:55 09/26/19 07:24 Diclofenac Sod 1% Gel 100 Gm Tube EXT 10/24/19 17:54 2 gm QID RAIMUNDO Administration Famotidine 20 mg 09/24/19 21:00 09/25/19 10:18 Famotidine 20 Mg Tab PO 10/24/19 20:59 Not Given BID RAIMUNDO Finasteride 5 mg 09/25/19 09:00 09/25/19 10:18 Finasteride 5 Mg Tab PO 10/25/19 08:59 Not Given QAM RAIMUNDO Gabapentin 200 mg 09/24/19 21:00 09/25/19 10:18 Gabapentin 100 Mg Cap PO 10/24/19 20:59 Not Given BID RAIMUNDO Heparin Sodium (Porcine) 5,000 units 09/24/19 22:00 09/26/19 05:20 Heparin Sod 5,000 Unit/0.5 Ml Vial SQ 10/24/19 21:59 5,000 units Q8 RAIMUNDO Administration Aztreonam 1,000 mg/ Dextrose 110 mls @ 100 mls/hr 09/25/19 08:00 09/26/19 07:23 IV 10/02/19 07:59 100 mls/hr Q8H RAIMUNDO Administration Protocol Methylprednisolone 40 mg/ 0.64 mls @ 1.5 mls/min 09/25/19 09:00 09/25/19 07:25 Syringe IV 10/25/19 08:59 1.5 mls/min DAILY RAIMUNDO Administration Metronidazole 500 mg in 100 mls @ 100 mls/hr 09/24/19 22:00 09/26/19 06:23 Flagyl IV 10/01/19 21:59 Infused Q8H RAIMUNDO Infusion Insulin Aspart 0 units 09/24/19 21:00 09/26/19 05:41 Insulin Aspart 100 Units/Ml 3 Ml Pen SC 10/24/19 20:59 Not Given ACHS RAIMUNDO Melatonin 6 mg 09/24/19 21:00 09/24/19 21:32 Melatonin 3 Mg Tab PO 10/24/19 20:59 Not Given HS RAIMUNDO Metoprolol Tartrate 25 mg 09/24/19 21:00 09/25/19 10:17 Metoprolol Tartrate 25 Mg Tab PO 10/24/19 20:59 Not Given BID RAIMUNDO Metoprolol Tartrate 5 mg 09/25/19 18:15 09/26/19 07:25 Metoprolol Tartrate 1 Mg/Ml Vial IV 10/25/19 18:14 5 mg Q4 RAIMUNDO Administration Past Medical History Medical History A-fib Atrial fibrillation BPH (benign prostatic hyperplasia) Chronic venous insufficiency CKD (chronic kidney disease), stage III Diastolic heart failure DM II (diabetes mellitus, type II), controlled Dyslipidemia GERD (gastroesophageal reflux disease) Hallux rigidus of left foot Hallux rigidus, right foot Hypertension Morbid obesity due to excess calories Osteoarthritis Popliteal DVT (deep venous thrombosis) Positive Lyme disease serology PVD (peripheral vascular disease) Secondary pulmonary hypertension Exercise / Class Metabolic Activity IV < 2 Limit ADL/Bedbound Past Family History Family History Father Diabetes Past Surgical History Surgical History History of craniotomy 08/01/2014 - evacuation of subdural hematoma - Dr Abundio Mahmood at [facility] Status post endovenous radiofrequency ablation of saphenous vein Past Anesthesia History No Hx of Anesthesia Complications and No Family Hx of Anesthesia Complications History of PONV No Hx of PONV and No Hx of Motion Sickness Social History Smoking Status: Former smoker tobacco type: cigarettes Smoking cigarettes per day: 1/2 pack day Hx Alcohol Use: No Hx Substance Use: No substance use type: does not use Physical Exam Vital Signs Last Vital Signs Temp 35.8 C L 09/26/19 05:00 Pulse 96 H 09/26/19 07:25 Resp 19 09/26/19 05:00 BP 101/64 09/26/19 07:25 Pulse Ox 91 09/26/19 05:00 Testing Laboratory Results 09/26/19 06:10 09/26/19 06:10 PT 12.9 Seconds (9.0-12.0) H 09/24/19 12:49 INR 1.2 (0.9-1.1) H 09/24/19 12:49 APTT 35.0 Seconds (21.0-31.0) H 09/24/19 12:49 Hemoglobin A1c 6.3 % (4.5-5.6) H 09/25/19 07:09 Urine Color Yellow 09/24/19 12:57 Urine Appearance Cloudy (Clear) A 09/24/19 12:57 Urine pH 8.5 (4.5-7.5) H 09/24/19 12:57 Ur Specific Hope 1.015 (1.000-1.030) 09/24/19 12:57 Urine Protein 2+ (Negative) H 09/24/19 12:57 Urine Glucose (UA) Negative (Negative) 09/24/19 12:57 Urine Ketones Negative (Negative) 09/24/19 12:57 Urine Nitrite Positive (Negative) A 09/24/19 12:57 Ur Leukocyte Esterase 2+ (Negative) H 09/24/19 12:57 Urine RBC 5-10 /hpf (0-4) H 09/24/19 12:57 Urine WBC >30 /hpf (0-5) H 09/24/19 12:57 Ur Epithelial Cells 0-5 /lpf (0-5) 09/24/19 12:57 09/24/19 12:57 Urine Culture - Preliminary Urine,Clean Catch Proteus mirabilis 09/24/19 11:01 Aerobic Blood Culture - Preliminary Blood No growth in Aerobic bottle after 24 hours. Anaerobic Blood Culture - Final 09/24/19 11:49 Aerobic Blood Culture - Preliminary Blood No growth in Aerobic bottle after 24 hours. Anaerobic Blood Culture - Preliminary No growth in Anaerobic bottle after 24 hours. 09/26/19 09/25/19 05:36 20:16 POC Glucose 108 H 121 H Electrocardiogram Date: 09/24/19 Findings: + AFIB @ (106) Atrial fibrillation with rapid ventricular response Low voltage QRS Septal infa rct , age undetermined Nonspecific T wave abnormality Abnormal ECG When compared with ECG of 14-APR-2019 12:11, Septal infarct is now Present Criteria for Inferior infarct are no longer Present Nonspecific T wave abnormality, worse in Anterolateral leads Confirmed by Andrea Wong ([id number]) on 09/25/2019 7:02:04 AM Chest X-Ray Date: 09/24/19 XR chest 1V portable CLINICAL HISTORY: SEPSIS dyspnea COMPARISON STUDY: 04/14/2019 FINDINGS: Moderate cardiomegaly. Interstitial change both lung bases. Components of the [place] chronic. Chronic pulmonary vascular congestion IMPRESSION: . 1. Chronic pulmonary vascular congestion. 2. Potential superimposed interstitial basilar infiltrates.
[2019-09-26] MEDS ORDERED: fentaNYL citrate 100 MCG/2 ML VIAL ONE (07:52)
[2019-09-26] MEDS ORDERED: BACITRACIN INJ 50,000 UNIT VIAL ONE (08:06)
[2019-09-26] MEDS ORDERED: BUPIVACAINE 0.5 % 5 MG/1 ML MPF 30ML VIAL ONE (08:06)
--- NOTE | 2019-09-26 08:09 | History & Physical Bridge Note ---
Date of Service September 26, 2019 History & Physical Bridge Note I have examined the patient, reviewed the History & Physical and in the interval since the performance of the History & Physical I have noted the following changes of clinical significance:Will require left foot second metatarsophalangeal joint excisional arthroplasty and debridement plantar foot ulcer.
--- NOTE | 2019-09-26 09:40 | Post Operative Brief Note ---
Immediate Post Op Note v1 Date of Surgery September 26, 2019 Pre & Post Diagnosis Operation Date: 09/26/19 12:00 Pre-Op Diagnosis: Left foot osteomyelitis, second metatarsal head, Osteomyelitis second proximal phalanx left foot with fracture, Plantar left foot diabetic neuropathic ulcer second metatarsal head region [id number], Dorsal Ulcer great toe [id number]. Post-Op Diagnosis: Left foot osteomyelitis second metatarsal head, Osteomyelitis second proximal phalanx left foot with fracture, Plantar left foot diabetic neuropathic ulcer second metatarsal head region [id number], Dorsal Ulcer great toe 2.5cmx [id number], tenosynovitis second extensor tendon, abscess dorsal forefoot I identified the patient and participated in the time-out.: Yes Procedure Operation Date: 09/26/19 12:00 Actual Procedures p Excisional Arthroplasty 2nd metatarsal phalangeal joint, Debridement Plantar Ulcer 2.5x2.5x2cm, debridement dorsal great toe ulcer [id number],irrigation and debridement skin, subcutaneous tissue, fascia, tendon, Evacuation abscess dorsal forefoot, tenosynovectomy second extensor tendon (Left) - Ruben Reyes DO Surgeon Ruben Reyes DO [employer] Fredrick Mosquera PA-C Estimated Blood Loss 2 Findings Consistent with Post-Op Diagnosis Specimens Second metatarsal head for specimen, second proximal phalanx for specimen, aerobic anaerobic Gram stain second metatarsal phalangeal joint Drains Gordillo Catheter and Other (1/2 inch iodoform gauze drain dorsal and plantar) Anesthesia Type General Regional Complications none Disposition Accompanied Patient To Recovery: Yes Disposition: Recovery Room
[2019-09-26] MEDS ORDERED: NALOXONE HCL 0.4 MG/1 ML VIAL/CARP IV PRN (09:41)
[2019-09-26] MEDS ORDERED: OXYCODONE HCL IR 5 MG TAB (IMMEDIATE RELEASE) PO PRN (09:41)
[2019-09-26] MEDS ORDERED: bisacodyL 10 MG SUPP PR PRN (09:41)
[2019-09-26] MEDS ORDERED: MAGNESIUM HYDROXIDE SUSP 30 ML UDC PO PRN (09:41)
[2019-09-26] MEDS ORDERED: TRAMADOL HCL 50 MG TABLET PO PRN (09:41)
[2019-09-26] MEDS ORDERED: METOCLOPRAMIDE HCL INJ 5 MG/ML 2 ML VIAL IV PRN (09:41)
[2019-09-26] MEDS ORDERED: LIDOCAINE HCL 2% 2 ML VIAL/AMP(20MG/ML) INFIL ONE (09:52)
[2019-09-26] MEDS ORDERED: ONDANSETRON INJ 2 MG/ML 2 ML VIAL ONE (09:52)
[2019-09-26] MEDS ORDERED: PHENYLEPHRINE 100MCG/ML 5ML SYR ONE (09:52)
[2019-09-26] MEDS ORDERED: PROPOFOL IV EMULSION 10 MG/ML 20 ML VIAL IV ONE (09:52)
[2019-09-26] MEDS: VANCOMYCIN HCL 1,500 MG in SODIUM CHLORIDE 0.9% 500 ML IV SCH (10:47)
[2019-09-26] MEDS: FAMOTIDINE 20 MG in SYRINGE 3 ML IV SCH ×2 (10:47→20:33)
--- NOTE | 2019-09-26 10:47 | Operative Report (OR) ---
DATE OF OPERATION: 09/26/2019 PREOPERATIVE DIAGNOSES: 1. Left foot osteomyelitis, second metatarsal head. 2. Osteomyelitis, second proximal phalanx with fracture. 3. Plantar diabetic neuropathic ulcer measuring 2.5 x 2.0 x 2.0 cm. 4. Dorsal great toe diabetic neuropathic ulcer measuring 2.5 cm x 1.5 cm x 7 mm. POSTOPERATIVE DIAGNOSES: 1. Left foot osteomyelitis, second metatarsal head. 2. Osteomyelitis, second proximal phalanx with fracture. 3. Plantar diabetic neuropathic ulcer measuring 2.5 x 2.0 x 2.0 cm. 4. Dorsal great toe diabetic neuropathic ulcer measuring 2.5 cm x 1.5 cm x 7 mm. 5. Abscess dorsal forefoot and tenosynovitis of the second extensor tendon. PROCEDURES: 1. Left foot excisional arthroplasty of the second metatarsophalangeal joint including the proximal phalanx of the second toe and the second metatarsal head. 2. Irrigation and debridement, diabetic neuropathic ulcer, plantar foot 2.5 cm x 2.0 cm x 2.0 cm. 3. Irrigation and debridement, dorsal diabetic neuropathic ulcer at the great toe measuring 2.5 cm x 1.5 cm x 7 mm. 4. Irrigation and debridement of skin, subcutaneous tissue, fascia and tendon both the dorsal ulcer and the plantar ulcer. 5. Evacuation dorsal forefoot abscess. 6. Tenosynovectomy of the second extensor tendon. SURGEON: Ruben Reyes DO. BULK FLUIDS HANDLER: Fredrick Mosquera PA-C who was present for patient positioning, sterile prep and drape, management of retractors and instruments. He was present through the critical portions of the case including wound closure, application of sterile dressing and transport of the patient to recovery. ANESTHESIA: General, regional. SPECIMENS: Aerobic, anaerobic, Gram stain of the second metatarsophalangeal joint, second metatarsal head for pathology and second proximal phalanx for pathology. DRAINS: 1/2 inch iodoform gauze. Dorsal and plantar left foot. COMPLICATIONS: None. BLOOD LOSS: 2 mL PERTINENT HISTORY: This is a 79-year-old gentleman with diabetes, neuropathy and a history of peripheral vascular disease with venous insufficiency, bilateral superficial ulcerations lower extremities; however, he had developed a large ulceration under the second metatarsal head, left foot over the last year. He has been under the care of multiple providers including the wound care center. He is currently a resident at [facility]. He has dementia and other multiple medical comorbidities. The patient was admitted to the hospital under the Hospitalist Service and Orthopedics was consulted regarding his ulcerations of his left foot. The patient had developed a fracture of the second proximal phalanx. Radiographs were obtained noting osteomyelitis in the proximal phalanx and the second metatarsal head consistent with osteomyelitis. The patient was seen and examined and the patient was noted to need resection arthroplasty of the second metatarsophalangeal joint. He was then scheduled for surgery as indicated. All potential risks, benefits, complications, alternatives, rehab, potential for incomplete relief of symptoms, need for further surgery, DVT, PE, , persistent pain, swelling, scarring, weakness, neurovascular injury, wound complications, need for further amputation and debridement was discussed with the patient. The patient decided to proceed with the procedure as indicated. I did speak with his power of estate planning attorney his son, Hudson, who also gave his consent for the procedure. DESCRIPTION OF PROCEDURE: The patient was taken to the operative suite, placed supine on the operating room table. After review of consent and identification of proper operative site, the patient was anesthetized, LMA was placed. Left lower extremity was then sterilely prepped and draped in usual fashion, elevated and partially exsanguinated with an Esmarch bandage and Esmarch tourniquet applied over sterile surgical towel at the level of the ankle. Next, an ankle block was performed with 0.5% Marcaine plain, approximately 30 mL and then 15 blade scalpel was then used to debride the plantar foot ulcer excising the necrotic skin, subcutaneous tissue, fascia and plantar flexor tendon. Bright red bleeding was encountered. All necrotic tissue was then sharply excised with 15 blade scalpel. Next, attention was then directed toward the ulceration over the great toe. The ulcer was then debrided including skin, subcutaneous tissue, fascia and tendon sheath over the extensor hallucis longus. After sharp debridement was performed and bright red bleeding was encountered, both ulcers were measured and measurements noted in the preamble above. Next, dorsal incision was made over the second metatarsophalangeal joint with the 15 blade scalpel. This incision was then continued through the skin, subcutaneous tissue and fascia. Careful dissection was performed with Metzenbaum scissors to the level of the second extensor tendon. There was encountered purulence adjacent to the incision within the forefoot. There is an abscess pocket. This was then evacuated and irrigated briefly with pulsatile lavage. Next, second extensor tendon was noted to have a tenosynovitis. Tenosynovectomy was performed of the second extensor tendon with a Metzenbaum scissor and forceps. Once this was completed, the tendon was then retracted laterally and dorsal capsulotomy arthrotomy was performed with 15 blade scalpel over the second metatarsophalangeal joint. There was noted to be purulence within the second metatarsophalangeal joint. This was cultured for aerobic, anaerobic, Gram stain. Dorsal soft tissue envelope was then retracted with Weitlaner retractors followed by excision of the grossly infected second metatarsal head approximately 1.5 cm from the joint line. This was then sent off as specimen for pathology. Next, the grossly softened and deformed proximal phalanx of the second toe was then resected approximately mid plane of the proximal phalanx, second toe with a sagittal saw, after placement of Hohmann retractors. This was then sent for specimen and pathology. Next, the dorsal incision was then copiously irrigated with pulsatile lavage with bacitracin. The plantar ulceration was also irrigated with pulsatile lavage with bacitracin as well as the ulceration over the great toe, also irrigated with pulsatile lavage with bacitracin and saline. 3 liters in total was utilized to lavage until clear. Next, a 1/2 inch iodoform gauze packing was placed in the dorsal incision, 1/2 inch iodoform gauze packing was placed in the plantar ulceration. Next, a loose closure over drains was performed with interrupted 3-0 nylon sutures. This was performed after sterile top sheet and sterile gloves were applied after irrigation was performed. Next, tourniquet was released. Normal hyperemic response returned to the toes. The patient was awakened and taken to recovery in stable condition. I attest to the content of the Intraoperative Record and any orders documented therein. Any exception s are noted below.
[2019-09-26] MEDS: DEXTROSE 5% 1,000 ML IV SCH ×3 (11:00→21:15)
[2019-09-26] MEDS: methylPREDNISolone 40 MG in SYRINGE 0 ML IV SCH (11:48)
--- NOTE | 2019-09-26 15:41 | Anesthesiology Progress Note ---
Date of Service September 26, 2019 Anesthesia Post Procedure Vital Signs Vital Signs: Temp Pulse Pulse Pulse Resp BP BP 09/26/19 11:49 110 H 125/83 09/26/19 11:46 36.6 C 103 H 16 09/26/19 11:30 36.6 C 102 H 18 09/26/19 11:11 36.4 C L 82 18 09/26/19 10:20 36.2 C L 93 H 20 09/26/19 10:10 91 H 26 H 09/26/19 10:00 93 H 25 H 09/26/19 09:50 79 23 09/26/19 09:41 36.9 C 87 21 09/26/19 08:17 36.1 C L 76 20 136/52 L 09/26/19 08:00 104 H 09/26/19 07:25 96 H 101/64 09/26/19 05:16 95 H 101/64 09/26/19 05:00 35.8 C L 89 19 113/78 09/26/19 00:00 09/25/19 23:53 86 96/68 L 09/25/19 23:47 89 09/25/19 23:16 36.7 C 86 20 96/68 L 09/25/19 21:05 86 109/68 09/25/19 18:59 96 H 108/64 09/25/19 16:00 BP Pulse Ox Pulse Ox Pulse Ox 09/26/19 11:49 09/26/19 11:46 125/83 97 09/26/19 11:30 128/76 97 09/26/19 11:11 131/80 97 09/26/19 10:20 120/73 100 09/26/19 10:10 119/71 96 09/26/19 10:00 120/74 100 09/26/19 09:50 118/66 98 09/26/19 09:41 104/67 97 09/26/19 08:17 91 09/26/19 08:00 95 09/26/19 07:25 09/26/19 05:16 09/26/19 05:00 91 09/26/19 00:00 95 09/25/19 23:53 09/25/19 23:47 09/25/19 23:16 94 09/25/19 21:05 09/25/19 18:59 09/25/19 16:00 95 Transfer of Care Handoff Completed per policy Notes Mental Status: alert / awake / arousable and participated in evaluation Patient Amnestic to Procedure: Yes Nausea / Vomiting: adequately controlled Pain: adequately controlled Airway Patency, RR, SpO2: stable & adequate BP & HR: stable & adequate Hydration State: stable & adequate Anesthetic Complications: no major complications apparent and Pt Satisfied with anesthetic care
--- NOTE | 2019-09-26 15:51 | Pharmacy Report ---
Pharmacy Abx Dose Short Note - Date of Service September 26, 2019 - Assessment & Plan Assessment 79 year old M receiving Vancomycin for treatment of Osteomyelitis L foot with MRSA and parotitis. Day #3 of antimicrobial therapy. Plan Vancomycin * Random Vanco level of 18.4 mcg/mL is therapeutic. * Vancomycin 1250 mg IV x 1 given yesterday at 10:17 AM. * Renal function improved to baseline. * Patient meets criteria for vancomycin AUC dosing nomogram AUC/ROXANNE is the preferred PK/PD target for vancomycin Target AUC/ROXANNE = 400-600 AUC guided dosing is effective and associated with decreased risk of nephrotoxicity Vancomycin 1500 mg IV q24h was started this AM Will order trough Vancomycin level before 3rd dose on 09/28/19 to confirm appropriate dosing. Pharmacy will continue to follow and will adjust dose/frequency as necessary. Thank you.
--- NOTE | 2019-09-26 18:50 | Hospitalist Progress Note ---
Date of Service September 26, 2019 Assessment & Plan (1) Parotitis: - CT face: 1. Motion compromised examination. 2. Findings are consistent with right-sided parotitis with surrounding cellulitis and infiltration of the right parapharyngeal fat. 3. No organized fluid collection is seen to suggest abscess. 4. Emphysema -Facial swelling is improving - Continue IV aztreonam and vanc IV as well as Flagyl (2) Sepsis: - With tachycardia with HR in 120s, leukocytosis to 24, now improved, with source of parotitis, left foot ulcers with OM, as well as urinary tract infection - Follow BCx x 2-NGTD Foot wound cx with MRSA Urine culture with Proteus lactic acid was 1.9 on admission, PCT 0.64 mild elevation -Appears to be severely clinically dry with hypernatremia -tachycardia improved, continues on IV fluids -continue broad spectrum abx with IV Vanco, Aztreonam, and Flagyl which covers for MRSA and the Proteus, unclear which organism is in the proctitis (3) Acute kidney injury: -Creatinine 2.24, BUN to 65, up from baseline which appears to be creatinine of 1.3-1.4 -now improved to 1.5 with IV fluids Is making urine With severe dementia, not enough free water -follow BMP (4) Hypernatremia: -Has been n.p.o. due to altered mental status and inability to pass swallow evaluation with speech therapy -Sodium 147 on admission, now up even further to 153 despite half-normal saline -Switch IV fluids to D5W at 125 mL's per hour follow BMP (5) Atrial fibrillation with rapid ventricular response: -chronic afib, not on anticoagulation perhaps for h/o falls or dementia? Unclear Rates improved with hydration and scheduled IV Lopressor Weaned off diltiazem drip -Continue IV lopressor scheduled, as cannot take po meds keep lytes replete -Okay to transition off telemetry (6) Rash: -Diffusely upon admission, improving now on IV steroids Unknown when this developed, possible adverse reaction to Clinda versus doxycycline as an outpatient, appears to be maculopapular and involves the back, wraps around the trunk, buttocks, hamstrings but spares the abdomen Nonprur itic. Probably due to one of the outpatient antibiotics - clinda started 08/18 x 7 days and doxy started 09/08 x 10d, nursing staff at [place] were unable to tell me when this was first identified. -treating with IV steroid but will now discontinue as he has multiple sources of infection and steroids will worsen immune suppression (7) Stage III pressure ulcer of sacral region: -Wound consult, frequent turning repo q2h (8) Diabetic foot ulcer: - wound consulted Consult ORtho for OM with bone fracture on foot xray and also with great ulcer in the same foot Now status post extensive debridement on 09/25 by orthopedic surgery with: 1. Left foot excisional arthroplasty of the second metatarsophalangeal joint including the proximal phalanx of the second toe and the second metatarsal head. 2. Irrigation and debridement, diabetic neuropathic ulcer, plantar foot 2.5 cm x 2.0 cm x 2.0 cm. 3. Irrigation and debridement, dorsal diabetic neuropathic ulcer at the great toe measuring 2.5 cm x 1.5 cm x 7 mm. 4. Irrigation and debridement of skin, subcutaneous tissue, fascia and tendon both the dorsal ulcer and the plantar ulcer. 5. Evacuation dorsal forefoot abscess. 6. Tenosynovectomy of the second extensor tendon. Postoperative care as per orthopedic surgery -Continue antibiotics -Follow CBC, CMP, ESR, CRP (9) Osteomyelitis: left foot with MRSA growing from wound follow BCxs Status post surgical debridement as above Continue antibiotics (10) GERD (gastroesophageal reflux disease): - holding po meds -added IV Pepcid (11) PVD (peripheral vascular disease): - hx of such holding home statin not on ASA (12) Hypertension: - BP stable, holding home po meds due to NPO status (13) Depression: - holding home po wellbutrin (14) DM II (diabetes mellitus, type II), controlled: - Last A1c in April 2019 was 6.7, is now down to 6.3% Having low blood sugars here while n.p.o. -Does not appear to be on any oral anti-hypoglycemics, Accu-Cheks Achs, Novolog Adding on D5W as above (15) CKD (chronic kidney disease), stage III: -PAULA as above now improving -Avoid nephrotoxins -renally dose meds when appropriate -follow BMP (16) Urinary tract infection: - UA appears to be grossly infected, urine culture with Proteus -Continue antibiotics as above (17) Secondary pulmonary hypertension: -History of such, secondary to diastolic congestive heart failure Holding home Lasix from home while he is severely dehydrated and n.p.o. (18) Acute metabolic encephalopathy: secondary to infections in setting of dementia Continues to be combative, agitated, babbling incoherently Son reports this is approximately his baseline although he has not seen him in 6 months but this is by report from the [facility] (19) Dementia: Severe and rapidly progressing over the last 7 or 8 months as per the patient's son Discussed his care with his son on the phone today-he reports they want to continue with IV antibiotics and treatment of infection and was okay with surgery today, however would not want to escalate beyond this most likely if condition continued to deteriorate, would want his dad to be kept comfortable. He is not interested in a palliative care consultation at this time but the idea of palliative care medicine was broached with the son who understands the concept Supportive care Add on IM Haldol as needed for severe agitation for safety given that he was kicking and punching nurses overnight (20) DVT prophylaxis: - teds, heparin subq CODE: DNR/DNI Dispo: continued stay, [facility], is PO[facility] Critically ill, multiple comorbidities Admission and Anticipated Discharge Date Admission Date: September 24, 2019 Subjective Patient went for surgical debridement of the left foot today. I discussed the case with orthopedic surgery. The patient is completely incoherent and babbling when I saw him. He would not make eye contact but was awake. He would not answer any of my questions but continued to babble. I discussed his care with his son on the phone who was in to visit him today and reports that he is not too far off his baseline, however yesterday was the first time he had seen his dad in almost 6 months. He reports his dementia has significantly declined in the last 8 or 9 months. Patient was significantly agitated and combative, was kicking and punching at nurses last night. He was given IM Haldol and Ativan and finally settled down. I also discussed the case with anesthesia this morning in regards to his optimization for surgery. We discussed that although he is high risk for surgery given his multiple comorbidities and metabolic abnormalities, he was at higher risk to not have the surgery given the severe infection in the foot. Review of Systems Review of Systems: Unobtainable due to cognitive status Physical Exam Constitutional: + behavioral limitations, + disheveled (Has his gown pulled up and is playing with his genitals) and + combative; + uncooperative and not lethargic Eyes: + anicteric sclerae ENMT: Right side of face in temporal mandibular joint region and cheek with mild erythema, moderate edema, patient would not cooperate for physical examination/palpation Respiratory: normal respiratory effort, lungs clear to auscultation Cardiovascular: Rate/Rhythm: regular rate and + irregularly irregular Extremities: + edema (2+ edema in the bilateral lower extremities to the knees) Gastrointestinal (Abdomen): normal bowel sounds, soft, nontender, no hepatosplenomegaly Musculoskeletal: Extremities: no cyanosis and no clubbing Skin: Left foot and leg completely wrapped in dressing-not removed Multiple bruises Rash improved on bilateral lower extremities and rest of body Neurologic: moves all extremities and awake Psychiatric: Orientation: alert and + guarded; + uncooperative Motor Behavior: + psychomotor agitation Speech: + loud speech (Incomprehensible) Thought Process: + incoherent thought process Insight: + severely impaired insight Genitourinary: no testicular masses, no penis abnormality Results & Data Results & Data ([facility]) Vital Signs (Past 12 Hours) Vital Signs Temp Pulse Pulse Pulse Resp BP BP 09/26/19 16:04 100 H 118/65 09/26/19 16:00 88 09/26/19 15:55 114 H 118/65 09/26/19 15:53 36.5 C 114 H 18 09/26/19 11:49 110 H 125/83 09/26/19 11:46 36.6 C 103 H 16 09/26/19 11:30 36.6 C 102 H 18 09/26/19 11:11 36.4 C L 82 18 09/26/19 10:20 36.2 C L 93 H 20 09/26/19 10:10 91 H 26 H 09/26/19 10:00 93 H 25 H 09/26/19 09:50 79 23 09/26/19 09:41 36.9 C 87 21 09/26/19 08:17 36.1 C L 76 20 136/52 L 09/26/19 08:00 104 H 09/26/19 07:25 96 H 101/64 BP Pulse Ox Pulse Ox 09/26/19 16:04 09/26/19 16:00 96 09/26/19 15:55 09/26/19 15:53 118/65 98 09/26/19 11:49 09/26/19 11:46 125/83 97 09/26/19 11:30 128/76 97 09/26/19 11:11 131/80 97 09/26/19 10:20 120/73 100 09/26/19 10:10 119/71 96 09/26/19 10:00 120/74 100 09/26/19 09:50 118/66 98 09/26/19 09:41 104/67 97 09/26/19 08:17 91 09/26/19 08:00 95 09/26/19 07:25 Laboratory Results 09/26/19 09/26/19 09/26/19 Range/Units 20:38 16:31 12:35 WBC (4.8-10.8) K/uL RBC (4.7-6.1) M/uL Hgb (14.0-18.0) g/dL Hct (42-52) % MCV (80-100) fL MCH (25-34) pg MCHC (32-36) g/dL RDW Std Deviation (36.4-46.3) fL RDW Coeff of Karla (11.5-14.5) % Plt Count (130-400) K/uL MPV (7.4-10.4) fL Sodium (136-145) mmol/L Potassium (3.5-5.1) mmol/L Chloride (98-107) mmol/L Carbon Dioxide (21-32) mmol/L Anion Gap (3-11) BUN (7-18) mg/dl Creatinine (0.6-1.4) mg/dl Est Cr Clr Drug Dosing ml/min Est GFR ( Amer) Est GFR (Non-Af Amer) BUN/Creatinine Ratio (10-20) Glucose (70-99) mg/dl POC Glucose 152 H 160 H 116 H (70-99) mg/dl Calcium (8.5-10.1) mg/dl Total Bilirubin (0.2-1) mg/dl AST (15-37) U/L ALT (12-78) U/L Alkaline Phosphatase (45-117) U/L Total Protein (6.4-8.2) gm/dl Albumin (3.4-5.0) gm/dl Globulin (2.5-4.0) gm/dl Albumin/Globulin Ratio (0.9-2) Random Vancomycin mcg/ml 09/26/19 09/26/19 09/26/19 Range/Units 09:45 06:10 06:10 WBC (4.8-10.8) K/uL RBC (4.7-6.1) M/uL Hgb (14.0-18.0) g/dL Hct (42-52) % MCV (80-100) fL MCH (25-34) pg MCHC (32-36) g/dL RDW Std Deviation (36.4-46.3) fL RDW Coeff of Karla (11.5-14.5) % Plt Count (130-400) K/uL MPV (7.4-10.4) fL Sodium 153 H (136-145) mmol/L Potassium 3.7 (3.5-5.1) mmol/L Chloride 122 H (98-107) mmol/L Carbon Dioxide 24 (21-32) mmol/L Anion Gap 7.0 (3-11) BUN 47 H (7-18) mg/dl Creatinine 1.50 H (0.6-1.4) mg/dl Est Cr Clr Drug Dosing 43.8 ml/min Est GFR ( Amer) 50.6 Est GFR (Non-Af Amer) 43.7 BUN/Creatinine Ratio 31.2 H (10-20) Glucose 119 H (70-99) mg/dl POC Glucose 116 H (70-99) mg/dl Calcium 9.3 (8.5-10.1) mg/dl Total Bilirubin 0.5 (0.2-1) mg/dl AST 29 (15-37) U/L ALT 14 (12-78) U/L Alkaline Phosphatase 94 (45-117) U/L Total Protein 7.7 (6.4-8.2) gm/dl Albumin 2.0 L (3.4-5.0) gm/dl Globulin 5.7 H (2.5-4.0) gm/dl Albumin/Globulin Ratio 0.4 L (0.9-2) Random Vancomycin 18.4 mcg/ml 09/26/19 09/26/19 Range/Units 06:10 05:36 WBC 19.75 H (4.8-10.8) K/uL RBC 4.06 L (4.7-6.1) M/uL Hgb 11.4 L (14.0-18.0) g/dL Hct 35.9 L (42-52) % MCV 88.4 (80-100) fL MCH 28.1 (25-34) pg MCHC 31.8 L (32-36) g/dL RDW Std Deviation 56.5 H (36.4-46.3) fL RDW Coeff of Karla 17.4 H (11.5-14.5) % Plt Count 310 (130-400) K/uL MPV 9.4 (7.4-10.4) fL Sodium (136-145) mmol/L Potassium (3.5-5.1) mmol/L Chloride (98-107) mmol/L Carbon Dioxide (21-32) mmol/L Anion Gap (3-11) BUN (7-18) mg/dl Creatinine (0.6-1.4) mg/dl Est Cr Clr Drug Dosing ml/min Est GFR ( Amer) Est GFR (Non-Af Amer) BUN/Creatinine Ratio (10-20) Glucose (70-99) mg/dl POC Glucose 108 H (70-99) mg/dl Calcium (8.5-10.1) mg/dl Total Bilirubin (0.2-1) mg/dl AST (15-37) U/L ALT (12-78) U/L Alkaline Phosphatase (45-117) U/L Total Protein (6.4-8.2) gm/dl Albumin (3.4-5.0) gm/dl Globulin (2.5-4.0) gm/dl Albumin/Globulin Ratio (0.9-2) Random Vancomycin mcg/ml PG Care Time/CCT Total # of Minutes Spent Total Time Spent with Patient: Total time spent is greater than 50% in coordination of care (as documented) at patient's floor/unit and/or counseling patient: Coding Level of Care Code 14923 Subseq Hosp Care Lvl 3 Diagnoses Parotitis K11.20 Sepsis A41.9 Acute kidney injury N17.9 Hypernatremia E87.0 Atrial fibrillation with rapid ventricular response I48.91 Rash R21 Stage III pressure ulcer of sacral region L89.153 Diabetic foot ulcer E11.621; L97.509 Osteomyelitis M86.9 GERD (gastroesophageal reflux disease) K21.9 PVD (peripheral vascular disease) I73.9 Hypertension I10 Depression F32.9 DM II (diabetes mellitus, type II), controlled E11.9 CKD (chronic kidney disease), stage III N18.3 Urinary tract infection N39.0 Secondary pulmonary hypertension Acute metabolic encephalopathy G93.41 Dementia F03.90 DVT prophylaxis Z29.9
[2019-09-26] MEDS ORDERED: DOCUSATE SODIUM 100 MG CAP PO SCH (21:00)
[2019-09-26] MEDS ORDERED: SENNA 8.6 MG TAB PO SCH (21:00)
[2019-09-26] MEDS ORDERED: HALOPERIDOL LACTATE 5 MG/ML 1 ML VIAL IM PRN (23:14)
[2019-09-27] MEDS: METOPROLOL TARTRATE 1 MG/ML VIAL IV SCH ×5 (05:03→22:09)
[2019-09-27] MEDS: DEXTROSE 5% 1,000 ML IV SCH (05:17)
[2019-09-27] MEDS: metroNIDAZOLE 500 MG/100 ML BAG IV SCH ×3 (06:25→22:10)
[2019-09-27] MEDS: HEPARIN SOD 5,000 UNIT/0.5 ML VIAL SQ SCH ×3 (06:28→22:10)
[2019-09-27] MEDS: FAMOTIDINE 20 MG in SYRINGE 3 ML IV SCH ×2 (07:46→22:10)
[2019-09-27] MEDS: AZTREONAM 1,000 MG in DEXTROSE 5% 100 ML IV SCH ×2 (07:47→18:34)
[2019-09-27] MEDS: DICLOFENAC SOD 1% GEL 100 GM TUBE EXT SCH ×4 (07:52→22:10)
[2019-09-27] MEDS: INSULIN ASPART 100 UNITS/ML 3 ML PEN SC SCH ×4 (08:40→20:47)
[2019-09-27 08:42] LABS: Hematocrit (blood only) 34.1 % (42-52); Hemoglobin 10.9 g/dL (14.0-18.0); Immature Granulocytes # (auto) 0.06 K/uL (0.00-0.02); Immature Granulocytes % (auto) 0.4 %; Lymphocytes # (auto) 0.89 K/uL (1.2-3.4); Lymphocytes % (auto) 5.5 %; Mean Corpuscular Hemoglobin 28.2 pg (25-34); Mean Corpuscular Volume 88.1 fL (80-100); Mean Platelet Volume 9.5 fL (7.4-10.4); Monocytes # (auto) 0.62 K/uL (0.11-0.59); Monocytes % (auto) 3.9 %; Neutrophils # (auto) 14.47 K/uL (1.4-6.5); Neutrophils % (auto) 90.2 %; Platelet Count 265 K/uL (130-400); RDW Coefficient of Variation 17.3 % (11.5-14.5); RDW Standard Deviation 56.2 fL (36.4-46.3); Red Blood Count 3.87 M/uL (4.7-6.1); White Blood Count 16.04 K/uL (4.8-10.8)
[2019-09-27] MEDS ORDERED: MULTIVITAMIN TAB PO SCH (09:00)
[2019-09-27 09:28] LABS: Albumin Globulin Ratio 0.3 (0.9-2); Albumin Level 1.8 gm/dl (3.4-5.0); Bilirubin,Total 0.3 mg/dl (0.2-1); Calcium 8.9 mg/dl (8.5-10.1); Creatinine Clr Calc Pharmacy 53.9 ml/min; Ferritin 533.3 ng/ml (8-388); Globulin 5.2 gm/dl (2.5-4.0); Potassium 3.6 mmol/L (3.5-5.1)
[2019-09-27 09:33] LABS: C Reactive Protein 8.63 mg/dl (0-0.29); Magnesium 2.2 mg/dl (1.8-2.4); Thyroid Stimulating Hormone 0.853 uIu/ml (0.300-4.500)
[2019-09-27] MEDS: VANCOMYCIN HCL 1,500 MG in SODIUM CHLORIDE 0.9% 500 ML IV SCH (10:05)
[2019-09-27 10:25] LABS: Folate (Folic Acid) 1.72 ng/ml (>5.38)
--- NOTE | 2019-09-27 12:07 | Orthopedic Progress Note ---
Date of Service September 27, 2019 Assessment & Plan (1) Diabetic foot ulcer: POD #1 s/p 1. Left foot excisional arthroplasty of the second metatarsophalangeal joint including the proximal phalanx of the second toe and the second metatarsal head. 2. Irrigation and debridement, diabetic neuropathic ulcer, plantar foot 2.5 cm x 2.0 cm x 2.0 cm. 3. Irrigation and debridement, dorsal diabetic neuropathic ulcer at the great toe measuring 2.5 cm x 1.5 cm x 7 mm. 4. Irrigation and debridement of skin, subcutaneous tissue, fascia and tendon both the dorsal ulcer and the plantar ulcer. 5. Evacuation dorsal forefoot abscess. 6. Tenosynovectomy of the second extensor tendon Dressing changed to the left foot this AM. ~4 inches of the packing removed from the dorsal foot and the plantar ulcer. Sutures remain intact. NWB LLE Follow intra-op cultures--gram negative bacilli. D/C planning--uncertain. Admission and Anticipated Discharge Date Admission Date: September 24, 2019 Subjective No hx, patient has dementia. POD #1 s/p debridement left foot ulceration, 2nd MTP excision arthroplasty. Nurse present with dressing change. Physical Exam Constitutional: + altered mental status and + frail appearing Musculoskeletal: Left foot: dorsal incision is well approximated. No erythema. No drainage. Packing in place. Plantar foot with packing from the plantar 2nd metatarsal head ulcer. No erythema. Moderate bloody drainage on the bandage during change. Results & Data ([facility]) Vital Signs (Past 12 Hours) Vital Signs Temp Pulse Pulse Resp BP BP BP 09/27/19 11:58 73 100/71 09/27/19 11:08 36.4 C L 68 18 113/76 09/27/19 08:28 36.4 C L 86 17 109/72 09/27/19 07:50 82 86/56 L 09/27/19 05:03 88 122/75 09/27/19 04:44 37.0 C 93 H 20 104/77 Pulse Ox 09/27/19 11:58 09/27/19 11:08 93 09/27/19 08:28 96 09/27/19 07:50 09/27/19 05:03 09/27/19 04:44 92
--- NOTE | 2019-09-27 15:01 | Hospitalist Progress Note ---
Date of Service September 27, 2019 Assessment & Plan (1) Parotitis: - CT face: 1. Motion compromised examination. 2. Findings are consistent with right-sided parotitis with surrounding cellulitis and infiltration of the right parapharyngeal fat. 3. No organized fluid collection is seen to suggest abscess. 4. Emphysema -Facial swelling is improving - Continue IV aztreonam, stop Vancomycin and Flagyl (2) Sepsis: - With tachycardia with HR in 120s, leukocytosis to 24, now improved, with source of parotitis, left foot ulcers with OM, as well as urinary tract infection - Follow BCx x 2-NGTD Foot wound cx with Morganella Urine culture with Proteus lactic acid was 1.9 on admission, PCT 0.64 mild elevation -Appears to be severely clinically dry with hypernatremia -tachycardia improved, continues on IV fluids since he cannot take PO fluids -continue Aztreonam for now, stop Vanco and Flagyl cannot use cephalosporins due to allergy (3) Acute kidney injury: -Creatinine 2.24, BUN to 65, up from baseline which appears to be creatinine of 1.3-1.4 -now resolved with IV fluids, Cr down to 1.2 Is making urine With severe dementia, not enough free water -follow BMP (4) Hypernatremia: -Has been n.p.o. due to altered mental status and inability to pass swallow evaluation with speech therapy attempted again to have him swallow, no success -Sodium 146 today with D5W, will continue since he cannot take in any PO free water (5) Atrial fibrillation with rapid ventricular response: -chronic afib, not on anticoagulation perhaps for h/o falls or dementia? Unclear Rates improved with hydration and scheduled IV Lopressor Weaned off diltiazem drip -Continue IV lopressor scheduled, as cannot take po meds keep lytes replete (6) Rash: -Diffusely upon admission, improving now on IV steroids Unknown when this developed, possible adverse reaction to Clinda versus doxycy ferrer as an outpatient, appears to be maculopapular and involves the back, wraps around the trunk, buttocks, hamstrings but spares the abdomen Nonpruritic. Probably due to one of the outpatient antibiotics - clinda started 7 x 7 days and doxy started 730 x 10d, nursing staff at [facility] were unable to tell me when this was first identified. -treating with IV steroid but will now discontinue as he has multiple sources of infection and steroids will worsen immune suppression (7) Stage III pressure ulcer of sacral region: -Wound consult, frequent turning repo q2h (8) Diabetic foot ulcer: - wound consulted Consult ORtho for OM with bone fracture on foot xray and also with great ulcer in the same foot Now status post extensive debridement on 09/25 by orthopedic surgery with: 1. Left foot excisional arthroplasty of the second metatarsophalangeal joint including the proximal phalanx of the second toe and the second metatarsal head. 2. Irrigation and debridement, diabetic neuropathic ulcer, plantar foot 2.5 cm x 2.0 cm x 2.0 cm. 3. Irrigation and debridement, dorsal diabetic neuropathic ulcer at the great toe measuring 2.5 cm x 1.5 cm x 7 mm. 4. Irrigation and debridement of skin, subcutaneous tissue, fascia and tendon both the dorsal ulcer and the plantar ulcer. 5. Evacuation dorsal forefoot abscess. 6. Tenosynovectomy of the second extensor tendon. Postoperative care as per orthopedic surgery -Continue antibiotics with Aztreonam -Follow CBC, CMP, ESR, CRP (9) Osteomyelitis: left foot with MRSA growing from wound follow BCxs Status post surgical debridement as above Continue antibiotics (10) GERD (gastroesophageal reflux disease): - holding po meds -added IV Pepcid (11) PVD (peripheral vascular disease): - hx of such holding home statin not on ASA (12) Hypertension: - BP stable, holding home po meds due to NPO status (13) Depression: - holding home po wellbutrin (14) DM II (diabetes mellitus, type II), controlled: - Last A1c in April 2019 was 6.7, is now down to 6.3% Having low blood sugars here while n.p.o. -Does not appear to be on any oral anti-hypoglycemics, Accu-Cheks Achs, Novolog Adding on D5W as above (15) CKD (chronic kidney disease), stage III: -PAULA as above now improving -Avoid nephrotoxins -renally dose meds when appropriate -follow BMP (16) Urinary tract infection: - UA appears to be grossly infected, urine culture with Proteus -Continue antibiotics as above (17) Secondary pulmonary hypertension: -History of such, secondary to diastolic congestive heart failure Holding home Lasix from home while he is severely dehydrated and n.p.o. (18) Acute metabolic encephalopathy: secondary to infections in setting of dementia Continues to be combative, agitated, babbling incoherently Son reports this is approximately his baseline although he has not seen him in 6 months but this is by report from the jail (19) Dementia: Severe and rapidly progressing over the last 7 or 8 months as per the patient's son prior attending discussed his care with his son on the phone 09/25 -he reports they want to continue with IV antibiotics and treatment of infection and was okay with surgery, however would not want to escalate beyond this most likely if condition continued to deteriorate, would want his dad to be kept comfortable. He is not interested in a palliative care consultation at this time but the idea of palliative care medicine was broached with the son who understands the concept Supportive care Add on IM Haldol as needed for severe agitation for safety given that he was kicking and punching nurses overnight (20) DVT prophylaxis: - teds, heparin subq CODE: DNR/DNI Dispo: continued stay, is from [facility] [place], is POA Critically ill, multiple comorbidities, if he cannot take PO then will contact son regarding official palliative consult Admission and Anticipated Discharge Date Admission Date: September 24, 2019 Subjective patient laying in bed, minimally responsive oral membranes incredibly dry speech therapy attempted to evaluate, he would not initiate any type of swallow they recommended NPO to continue, will try to evaluate one more time on 09/27 reviewed chart since admission reviewed labs, Na down to 146 with hypotonic fluids, Cr stable, CBC with stable cell counts appreciate palliative care consultation spoke with pharmacy about antibiotics Review of Systems Review of Systems: Unobtainable due to cognitive status Physical Exam Constitutional: well nourished, + ill appearing, + frail appearing and + disheveled; no acute distress Eyes: PERRL, conjunctivae normal, anicteric sclerae ENMT: Nose: + dry nasal mucous membranes; no external nose abnormality and no turbinate abnormality Mouth: + dry oral mucous membranes (very dry, dried mucous on tongue) Neck: trachea midline, no thyromegaly Respiratory: normal respiratory effort, lungs clear to auscultation Cardiovascular: RRR, no murmur, no edema Gastrointestinal (Abdomen): normal bowel sounds, soft, nontender, no hepatosplenomegaly Musculoskeletal: Head/Neck/Chest: normocephalic, head atraumatic and neck supple Extremities: + abnormal strength (generalized weakness) Skin: no rashes, warm and dry Neurologic: patellar DTR's 2+ bilat, sensation intact and PERRL, EOMI, accommodation nl, no face palsy, no dysarthria Psychiatric: Orientation: + not alert, + not oriented to person, + not oriented to place and + not oriented to time Lymphatic: no cervical or axillary lymphadenopathy Results & Data Results & Data ([facility]) Vital Signs (Past 12 Hours) Vital Signs Temp Pulse Pulse Resp BP BP BP 09/27/19 11:58 73 100/71 09/27/19 11:08 36.4 C L 68 18 113/76 09/27/19 08:28 36.4 C L 86 17 109/72 09/27/19 07:50 82 86/56 L 09/27/19 05:03 88 122/75 09/27/19 04:44 37.0 C 93 H 20 104/77 Pulse Ox 09/27/19 11:58 09/27/19 11:08 93 09/27/19 08:28 96 09/27/19 07:50 09/27/19 05:03 09/27/19 04:44 92 Laboratory Results Laboratory Results - last 24 hr 09/27/19 09/27/19 09/27/19 08:07 11:34 16:33 Creatinine Est Cr Clr Drug Dosing Est GFR ( Amer) Est GFR (Non-Af Amer) POC Glucose 108 H 79 Vitamin B12 714 Folate 1.72 L Random Vancomycin 09/27/19 09/28/19 09/28/19 20:44 05:50 05:50 Creatinine 1.12 Est Cr Clr Drug Dosing 58.7 Est GFR ( Amer) 72.0 Est GFR (Non-Af Amer) 62.1 POC Glucose 89 Vitamin B12 Folate Random Vancomycin 23.2 09/28/19 07:43 Creatinine Est Cr Clr Drug Dosing Est GFR ( Amer) Est GFR (Non-Af Amer) POC Glucose 75 Vitamin B12 Folate Random Vancomycin Medications Administered Current Inpatient Medications Acetaminophen (Acetaminophen 500 Mg Tab) 1,000 mg PO Q12 RAIMUNDO Stop: 10/24/19 20:59 Last Admin: 09/25/19 10:20 Dose: 1,000 mg Documented by: Ascorbic Acid (Ascorbic Acid 500 Mg Tab) 500 mg PO BID RAIMUNDO Stop: 10/24/19 20:59 Last Admin: 09/25/19 10:20 Dose: Not Given Documented by: Atorvastatin Calcium (Atorvastatin 10 Mg Tab) 10 mg PO HS RAIMUNDO Stop: 10/24/19 20:59 Last Admin: 09/24/19 21:32 Dose: Not Given Documented by: Bisacodyl (Bisacodyl 10 Mg Supp) 10 mg VT DAILY PRN PRN Reason: Constipation Stop: 10/26/19 09:40 Bupropion HCl (Bupropion Sr 150 Mg Tabcr) 150 mg PO BID RAIMUNDO Stop: 10/24/19 20:59 Last Admin: 09/25/19 10:19 Dose: Not Given Documented by: Dextrose (Dextrose 50% 50 Ml Syringe) 25 - 50 ml IV UD PRN; Protocol PRN Reason: Hypoglycemia Protocol Stop: 10/24/19 17:54 Diclofenac Sodium (Diclofenac Sod 1% Gel 100 Gm Tube) 2 gm EXT QID [facility] Stop: 10/24/19 17:54 Last Admin: 09/28/19 07:54 Dose: 2 gm Documented by: Famotidine (Famotidine 20 Mg Tab) 20 mg PO BID [facility] Stop: 10/24/19 20:59 Last Admin: 09/25/19 10:18 Dose: Not Given Documented by: Finasteride (Finasteride 5 Mg Tab) 5 mg PO QAM [facility] Stop: 10/25/19 08:59 Last Admin: 09/25/19 10:18 Dose: Not Given Documented by: Gabapentin (Gabapentin 100 Mg Cap) 200 mg PO BID [facility] Stop: 10/24/19 20:59 Last Admin: 09/25/19 10:18 Dose: Not Given Documented by: Glucagon (Glucagon For Inj 1 Mg Vial) 1 mg SQ UD PRN; Protocol PRN Reason: Hypoglycemia Protocol Stop: 10/24/19 17:54 Glucose (Glucose 10 Tabs/Tube) 4 - 8 tabs PO UD PRN; Protocol PRN Reason: Hypoglycemia Protocol Stop: 10/24/19 17:54 Glucose (Glucose 40% Gel 15 Gm Tube) 15 - 30 gm PO UD PRN; Protocol PRN Reason: Hypoglycemia Protocol Stop: 10/24/19 17:54 Haloperidol Lactate (Haloperidol Lactate 5 Mg/Ml 1 Ml Vial) 5 mg IM HS PRN PRN Reason: severe agitation Stop: 10/26/19 23:13 Heparin Sodium (Porcine) (Heparin Sod 5,000 Unit/0.5 Ml Vial) 5,000 units SQ Q8 RAIMUNDO Stop: 10/24/19 21:59 Last Admin: 09/28/19 05:16 Dose: 5,000 units Documented by: Hydromorphone HCl (Hydromorphone Inj 0.5 Mg/0.5 Ml Syr) 0.5 mg IV Q4H PRN PRN Reason: Pain or Pre PT Stop: 10/10/19 09:40 Aztreonam 1,000 mg/ Dextrose 110 mls @ 100 mls/hr IV Q8H [facility]; Protocol Stop: 10/02/19 07:59 Last Infusion: 09/28/19 09:00 Dose: Infused Documented by: Metronidazole (Flagyl) 500 mg in 100 mls @ 100 mls/hr IV Q8H [facility] Stop: 10/01/19 21:59 Last Infusion: 09/28/19 06:20 Dose: Infused Documented by: Lorazepam (Ativan) 0.5 mg in 1 mls @ 0.5 mls/min IV Q6 PRN PRN Reason: agitation or anxiety Stop: 10/25/19 18:05 Dextrose (D5w) 1,000 mls @ 75 mls/hr IV .[id number] [facility] Stop: 10/26/19 07:44 Last Admin: 09/28/19 05:17 Dose: 75 mls/hr Documented by: Famotidine 20 mg/ Syringe 5 mls @ 2.5 mls/min IV BID [facility] Stop: 10/26/19 08:59 Last Admin: 09/28/19 07:52 Dose: 2.5 mls/min Documented by: Vancomycin HCl 1,500 mg/ (Sodium Chloride) 530 mls @ 200 mls/hr IV Q24H [facility] Stop: 11/05/19 09:59 Last Infusion: 09/27/19 12:59 Dose: Infused Documented by: Insulin Aspart (Insulin Aspart 100 Units/Ml 3 Ml Pen) 0 units SC ACHS [facility] Stop: 10/24/19 20:59 Last Admin: 09/28/19 07:58 Dose: Not Given Documented by: Magnesium Hydroxide (Magnesium Hydroxide Susp 30 Ml Udc) 30 ml PO Q6H PRN PRN Reason: Constipation Stop: 10/26/19 09:40 Melatonin (Melatonin 3 Mg Tab) 6 mg PO HS RAIMUNDO Stop: 10/24/19 20:59 Last Admin: 09/24/19 21:32 Dose: Not Given Documented by: Metoprolol Tartrate (Metoprolol Tartrate 25 Mg Tab) 25 mg PO BID RAIMUNDO Stop: 10/24/19 20:59 Last Admin: 09/25/19 10:17 Dose: Not Given Documented by: Metoprolol Tartrate (Metoprolol Tartrate 1 Mg/Ml Vial) 5 mg IV Q4 RAIMUNDO Stop: 10/25/19 18:14 Last Admin: 09/28/19 07:56 Dose: 5 mg Documented by: Miscellaneous (Carbohydrates For Hypoglycemia ) 15 - 30 gm PO UD PRN PRN Reason: Hypoglycemia Protocol Stop: 10/24/19 17:54 Miscellaneous Information (Vancomycin Consult Active) 1 ea N/A UD PRN PRN Reason: Consult Stop: 10/24/19 17:54 Naloxone HCl (Naloxone Hcl 0.4 Mg/1 Ml Vial/Carp) 0.1 mg IV Q5M PRN PRN Reason: Oversedation/Resp Depression Stop: 10/26/19 09:40 Ondansetron HCl (Ondansetron Inj 2 Mg/Ml 2 Ml Vial) 4 mg IV Q6H PRN PRN Reason: Nausea And Vomiting Stop: 10/26/19 09:40 PG Care Time/CCT Total # of Minutes Spent Total Time Spent with Patient: Total time spent is greater than 50% in coordination of care (as documented) at patient's floor/unit and/or counseling patient: Coding Level of Care Code 56146 Subseq Hosp Care Lvl 3 Diagnoses Parotitis K11.20 Sepsis A41.9 Acute kidney injury N17.9 Hypernatremia E87.0 Atrial fibrillation with rapid ventricular response I48.91 Rash R21 Stage III pressure ulcer of sacral region L89.153 Diabetic foot ulcer E11.621; L97.509 Osteomyelitis M86.9 GERD (gastroesophageal reflux disease) K21.9 PVD (peripheral vascular disease) I73.9 Hypertension I10 Depression F32.9 DM II (diabetes mellitus, type II), controlled E11.9 CKD (chronic kidney disease), stage III N18.3 Urinary tract infection N39.0 Secondary pulmonary hypertension Acute metabolic encephalopathy G93.41 Dementia F03.90 DVT prophylaxis Z29.9
[2019-09-28] MEDS: METOPROLOL TARTRATE 1 MG/ML VIAL IV SCH ×5 (01:08→17:07)
[2019-09-28] MEDS: AZTREONAM 1,000 MG in DEXTROSE 5% 100 ML IV SCH ×3 (01:15→16:51)
[2019-09-28] MEDS: DEXTROSE 5% 1,000 ML IV SCH ×3 (01:18→18:36)
[2019-09-28] MEDS: metroNIDAZOLE 500 MG/100 ML BAG IV SCH (05:12)
[2019-09-28] MEDS: HEPARIN SOD 5,000 UNIT/0.5 ML VIAL SQ SCH ×3 (05:16→22:07)
[2019-09-28 06:47] LABS: Creatinine Clr Calc Pharmacy 58.7 ml/min; Est GFR (Non-African American) 62.1
[2019-09-28] MEDS: FAMOTIDINE 20 MG in SYRINGE 3 ML IV SCH ×2 (07:52→22:07)
[2019-09-28] MEDS: DICLOFENAC SOD 1% GEL 100 GM TUBE EXT SCH ×4 (07:54→22:08)
[2019-09-28] MEDS: INSULIN ASPART 100 UNITS/ML 3 ML PEN SC SCH ×4 (07:58→21:50)
--- NOTE | 2019-09-28 08:34 | Pharmacy Report ---
Pharmacy Abx Dose Short Note - Date of Service September 28, 2019 - Assessment & Plan Assessment 79 year old M receiving VANCOMYCIN+AZTREONAM+METRONIDAZOLE for treatment of Osteomyelitis L foot with MRSA and parotitis. Day # 6 of antimicrobial therapy. Plan Vancomycin * Random level drawn this morning = 23.2 mcg/mL this appears supra-therapeutic; however, it was ordered/drawn 4 hrs prior to the next scheduled dose. level ordered early in anticipation that dosing interval would need to be adjusted for improvement in Scr (2.24 -->1.76-->1.5-->1.22--1.12 mg/dl today). * Based on this level - true trough prior to the next dose is in therapeutic range of 15-20 mcg/ml. No changes needed to current dosing regimen. * Continue dose of 1,500 mg IV every 24 hours * Goal trough level for bone/joint : 15 to 20 mcg/mL * Repeat random level ordered for: 09/30/19 with AM labs Pharmacy will continue to follow and will adjust dose/frequency as necessary. Thank you.
[2019-09-28] MEDS ORDERED: VANCOMYCIN TROUGH ONE (09:30)
--- NOTE | 2019-09-28 13:58 | Orthopedic Progress Note ---
Date of Service September 28, 2019 Assessment & Plan (1) Diabetic foot ulcer: POD #2 s/p 1. Left foot excisional arthroplasty of the second metatarsophalangeal joint including the proximal phalanx of the second toe and the second metatarsal head. 2. Irrigation and debridement, diabetic neuropathic ulcer, plantar foot 2.5 cm x 2.0 cm x 2.0 cm. 3. Irrigation and debridement, dorsal diabetic neuropathic ulcer at the great toe measuring 2.5 cm x 1.5 cm x 7 mm. 4. Irrigation and debridement of skin, subcutaneous tissue, fascia and tendon both the dorsal ulcer and the plantar ulcer. 5. Evacuation dorsal forefoot abscess. 6. Tenosynovectomy of the second extensor tendon Daily dressing changes. Remove all packing by tomorrow from dorsal wound Sutures remain intact. NWB LLE Follow intra-op cultures--Farhat D/C planning--uncertain. Admission and Anticipated Discharge Date Admission Date: September 24, 2019 Subjective POD 2 Pt resting comfortably. H/O dementia. Does not answer questions. Physical Exam Physical Exam: Left foot dressing removed. All of the packing removed from the plantar wound. Packing remains in the dorsal wound. No purulent discharge. No foul odor. No erythema. Wounds redressed. Assisted by Enma from wound care team. Results & Data ([facility]) Vital Signs (Past 12 Hours) Vital Signs Temp Pulse Pulse Resp BP BP BP 09/28/19 12:16 86 113/73 09/28/19 11:21 36.6 C 86 16 113/73 09/28/19 07:56 83 120/78 09/28/19 07:16 36.6 C 84 16 107/66 09/28/19 05:43 82 18 103/65 09/28/19 05:42 82 103/65 Pulse Ox 09/28/19 12:16 09/28/19 11:21 100 09/28/19 07:56 09/28/19 07:16 100 09/28/19 05:43 100 09/28/19 05:42
--- NOTE | 2019-09-28 17:16 | Hospitalist Progress Note ---
Date of Service September 28, 2019 Assessment & Plan (1) Parotitis: - CT face: 1. Motion compromised examination. 2. Findings are consistent with right-sided parotitis with surrounding cellulitis and infiltration of the right parapharyngeal fat. 3. No organized fluid collection is seen to suggest abscess. 4. Emphysema -Facial swelling is improving - Continue IV aztreonam, stop Vancomycin and Flagyl (2) Sepsis: - With tachycardia with HR in 120s, leukocytosis to 24, now improved, with source of parotitis, left foot ulcers with OM, as well as urinary tract infection - Follow BCx x 2-NGTD Foot wound cx with Morganella Urine culture with Proteus lactic acid was 1.9 on admission, PCT 0.64 mild elevation -Appears to be severely clinically dry with hypernatremia -tachycardia improved, continues on IV fluids since he cannot take PO fluids -continue Aztreonam for now, stop Vanco and Flagyl cannot use cephalosporins due to allergy (3) Acute kidney injury: -Creatinine 2.24, BUN to 65, up from baseline which appears to be creatinine of 1.3-1.4 -now resolved with IV fluids, Cr down to 1.12 Is making urine With severe dementia, not enough free water -follow BMP if unable to swallow by tomorrow then we will need to further discuss palliative with patient's son (4) Hypernatremia: -Has been n.p.o. due to altered mental status and inability to pass s wallow evaluation with speech therapy attempted again to have him swallow, no success, this is 3rd try -Sodium 146 yesterday with D5W, will continue since he cannot take in any PO free water (5) Atrial fibrillation with rapid ventricular response: -chronic afib, not on anticoagulation perhaps for h/o falls or dementia? Unclear Rates improved with hydration and scheduled IV Lopressor Weaned off diltiazem drip -Continue IV lopressor scheduled, as cannot take po meds keep lytes replete (6) Rash: -Diffusely upon admission, improving now on IV steroids Unknown when this developed, possible adverse reaction to Clinda versus doxycycline as an outpatient, appears to be maculopapular and involves the back, wraps around the trunk, buttocks, hamstrings but spares the abdomen Nonpruritic. Probably due to one of the outpatient antibiotics - clinda started 08/18 x 7 days and doxy started 09/08 x 10d, nursing staff at [facility] were unable to tell me when this was first identified. -treating with IV steroid but will now discontinue as he has multiple sources of infection and steroids will worsen immune suppression (7) Stage III pressure ulcer of sacral region: -Wound consult, frequent turning repo q2h (8) Diabetic foot ulcer: - wound consulted Consult ORtho for OM with bone fracture on foot xray and also with great ulcer in the same foot Now status post extensive debridement on 09/25 by orthopedic surgery with: 1. Left foot excisional arthroplasty of the second metatarsophalangeal joint including the proximal phalanx of the second toe and the second metatarsal head. 2. Irrigation and debridement, diabetic neuropathic ulcer, plantar foot 2.5 cm x 2.0 cm x 2.0 cm. 3. Irrigation and debridement, dorsal diabetic neuropathic ulcer at the great toe measuring 2.5 cm x 1.5 cm x 7 mm. 4. Irrigation and debridement of skin, subcutaneous tissue, fascia and tendon both the dorsal ulcer and the plantar ulcer. 5. Evacuation dorsal forefoot abscess. 6. Tenosynovectomy of the second extensor tendon. Postoperative care as per orthopedic surgery -Continue antibiotics with Aztreonam -Follow CBC, CMP, ESR, CRP (9) Osteomyelitis: left foot with MRSA growing from wound follow BCxs Status post surgical debridement as above Continue antibiotics (10) GERD (gastroesophageal reflux disease): - holding po meds -added IV Pepcid (11) PVD (peripheral vascular disease): - hx of such holding home statin not on ASA (12) Hypertension: - BP stable, holding home po meds due to NPO status (13) Depression: - holding home po wellbutrin (14) DM II (diabetes mellitus, type II), controlled: - Last A1c in April 2019 was 6.7, is now down to 6.3% Having low blood sugars here while n.p.o. -Does not appear to be on any oral anti-hypoglycemics, Accu-Cheks Achs, Novolog Adding on D5W as above (15) CKD (chronic kidney disease), stage III: -PAULA as above now improving -Avoid nephrotoxins -renally dose meds when appropriate -follow BMP (16) Urinary tract infection: - UA appears to be grossly infected, urine culture with Proteus -Continue antibiotics as above (17) Secondary pulmonary hypertension: -History of such, secondary to diastolic congestive heart failure Holding home Lasix from home while he is severely dehydrated and n.p.o. (18) Acute metabolic encephalopathy: secondary to infections in setting of dementia Continues to be combative, agitated, babbling incoherently Son reports this is approximately his baseline although he has not seen him in 6 months but this is by report from the [facility] (19) Dementia: Severe and rapidly progressing over the last 7 or 8 months as per the patient's son discussed poor prognosis with patient's son , will decide on palliative tomorrow (20) DVT prophylaxis: - teds, heparin subq CODE: DNR/DNI Dispo: continued stay, [facility], is PO[facility] Critically ill, multiple comorbidities, if he cannot take PO then will contact son regarding official palliative consult Admission and Anticipated Discharge Date Admission Date: September 24, 2019 Subjective patient still agitated, swinging at nurses if they try to help him he cannot eat or drink, not safe in his condition not taking any oral medications HR and BP trending upward off of metoprolol called to discuss plan with patient's son explained that prognosis is poor will reach out to son to discuss formal palliative consult tomorrow Review of Systems Review of Systems: Unobtainable due to cognitive status Physical Exam Constitutional: well nourished, + ill appearing, + frail appearing and + disheveled; no acute distress Eyes: PERRL, conjunctivae normal, anicteric sclerae ENMT: Nose: + dry nasal mucous membranes; no external nose abnormality and no turbinate abnormality Mouth: + dry oral mucous membranes (very dry, dried mucous on tongue) Neck: trachea midline, no thyromegaly Respiratory: normal respiratory effort, lungs clear to auscultation Cardiovascular: RRR, no murmur, no edema Gastrointestinal (Abdomen): normal bowel sounds, soft, nontender, no hepatosplenomegaly Musculoskeletal: Head/Neck/Chest: normocephalic, head atraumatic and neck supple Extremities: + abnormal strength (generalized weakness) Skin: + rash (arms and back, maculopapular) Neurologic: patellar DTR's 2+ bilat, sensation intact and PERRL, EOMI, accommodation nl, no face palsy, no dysarthria Psychiatric: Orientation: + not alert, + not oriented to person, + not oriented to place and + not oriented to time Lymphatic: no cervical or axillary lymphadenopathy Results & Data Results & Data ([facility]) Vital Signs (Past 12 Hours) Vital Signs Temp Pulse Pulse Resp BP BP BP 09/28/19 17:07 77 123/78 09/28/19 17:04 77 123/78 09/28/19 15:14 36.7 C 81 18 124/80 09/28/19 12:16 86 113/73 09/28/19 11:21 36.6 C 86 16 113/73 09/28/19 07:56 83 120/78 09/28/19 07:16 36.6 C 84 16 107/66 09/28/19 05:43 82 18 103/65 09/28/19 05:42 82 103/65 Pulse Ox 09/28/19 17:07 09/28/19 17:04 09/28/19 15:14 97 09/28/19 12:16 09/28/19 11:21 100 09/28/19 07:56 09/28/19 07:16 100 09/28/19 05:43 100 09/28/19 05:42 Laboratory Results Laboratory Results - last 24 hr 09/27/19 09/28/19 09/28/19 20:44 05:50 05:50 Creatinine 1.12 Est Cr Clr Drug Dosing 58.7 Est GFR ( Amer) 72.0 Est GFR (Non-Af Amer) 62.1 POC Glucose 89 Random Vancomycin 23.2 09/28/19 09/28/19 09/28/19 07:43 11:49 16:29 Creatinine Est Cr Clr Drug Dosing Est GFR ( Amer) Est GFR (Non-Af Amer) POC Glucose 75 94 51 L* Random Vancomycin 09/28/19 09/28/19 16:31 16:54 Creatinine Est Cr Clr Drug Dosing Est GFR ( Amer) Est GFR (Non-Af Amer) POC Glucose 51 L* 112 H Random Vancomycin Medications Administered Current Inpatient Medications Acetaminophen (Acetaminophen 500 Mg Tab) 1,000 mg PO Q12 RAIMUNDO Stop: 10/24/19 20:59 Last Admin: 09/25/19 10:20 Dose: 1,000 mg Documented by: Ascorbic Acid (Ascorbic Acid 500 Mg Tab) 500 mg PO BID RAIMUNDO Stop: 10/24/19 20:59 Last Admin: 09/25/19 10:20 Dose: Not Given Documented by: Atorvastatin Calcium (Atorvastatin 10 Mg Tab) 10 mg PO HS [facility] Stop: 10/24/19 20:59 Last Admin: 09/24/19 21:32 Dose: Not Given Documented by: Bisacodyl (Bisacodyl 10 Mg Supp) 10 mg HI DAILY PRN PRN Reason: Constipation Stop: 10/26/19 09:40 Bupropion HCl (Bupropion Sr 150 Mg Tabcr) 150 mg PO BID RAIMUNDO Stop: 10/24/19 20:59 Last Admin: 09/25/19 10:19 Dose: Not Given Documented by: Dextrose (Dextrose 50% 50 Ml Syringe) 25 - 50 ml IV UD PRN; Protocol PRN Reason: Hypoglycemia Protocol Stop: 10/24/19 17:54 Last Admin: 09/28/19 16:36 Dose: 50 ml Documented by: Diclofenac Sodium (Diclofenac Sod 1% Gel 100 Gm Tube) 2 gm EXT QID [facility] Stop: 10/24/19 17:54 Last Admin: 09/28/19 17:08 Dose: 2 gm Documented by: Famotidine (Famotidine 20 Mg Tab) 20 mg PO BID [facility] Stop: 10/24/19 20:59 Last Admin: 09/25/19 10:18 Dose: Not Given Documented by: Finasteride (Finasteride 5 Mg Tab) 5 mg PO QAM [facility] Stop: 10/25/19 08:59 Last Admin: 09/25/19 10:18 Dose: Not Given Documented by: Gabapentin (Gabapentin 100 Mg Cap) 200 mg PO BID [facility] Stop: 10/24/19 20:59 Last Admin: 09/25/19 10:18 Dose: Not Given Documented by: Glucagon (Glucagon For Inj 1 Mg Vial) 1 mg SQ UD PRN; Protocol PRN Reason: Hypoglycemia Protocol Stop: 10/24/19 17:54 Glucose (Glucose 10 Tabs/Tube) 4 - 8 tabs PO UD PRN; Protocol PRN Reason: Hypoglycemia Protocol Stop: 10/24/19 17:54 Glucose (Glucose 40% Gel 15 Gm Tube) 15 - 30 gm PO UD PRN; Protocol PRN Reason: Hypoglycemia Protocol Stop: 10/24/19 17:54 Haloperidol Lactate (Haloperidol Lactate 5 Mg/Ml 1 Ml Vial) 5 mg IM HS PRN PRN Reason: severe agitation Stop: 10/26/19 23:13 Heparin Sodium (Porcine) (Heparin Sod 5,000 Unit/0.5 Ml Vial) 5,000 units SQ Q8 [facility] Stop: 10/24/19 21:59 Last Admin: 09/28/19 14:24 Dose: Not Given Documented by: Hydromorphone HCl (Hydromorphone Inj 0.5 Mg/0.5 Ml Syr) 0.5 mg IV Q4H PRN PRN Reason: Pain or Pre PT Stop: 10/10/19 09:40 Aztreonam 1,000 mg/ Dextrose 110 mls @ 100 mls/hr IV Q8H [facility]; Protocol Stop: 10/02/19 07:59 Last Admin: 09/28/19 16:51 Dose: 100 mls/hr Documented by: Lorazepam (Ativan) 0.5 mg in 1 mls @ 0.5 mls/min IV Q6 PRN PRN Reason: agitation or anxiety Stop: 10/25/19 18:05 Dextrose (D5w) 1,000 mls @ 75 mls/hr IV .[id number] [facility] Stop: 10/26/19 07:44 Last Admin: 09/28/19 05:17 Dose: 75 mls/hr Documented by: Famotidine 20 mg/ Syringe 5 mls @ 2.5 mls/min IV BID [facility] Stop: 10/26/19 08:59 Last Admin: 09/28/19 07:52 Dose: 2.5 mls/min Documented by: Insulin Aspart (Insulin Aspart 100 Units/Ml 3 Ml Pen) 0 units SC ACHS [facility] Stop: 10/24/19 20:59 Last Admin: 09/28/19 17:01 Dose: Not Given Documented by: Magnesium Hydroxide (Magnesium Hydroxide Susp 30 Ml Udc) 30 ml PO Q6H PRN PRN Reason: Constipation Stop: 10/26/19 09:40 Melatonin (Melatonin 3 Mg Tab) 6 mg PO HS [facility] Stop: 10/24/19 20:59 Last Admin: 09/24/19 21:32 Dose: Not Given Documented by: Metoprolol Tartrate (Metoprolol Tartrate 25 Mg Tab) 25 mg PO BID [facility] Stop: 10/24/19 20:59 Last Admin: 09/25/19 10:17 Dose: Not Given Documented by: Metoprolol Tartrate (Metoprolol Tartrate 1 Mg/Ml Vial) 5 mg IV Q4 RAIMUNDO Stop: 10/25/19 18:14 Last Admin: 09/28/19 17:07 Dose: 5 mg Documented by: Miscellaneous (Carbohydrates For Hypoglycemia ) 15 - 30 gm PO UD PRN PRN Reason: Hypoglycemia Protocol Stop: 10/24/19 17:54 Naloxone HCl (Naloxone Hcl 0.4 Mg/1 Ml Vial/Carp) 0.1 mg IV Q5M PRN PRN Reason: Oversedation/Resp Depression Stop: 10/26/19 09:40 Ondansetron HCl (Ondansetron Inj 2 Mg/Ml 2 Ml Vial) 4 mg IV Q6H PRN PRN Reason: Nausea And Vomiting Stop: 10/26/19 09:40 PG Care Time/CCT Total # of Minutes Spent Total Time Spent with Patient: Total time spent is greater than 50% in coordination of care (as documented) at patient's floor/unit and/or counseling patient: Coding Level of Care Code 75807 Subseq Hosp Care Lvl 2 Diagnoses Parotitis K11.20 Sepsis A41.9 Acute kidney injury N17.9 Hypernatremia E87.0 Atrial fibrillation with rapid ventricular response I48.91 Rash R21 Stage III pressure ulcer of sacral region L89.153 Diabetic foot ulcer E11.621; L97.509 Osteomyelitis M86.9 GERD (gastroesophageal reflux disease) K21.9 PVD (peripheral vascular disease) I73.9 Hypertension I10 Depression F32.9 DM II (diabetes mellitus, type II), controlled E11.9 CKD (chronic kidney disease), stage III N18.3 Urinary tract infection N39.0 Secondary pulmonary hypertension Acute metabolic encephalopathy G93.41 Dementia F03.90 DVT prophylaxis Z29.9
[2019-09-28] MEDS ORDERED: Nursing to Pharmacy Communication SCH (23:15)
[2019-09-29] MEDS: AZTREONAM 1,000 MG in DEXTROSE 5% 100 ML IV SCH ×4 (00:17→23:54)
[2019-09-29] MEDS: METOPROLOL TARTRATE 1 MG/ML VIAL IV SCH (00:27)
[2019-09-29] MEDS: INSULIN ASPART 100 UNITS/ML 3 ML PEN SC SCH ×4 (00:27→18:40)
[2019-09-29] MEDS: HEPARIN SOD 5,000 UNIT/0.5 ML VIAL SQ SCH ×3 (06:15→22:19)
[2019-09-29 07:34] LABS: Creatinine Clr Calc Pharmacy 63.2 ml/min; Est GFR (African American) 78.8
[2019-09-29] MEDS: DEXTROSE 5% 1,000 ML IV SCH ×2 (08:16→22:12)
[2019-09-29] MEDS: DICLOFENAC SOD 1% GEL 100 GM TUBE EXT SCH ×4 (08:17→22:15)
[2019-09-29] MEDS: FAMOTIDINE 20 MG in SYRINGE 3 ML IV SCH ×2 (10:17→22:12)
[2019-09-29] MEDS ORDERED: VANCOMYCIN CONSULT ACTIVE PRN (11:32)
[2019-09-29] MEDS ORDERED: VANCOMYCIN HCL 1,250 MG in SODIUM CHLORIDE 0.9% 250 ML IV ONE (13:00)
--- NOTE | 2019-09-29 14:06 | Pharmacy Report ---
Pharmacy Abx Dose Short Note - Date of Service September 29, 2019 - Assessment & Plan Assessment 79 year old M receiving vancomycin and Azactam for treatment of parotitis and L foot wound Day # 6 of antimicrobial therapy. Plan Vancomycin * Random level of 15.3 mcg/mL is therapeutic --> patient specific pharmacokinetics report a Ke of 0.014 hr-1 and half-life of 49.5 hours * Give vancomycin 1250 mg (~15 mg/kg) IV x 1 * Goal trough level for MRSA : 15 to 20 mcg/mL * Random level ordered for: 10/01/19 (about 48 hours after dose) Pharmacy will continue to follow and will adjust dose/frequency as necessary. Thank you.
--- NOTE | 2019-09-29 16:48 | Orthopedic Progress Note ---
Date of Service September 29, 2019 Assessment & Plan (1) Diabetic foot ulcer: POD #3 s/p 1. Left foot excisional arthroplasty of the second metatarsophalangeal joint including the proximal phalanx of the second toe and the second metatarsal head. 2. Irrigation and debridement, diabetic neuropathic ulcer, plantar foot 2.5 cm x 2.0 cm x 2.0 cm. 3. Irrigation and debridement, dorsal diabetic neuropathic ulcer at the great toe measuring 2.5 cm x 1.5 cm x 7 mm. 4. Irrigation and debridement of skin, subcutaneous tissue, fascia and tendon both the dorsal ulcer and the plantar ulcer. 5. Evacuation dorsal forefoot abscess. 6. Tenosynovectomy of the second extensor tendon Daily dressing changes. Sutures remain intact. NWB LLE Follow intra-op cultures--Currently on Aztreonam D/C planning--as per Med service Ortho will sign off at this time. Please call with any questions. Admission and Anticipated Discharge Date Admission Date: September 24, 2019 Subjective POD 3 Pt resting comfortably. No changes in mental status. Does not answer questions or open eyes to questions. Physical Exam Physical Exam: Dressing changed. All of packing removed. Minimal drainage noted on dorsal side of dressing. No purulence. Plantar wound benign. Redressed. Results & Data ([facility]) Vital Signs (Past 12 Hours) Vital Signs Temp Pulse Resp BP BP Pulse Ox 09/29/19 16:19 36.3 C L 93 H 17 133/90 94 09/29/19 08:59 36.2 C L 111 H 19 133/90 93
--- NOTE | 2019-09-29 17:01 | Hospitalist Progress Note ---
Date of Service September 29, 2019 Assessment & Plan (1) Parotitis: - CT face: 1. Motion compromised examination. 2. Findings are consistent with right-sided parotitis with surrounding cellulitis and infiltration of the right parapharyngeal fat. 3. No organized fluid collection is seen to suggest abscess. 4. Emphysema -Facial swelling is improving - Continue IV aztreonam, vanco and flagyl on for foot wound (2) Sepsis: - With tachycardia with HR in 120s, leukocytosis to 24, now improved, with source of parotitis, left foot ulcers with OM, as well as urinary tract infection - Follow BCx x 2-NGTD Foot wound cx with Morganella Urine culture with Proteus lactic acid was 1.9 on admission, PCT 0.64 mild elevation -Appears to be severely clinically dry with hypernatremia -tachycardia improved, continues on IV fluids since he cannot take PO fluids -continue Aztreonam with Vanco and Flagyl cannot use cephalosporins due to allergy (3) Acute kidney injury: -Creatinine 2.24, BUN to 65, up from baseline which appears to be creatinine of 1.3-1.4 -now resolved with IV fluids, Cr down to 1.0 Is making urine With severe dementia, not enough free water -follow BMP if unable to swallow after a few days will need to move to comfort care (4) Hypernatremia: -Has been n.p.o. due to altered mental status and inability to pass swallow evaluation with speech therapy attempted again to have him swallow, no success, this is 3rd try (5) Atrial fibrillation with rapid ventricular response: -chronic afib, not on anticoagulation perhaps for h/o falls or dementia? Unclear Rates improved with hydration and scheduled IV Lopressor Weaned off diltiazem drip keep lytes replete (6) Rash: -Diffusely upon admission, improving now on IV steroids Unknown when this developed, possible adverse reaction to Clinda versus doxycycline as an outpatient, appears to be maculopapular and involves the back, wraps around the trunk, buttocks, hamstrings but spares the abdomen Nonpruritic. Probably due to one of the outpatient antibiotics - clinda started 79 x 7 days and doxy started 7/30 x 10d, nursing staff at [facility] were unable to tell me when this was first identified. -treating with IV steroid but will now discontinue as he has multiple sources of infection and steroids will worsen immune suppression (7) Stage III pressure ulcer of sacral region: -Wound consult, frequent turning repo q2h (8) Diabetic foot ulcer: - wound consulted Consult ORtho for OM with bone fracture on foot xray and also with great ulcer in the same foot Now status post extensive debridement on 09/25 by orthopedic surgery with: 1. Left foot excisional arthroplasty of the second metatarsophalangeal joint including the proximal phalanx of the second toe and the second metatarsal head. 2. Irrigation and debridement, diabetic neuropathic ulcer, plantar foot 2.5 cm x 2.0 cm x 2.0 cm. 3. Irrigation and debridement, dorsal diabetic neuropathic ulcer at the great toe measuring 2.5 cm x 1.5 cm x 7 mm. 4. Irrigation and debridement of skin, subcutaneous tissue, fascia and tendon both the dorsal ulcer and the plantar ulcer. 5. Evacuation dorsal forefoot abscess. 6. Tenosynovectomy of the second extensor tendon. Postoperative care as per orthopedic surgery -Continue antibiotics with Aztreonam -Follow CBC, CMP, ESR, CRP (9) Osteomyelitis: left foot with MRSA growing from wound follow BCxs Status post surgical debridement as above Continue antibiotics (10) GERD (gastroesophageal reflux disease): - holding po meds -added IV Pepcid (11) PVD (peripheral vascular disease): - hx of such holding home statin not on ASA (12) Hypertension: - BP stable, holding home po meds due to NPO status (13) Depression: - holding home po wellbutrin (14) DM II (diabetes mellitus, type II), controlled: - Last A1c in April 2019 was 6.7, is now down to 6.3% Having low blood sugars here while n.p.o. -Does not appear to be on any oral anti-hypoglycemics, Accu-Cheks Achs, Novolog Adding on D5W as above (15) CKD (chronic kidney disease), stage III: -PAULA as above now improving -Avoid nephrotoxins -renally dose meds when appropriate -follow BMP (16) Urinary tract infection: - UA appears to be grossly infected, urine culture with Proteus -Continue antibiotics as above (17) Secondary pulmonary hypertension: -History of such, secondary to diastolic congestive heart failure Holding home Lasix from home while he is severely dehydrated and n.p.o. (18) Acute metabolic encephalopathy: secondary to infections in setting of dementia Continues to be combative, agitated, babbling incoherently Son reports this is approximately his baseline although he has not seen him in 6 months but this is by report from the correction (19) Dementia: Severe and rapidly progressing over the last 7 or 8 months as per the patient's son discussed poor prognosis with patient's son , will decide on palliative tomorrow (20) DVT prophylaxis: - teds, heparin subq CODE: DNR/DNI Dispo: continued stay, is from [facility], is POA Critically ill, multiple comorbidities, if he cannot take PO then will contact son regarding official palliative consult Admission and Anticipated Discharge Date Admission Date: September 24, 2019 Subjective no improvement in mental status today he is alert but completely non-verbal, will not eat or drink, unsafe to take me dications no fever, final wound culture with MRSA, added back Vancomycin, discussed with pharmacy Review of Systems Review of Systems: Unobtainable due to cognitive status Physical Exam Constitutional: well nourished, + ill appearing, + frail appearing and + disheveled; no acute distress Eyes: PERRL, conjunctivae normal, anicteric sclerae ENMT: Nose: + dry nasal mucous membranes; no external nose abnormality and no turbinate abnormality Mouth: + dry oral mucous membranes (very dry, dried mucous on tongue) Neck: trachea midline, no thyromegaly Respiratory: normal respiratory effort, lungs clear to auscultation Cardiovascular: RRR, no murmur, no edema Gastrointestinal (Abdomen): normal bowel sounds, soft, nontender, no hepatosplenomegaly Musculoskeletal: Head/Neck/Chest: normocephalic, head atraumatic and neck supple Extremities: + abnormal strength (generalized weakness) Skin: no rashes, warm and dry + rash (arms and back, maculopapular) Neurologic: patellar DTR's 2+ bilat, sensation intact and PERRL, EOMI, accommodation nl, no face palsy, no dysarthria Psychiatric: Orientation: + not alert, + not oriented to person, + not oriented to place and + not oriented to time Lymphatic: no cervical or axillary lymphadenopathy Results & Data Results & Data ([facility]) Vital Signs (Past 12 Hours) Vital Signs Temp Pulse Resp BP BP Pulse Ox 09/29/19 16:19 36.3 C L 93 H 17 133/90 94 09/29/19 08:59 36.2 C L 111 H 19 133/90 93 Laboratory Results Laboratory Results - last 24 hr 09/28/19 09/29/19 09/29/19 21:35 00:03 06:09 Creatinine Est Cr Clr Drug Dosing Est GFR ( Amer) Est GFR (Non-Af Amer) POC Glucose 84 112 H 98 Random Vancomycin 09/29/19 09/29/19 09/29/19 06:37 11:41 12:29 Creatinine 1.04 Est Cr Clr Drug Dosing 63.2 Est GFR ( Amer) 78.8 Est GFR (Non-Af Amer) 68.0 POC Glucose 96 Random Vancomycin 15.3 Medications Administered Current Inpatient Medications Acetaminophen (Acetaminophen 500 Mg Tab) 1,000 mg PO Q12 RAIMUNDO Stop: 10/24/19 20:59 Last Admin: 09/25/19 10:20 Dose: 1,000 mg Documented by: Ascorbic Acid (Ascorbic Acid 500 Mg Tab) 500 mg PO BID RAIMUNDO Stop: 10/24/19 20:59 Last Admin: 09/25/19 10:20 Dose: Not Given Documented by: Atorvastatin Calcium (Atorvastatin 10 Mg Tab) 10 mg PO HS RAIMUNDO Stop: 10/24/19 20:59 Last Admin: 09/24/19 21:32 Dose: Not Given Documented by: Bisacodyl (Bisacodyl 10 Mg Supp) [address] DAILY PRN PRN Reason: Constipation Stop: 10/26/19 09:40 Bupropion HCl (Bupropion Sr 150 Mg Tabcr) 150 mg PO BID RAIMUNDO Stop: 10/24/19 20:59 Last Admin: 09/25/19 10:19 Dose: Not Given Documented by: Dextrose (Dextrose 50% 50 Ml Syringe) 25 - 50 ml IV UD PRN; Protocol PRN Reason: Hypoglycemia Protocol Stop: 10/24/19 17:54 Last Admin: 09/28/19 16:36 Dose: 50 ml Documented by: Diclofenac Sodium (Diclofenac Sod 1% Gel 100 Gm Tube) 2 gm EXT QID RAIMUNDO Stop: 10/24/19 17:54 Last Admin: 09/29/19 14:00 Dose: 2 gm Documented by: Famotidine (Famotidine 20 Mg Tab) 20 mg PO BID RAIMUNDO Stop: 10/24/19 20:59 Last Admin: 09/25/19 10:18 Dose: Not Given Documented by: Finasteride (Finasteride 5 Mg Tab) 5 mg PO QAM [facility] Stop: 10/25/19 08:59 Last Admin: 09/25/19 10:18 Dose: Not Given Documented by: Gabapentin (Gabapentin 100 Mg Cap) 200 mg PO BID [facility] Stop: 10/24/19 20:59 Last Admin: 09/25/19 10:18 Dose: Not Given Documented by: Glucagon (Glucagon For Inj 1 Mg Vial) 1 mg SQ UD PRN; Protocol PRN Reason: Hypoglycemia Protocol Stop: 10/24/19 17:54 Glucose (Glucose 10 Tabs/Tube) 4 - 8 tabs PO UD PRN; Protocol PRN Reason: Hypoglycemia Protocol Stop: 10/24/19 17:54 Glucose (Glucose 40% Gel 15 Gm Tube) 15 - 30 gm PO UD PRN; Protocol PRN Reason: Hypoglycemia Protocol Stop: 10/24/19 17:54 Haloperidol Lactate (Haloperidol Lactate 5 Mg/Ml 1 Ml Vial) 5 mg IM HS PRN PRN Reason: severe agitation Stop: 10/26/19 23:13 Heparin Sodium (Porcine) (Heparin Sod 5,000 Unit/0.5 Ml Vial) 5,000 units SQ Q8 RAIMUNDO Stop: 10/24/19 21:59 Last Admin: 09/29/19 14:00 Dose: 5,000 units Documented by: Hydromorphone HCl (Hydromorphone Inj 0.5 Mg/0.5 Ml Syr) 0.5 mg IV Q4H PRN PRN Reason: Pain or Pre PT Stop: 10/10/19 09:40 Aztreonam 1,000 mg/ Dextrose 110 mls @ 100 mls/hr IV Q8H RAIMUNDO; Protocol Stop: 10/02/19 07:59 Last Infusion: 09/29/19 11:48 Dose: Infused Documented by: Lorazepam (Ativan) 0.5 mg in 1 mls @ 0.5 mls/min IV Q6 PRN PRN Reason: agitation or anxiety Stop: 10/25/19 18:05 Dextrose (D5w) 1,000 mls @ 75 mls/hr IV .[id number] [facility] Stop: 10/26/19 07:44 Last Admin: 09/29/19 08:16 Dose: 75 mls/hr Documented by: Famotidine 20 mg/ Syringe 5 mls @ 2.5 mls/min IV BID [facility] Stop: 10/26/19 08:59 Last Admin: 09/29/19 10:17 Dose: 2.5 mls/min Documented by: Insulin Aspart (Insulin Aspart 100 Units/Ml 3 Ml Pen) 0 units SC Q6 [facility] Stop: 10/29/19 00:00 Last Admin: 09/29/19 13:26 Dose: Not Given Documented by: Magnesium Hydroxide (Magnesium Hydroxide Susp 30 Ml Udc) 30 ml PO Q6H PRN PRN Reason: Constipation Stop: 10/26/19 09:40 Melatonin (Melatonin 3 Mg Tab) 6 mg PO HS [facility] Stop: 10/24/19 20:59 Last Admin: 09/24/19 21:32 Dose: Not Given Documented by: Metoprolol Tartrate (Metoprolol Tartrate 25 Mg Tab) 25 mg PO BID [facility] Stop: 10/24/19 20:59 Last Admin: 09/25/19 10:17 Dose: Not Given Documented by: Metoprolol Tartrate (Metoprolol Tartrate 1 Mg/Ml Vial) 5 mg IV Q4 [facility] Stop: 10/25/19 18:14 Last Admin: 09/29/19 00:27 Dose: Not Given Documented by: Miscellaneous (Carbohydrates For Hypoglycemia ) 15 - 30 gm PO UD PRN PRN Reason: Hypoglycemia Protocol Stop: 10/24/19 17:54 Miscellaneous Information (Vancomycin Consult Active) 1 ea N/A UD PRN PRN Reason: Consult Stop: 10/29/19 11:31 Naloxone HCl (Naloxone Hcl 0.4 Mg/1 Ml Vial/Carp) 0.1 mg IV Q5M PRN PRN Reason: Oversedation/Resp Depression Stop: 10/26/19 09:40 Ondansetron HCl (Ondansetron Inj 2 Mg/Ml 2 Ml Vial) 4 mg IV Q6H PRN PRN Reason: Nausea And Vomiting Stop: 10/26/19 09:40 PG Care Time/CCT Total # of Minutes Spent Total Time Spent with Patient: Total time spent is greater than 50% in coordination of care (as documented) at patient's floor/unit and/or counseling patient: Coding Level of Care Code 74682 Subseq Hosp Care Lvl 2 Diagnoses Parotitis K11.20 Sepsis A41.9 Acute kidney injury N17.9 Hypernatremia E87.0 Atrial fibrillation with rapid ventricular response I48.91 Rash R21 Stage III pressure ulcer of sacral region L89.153 Diabetic foot ulcer E11.621; L97.509 Osteomyelitis M86.9 GERD (gastroesophageal reflux disease) K21.9 PVD (peripheral vascular disease) I73.9 Hypertension I10 Depression F32.9 DM II (diabetes mellitus, type II), controlled E11.9 CKD (chronic kidney disease), stage III N18.3 Urinary tract infection N39.0 Secondary pulmonary hypertension Acute metabolic encephalopathy G93.41 Dementia F03.90 DVT prophylaxis Z29.9
[2019-09-30] MEDS: INSULIN ASPART 100 UNITS/ML 3 ML PEN SC SCH ×4 (00:35→19:02)
[2019-09-30] MEDS: HEPARIN SOD 5,000 UNIT/0.5 ML VIAL SQ SCH ×3 (06:23→20:36)
[2019-09-30 08:09] LABS: Creatinine Clr Calc Pharmacy 67.8 ml/min; Est GFR (African American) 85.7; Est GFR (Non-African American) 73.9
[2019-09-30] MEDS: AZTREONAM 1,000 MG in DEXTROSE 5% 100 ML IV SCH ×3 (08:43→23:31)
[2019-09-30] MEDS: FAMOTIDINE 20 MG in SYRINGE 3 ML IV SCH ×2 (08:43→20:36)
[2019-09-30] MEDS: DICLOFENAC SOD 1% GEL 100 GM TUBE EXT SCH ×4 (08:44→20:36)
[2019-09-30] MEDS: metroNIDAZOLE 500 MG/100 ML BAG IV SCH ×2 (11:16→17:23)
[2019-09-30] MEDS: DEXTROSE 5% 1,000 ML IV SCH ×2 (11:23→23:30)
--- NOTE | 2019-09-30 23:55 | Hospitalist Progress Note ---
Date of Service September 30, 2019 Assessment & Plan (1) Parotitis: - CT face: 1. Motion compromised examination. 2. Findings are consistent with right-sided parotitis with surrounding cellulitis and infiltration of the right parapharyngeal fat. 3. No organized fluid collection is seen to suggest abscess. 4. Emphysema -Facial swelling is improving - Continue IV aztreonam, vanco and flagyl on for foot wound (2) Sepsis: - With tachycardia with HR in 120s, leukocytosis to 24, now improved, with source of parotitis, left foot ulcers with OM, as well as urinary tract infection - Follow BCx x 2-NGTD Foot wound cx with Morganella Urine culture with Proteus lactic acid was 1.9 on admission, PCT 0.64 mild elevation -Appears to be severely clinically dry with hypernatremia -tachycardia improved, continues on IV fluids since he cannot take PO fluids -continue Aztreonam with Vanco and Flagyl cannot use cephalosporins due to allergy (3) Acute kidney injury: -Creatinine 2.24, BUN to 65 on admission up from baseline which appears to be creatinine of 1.3-1.4 -now resolved with IV fluids, Cr down to < 1 Is making urine With severe dementia, not enough free water -follow BMP still not able to take PO, refuses anything by mouth, takes swings at the staff will talk with family about potential move to comfort (4) Hypernatremia: -Has been n.p.o. due to altered mental status and inability to pass swallow evaluation with speech therapy attempted again to have him swallow, no success, speech therapy tried three times (5) Atrial fibrillation with rapid ventricular response: -chronic afib, not on anticoagulation perhaps for h/o falls or dementia? Unclear Rates improved with hydration and scheduled IV Lopressor Weaned off diltiazem drip keep lytes replete (6) Rash: -Diffusely upon admission, improving now on IV steroids Unknown when this developed, possible adverse reaction to Clinda versus doxycycline as an outpatient, appears to be maculopapular and involves the back, wraps around the trunk, buttocks, hamstrings but spares the abdomen Nonpruritic. Probably due to one of the outpatient antibiotics - clinda started 08/18 x 7 days and doxy started 730 x 10d, nursing staff at [facility] were unable to tell me when this was first identified. -treating with IV steroid but will now discontinue as he has multiple sources of infection and steroids will worsen immune suppression (7) Stage III pressure ulcer of sacral region: -Wound consult, frequent turning repo q2h (8) Diabetic foot ulcer: - wound consulted Consult ORtho for OM with bone fracture on foot xray and also with great ulcer in the same foot Now status post extensive debridement on 09/25 by orthopedic surgery with: 1. Left foot excisional arthroplasty of the second metatarsophalangeal joint including the proximal phalanx of the second toe and the second metatarsal head. 2. Irrigation and debridement, diabetic neuropathic ulcer, plantar foot 2.5 cm x 2.0 cm x 2.0 cm. 3. Irrigation and debridement, dorsal diabetic neuropathic ulcer at the great toe measuring 2.5 cm x 1.5 cm x 7 mm. 4. Irrigation and debridement of skin, subcutaneous tissue, fascia and tendon both the dorsal ulcer and the plantar ulcer. 5. Evacuation dorsal forefoot abscess. 6. Tenosynovectomy of the second extensor tendon. Postoperative care as per orthopedic surgery -Continue antibiotics with Aztreonam -Follow CBC, CMP, ESR, CRP (9) Osteomyelitis: left foot with MRSA growing from wound follow BCxs Status post surgical debridement as above Continue antibiotics (10) GERD (gastroesophageal reflux disease): - holding po meds -added IV Pepcid (11) PVD (peripheral vascular disease): - hx of such holding home statin not on ASA (12) Hypertension: - BP stable, holding home po meds due to NPO status (13) Depression: - holding home po wellbutrin (14) DM II (diabetes mellitus, type II), controlled: - Last A1c in April 2019 was 6.7, is now down to 6.3% Having low blood sugars here while n.p.o. -Does not appear to be on any oral anti-hypoglycemics, Accu-Cheks Achs, Novolog Adding on D5W as above (15) CKD (chronic kidney disease), stage III: -PAULA as above now improving -Avoid nephrotoxins -renally dose meds when appropriate -follow BMP (16) Urinary tract infection: - UA appears to be grossly infected, urine culture with Proteus -Continue antibiotics as above (17) Secondary pulmonary hypertension: -History of such, secondary to diastolic congestive heart failure Holding home Lasix from home while he is severely dehydrated and n.p.o. (18) Acute metabolic encephalopathy: secondary to infections in setting of dementia Continues to be combative, agitated, babbling incoherently Son reports this is approximately his baseline although he has not seen him in 6 months but this is by report from the long-term (19) Dementia: Severe and rapidly progressing over the last 7 or 8 months as per the patient's son discussed poor prognosis with patient's son , will decide on palliative tomorrow (20) DVT prophylaxis: - teds, heparin subq CODE: DNR/DNI Dispo: continued stay, is [facility], is POA Critically ill, multiple comorbidities, if he cannot take PO then will contact son regarding official palliative consult Admission and Anticipated Discharge Date Admission Date: September 24, 2019 Subjective checked on patient several times today, obtunded each time RN could not get him to take medications, too confused to try to drink or eat attempted to call family, could not connect with them will make more attempts to discuss goals of care tomorrow Review of Systems Review of Systems: Unobtainable due to cognitive status Physical Exam Constitutional: well nourished, + ill appearing, + frail appearing and + disheveled; no acute distress Eyes: PERRL, conjunctivae normal, anicteric sclerae ENMT: Nose: + dry nasal mucous membranes; no external nose abnormality and no turbinate abnormality Mouth: + dry oral mucous membranes (very dry, dried mucous on tongue) Neck: trachea midline, no thyromegaly Respiratory: normal respiratory effort, lungs clear to auscultation Cardiovascular: RRR, no murmur, no edema Gastrointestinal (Abdomen): normal bowel sounds, soft, nontender, no hepatosplenomegaly Musculoskeletal: Head/Neck/Chest: normocephalic, head atraumatic and neck supple Extremities: + abnormal strength (generalized weakness) Skin: no rashes, warm and dry + rash (arms and back, maculopapular) Neurologic: patellar DTR's 2+ bilat, sensation intact and PERRL, EOMI, accommodation nl, no face palsy, no dysarthria Psychiatric: Orientation: + not alert, + not oriented to person, + not oriented to place and + not oriented to time Lymphatic: no cervical or axillary lymphadenopathy Results & Data Results & Data ([facility]) Vital Signs (Past 12 Hours) Vital Signs Temp Pulse Resp BP Pulse Ox 09/30/19 23:15 36.7 C 85 18 113/76 93 09/30/19 15:29 36.4 C L 90 20 144/88 H 94 Laboratory Results Laboratory Results - last 24 hr 09/29/19 09/30/19 09/30/19 23:58 06:08 07:27 Creatinine 0.97 Est Cr Clr Drug Dosing 67.8 Est GFR ( Amer) 85.7 Est GFR (Non-Af Amer) 73.9 POC Glucose 116 H 91 09/30/19 09/30/19 12:06 18:42 Creatinine Est Cr Clr Drug Dosing Est GFR ( Amer) Est GFR (Non-Af Amer) POC Glucose 91 111 H Medications Administered Current Inpatient Medications Acetaminophen (Acetaminophen 500 Mg Tab) 1,000 mg PO Q12 RAIMUNDO Stop: 10/24/19 20:59 Last Admin: 09/25/19 10:20 Dose: 1,000 mg Documented by: Ascorbic Acid (Ascorbic Acid 500 Mg Tab) 500 mg PO BID RAIMUNDO Stop: 10/24/19 20:59 Last Admin: 09/25/19 10:20 Dose: Not Given Documented by: Atorvastatin Calcium (Atorvastatin 10 Mg Tab) 10 mg PO HS RAIMUNDO Stop: 10/24/19 20:59 Last Admin: 09/24/19 21:32 Dose: Not Given Documented by: Bisacodyl (Bisacodyl 10 Mg Supp) 10 mg RI DAILY PRN PRN Reason: Constipation Stop: 10/26/19 09:40 Bupropion HCl (Bupropion Sr 150 Mg Tabcr) 150 mg PO BID RAIMUNDO Stop: 10/24/19 20:59 Last Admin: 09/25/19 10:19 Dose: Not Given Documented by: Dextrose (Dextrose 50% 50 Ml Syringe) 25 - 50 ml IV UD PRN; Protocol PRN Reason: Hypoglycemia Protocol Stop: 10/24/19 17:54 Last Admin: 09/28/19 16:36 Dose: 50 ml Documented by: Diclofenac Sodium (Diclofenac Sod 1% Gel 100 Gm Tube) 2 gm EXT QID RAIMUNDO Stop: 10/24/19 17:54 Last Admin: 09/30/19 20:36 Dose: 2 gm Documented by: Famotidine (Famotidine 20 Mg Tab) 20 mg PO BID RAIMUNDO Stop: 10/24/19 20:59 Last Admin: 09/25/19 10:18 Dose: Not Given Documented by: Finasteride (Finasteride 5 Mg Tab) 5 mg PO QAM [facility] Stop: 10/25/19 08:59 Last Admin: 09/25/19 10:18 Dose: Not Given Documented by: Gabapentin (Gabapentin 100 Mg Cap) 200 mg PO BID [facility] Stop: 10/24/19 20:59 Last Admin: 09/25/19 10:18 Dose: Not Given Documented by: Glucagon (Glucagon For Inj 1 Mg Vial) 1 mg SQ UD PRN; Protocol PRN Reason: Hypoglycemia Protocol Stop: 10/24/19 17:54 Glucose (Glucose 10 Tabs/Tube) 4 - 8 tabs PO UD PRN; Protocol PRN Reason: Hypoglycemia Protocol Stop: 10/24/19 17:54 Glucose (Glucose 40% Gel 15 Gm Tube) 15 - 30 gm PO UD PRN; Protocol PRN Reason: Hypoglycemia Protocol Stop: 10/24/19 17:54 Haloperidol Lactate (Haloperidol Lactate 5 Mg/Ml 1 Ml Vial) 5 mg IM HS PRN PRN Reason: severe agitation Stop: 10/26/19 23:13 Heparin Sodium (Porcine) (Heparin Sod 5,000 Unit/0.5 Ml Vial) 5,000 units SQ Q8 RAIMUNDO Stop: 10/24/19 21:59 Last Admin: 09/30/19 20:36 Dose: Not Given Documented by: Hydromorphone HCl (Hydromorphone Inj 0.5 Mg/0.5 Ml Syr) 0.5 mg IV Q4H PRN PRN Reason: Pain or Pre PT Stop: 10/10/19 09:40 Aztreonam 1,000 mg/ Dextrose 110 mls @ 100 mls/hr IV Q8H RAIMUNDO; Protocol Stop: 10/02/19 07:59 Last Admin: 09/30/19 23:31 Dose: 100 mls/hr Documented by: Lorazepam (Ativan) 0.5 mg in 1 mls @ 0.5 mls/min IV Q6 PRN PRN Reason: agitation or anxiety Stop: 10/25/19 18:05 Dextrose (D5w) 1,000 mls @ 75 mls/hr IV .[id number] [facility] Stop: 10/26/19 07:44 Last Admin: 09/30/19 23:30 Dose: 75 mls/hr Documented by: Famotidine 20 mg/ Syringe 5 mls @ 2.5 mls/min IV BID [facility] Stop: 10/26/19 08:59 Last Admin: 09/30/19 20:36 Dose: 2.5 mls/min Documented by: Metronidazole (Flagyl) 500 mg in 100 mls @ 100 mls/hr IV Q8H [facility]; Protocol Stop: 10/07/19 08:59 Last Infusion: 09/30/19 19:19 Dose: Infused Documented by: Insulin Aspart (Insulin Aspart 100 Units/Ml 3 Ml Pen) 0 units SC Q6 [facility] Stop: 10/29/19 00:00 Last Admin: 09/30/19 19:02 Dose: Not Given Documented by: Magnesium Hydroxide (Magnesium Hydroxide Susp 30 Ml Udc) 30 ml PO Q6H PRN PRN Reason: Constipation Stop: 10/26/19 09:40 Melatonin (Melatonin 3 Mg Tab) 6 mg PO HS [facility] Stop: 10/24/19 20:59 Last Admin: 09/24/19 21:32 Dose: Not Given Documented by: Metoprolol Tartrate (Metoprolol Tartrate 25 Mg Tab) 25 mg PO BID [facility] Stop: 10/24/19 20:59 Last Admin: 09/25/19 10:17 Dose: Not Given Documented by: Metoprolol Tartrate (Metoprolol Tartrate 1 Mg/Ml Vial) 5 mg IV Q4 [facility] Stop: 10/25/19 18:14 Last Admin: 09/29/19 00:27 Dose: Not Given Documented by: Miscellaneous (Carbohydrates For Hypoglycemia ) 15 - 30 gm PO UD PRN PRN Reason: Hypoglycemia Protocol Stop: 10/24/19 17:54 Miscellaneous Information (Vancomycin Consult Active) 1 ea N/A UD PRN PRN Reason: Consult Stop: 10/29/19 11:31 Naloxone HCl (Naloxone Hcl 0.4 Mg/1 Ml Vial/Carp) 0.1 mg IV Q5M PRN PRN Reason: Oversedation/Resp Depression Stop: 10/26/19 09:40 Ondansetron HCl (Ondansetron Inj 2 Mg/Ml 2 Ml Vial) 4 mg IV Q6H PRN PRN Reason: Nausea And Vomiting Stop: 10/26/19 09:40 PG Care Time/CCT Total # of Minutes Spent Total Time Spent with Patient: Total time spent is greater than 50% in coordination of care (as documented) at patient's floor/unit and/or counseling patient: Coding Level of Care Code 94264 Subseq Hosp Care Lvl 2 Diagnoses Parotitis K11.20 Sepsis A41.9 Acute kidney injury N17.9 Hypernatremia E87.0 Atrial fibrillation with rapid ventricular response I48.91 Rash R21 Stage III pressure ulcer of sacral region L89.153 Diabetic foot ulcer E11.621; L97.509 Osteomyelitis M86.9 GERD (gastroesophageal reflux disease) K21.9 PVD (peripheral vascular disease) I73.9 Hypertension I10 Depression F32.9 DM II (diabetes mellitus, type II), controlled E11.9 CKD (chronic kidney disease), stage III N18.3 Urinary tract infection N39.0 Secondary pulmonary hypertension Acute metabolic encephalopathy G93.41 Dementia F03.90 DVT prophylaxis Z29.9
[2019-10-01] MEDS: INSULIN ASPART 100 UNITS/ML 3 ML PEN SC SCH ×3 (00:21→12:17)
[2019-10-01] MEDS: metroNIDAZOLE 500 MG/100 ML BAG IV SCH ×2 (01:10→09:49)
[2019-10-01 02:54] LABS: Basophils # (auto) 0.01 K/uL (0-0.2); Basophils % (auto) 0.1 %; Eosinophils % (auto) 1.5 %; Hematocrit (blood only) 40.1 % (42-52); Immature Granulocytes # (auto) 0.22 K/uL (0.00-0.02); Immature Granulocytes % (auto) 1.6 %; Lymphocytes # (auto) 1.57 K/uL (1.2-3.4); Lymphocytes % (auto) 11.4 %; Mean Corpuscular Hgb Conc 32.4 g/dL (32-36); Mean Corpuscular Volume 86.4 fL (80-100); Mean Platelet Volume 9.6 fL (7.4-10.4); Monocytes # (auto) 0.69 K/uL (0.11-0.59); Neutrophils % (auto) 80.4 %; Platelet Count 269 K/uL (130-400); RDW Coefficient of Variation 16.5 % (11.5-14.5); RDW Standard Deviation 51.9 fL (36.4-46.3); Red Blood Count 4.64 M/uL (4.7-6.1); White Blood Count 13.79 K/uL (4.8-10.8)
[2019-10-01 03:32] LABS: BUN Creatinine Ratio 11.6 (10-20); C Reactive Protein 11.6 mg/dl (0-0.29); Calcium 9.5 mg/dl (8.5-10.1); Creatinine Clr Calc Pharmacy 65.1 ml/min; Est GFR (African American) 81.6; Est GFR (Non-African American) 70.4; Potassium 3.6 mmol/L (3.5-5.1)
[2019-10-01] MEDS: HEPARIN SOD 5,000 UNIT/0.5 ML VIAL SQ SCH ×2 (05:52→14:08)
[2019-10-01] MEDS ORDERED: VANCOMYCIN HCL 1,250 MG in SODIUM CHLORIDE 0.9% 250 ML IV ONE (08:00)
[2019-10-01] MEDS: AZTREONAM 1,000 MG in DEXTROSE 5% 100 ML IV SCH ×2 (08:19→15:44)
[2019-10-01] MEDS: FAMOTIDINE 20 MG in SYRINGE 3 ML IV SCH (08:19)
[2019-10-01] MEDS: DICLOFENAC SOD 1% GEL 100 GM TUBE EXT SCH ×4 (08:19→20:57)
--- NOTE | 2019-10-01 08:43 | Pharmacy Report ---
Pharmacy Abx Dose Short Note - Date of Service October 01, 2019 - Assessment & Plan Microbiology 09/26/19 08:58 Toe,Left Second Gram Stain - Final 09/24/19 12:57 Urine,Clean Catch Urine Culture - Final Proteus mirabilis 09/26/19 08:58 Toe,Left Second Aerobic and Anaerobic Culture - Preliminary Morganella morganii Staph aureus MRSA Bacteroides fragilis Assessment 79 year old M ordered vancomycin, aztreonam, and flagyl for treatment of parotitis, UTI, and DM foot ulcer/osteo * POD #4 status post extensive debridement of left foot on 09/25 by orthopedic surgery * Today is day # 8 of antimicrobial therapy * PAULA resolved Plan Vancomycin * Trough level of 13.1 mcg/mL is near therapeutic * Estimated ke= 0.03, T1/2 = 23.1 hours * Patient will be ordered vancomycin 1250 mg IV q24 x 2 doses * Trough level ordered for 10/02 @ 0730 (I suspect patient may tolerate a q24h dosing frequency now that renal function has improved) * Goal trough level: >/= 15 mcg/mL Pharmacy will continue to follow and will adjust dose/frequency as necessary. Thank you.
[2019-10-01] MEDS: DEXTROSE 5% 1,000 ML IV SCH (14:07)
--- NOTE | 2019-10-01 21:31 | Hospitalist Progress Note ---
Date of Service October 01, 2019 Assessment & Plan (1) Goals of care, counseling/discussion: met with son and daughter in law 09/30 they agreed that patient is deteriorating, no real quality of life, unlikely to recover or improve want to place on comfort measures will stop antibiotics, stop fluids, focus on symptom control will keep here this weekend if he is stable plan to return to [facility] Friday (2) Parotitis: - CT face: 1. Motion compromised examination. 2. Findings are consistent with right-sided parotitis with surrounding cellulitis and infiltration of the right parapharyngeal fat. 3. No organized fluid collection is seen to suggest abscess. 4. Emphysema -Facial swelling resolved - treated with IV aztreonam, not eating or drinking x 7 days will move to comfort measures (3) Sepsis: - With tachycardia with HR in 120s, leukocytosis to 24, now improved, with source of parotitis, left foot ulcers with OM, as well as urinary tract infection - Follow BCx x 2-NGTD Foot wound cx with Morganella Urine culture with Proteus lactic acid was 1.9 on admission, PCT 0.64 mild elevation sepsis resolved with fluids and antibiotics will now withdrawal care as he is not improving in terms of eating/drinking and quality of life (4) Acute kidney injury: -Creatinine 2.24, BUN to 65, up from baseline which appears to be creatinine of 1.3-1.4 -now resolved with IV fluids, Cr down to normal for several days Is making urine via cochran With severe dementia, not enough free water stop fluids comfort care (5) Hypernatremia: -Has been n.p.o. due to altered mental status and inability to pass swallow evaluation with speech therapy attempted again to have him swallow, no success, this is 3rd try stop D5W, comfort (6) Atrial fibrillation with rapid ventricular response: (7) Rash: (8) Stage III pressure ulcer of sacral region: -Wound consult, frequent turning repo q2h (9) Diabetic foot ulcer: s/p debridement with ortho, broad spectrum antibiotics now stop IV antibiotics, comfort only (10) Osteomyelitis: no further treatment (11) GERD (gastroesophageal reflux disease): - holding po meds -added IV Pepcid (12) PVD (peripheral vascular disease): - hx of such holding home statin not on ASA (13) Hypertension: - BP stable, holding home po meds due to NPO status (14) Depression: - holding home po wellbutrin (15) DM II (diabetes mellitus, type II), controlled: - Last A1c in April 2019 was 6.7, is now down to 6.3% Having low blood sugars here while n.p.o. -Does not appear to be on any oral anti-hypoglycemics, Accu-Cheks Achs, Novolog Adding on D5W as above (16) CKD (chronic kidney disease), stage III: -PAULA as above now improving -Avoid nephrotoxins -renally dose meds when appropriate -follow BMP (17) Urinary tract infection: - UA appears to be grossly infected, urine culture with Proteus -Continue antibiotics as above (18) Secondary pulmonary hypertension: -History of such, secondary to diastolic congestive heart failure Holding home Lasix from home while he is severely dehydrated and n.p.o. (19) Acute metabolic encephalopathy: secondary to infections in setting of dementia Continues to be combative, agitated, babbling incoherently Son reports this is approximately his baseline although he has not seen him in 6 months but this is by report from the detention (20) Dementia: Severe and rapidly progressing over the last 7 or 8 months as per the patient's son discussed poor prognosis with patient's son , will decide on palliative tomorrow (21) DVT prophylaxis: - teds, heparin subq CODE: DNR/DNI Dispo: continued stay, is from [facility], is POA Critically ill, multiple comorbidities, if he cannot take PO then will contact son regarding official palliative consult Admission and Anticipated Discharge Date Admission Date: September 24, 2019 Subjective patient still confused, unwilling to let anyone clean his mouth not eating, not drinking, not taking medications has now been since time of admission which was a week ago met with patient's son and daughter in law they explained that his condition has rapidly deteriorated ever since his in February 2019 he lost 90 lbs, his dementia has progressed, suspect he has been profoundly depressed, no interest then things got really bad when he went into [facility] and he could not have visitors family agrees that he should be placed on comfort measures no fluids, no antibiotics, will only treat symptoms they expressed concerns that they cannot visit him at [facility], they have other family who want to see him will plan to initiate comfort here, if he does not rapidly deteriorate then plan for [facility] Friday Review of Systems Review of Systems: Unobtainable due to cognitive status Physical Exam Constitutional: well nourished, + ill appearing, + frail appearing and + disheveled; no acute distress Eyes: PERRL, conjunctivae normal, anicteric sclerae ENMT: Nose: + dry nasal mucous membranes; no external nose abnormality and no turbinate abnormality Mouth: + dry oral mucous membranes (very dry, dried mucous on tongue) Neck: trachea midline, no thyromegaly Respiratory: normal respiratory effort, lungs clear to auscultation Cardiovascular: RRR, no murmur, no edema Gastrointestinal (Abdomen): normal bowel sounds, soft, nontender, no hepatosplenomegaly Musculoskeletal: Head/Neck/Chest: normocephalic, head atraumatic and neck supple Extremities: + abnormal strength (generalized weakness) Skin: no rashes, warm and dry + rash (arms and back, maculopapular) Neurologic: patellar DTR's 2+ bilat, sensation intact and PERRL, EOMI, accommodation nl, no face palsy, no dysarthria Psychiatric: Orientation: + not alert, + not oriented to person, + not oriented to place and + not oriented to time Lymphatic: no cervical or axillary lymphadenopathy Results & Data Results & Data ([facility]) Vital Signs (Past 12 Hours) Vital Signs Temp Pulse Resp BP Pulse Ox 10/01/19 15:52 36.4 C L 84 16 103/47 L 98 Laboratory Results Laboratory Results - last 24 hr 10/01/19 10/01/19 10/01/19 00:18 02:44 02:44 WBC RBC Hgb Hct MCV MCH MCHC RDW Std Deviation RDW Coeff of Karla Plt Count MPV Immature Gran % (Auto) Neut % (Auto) Lymph % (Auto) [place] % (Auto) Eos % (Auto) Baso % (Auto) Neut # (Auto) Lymph # (Auto) [place] # (Auto) Eos # (Auto) Baso # (Auto) Immature Gran # (Auto) ESR Sodium 143 Potassium 3.6 Chloride 108 H Carbon Dioxide 29 Anion Gap 6.0 BUN 12 Creatinine 1.01 Est Cr Clr Drug Dosing 65.1 Est GFR ( Amer) 81.6 Est GFR (Non-Af Amer) 70.4 BUN/Creatinine Ratio 11.6 Glucose 105 H POC Glucose 92 Calcium 9.5 C-Reactive Protein 11.60 H Random Vancomycin 13.1 10/01/19 10/01/19 10/01/19 02:44 02:44 06:14 WBC 13.79 H RBC 4.64 L Hgb 13.0 L Hct 40.1 L MCV 86.4 MCH 28.0 MCHC 32.4 RDW Std Deviation 51.9 H RDW Coeff of Karla 16.5 H Plt Count 269 MPV 9.6 Immature Gran % (Auto) 1.6 Neut % (Auto) 80.4 Lymph % (Auto) 11.4 [place] % (Auto) 5.0 Eos % (Auto) 1.5 Baso % (Auto) 0.1 Neut # (Auto) 11.10 H Lymph # (Auto) 1.57 [place] # (Auto) 0.69 H Eos # (Auto) 0.20 Baso # (Auto) 0.01 Immature Gran # (Auto) 0.22 H ESR > 90 H Sodium Potassium Chloride Carbon Dioxide Anion Gap BUN Creatinine Est Cr Clr Drug Dosing Est GFR ( Amer) Est GFR (Non-Af Amer) BUN/Creatinine Ratio Glucose POC Glucose 97 Calcium C-Reactive Protein Random Vancomycin 10/01/19 12:02 WBC RBC Hgb Hct MCV MCH MCHC RDW Std Deviation RDW Coeff of Karla Plt Count MPV Immature Gran % (Auto) Neut % (Auto) Lymph % (Auto) [place] % (Auto) Eos % (Auto) Baso % (Auto) Neut # (Auto) Lymph # (Auto) [place] # (Auto) Eos # (Auto) Baso # (Auto) Immature Gran # (Auto) ESR Sodium Potassium Chloride Carbon Dioxide Anion Gap BUN Creatinine Est Cr Clr Drug Dosing Est GFR ( Amer) Est GFR (Non-Af Amer) BUN/Creatinine Ratio Glucose POC Glucose 105 H Calcium C-Reactive Protein Random Vancomycin Medications Administered Current Inpatient Medications Acetaminophen (Acetaminophen 500 Mg Tab) 1,000 mg PO Q12 RAIMUNDO Stop: 10/24/19 20:59 Last Admin: 09/25/19 10:20 Dose: 1,000 mg Documented by: Ascorbic Acid (Ascorbic Acid 500 Mg Tab) 500 mg PO BID RAIMUNDO Stop: 10/24/19 20:59 Last Admin: 09/25/19 10:20 Dose: Not Given Documented by: Atorvastatin Calcium (Atorvastatin 10 Mg Tab) 10 mg PO HS RAIMUNDO Stop: 10/24/19 20:59 Last Admin: 09/24/19 21:32 Dose: Not Given Documented by: Bisacodyl (Bisacodyl 10 Mg Supp) 10 mg AR DAILY PRN PRN Reason: Constipation Stop: 10/26/19 09:40 Bupropion HCl (Bupropion Sr 150 Mg Tabcr) 150 mg PO BID RAIMUNDO Stop: 10/24/19 20:59 Last Admin: 09/25/19 10:19 Dose: Not Given Documented by: Dextrose (Dextrose 50% 50 Ml Syringe) 25 - 50 ml IV UD PRN; Protocol PRN Reason: Hypoglycemia Protocol Stop: 10/24/19 17:54 Last Admin: 09/28/19 16:36 Dose: 50 ml Documented by: Diclofenac Sodium (Diclofenac Sod 1% Gel 100 Gm Tube) 2 gm EXT QID [facility] Stop: 10/24/19 17:54 Last Admin: 10/01/19 20:57 Dose: 2 gm Documented by: Famotidine (Famotidine 20 Mg Tab) 20 mg PO BID RAIMUNDO Stop: 10/24/19 20:59 Last Admin: 09/25/19 10:18 Dose: Not Given Documented by: Finasteride (Finasteride 5 Mg Tab) 5 mg PO QAM [facility] Stop: 10/25/19 08:59 Last Admin: 09/25/19 10:18 Dose: Not Given Documented by: Gabapentin (Gabapentin 100 Mg Cap) 200 mg PO BID [facility] Stop: 10/24/19 20:59 Last Admin: 09/25/19 10:18 Dose: Not Given Documented by: Glucagon (Glucagon For Inj 1 Mg Vial) 1 mg SQ UD PRN; Protocol PRN Reason: Hypoglycemia Protocol Stop: 10/24/19 17:54 Glucose (Glucose 10 Tabs/Tube) 4 - 8 tabs PO UD PRN; Protocol PRN Reason: Hypoglycemia Protocol Stop: 10/24/19 17:54 Glucose (Glucose 40% Gel 15 Gm Tube) 15 - 30 gm PO UD PRN; Protocol PRN Reason: Hypoglycemia Protocol Stop: 10/24/19 17:54 Haloperidol Lactate (Haloperidol Lactate 5 Mg/Ml 1 Ml Vial) 5 mg IM HS PRN PRN Reason: severe agitation Stop: 10/26/19 23:13 Hydromorphone HCl (Hydromorphone Inj 0.5 Mg/0.5 Ml Syr) 0.5 mg IV Q4H PRN PRN Reason: Pain or Pre PT Stop: 10/10/19 09:40 Lorazepam (Ativan) 0.5 mg in 1 mls @ 0.5 mls/min IV Q6 PRN PRN Reason: agitation or anxiety Stop: 10/25/19 18:05 Vancomycin HCl 1,250 mg/ (Sodium Chloride) 275 mls @ 125 mls/hr IV 0800 [facility] Stop: 10/02/19 12:00 Magnesium Hydroxide (Magnesium Hydroxide Susp 30 Ml Udc) 30 ml PO Q6H PRN PRN Reason: Constipation Stop: 10/26/19 09:40 Melatonin (Melatonin 3 Mg Tab) 6 mg PO HS RAIMUNDO Stop: 10/24/19 20:59 Last Admin: 09/24/19 21:32 Dose: Not Given Documented by: Metoprolol Tartrate (Metoprolol Tartrate 25 Mg Tab) 25 mg PO BID RAIMUNDO Stop: 10/24/19 20:59 Last Admin: 09/25/19 10:17 Dose: Not Given Documented by: Metoprolol Tartrate (Metoprolol Tartrate 1 Mg/Ml Vial) 5 mg IV Q4 RAIMUNDO Stop: 10/25/19 18:14 Last Admin: 09/29/19 00:27 Dose: Not Given Documented by: Miscellaneous (Carbohydrates For Hypoglycemia ) 15 - 30 gm PO UD PRN PRN Reason: Hypoglycemia Protocol Stop: 10/24/19 17:54 Naloxone HCl (Naloxone Hcl 0.4 Mg/1 Ml Vial/Carp) 0.1 mg IV Q5M PRN PRN Reason: Oversedation/Resp Depression Stop: 10/26/19 09:40 Ondansetron HCl (Ondansetron Inj 2 Mg/Ml 2 Ml Vial) 4 mg IV Q6H PRN PRN Reason: Nausea And Vomiting Stop: 10/26/19 09:40 PG Care Time/CCT Total # of Minutes Spent Total Time Spent with Patient: Total time spent is greater than 50% in coordination of care (as documented) at patient's floor/unit and/or counseling patient: Coding Level of Care Code 91669 Subseq Hosp Care Lvl 2 Diagnoses Goals of care, counseling/discussion Z71.89 Parotitis K11.20 Sepsis A41.9 Acute kidney injury N17.9 Hypernatremia E87.0 Atrial fibrillation with rapid ventricular response I48.91 Rash R21 Stage III pressure ulcer of sacral region L89.153 Diabetic foot ulcer E11.621; L97.509 Osteomyelitis M86.9 GERD (gastroesophageal reflux disease) K21.9 PVD (peripheral vascular disease) I73.9 Hypertension I10 Depression F32.9 DM II (diabetes mellitus, type II), controlled E11.9 CKD (chronic kidney disease), stage III N18.3 Urinary tract infection N39.0 Secondary pulmonary hypertension Acute metabolic encephalopathy G93.41 Dementia F03.90 DVT prophylaxis Z29.9
[2019-10-02] MEDS: DICLOFENAC SOD 1% GEL 100 GM TUBE EXT SCH ×4 (07:40→21:39)
[2019-10-02] MEDS ORDERED: VANCOMYCIN HCL 1,250 MG in SODIUM CHLORIDE 0.9% 250 ML IV SCH ×2 (08:00→13:30)
[2019-10-02] MEDS: CARBOHYDRATES FOR HYPOGLYCEMIA PO PRN ×2 (12:10→12:30)
[2019-10-02] MEDS ORDERED: VANCOMYCIN CONSULT ACTIVE PRN (13:17)
[2019-10-02] MEDS: SODIUM CHLORIDE 0.9% 1000ML 1,000 ML IV SCH (14:01)
[2019-10-02] MEDS: metroNIDAZOLE 500 MG/100 ML BAG IV SCH ×2 (14:01→21:39)
--- NOTE | 2019-10-02 15:58 | Hospitalist Progress Note ---
Date of Service October 02, 2019 Assessment & Plan (1) Goals of care, counseling/discussion: met with son and daughter in law 09/30 they agreed that patient is deteriorating, no real quality of life, unlikely to recover or improve placed on comfort measures 09/30 in the evening surprisingly he was awake, talking, laughing and smiling on 10/01 this was the first time I saw him like this all week resume diet, will resume IV antibiotics except hold Aztreonam discussed with family, will continue limited treatments still feel that hospice would be appropriate when [facility] due to multiple co-morbidities (2) Parotitis: - CT face: 1. Motion compromised examination. 2. Findings are consistent with right-sided parotitis with surrounding cellulitis and infiltration of the right parapharyngeal fat. 3. No organized fluid collection is seen to suggest abscess. 4. Emphysema he is awake today, no complaints of facial pain completed course of Aztreonam follow clinically (3) Sepsis: - due to parotitis, left foot ulcers with OM, as well as urinary tract infection - Follow BCx x 2-NGTD Foot wound cx with Morganella, MRSA, bacteroides Urine culture with Proteus vitals stable, no fever, now he is awake continue on Vancomycin and Flagyl, hold Aztreonam as potential source of rash will likely go [facility] IV antibiotics but would still consider hospice (4) Acute kidney injury: -Creatinine 2.24, BUN to 65, up from baseline which appears to be creatinine of 1.3-1.4 -now resolved with IV fluids, Cr down to normal for several days Is making urine via cochran With severe dementia, not enough free water now awake, encourage PO intake, resume IV fluids until drinking enough (5) Hypernatremia: -Has been n.p.o. due to altered mental status and inability to pass swallow evaluation with speech therapy attempted again to have him swallow, no success, this is 3rd try now he is awake and appropriate, will give him water ask speech to re-evaluate (6) Atrial fibrillation with rapid ventricular response: -chronic afib, not on anticoagulation perhaps for h/o falls or dementia? Unclear Rates improved with hydration and scheduled IV Lopressor Weaned off diltiazem drip keep lytes replete (7) Rash: -Diffusely upon admission, improving now on IV steroids Unknown when this developed, possible adverse reaction to Clinda versus doxycycline as an outpatient, appears to be maculopapular and involves the back, wraps around the trunk, buttocks, hamstrings but spares the abdomen Nonpruritic. Probably due to one of the outpatient antibiotics - clinda started 08/18 x 7 days and doxy started 09/08 x 10d, nursing staff at [facility] were unable to tell me when this was first identified. -treating with IV steroid but will now discontinue as he has multiple sources of infection and steroids will worsen immune suppression (8) Stage III pressure ulcer of sacral region: -Wound consult, frequent turning repo q2h (9) Diabetic foot ulcer: s/p debridement with ortho, broad spectrum antibiotics now stop IV antibiotics, comfort only (10) Osteomyelitis: no further treatment (11) GERD (gastroesophageal reflux disease): - holding po meds -added IV Pepcid (12) PVD (peripheral vascular disease): - hx of such holding home statin not on ASA (13) Hypertension: - BP stable, holding home po meds due to NPO status (14) Depression: - holding home po wellbutrin (15) DM II (diabetes mellitus, type II), controlled: - Last A1c in April 2019 was 6.7, is now down to 6.3% encourage PO intake BSG ACHS (16) CKD (chronic kidney disease), stage III: -PAULA as above now improving -Avoid nephrotoxins -renally dose meds when appropriate -follow BMP (17) Urinary tract infection: - UA appears to be grossly infected, urine culture with Proteus completed course of Aztreonam (18) Secondary pulmonary hypertension: -History of such, secondary to diastolic congestive heart failure Holding home Lasix from home may not need this natural gas [employer] (19) Acute metabolic encephalopathy: secondary to infections in setting of dementia Continued to be combative, agitated, babbling incoherently for entire week on 10/01 he woke up after being placed on comfort measures he is alert, oriented to person, answering questions appropriately, encephalopathy resolved (20) Dementia: Severe and rapidly progressing over the last 7 or 8 months as per the patient's son discussed poor prognosis with patient's son still feel that hosp[facility] would be appropriate will discuss more goals of care with patient and family tomorrow (21) DVT prophylaxis: - teds, heparin subq CODE: DNR/DNI Dispo: continued stay, is from [place], anticipate him going back Friday/Friday to transition to palliative care Son, Hudson, is POA Admission and Anticipated Discharge Date Admission Date: September 24, 2019 Subjective patient seen this morning, he was sleeping and would not wake up I was notified by RN around lunch that the patient was awake and asking for something to eat and drink his BSG was checked at it was low at 67 went and saw the patient, he was conversive, appropriate responses, this was the first time all week he had responded to me I called the family to update them on his status he smiled and laughed with family when they came in to see him discussed briefly with son, we can resume IV antibiotics, give some IV fluids ordered him a diet until speech can see him reviewed medications, no real medications that are essential for him to take, vitals are stable at this time of note, his rash disappeared in hindsight maybe it was due to Aztreonam, he has a known history of vasculitic rash with cephalosporins unfortunately there are no options to treat the Morganella in the wound as it would have to be cephalosporin, penicillin or cabapenem will just resume Vanco and Flagyl for now Review of Systems Review of Systems: All systems reviewed & are unremarkable except as noted in Subjective Constitutional: + weakness; no fever Respiratory: no cough and no dyspnea Cardiovascular: no chest pain Gastrointestinal: no abdominal pain, no nausea and no vomiting Musculoskeletal: no back pain, no joint pain and no body aches Physical Exam Constitutional: well nourished, + ill appearing, + frail appearing and + disheveled; no acute distress Eyes: PERRL, conjunctivae normal, anicteric sclerae ENMT: Nose: no external nose abnormality and no turbinate abnormality Neck: trachea midline, no thyromegaly Respiratory: normal respiratory effort, lungs clear to auscultation Cardiovascular: RRR, no murmur, no edema Gastrointestinal (Abdomen): normal bowel sounds, soft, nontender, no hepatosplenomegaly Musculoskeletal: Head/Neck/Chest: normocephalic, head atraumatic and neck supple Extremities: + abnormal strength (generalized weakness) Skin: no rashes, warm and dry no rashes (disappeared on 10/01) Neurologic: patellar DTR's 2+ bilat, sensation intact and PERRL, EOMI, accommodation nl, no face palsy, no dysarthria Psychiatric: Orientation: alert, oriented to person and cooperative; + not oriented to place and + not oriented to time Lymphatic: no cervical or axillary lymphadenopathy Results & Data Results & Data ([facility]) Vital Signs (Past 12 Hours) Vital Signs Temp Pulse Resp BP Pulse Ox 10/02/19 07:32 36.4 C L 90 16 116/74 90 Medications Administered Current Inpatient Medications Acetaminophen (Acetaminophen 500 Mg Tab) 1,000 mg PO Q12 RAIMUNDO Stop: 10/24/19 20:59 Last Admin: 09/25/19 10:20 Dose: 1,000 mg Documented by: Ascorbic Acid (Ascorbic Acid 500 Mg Tab) 500 mg PO BID RAIMUNDO Stop: 10/24/19 20:59 Last Admin: 09/25/19 10:20 Dose: Not Given Documented by: Atorvastatin Calcium (Atorvastatin 10 Mg Tab) 10 mg PO HS RAIMUNDO Stop: 10/24/19 20:59 Last Admin: 09/24/19 21:32 Dose: Not Given Documented by: Bisacodyl (Bisacodyl 10 Mg Supp) 10 mg [place] DAILY PRN PRN Reason: Constipation Stop: 10/26/19 09:40 Bupropion HCl (Bupropion Sr 150 Mg Tabcr) 150 mg PO BID RAIMUNDO Stop: 10/24/19 20:59 Last Admin: 09/25/19 10:19 Dose: Not Given Documented by: Dextrose (Dextrose 50% 50 Ml Syringe) 25 - 50 ml IV UD PRN; Protocol PRN Reason: Hypoglycemia Protocol Stop: 10/24/19 17:54 Last Admin: 09/28/19 16:36 Dose: 50 ml Documented by: Diclofenac Sodium (Diclofenac Sod 1% Gel 100 Gm Tube) 2 gm EXT QID RAIMUNDO Stop: 10/24/19 17:54 Last Admin: 10/02/19 14:09 Dose: Not Given Documented by: Famotidine (Famotidine 20 Mg Tab) 20 mg PO BID RAIMUNDO Stop: 10/24/19 20:59 Last Admin: 09/25/19 10:18 Dose: Not Given Documented by: Finasteride (Finasteride 5 Mg Tab) 5 mg PO QAM RAIMUNDO Stop: 10/25/19 08:59 Last Admin: 09/25/19 10:18 Dose: Not Given Documented by: Gabapentin (Gabapentin 100 Mg Cap) 200 mg PO BID RAIMUNDO Stop: 10/24/19 20:59 Last Admin: 09/25/19 10:18 Dose: Not Given Documented by: Glucagon (Glucagon For Inj 1 Mg Vial) 1 mg SQ UD PRN; Protocol PRN Reason: Hypoglycemia Protocol Stop: 10/24/19 17:54 Glucose (Glucose 10 Tabs/Tube) 4 - 8 tabs PO UD PRN; Protocol PRN Reason: Hypoglycemia Protocol Stop: 10/24/19 17:54 Glucose (Glucose 40% Gel 15 Gm Tube) 15 - 30 gm PO UD PRN; Protocol PRN Reason: Hypoglycemia Protocol Stop: 10/24/19 17:54 Haloperidol Lactate (Haloperidol Lactate 5 Mg/Ml 1 Ml Vial) 5 mg IM HS PRN PRN Reason: severe agitation Stop: 10/26/19 23:13 Hydromorphone HCl (Hydromorphone Inj 0.5 Mg/0.5 Ml Syr) 0.5 mg IV Q4H PRN PRN Reason: Pain or Pre PT Stop: 10/10/19 09:40 Lorazepam (Ativan) 0.5 mg in 1 mls @ 0.5 mls/min IV Q6 PRN PRN Reason: agitation or anxiety Stop: 10/25/19 18:05 Metronidazole (Flagyl) 500 mg in 100 mls @ 100 mls/hr IV Q8H [facility] Stop: 10/09/19 13:29 Last Infusion: 10/02/19 15:01 Dose: Infused Documented by: Sodium Chloride (Nss 1000ml) 1,000 mls @ 80 mls/hr IV .[id number] [facility] Stop: 11/01/19 13:29 Last Admin: 10/02/19 14:01 Dose: 80 mls/hr Documented by: Magnesium Hydroxide (Magnesium Hydroxide Susp 30 Ml Udc) 30 ml PO Q6H PRN PRN Reason: Constipation Stop: 10/26/19 09:40 Melatonin (Melatonin 3 Mg Tab) 6 mg PO HS [facility] Stop: 10/24/19 20:59 Last Admin: 09/24/19 21:32 Dose: Not Given Documented by: Metoprolol Tartrate (Metoprolol Tartrate 25 Mg Tab) 25 mg PO BID [facility] Stop: 10/24/19 20:59 Last Admin: 08/15/20 10:17 Dose: Not Given Documented by: Metoprolol Tartrate (Metoprolol Tartrate 1 Mg/Ml Vial) 5 mg IV Q4 RAIMUNDO Stop: 10/25/19 18:14 Last Admin: 09/29/19 00:27 Dose: Not Given Documented by: Miscellaneous (Carbohydrates For Hypoglycemia ) 15 - 30 gm PO UD PRN PRN Reason: Hypoglycemia Protocol Stop: 10/24/19 17:54 Last Admin: 10/02/19 12:10 Dose: 15 gm Documented by: Miscellaneous Information (Vancomycin Consult Active) 1 ea N/A UD PRN PRN Reason: Consult Stop: 11/01/19 13:16 Naloxone HCl (Naloxone Hcl 0.4 Mg/1 Ml Vial/Carp) 0.1 mg IV Q5M PRN PRN Reason: Oversedation/Resp Depression Stop: 10/26/19 09:40 Ondansetron HCl (Ondansetron Inj 2 Mg/Ml 2 Ml Vial) 4 mg IV Q6H PRN PRN Reason: Nausea And Vomiting Stop: 10/26/19 09:40 PG Care Time/CCT Total # of Minutes Spent Total Time Spent with Patient: Total time spent is greater than 50% in coordination of care (as documented) at patient's floor/unit and/or counseling patient: Coding Level of Care Code 22005 Subseq Hosp Care Lvl 3 Diagnoses Goals of care, counseling/discussion Z71.89 Parotitis K11.20 Sepsis A41.9 Acute kidney injury N17.9 Hypernatremia E87.0 Atrial fibrillation with rapid ventricular response I48.91 Rash R21 Stage III pressure ulcer of sacral region L89.153 Diabetic foot ulcer E11.621; L97.509 Osteomyelitis M86.9 GERD (gastroesophageal reflux disease) K21.9 PVD (peripheral vascular disease) I73.9 Hypertension I10 Depression F32.9 DM II (diabetes mellitus, type II), controlled E11.9 CKD (chronic kidney disease), stage III N18.3 Urinary tract infection N39.0 Secondary pulmonary hypertension Acute metabolic encephalopathy G93.41 Dementia F03.90 DVT prophylaxis Z29.9
[2019-10-03] MEDS: SODIUM CHLORIDE 0.9% 1000ML 1,000 ML IV SCH (02:48)
[2019-10-03] MEDS: metroNIDAZOLE 500 MG/100 ML BAG IV SCH ×2 (05:53→15:49)
[2019-10-03 07:49] LABS: Basophils # (auto) 0.02 K/uL (0-0.2); Basophils % (auto) 0.2 %; Eosinophils # (auto) 0.23 K/uL (0-0.5); Eosinophils % (auto) 1.9 %; Hemoglobin 11.6 g/dL (14.0-18.0); Immature Granulocytes # (auto) 0.15 K/uL (0.00-0.02); Immature Granulocytes % (auto) 1.2 %; Lymphocytes % (auto) 10.8 %; Mean Corpuscular Hemoglobin 28.6 pg (25-34); Mean Corpuscular Hgb Conc 32.2 g/dL (32-36); Mean Corpuscular Volume 88.9 fL (80-100); Mean Platelet Volume 9.6 fL (7.4-10.4); Monocytes # (auto) 1.03 K/uL (0.11-0.59); Monocytes % (auto) 8.6 %; Neutrophils # (auto) 9.29 K/uL (1.4-6.5); Neutrophils % (auto) 77.3 %; Platelet Count 293 K/uL (130-400); RDW Coefficient of Variation 17.1 % (11.5-14.5); RDW Standard Deviation 54.8 fL (36.4-46.3); Red Blood Count 4.05 M/uL (4.7-6.1); White Blood Count 12.02 K/uL (4.8-10.8)
[2019-10-03] MEDS: DICLOFENAC SOD 1% GEL 100 GM TUBE EXT SCH ×4 (08:17→21:24)
[2019-10-03 09:27] LABS: BUN Creatinine Ratio 11.8 (10-20); Calcium 8.7 mg/dl (8.5-10.1); Creatinine Clr Calc Pharmacy 76.4 ml/min; Est GFR (African American) 95.6; Est GFR (Non-African American) 82.5; Potassium 2.9 mmol/L (3.5-5.1)
--- NOTE | 2019-10-03 09:27 | Pharmacy Report ---
Pharmacy Abx Dose Short Note - Date of Service October 03, 2019 - Assessment & Plan Assessment 79 year old M receiving VANCOMYCIN for treatment of parotitis. Day #10 of antimicrobial therapy (also receiving metronidazole IV, completed course of aztreonam) Plan Vancomycin * Trough level of 13.4 mcg/mL is slightly subtherapeutic -- however not at Css, as level was drawn prior to the 3rd maintenance dose and only 75% of the previous dose was administered. * VANCOMYCIN was discontinued yesterday morning (10/01) when patient was placed on hospice care. Only 75% of yesterday's dose was administered, as the order was discontinued during administration. However, yesterday afternoon, patient improved significantly and VANCOMYCIN was restarted. * Will continue dose of VANCOMYCIN 1250mg IV every 24 hours. * Goal trough level for PAROTITIS : 15 to 20 mcg/mL. * Will check a trough level in a few days (likely 10/04 or 10/05). Pharmacy will continue to follow and will adjust dose/frequency as necessary. Thank you.
[2019-10-03] MEDS ORDERED: VANCOMYCIN HCL 1,250 MG in SODIUM CHLORIDE 0.9% 250 ML IV SCH (10:00)
[2019-10-03] MEDS: HYDROmorphone INJ 0.5 MG/0.5 ML SYR IV PRN ×2 (10:03→21:23)
[2019-10-03] MEDS: POTASSIUM CHLORIDE / WTR 10 MEQ/100 ML PLCT IV SCH ×2 (11:03→12:11)
[2019-10-03] MEDS: POTASSIUM CHLORIDE 40 MEQ in SODIUM CHLORIDE 0.9% 1000ML 1,000 ML IV SCH (15:21)
--- NOTE | 2019-10-03 17:00 | Hospitalist Progress Note ---
Date of Service October 03, 2019 Assessment & Plan (1) Goals of care, counseling/discussion: met with son and daughter in law 09/30 they agreed that patient is deteriorating, no real quality of life, unlikely to recover or improve placed on comfort measures 09/30 in the evening surprisingly he was awake, talking, laughing and smiling on 10/01 this was the first time I saw him like this all week today he is more lethargic and confused, but will smile for family barely drinking even when offered drinks and encouraged by family family wonders if the antibiotics caused him to be confused again, will stop IV antibiotics for time being we will continue IV fluids since he is not drinking, need to replace potassium he is not on any of his normal home maintenance medications and vitals stable chcf, he is in pain with his feet that when he gets narcotics cause him to be confused and lethargic the diabetic wounds will not go away, even with antibiotics they will not completely clear would likely require future debridement family admits that he has lost a lot of weight, was not eating at [facility] he has dementia still feel that hospice would be appropriate and he can go back to [facility] feel that this situation was straight forward when he was obtunded and made comfort care now a little more complex with him waking up and family questioning why will formally consult palliative care to help with discussion, goals of care, hospice etc (2) Parotitis: - CT face: 1. Motion compromised examination. 2. Findings are consistent with right-sided parotitis with surrounding cellulitis and infiltration of the right parapharyngeal fat. 3. No organized fluid collection is seen to suggest abscess. 4. Emphysema no complaints of facial pain completed course of Aztreonam follow clinically (3) Sepsis: - due to parotitis, left foot ulcers with OM, as well as urinary tract infection - Follow BCx x 2-NGTD Foot wound cx with Morganella, MRSA, bacteroides Urine culture with Proteus vitals stable, no fever, now he is awake resumed antibiotics on 10/01 due to him waking up and eating will stop antibiotics now on 10/02 with family wondering if the antibiotics caused him to be lethargic again consult palliative care (4) Acute kidney injury: -Creatinine 2.24, BUN to 65, up from baseline which appears to be creatinine of 1.3-1.4 -now resolved with IV fluids, Cr down to normal for several days Is making urine via cochran With severe dementia, not drinking enough water to maintain volume (5) Hypernatremia: -Had been n.p.o. due to altered mental status and inability to pass swallow evaluation with speech therapy attempted again to have him swallow, no success, three tries earlier in the week now he is awake and appropriate, will give him water, pureed diet sodium stable on NSS, if fluids would be stopped suspect sodium would rise as he is not drinking enough (6) Atrial fibrillation with rapid ventricular response: -chronic afib, not on anticoagulation perhaps for h/o falls or dementia? Unclear Rates improved with hydration and scheduled IV Lopressor Weaned off diltiazem drip he has not been on any rate control for days and HR below 100 the whole time (7) Rash: -Diffusely upon admission resolved once Aztreonam was stopped h/o vasculitic rash with cephalosporins (8) Stage III pressure ulcer of sacral region: -Wound consult, frequent turning repo q2h (9) Diabetic foot ulcer: s/p debridement with ortho, broad spectrum antibiotics now stop IV antibiotics (10) Osteomyelitis: no further treatment (11) GERD (gastroesophageal reflux disease): - holding po meds -added IV Pepcid (12) PVD (peripheral vascular disease): - hx of such holding home statin not on ASA (13) Hypertension: - BP stable, holding home po meds due to NPO status (14) Depression: - holding home po wellbutrin (15) DM II (diabetes mellitus, type II), controlled: - Last A1c in April 2019 was 6.7, is now down to 6.3% encourage PO intake BSG ACHS (16) CKD (chronic kidney disease), stage III: -PAULA as above now improving -Avoid nephrotoxins -renally dose meds when appropriate -follow BMP (17) Urinary tract infection: - UA appears to be grossly infected, urine culture with Proteus completed course of Aztreonam (18) Secondary pulmonary hypertension: -History of such, secondary to diastolic congestive heart failure Holding home Lasix from home (19) Acute metabolic encephalopathy: secondary to infections in setting of dementia Continued to be combative, agitated, babbling incoherently for entire week on 10/01 he woke up after being placed on comfort measures he is alert, oriented to person, answering questions appropriately, encephalopathy resolved then on 10/02 he is intermittently lethargic, not eating or drinking much (20) Dementia: Severe and rapidly progressing over the last 7 or 8 months as per the patient's son discussed poor prognosis with patient's son still feel that hospice at [facility] would be appropriate (21) DVT prophylaxis: - teds, heparin subq CODE: DNR/DNI Dispo: continued stay, is from [facility], anticipate him going back on hospice once palliative care meets with family to discuss SonHudson, is POA Admission and Anticipated Discharge Date Admission Date: September 24, 2019 Anticipated date of discharge: 10/05/19 Subjective patient was alert this morning, talking with RN he was complaining of intense pain in his feet due to his wounds/osteomyelitis he got Dilaudid IV and he was sleeping the rest of the day minimal oral intake today family wants to know why he is more lethargic again today, acting confused at times they question if it is the antibiotics (Vanocmycin and Flagyl) that caused the confusion and lethargy I explained that I doubt it but we can stop the antibiotics discussed that in reality he would need antibiotics for weeks at [facility], would not change his poor oral intake, poor function discussed that labs today showed sodium normal, potassium low and would replace via IV family at the bedside included his son, daughter, son-in-law and grand daughter all agree he has been doing worse over the past 6 months, ever since his in February 2019 then it was tough because they could not see him for months when he was in [facility] they agree that they would not want him to suffer currently he is not getting his normal medications, will stop antibiotics, continue fluids will get a formal palliative care consult tomorrow to discuss goals of care was made comfort care on 09/30 in the evening after being obtunded all week then he woke up 10/01 and was smiling, talking, ate a little certainly was unexpected both for myself and family and now family searching for a reason for why he woke up and then more lethargic today Review of Systems Review of Systems: Unobtainable due to cognitive status Physical Exam Constitutional: well nourished, + ill appearing, + frail appearing and + d isheveled; no acute distress Eyes: PERRL, conjunctivae normal, anicteric sclerae ENMT: Nose: no external nose abnormality and no turbinate abnormality Mouth: + dry oral mucous membranes Neck: trachea midline, no thyromegaly Respiratory: normal respiratory effort, lungs clear to auscultation Cardiovascular: RRR, no murmur, no edema Gastrointestinal (Abdomen): normal bowel sounds, soft, nontender, no hepatosplenomegaly Musculoskeletal: Head/Neck/Chest: normocephalic, head atraumatic and neck supple Extremities: + abnormal strength (generalized weakness) Skin: no rashes, warm and dry no rashes (disappeared on 10/01) Neurologic: patellar DTR's 2+ bilat, sensation intact and PERRL, EOMI, accommodation nl, no face palsy, no dysarthria Psychiatric: Orientation: alert, oriented to person and cooperative; + not oriented to place and + not oriented to time Lymphatic: no cervical or axillary lymphadenopathy Results & Data Results & Data ([facility]) Vital Signs (Past 12 Hours) Vital Signs Temp Pulse Resp BP 10/03/19 15:32 36.3 C L 66 17 124/71 Laboratory Results Laboratory Results - last 24 hr 10/03/19 10/03/19 10/03/19 07:22 07:22 07:22 WBC 12.02 H RBC 4.05 L Hgb 11.6 L Hct 36.0 L MCV 88.9 MCH 28.6 MCHC 32.2 RDW Std Deviation 54.8 H RDW Coeff of Karla 17.1 H Plt Count 293 MPV 9.6 Immature Gran % (Auto) 1.2 Neut % (Auto) 77.3 Lymph % (Auto) 10.8 Keith % (Auto) 8.6 Eos % (Auto) 1.9 Baso % (Auto) 0.2 Neut # (Auto) 9.29 H Lymph # (Auto) 1.30 Keith # (Auto) 1.03 H Eos # (Auto) 0.23 Baso # (Auto) 0.02 Immature Gran # (Auto) 0.15 H Sodium Cancelled Potassium Cancelled Chloride Cancelled Carbon Dioxide Cancelled Anion Gap Cancelled BUN Cancelled Creatinine Cancelled Est Cr Clr Drug Dosing Cancelled Est GFR ( Amer) Cancelled Est GFR (Non-Af Amer) Cancelled BUN/Creatinine Ratio Cancelled Glucose Cancelled POC Glucose Calcium Cancelled Vancomycin Trough 13.4 10/03/19 10/03/1910/02/20 08:47 08:53 13:04 WBC RBC Hgb Hct MCV MCH MCHC RDW Std Deviation RDW Coeff of Karla Plt Count MPV Immature Gran % (Auto) Neut % (Auto) Lymph % (Auto) Keith % (Auto) Eos % (Auto) Baso % (Auto) Neut # (Auto) Lymph # (Auto) Keith # (Auto) Eos # (Auto) Baso # (Auto) Immature Gran # (Auto) Sodium 145 Potassium 2.9 L Chloride 112 H Carbon Dioxide 27 Anion Gap 6.0 BUN 10 Creatinine 0.86 Est Cr Clr Drug Dosing 76.4 Est GFR ( Amer) 95.6 Est GFR (Non-Af Amer) 82.5 BUN/Creatinine Ratio 11.8 Glucose 127 H POC Glucose 123 H 92 Calcium 8.7 Vancomycin Trough Medications Administered Current Inpatient Medications Acetaminophen (Acetaminophen 500 Mg Tab) 1,000 mg PO Q12 RAIMUNDO Stop: 10/24/19 20:59 Last Admin: 09/25/19 10:20 Dose: 1,000 mg Documented by: Ascorbic Acid (Ascorbic Acid 500 Mg Tab) 500 mg PO BID RAIMUNDO Stop: 10/24/19 20:59 Last Admin: 09/25/19 10:20 Dose: Not Given Documented by: Atorvastatin Calcium (Atorvastatin 10 Mg Tab) 10 mg PO HS RAIMUNDO Stop: 10/24/19 20:59 Last Admin: 09/24/19 21:32 Dose: Not Given Documented by: Bisacodyl (Bisacodyl 10 Mg Supp) 10 mg IN DAILY PRN PRN Reason: Constipation Stop: 10/26/19 09:40 Bupropion HCl (Bupropion Sr 150 Mg Tabcr) 150 mg PO BID RAIMUNDO Stop: 10/24/19 20:59 Last Admin: 09/25/19 10:19 Dose: Not Given Documented by: Dextrose (Dextrose 50% 50 Ml Syringe) 25 - 50 ml IV UD PRN; Protocol PRN Reason: Hypoglycemia Protocol Stop: 10/24/19 17:54 Last Admin: 09/28/19 16:36 Dose: 50 ml Documented by: Diclofenac Sodium (Diclofenac Sod 1% Gel 100 Gm Tube) 2 gm EXT QID RAIMUNDO Stop: 10/24/19 17:54 Last Admin: 10/03/19 13:09 Dose: 2 gm Documented by: Famotidine (Famotidine 20 Mg Tab) 20 mg PO BID RAIMUNDO Stop: 10/24/19 20:59 Last Admin: 09/25/19 10:18 Dose: Not Given Documented by: Finasteride (Finasteride 5 Mg Tab) 5 mg PO QAM RAIMUNDO Stop: 10/25/19 08:59 Last Admin: 09/25/19 10:18 Dose: Not Given Documented by: Gabapentin (Gabapentin 100 Mg Cap) 200 mg PO BID RAIMUNDO Stop: 10/24/19 20:59 Last Admin: 09/25/19 10:18 Dose: Not Given Documented by: Glucagon (Glucagon For Inj 1 Mg Vial) 1 mg SQ UD PRN; Protocol PRN Reason: Hypoglycemia Protocol Stop: 10/24/19 17:54 Glucose (Glucose 10 Tabs/Tube) 4 - 8 tabs PO UD PRN; Protocol PRN Reason: Hypoglycemia Protocol Stop: 10/24/19 17:54 Glucose (Glucose 40% Gel 15 Gm Tube) 15 - 30 gm PO UD PRN; Protocol PRN Reason: Hypoglycemia Protocol Stop: 10/24/19 17:54 Haloperidol Lactate (Haloperidol Lactate 5 Mg/Ml 1 Ml Vial) 5 mg IM HS PRN PRN Reason: severe agitation Stop: 10/26/19 23:13 Hydromorphone HCl (Hydromorphone Inj 0.5 Mg/0.5 Ml Syr) 0.5 mg IV Q4H PRN PRN Reason: Pain or Pre PT Stop: 10/10/19 09:40 Last Admin: 10/03/19 10:03 Dose: 0.5 mg Documented by: Lorazepam (Ativan) 0.5 mg in 1 mls @ 0.5 mls/min IV Q6 PRN PRN Reason: agitation or anxiety Stop: 10/25/19 18:05 Potassium Chloride 40 meq/ (Sodium Chloride) 1,020 mls @ 80 mls/hr IV .[id number] RAIMUNDO Stop: 11/02/19 10:29 Last Admin: 10/03/19 15:21 Dose: 80 mls/hr Documented by: Magnesium Hydroxide (Magnesium Hydroxide Susp 30 Ml Udc) 30 ml PO Q6H PRN PRN Reason: Constipation Stop: 10/26/19 09:40 Melatonin (Melatonin 3 Mg Tab) 6 mg PO HS RAIMUNDO Stop: 10/24/19 20:59 Last Admin: 09/24/19 21:32 Dose: Not Given Documented by: Metoprolol Tartrate (Metoprolol Tartrate 25 Mg Tab) 25 mg PO BID RAIMUNDO Stop: 10/24/19 20:59 Last Admin: 09/25/19 10:17 Dose: Not Given Documented by: Metoprolol Tartrate (Metoprolol Tartrate 1 Mg/Ml Vial) 5 mg IV Q4 RAIMUNDO Stop: 10/25/19 18:14 Last Admin: 09/29/19 00:27 Dose: Not Given Documented by: Miscellaneous (Carbohydrates For Hypoglycemia ) 15 - 30 gm PO UD PRN PRN Reason: Hypoglycemia Protocol Stop: 10/24/19 17:54 Last Admin: 10/02/19 12:10 Dose: 15 gm Documented by: Naloxone HCl (Naloxone Hcl 0.4 Mg/1 Ml Vial/Carp) 0.1 mg IV Q5M PRN PRN Reason: Oversedation/Resp Depression Stop: 10/26/19 09:40 Ondansetron HCl (Ondansetron Inj 2 Mg/Ml 2 Ml Vial) 4 mg IV Q6H PRN PRN Reason: Nausea And Vomiting Stop: 10/26/19 09:40 PG Care Time/CCT Total # of Minutes Spent Total Time Spent: 36 Total Time Spent with Patient: Total time spent is greater than 50% in coordination of care (as documented) at patient's floor/unit and/or counseling patient: Coding Level of Care Code 60327 Subseq Hosp Care Lvl 3 Diagnoses Goals of care, counseling/discussion Z71.89 Parotitis K11.20 Sepsis A41.9 Acute kidney injury N17.9 Hypernatremia E87.0 Atrial fibrillation with rapid ventricular response I48.91 Rash R21 Stage III pressure ulcer of sacral region L89.153 Diabetic foot ulcer E11.621; L97.509 Osteomyelitis M86.9 GERD (gastroesophageal reflux disease) K21.9 PVD (peripheral vascular disease) I73.9 Hypertension I10 Depression F32.9 DM II (diabetes mellitus, type II), controlled E11.9 CKD (chronic kidney disease), stage III N18.3 Urinary tract infection N39.0 Secondary pulmonary hypertension Acute metabolic encephalopathy G93.41 Dementia F03.90 DVT prophylaxis Z29.9
[2019-10-04] MEDS: POTASSIUM CHLORIDE 40 MEQ in SODIUM CHLORIDE 0.9% 1000ML 1,000 ML IV SCH (01:20)
[2019-10-04] MEDS: HYDROmorphone INJ 0.5 MG/0.5 ML SYR IV PRN (03:15)
[2019-10-04] MEDS: DICLOFENAC SOD 1% GEL 100 GM TUBE EXT SCH ×4 (07:41→21:02)
--- NOTE | 2019-10-04 09:54 | Palliative Care Consultation ---
Date of Consultation October 04, 2019 Assessment & Plan (1) Goals of care, counseling/discussion: This is a 79 year old male who was admitted on September 23 and is a long-term resident at [facility]. He presented to the [facility] with worsening right facial swelling and redness, along with increased lethargy. Additional PMH includes: Atrial Fibrillation, Dementia, HTN, HLD, DM2, PVD, CKD Stage III, pHTN, foot ulcers, GERD, and depression. Per [facility], he has been increasingly lethargic with hypotension (B/P low 80s/50s). They also report that he had a recent fall, likely related to hypotension. Due to the extent of his dementia, he is a poor historian and all decision making is being made by his son, Hudson Smith ([phone]). The hospitalist met with the patients son and daughter in law on September 30 and they mentioned they felt he was declining overall and was placed on comfort measures with a hope to return to [facility], possibly with Hospice. Patient is DNR/DNI. He has since perked up and was smiling and laughing, which is an improvement, likely back to his baseline. This admission he did become septic likely related to the parotitis. He has completed a course of antibiotics, but when the patient became more interactive, the family did decide to pursue an additional abx course. Palliative Care was consulted to discuss goals of care and complete a POLST form. -I met with the patient in room 384. The patient was sitting upright in his bed, in no apparent distress. No family at the bedside. -The patient was awake and able to converse, but no meaningful conversation due to his dementia. He is a poor historian and unreliable for any answers to questions; however, he was unable to answer any direct questions asked of him. -The patient appears to be back to his baseline, per review of the chart. -His dementia would place him on a FAST scale of all of 6 and including 7a,b; indicating moderately severe - severe dementia. -Previous discussions have been held with the family indicating they wanted to focus on comfort and have him return to [facility] with hospice services. Case management has been involved with the logistical planning and referral. 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 -I attempted to reach the patients son, Hudson Smith, at [phone]; however, he did not answer and his VM was full. -There has been some back and forth regarding hospice vs [facility] as patient has woken slightly and appears back to his baseline. Ultimately, he would qualify for hospice and it would be a benefit for the patient. -Would be beneficial to discuss goals of care with the family to establish return to hospital, fluid resuscitation, etc. -A POLST would also be helpful prior to DC. In discussion with the hospitalist, he could likely be discharged today. -Per review of CM notes, he is a bed hold at . Pt is a DNR/DNI -PPS: 30% (2) Dementia: (3) Osteomyelitis: (4) Parotitis: (5) Atrial fibrillation with rapid ventricular response: (6) Acute dehydration: (7) Stage III pressure ulcer of sacral region: History of Present Illness Reason for Consultation: Goals of care Requesting Physician: Dr. Parker Attending Physician: Josie Marroquin MD History of Present Illness This is a 79 year old male who was admitted on September 23 and is a long-term resident at [facility]. He presented to the [facility] with worsening right facial swelling and redness, along with increased lethargy. Additional PMH includes: Atrial Fibrillation, Dementia, HTN, HLD, DM2, PVD, CKD Stage III, pHTN, foot ulcers, GERD, and depression. Per [facility], he has been increasingly lethargic with hypotension (B/P low 80s/50s). They also report that he had a recent fall, likely related to hypotension. Due to the extent of his dementia, he is a poor historian and all decision making is being made by his son, Hudson Smith ([phone]). The hospitalist met with the patients son and daughter in law on September 30 and they mentioned they felt he was declining overall and was placed on comfort measures with a hope to return to [facility], possibly with Hospice. Patient is DNR/DNI. He has since perked up and was smiling and laughing, which is an improvement, likely back to his baseline. This admission he did become septic likely related to the parotitis. He has completed a course of antibiotics, but when the patient became more interactive, the family did decide to pursue an additional abc course. Palliative Care was consulted to discuss goals of care and complete a POLST form. Please see A/P for further details. Thank you for involving palliative care with this patient Allergies Allergy/AdvReac Type Severity Reaction Status Date / Time cephalexin Allergy Intermediate Leukocytoclastic Verified 09/24/19 11:37 vasculitis neomycin AdvReac Mild RASH Verified 09/24/19 11:37 Home Medications Home Medications Medication Instructions Recorded Confirmed Type metoprolol tartrate 25 mg tablet 25 mg PO BID 10/10/17 09/24/19 History finasteride 5 mg tablet 5 mg PO QAM 07/28/18 09/24/19 History atorvastatin 10 mg PO HS 02/19/19 09/24/19 History furosemide 40 mg tablet 40 mg PO QAM tab 03/11/19 09/24/19 History famotidine 20 mg PO BID 04/01/19 09/24/19 History melatonin 5 mg PO HS 08/13/19 09/24/19 History diclofenac sodium 1 % topical gel 2 gm TOP QID 09/14/19 09/24/19 History gabapentin 100 mg capsule 200 mg PO BID 09/14/19 09/24/19 History acetaminophen 1,000 mg PO Q12 09/24/19 09/24/19 History ascorbic acid (vitamin C) 500 mg PO BID 09/24/19 09/24/19 History bupropion HCl 150 mg PO BID 09/24/19 09/24/19 History sulfamethoxazole 400 1 tab PO BID 14 Days #28 tab 09/24/19 09/24/19 Rx mg-trimethoprim 80 mg tablet Patient History Medical History A-fib Atrial fibrillation BPH (benign prostatic hyperplasia) Chronic venous insufficiency CKD (chronic kidney disease), stage III Diastolic heart failure DM II (diabetes mellitus, type II), controlled Dyslipidemia GERD (gastroesophageal reflux disease) Goals of care, counseling/discussion Hallux rigidus of left foot Hallux rigidus, right foot Hypertension Morbid obesity due to excess calories Osteoarthritis Popliteal DVT (deep venous thrombosis) Positive Lyme disease serology PVD (peripheral vascular disease) Secondary pulmonary hypertension Surgical History History of craniotomy 08/01/2014 - evacuation of subdural hematoma - Dr Abundio Mahmood at [facility] Status post endovenous radiofrequency ablation of saphenous vein Family History Father Diabetes Social History Smoking Status: Former smoker Tobacco Type: Cigarettes Cigarettes Per Day: 1/2 pack day; Second Hand Exposure: No; Hx Alcohol Use: No Hx Substance Use: No Preferred Language: Moldovan Communication Ability: Impaired Lasting Room Machine Operator Required: No Beliefs That Will Affect Care: None marital status: / Current Living Situation: Halfway Current Living Situation Comment: Pt resident of [facility] current occupational status: retired Other Information That Helps Us Care for You: No Feels Safe at Home: Yes Safety Concerns: Feels Safe At This Time Physical Exam Constitutional: + ill appearing, + thin, + frail appearing and + disheveled Neck: trachea midline, no thyromegaly Respiratory: normal respiratory effort; no respiratory distress Auscult ation: + diminished lung sounds (poor effort ) Cardiovascular: Rate/Rhythm: regular rate and regular rhythm Heart Sounds: normal S1 and normal S2 Extremities: normal capillary refill and + edema (+1 LE ) Skin: normal turgor, + wound (right foot ), + crusts and + dry skin Right foot wrapped with kerlex Psychiatric: Orientation: alert Insight: + impaired insight Judgement: + impaired judgement Genitourinary: indwelling cochran catheter with dark yellow + sediment Results & Data ([facility]) Vital Signs (Past 12 Hours) Vital Signs Temp Pulse Pulse Resp BP Pulse Ox 10/04/19 08:00 36.2 C L 86 18 142/79 H 100 10/03/19 23:27 36.5 C 96 H 16 115/76 100 PG Care Time/CCT Total # of Minutes Spent Total Time Spent with Patient: Total time spent is greater than 50% in coordination of care (as documented) at patient's floor/unit and/or counseling patient: 70 Coding Level of Care Code 76987 Inpt Consult Level 3 Diagnoses Goals of care, counseling/discussion Z71.89 Dementia F03.90 Osteomyelitis M86.9 Parotitis K11.20 Atrial fibrillation with rapid ventricular response I48.91 Acute dehydration E86.0 Stage III pressure ulcer of sacral region L89.153 Time Spent (min) 70 Time Spent Midlevel Total time spent 70 minutes with > 50% of that time spent assessing the patient, discussing goals of care with IDT
[2019-10-04] MEDS ORDERED: ACETAMINOPHEN 500 MG TAB PO ONE (11:09)
[2019-10-04] MEDS ORDERED: BuPROPion SR 150 MG TABCR PO ONE (11:10)
[2019-10-04] MEDS: ATORVASTATIN 10 MG TAB PO SCH ×2 (20:57→21:58)
[2019-10-04] MEDS: METOPROLOL TARTRATE 25 MG TAB PO SCH ×2 (20:57→21:59)
[2019-10-04] MEDS: ASCORBIC ACID 500 MG TAB PO SCH ×2 (20:59→21:59)
[2019-10-04] MEDS: ACETAMINOPHEN 500 MG TAB PO SCH ×2 (20:59→21:59)
[2019-10-04] MEDS: BuPROPion SR 150 MG TABCR PO SCH (21:00)
[2019-10-04] MEDS ORDERED: LINEZOLID CONSULT ACTIVE PRN (21:23)
--- NOTE | 2019-10-04 21:24 | Hospitalist Progress Note ---
Date of Service October 04, 2019 Assessment & Plan (1) Sepsis: - due to parotitis, left foot ulcers with OM, as well as urinary tract infection and right foot ulcers Sepsis now resolved BCx x 2-NGTD Foot wound cx with Morganella, MRSA, bacteroides Urine culture with Proteus vitals stable, no fever, now he is awake Was doing very poorly, lethargic, made comfort care on 09/30 resumed antibiotics on 10/01 due to him waking up and eating Then IV antibiotics stopped again on 10/02 with family wondering if the antibiotics caused him to be lethargic again-doubt this. He also received IV dilaudid x 3 doses on 10/02 -Family ok with transition to po abx-start linezolid and Augmentin which will co cory for all organisms and complete 4 more weeks if tolerates consult palliative care appreciated--> plan for back to [place] with Hospice, tomorrow (2) Parotitis: -On admission, CT face: 1. Motion compromised examination. 2. Findings are consistent with right-sided parotitis with surrounding cellulitis and infiltration of the right parapharyngeal fat. 3. No organized fluid collection is seen to suggest abscess. 4. Emphysema no complaints of facial pain completed course of Aztreonam Face appears normal now (3) Acute kidney injury: -Creatinine 2.24, BUN to 65 on admission up from baseline which appears to be creatinine of 1.3-1.4 -now resolved with IV fluids, Cr down to < 1 Is making urine With severe dementia, not enough free water Dc IVFs as family desires no artificial hydration -no further lab draws needed (4) Hypernatremia: -Secondary to dementia and poor access to free water Now awake and able to tolerate pureed diet Poor po intake and says he is thirsty but declines to drink when held in front of him (5) Atrial fibrillation with rapid ventricular response: -chronic afib, not on anticoagulation perhaps for h/o falls or dementia? Unclear Rates improved with hydration and scheduled IV Lopressor Weaned off diltiazem drip and now off metoprolol compeltely for days he has not been on any rate control for days and HR below/around 100 the whole time -restart po metoprolol now that tolerating po (6) Rash: -Diffusely upon admission resolved once Aztreonam was stopped, but also received IV SOlu Medrol x 2 days on admission h/o vasculitic rash with cephalosporins-suspected -ok to trial AUgmentin as above, if develops rash, will stop (7) Stage III pressure ulcer of sacral region: -Wound consult, frequent turning repo q2h (8) Diabetic foot ulcer: s/p debridement with ortho, broad spectrum antibiotics starting po abx as above wound care (9) Osteomyelitis: po abx as above x 4 more weeks (10) GERD (gastroesophageal reflux disease): convert to po pepcid now taking po (11) PVD (peripheral vascular disease): - hx of such restart home statin not on ASA (12) Hypertension: - BP stable, restart home metoprolol (13) Depression: - was going to restart wellbutrin, however interacts with linezolid so will STOP (14) DM II (diabetes mellitus, type II), controlled: - Last A1c in April 2019 was 6.7, is now down to 6.3% encourage PO intake BSG ACHS Having hypoglycemia here due ot poor po intake follow (15) CKD (chronic kidney disease), stage III: -PAULA as above now resolved -Avoid nephrotoxins -renally dose meds when appropriate no further labs needed (16) Urinary tract infection: - UA appears to be grossly infected, urine culture with Proteus completed course of Aztreonam (17) Secondary pulmonary hypertension: -History of such, secondary to diastolic congestive heart failure Holding home Lasix from home and no need to restart (18) Acute metabolic encephalopathy: secondary to infections in setting of dementia Continued to be combative, agitated, babbling incoherently for entire week on 10/01 he woke up after being placed on comfort measures. 10/02 lethargic again but received IV DIlaudid for pain he is now alert, oriented to person, answering questions appropriately, encephalopathy resolved, still with dementia and confusion-family thinks he is back to his baseline -dc IV dilaudid, use tylenol scheduled for pain -dc gabapentin (19) Dementia: Severe and rapidly progressing over the last 7 or 8 months as per the patient's son discussed poor prognosis with patient's son still feel that hospice at [facility] would be appropriate-plan for this tomorrow as per Palliative Care discussion with family (20) DVT prophylaxis: - teds, heparin subq was discontinued on 09/30 for comfort measures CODE: DNR/DNI Dispo: continued stay, is from [facility], plan to go back there on hospice tomorrow as decision with [facility] was made late in the day today Son, Hudson, is POA Admission and Anticipated Discharge Date Admission Date: September 24, 2019 Subjective Pt confused but awake and alert. He was able to tell me "I'm [place] the [place]...at [facility]" today. He is eating and says he is thirsty but will not drink juice placed right in front of his lips as per nurse's aid and RN. Has a lot of pain in his feet and legs when wraps removed. Review of Systems Review of Systems: Unobtainable due to cognitive status Physical Exam Constitutional: average body habitus and cooperative; no acute distress Eyes: + anicteric sclerae ENMT: Mouth: + oral mucosal abnormality (mildly dry lips) Respiratory: normal respiratory effort, lungs clear to auscultation Cardiovascular: Rate/Rhythm: regular rate and + irregularly irregular Extremities: + edema (trace edema in the bilateral lower extremities to the mid leg) Chest (Breasts): Chest: normal inspection of chest Gastrointestinal (Abdomen): normal bowel sounds, soft, nontender, no hepatosplenomegaly Musculoskeletal: Extremities: no cyanosis and no clubbing Skin: no rashes, warm and dry Neurologic: moves all extremities and awake Psychiatric: Orientation: alert, oriented to person, oriented to place and cooperative; + not oriented to time Eye Contact: + fair eye contact Spee ch: normal rate/rhythm/volume of speech Cognition: + recent memory not intact Insight: + poor insight Lymphatic: no lymphedema Results & Data Results & Data ([facility]) Vital Signs (Past 12 Hours) Vital Signs Temp Pulse Resp BP Pulse Ox 10/04/19 20:55 36.4 C L 118 H 20 111/76 100 Laboratory Results 10/04/19 10/04/19 10/04/19 Range/Units 21:05 17:35 11:41 POC Glucose 79 74 74 (70-99) mg/dl 10/04/19 10/04/19 10/04/19 Range/Units 09:01 08:59 08:58 POC Glucose 71 71 67 L* (70-99) mg/dl 10/04/19 10/04/19 Range/Units 08:17 08:13 POC Glucose 79 68 L* (70-99) mg/dl PG Care Time/CCT Total # of Minutes Spent Total Time Spent with Patient: Total time spent is greater than 50% in coordination of care (as documented) at patient's floor/unit and/or counseling patient: Coding Level of Care Code 12717 Subseq Hosp Care Lvl 3 Diagnoses Sepsis A41.9 Parotitis K11.20 Acute kidney injury N17.9 Hypernatremia E87.0 Atrial fibrillation with rapid ventricular response I48.91 Rash R21 Stage III pressure ulcer of sacral region L89.153 Diabetic foot ulcer E11.621; L97.509 Osteomyelitis M86.9 GERD (gastroesophageal reflux disease) K21.9 PVD (peripheral vascular disease) I73.9 Hypertension I10 Depression F32.9 DM II (diabetes mellitus, type II), controlled E11.9 CKD (chronic kidney disease), stage III N18.3 Urinary tract infection N39.0 Secondary pulmonary hypertension Acute metabolic encephalopathy G93.41 Dementia F03.90 DVT prophylaxis Z29.9
[2019-10-04] MEDS: LINEZOLID 600 MG TAB PO SCH (21:57)
[2019-10-04] MEDS: FAMOTIDINE 20 MG TAB PO SCH (21:57)
[2019-10-05] MEDS ORDERED: AMOXICILLIN/CLAVULANATE 875 MG TAB PO SCH (08:00)
[2019-10-05] MEDS: LINEZOLID 600 MG TAB PO SCH (09:37)
[2019-10-05] MEDS: FAMOTIDINE 20 MG TAB PO SCH (09:37)
[2019-10-05] MEDS: METOPROLOL TARTRATE 25 MG TAB PO SCH (09:38)
[2019-10-05] MEDS: ASCORBIC ACID 500 MG TAB PO SCH (09:38)
[2019-10-05] MEDS: FINASTERIDE 5 MG TAB PO SCH (09:38)
[2019-10-05] MEDS: DICLOFENAC SOD 1% GEL 100 GM TUBE EXT SCH (09:39)
[2019-10-05] MEDS: ACETAMINOPHEN 500 MG TAB PO SCH (09:49)
--- NOTE | 2019-10-05 10:33 | Discharge Summary ---
Date of Service October 05, 2019 Admission HPI Per Admitting Provider This is a 79-year-old male with PMHx of A. fib, dementia, HTN, HLD, DM type II, PVD, CKD stage III, secondary pulmonary hypertension, foot ulceration, GERD, depression who presents from [facility] with worsening right facial swelling and erythema as well as lethargy over the past few days. Patient has recently completed course of Clindamycin started 08/18 x 1 week, and then doxycycline started 09/08 for 10 days, for what was thought to be a facial cellulitis over the past month. Failure of improvement of the erythema and swelling prompted scheduling of a CT of the face , however that was not done as an outpatient. With increased lethargy nursing staff sent him to the ER. The patient himself is unable to provide me with specific details due to dementia. Discussion with nursing staff at [facility] reports that pt refused his medication and fell yesterday 11am from the side of the bed. He was not following commands yesterday either. BP 80/53 per intermediate records during the time of the fall, but then these numbers improved to 129/83. He was lethargic but not entirely different compared to baseline. Principal Diagnosis Sepsis, Left foot osteomyelitis, UTI, Severe dementia Discharge Exam Constitutional average body habitus and cooperative; no acute distress Eyes + anicteric sclerae ENMT Mouth: + oral mucosal abnormality (mildly dry lips) Neck trachea midline, no thyromegaly Respiratory normal respiratory effort, lungs clear to auscultation Cardiovascular Rate/Rhythm: regular rate and + irregularly irregular Extremities: + edema (trace edema in the bilateral lower extremities to the mid leg) Chest (Breasts) Chest: normal inspection of chest Gastrointestinal (Abdomen) normal bowel sounds, soft, nontender, no hepatosplenomegaly Musculoskeletal Extremities: no cyanosis and no clubbing Skin no rashes, warm and dry Neurologic moves all extremities and awake Psychiatric Orientation: alert, oriented to person, oriented to place and cooperative; + not oriented to time Eye Contact: + fair eye contact Speech: normal rate/rhythm/volume of speech Cognition: + recent memory not intact Insight: + poor insight Discharge Data Allergies Allergy/AdvReac Type Severity Reaction Status Date / Time cephalexin Allergy Intermediate Leukocytoclastic Verified 09/24/19 11:37 vasculitis neomycin AdvReac Mild RASH Verified 09/24/19 11:37 Consultations 09/24/19 13:54 ED Decision to Admit Stat 09/24/19 17:55 Consult Case Management - Discharge Planning Routine 09/24/19 21:36 Consult Orthopedic Surgery Routine 10/03/19 15:35 Consult Palliative Care Routine Procedures Performed Operation Date: 09/26/19 12:00 Actual Procedures p Excisional Arthroplasty 2nd metatarsal phalangeal joint, Debridement Plantar Ulcer 2.5x2.5x2cm, debridement great toe ulcer 2.5x1.9boi1th,irrigation and debridement skin subcutaneous tissue, fascia, tendon, evacatuion abscess dorsal forefoot (Left) - Ruben Reyes, Ordered Studies 09/24/19 12:44 CT soft tissue neck wo con Stat Foot xray CXR Hospital Course (1) Sepsis: - due to parotitis, left foot ulcers with OM, as well as urinary tract infection and right foot ulcers Sepsis now resolved BCx x 2-NGTD Foot wound cx with Morganella, MRSA, bacteroides Urine culture with Proteus vitals stable, no fever, now he is awake and alert Was doing very poorly, lethargic, made comfort care on 09/30 resumed antibiotics on 10/01 due to him waking up and eating Then IV antibiotics stopped again on 10/02 with family wondering if the antibiotics caused him to be lethargic again-doubt this. He also received IV dilaudid x 3 doses on 10/02 Remains alert and awake, oriented to person and sometimes place. -Family ok with transition to po abx-started linezolid and Augmentin which will cover for all organisms and complete 4 more weeks if tolerates consult palliative care appreciated--> plan for back to [facility] with Hospice, today (2) Parotitis: -On admission, CT face: 1. Motion compromised examination. 2. Findings are consistent with right-sided parotitis with surrounding cellulitis and infiltration of the right parapharyngeal fat. 3. No organized fluid collection is seen to suggest abscess. 4. Emphysema no complaints of facial pain completed course of Aztreonam Face appears normal now (3) Acute kidney injury: -Creatinine 2.24, BUN to 65 on admission up from baseline which appears to be creatinine of 1.3-1.4 -now resolved with IV fluids, Cr down to < 1 Is making urine With severe dementia, not enough free water Dcd IVFs as family desires no artificial hydration -no further lab draws needed (4) Hypernatremia: -Secondary to dementia and poor access to free water Now awake and able to tolerate pureed diet Poor po intake and says he is thirsty but declines to drink when held in front of him comfort feeds (5) Atrial fibrillation with rapid ventricular response: -chronic afib, not on anticoagulation perhaps for h/o falls or dementia? Unclear Rates improved with hydration and scheduled IV Lopressor Weaned off diltiazem drip and now off metoprolol completely for days he has not been on any rate control for days and HR below/around 100 the whole time -restarted po metoprolol now that tolerating po and rates and BP good (6) Rash: -Diffusely upon admission resolved once Aztreonam was stopped, but also received IV SOlu Medrol x 2 days on admission h/o vasculitic rash with cephalosporins-suspected -ok to trial AUgmentin as above, if develops rash, will stop (7) Stage III pressure ulcer of sacral region: -Wound consult, frequent turning repo q2h (8) Diabetic foot ulcer: s/p debridement with ortho, broad spectrum antibiotics starting po abx as above wound care f/u for suture removal in 3 weeks (9) Osteomyelitis: po abx as above x 4 more weeks (10) GERD (gastroesophageal reflux disease): continue po pepcid (11) PVD (peripheral vascular disease): - hx of such continue statin not on ASA (12) Hypertension: - BP stable-continue home metoprolol (13) Depression: - was going to restart wellbutrin, however interacts with linezolid so will STOP (14) DM II (diabetes mellitus, type II), controlled: - Last A1c in April 2019 was 6.7, is now down to 6.3% encourage PO intake BSG ACHS Having hypoglycemia here due ot poor po intake follow could probably transition to regular diet (15) CKD (chronic kidney disease), stage III: -PAULA as above now resolved -Avoid nephrotoxins -renally dose meds when appropriate no further labs needed (16) Urinary tract infection: - UA appears to be grossly infected, urine culture with Proteus completed course of Aztreonam (17) Secondary pulmonary hypertension: -History of such, secondary to diastolic congestive heart failure Holding home Lasix from home and no need to restart (18) Acute metabolic encephalopathy: secondary to infections in setting of dementia Continued to be combative, agitated, babbling incoherently for entire week on 10/01 he woke up after being placed on comfort measures. 10/02 lethargic again but received IV DIlaudid for pain he is now alert, oriented to person, answering questions appropriately, encephalopathy resolved, still with dementia and confusion-family thinks he is back to his baseline -dcd IV dilaudid, use tylenol scheduled for pain Roxanol prn severe pain once on Hospice -dcd gabapentin (19) Dementia: Severe and rapidly progressing over the last 7 or 8 months as per the patient's son discussed poor prognosis with patient's son still feel that hospice at [facility] would be appropriate-plan for this today as per Palliative Care discussion with family (20) DVT prophylaxis: - teds, heparin subq was discontinued on 09/30 for comfort measures CODE: DNR/DNI Dispo: dc to [facility] today on Hospice SonHudson is POA Total Time Total Time Spent Total Time Spent (In Minutes): >30 min Discharge Plan Discharge Items Patient Disposition: Hospice - Medical Facility Reason For Visit: PAROTITIS Discharge Diagnosis: Sepsis, Foot osteomyelitis and ulcer,multiple lower extremity wounds,rapid atrial fibrillation, Severe dementia Condition on Discharge: Fair Activity: As commented below Weightbearing: Left non-weightbearing Non-emergency contact: Primary Care Provider and Surgeon Call non-emergency contact if: you have any medication questions, your symptoms worsen, your pain is not controlled, your pain is worsening, your pain is unusual for you, your pain is concerning for you, you have a fever, your wound has increased redness, your wound has increased drainage and your wound pain has increased Follow-up/Referrals: Ruben Reyes DO [Surgeon] - (Follow up in 2-3 weeks) [facility] [Primary Care Provider] - Diet: Carb Consistent or DM2 Addtl Attending Provider Instructions: Continue the linezolid and Augmentin for 4 more weeks for the bony foot infection. Watch for redevelopment of rash with the Augmentin as he has a h/o allergy to cephalosporins. Mr. Smith is transitioning to comfort care. He can take Roxanol as needed for pain. Addtl Supervisor [place] Provider Instructions: Daily dressing changes. Sutures remain intact until follow up with Ortho. NWB LLE Pending Studies at Discharge: No Stand-Alone Forms: My [facility] Skilled Items Patient informed of condition?: Yes DNR: Yes Discharge Level of Care: Other Communicable Disease: No Discharge Prognosis: Stable Lines: None Urinary Catheter: No Medications and DC Order Prescriptions: New amoxicillin-pot clavulanate [Augmentin] 875-125 mg Tablet 1 tab PO BIDM Qty: 56 RF: 0 linezolid 600 mg Tablet 600 mg PO BID Qty: 56 RF: 0 morphine concentrate 100 mg/5 mL (20 mg/mL) solution 5 mg PO Q6H PRN (Reason: severe pain) Qty: 15 RF: 0 Continued diclofenac sodium [Voltaren] 1 % gel 2 gm TOP QID RF: 0 metoprolol tartrate 25 mg tablet 25 mg PO BID RF: 0 finasteride [Proscar] 5 mg tablet 5 mg PO QAM RF: 0 atorvastatin 10 mg tablet 10 mg PO HS RF: 0 famotidine 20 mg tablet 20 mg PO BID RF: 0 melatonin 5 mg Tablet 5 mg PO HS RF: 0 ascorbic acid (vitamin C) 500 mg Tablet 500 mg PO BID RF: 0 Changed acetaminophen 500 mg Tablet 1,000 mg PO Q8 Qty: 0 RF: 0 Discontinued gabapentin 100 mg capsule 200 mg PO BID RF: 0 sulfamethoxazole-trimethoprim [Bactrim] 400-80 mg tablet 1 tab PO BID 14 Days Qty: 28 RF: 0 furosemide 40 mg tablet 40 mg PO QAM RF: 0 bupropion HCl 150 mg tablet sustained-release 12 hr 150 mg PO BID RF: 0 Discharge Orders: Discharge Order (Routine); Ordered 10/05/19 Ordered By: Josie Marroquin Admission Data Admit Date/Time: 09/24/19 14:55 Attending Provider: Josie Marroquin Admit Provider: Parmjit Willett Primary Care Provider: Keyonna Patrick Other Providers: Parmjit Willett ; Ruben Reyes ; Elva Mcneil Coding Level of Care Code D/C Day Management >30 mins Diagnoses Sepsis A41.9 Parotitis K11.20 Acute kidney injury N17.9 Hypernatremia E87.0 Atrial fibrillation with rapid ventricular response I48.91 Rash R21 Stage III pressure ulcer of sacral region L89.153 Diabetic foot ulcer E11.621; L97.509 Osteomyelitis M86.9 GERD (gastroesophageal reflux disease) K21.9 PVD (peripheral vascular disease) I73.9 Hypertension I10 Depression F32.9 DM II (diabetes mellitus, type II), controlled E11.9 CKD (chronic kidney disease), stage III N18.3 Urinary tract infection N39.0 Secondary pulmonary hypertension Acute metabolic encephalopathy G93.41 Dementia F03.90 DVT prophylaxis Z29.9
== END 2019-10-05 12:48 | disposition hospice, inpatient (51) | DRG 853 ==
LOC: ED 10:34 → 2S 14:55 → SUATTDRO 14:55 → 2S 17:27 → 2W 09-26 18:47 → 3N 09-28 19:00